=== PATIENT | female | born 1950 | race Hispanic/Latino ===

== ENCOUNTER 2017-02-10 12:56 | Inpatient (IN) | payer MEDICARE, MEDICAID ==
[2017-02-10 13:04] VITALS: BMI 54.8
--- NOTE | 2017-02-10 13:06 | ED PDOC ---
Arrival/HPI - General Time Seen by Provider: 02/10/17 13:06 Historian: Patient - History of Present Illness Narrative History of Present Illness (Text): 02/10/17 13:06 A 66 year old female, whose past medical history includes COPD, CHF, heart surgery, mitral valve replacement, ESBL urinary tract infection and appendectomy , is brought into the emergency department by EMS complaining of shortness of breath. As per EMS, patient received 125 mg of Solumedrol and 3 nebulizer treatments. Patient notes abdominal cramping and constipation but denies any fever, nausea, vomiting, chest pain or any other complaints. PMD: Dr. Looney Time/Duration: Prior to Arrival Symptom Course: Unchanged Quality: Other Context: Home Past Medical History - Provider Review Nursing Documentation Reviewed: Yes - Infectious Disease Hx of Infectious Diseases: None - Tetanus Immunization Tetanus Immunization: Unknown - Cardiac Hx Cardiac Disorders: Yes Hx Congestive Heart Failure: Yes Hx Hypertension: Yes - Pulmonary Hx Chronic Obstructive Pulmonary Disease (COPD): Yes - Neurological Hx Neurological Disorder: Yes Other/Comment: pt [place] had hearing aides they are broken at home - HEENT Hx HEENT Disorder: Yes (uses eyeglasses) Hx Deafness: Yes - Renal Hx Renal Disorder: No - Endocrine/Metabolic Hx Diabetes Mellitus Type 2: Yes - Hematological/Oncological Hx Blood Disorders: No - Integumentary Hx Dermatological Disorder: No - Musculoskeletal/Rheumatological Hx Falls: No - Gastrointestinal Hx Gastrointestinal Disorders: Yes Hx Gastroesophageal Reflux: Yes - Genitourinary/Gynecological Hx Genitourinary Disorders: Yes Other/Comment: hysterectomy, tubal ligation - Psychiatric Hx Psychophysiologic Disorder: Yes Hx Anxiety: Yes Hx Depression: Yes Hx Substance Use: No - Surgical History Hx Appendectomy: Yes Hx Hysterectomy: Yes Hx Open Heart Surgery: Yes (1957) Other/Comment: Tonsillectomy. Mitral valve repair as an . 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 - Anesthesia Hx Anesthesia Reactions: No - Suicidal Assessment Feels Threatened In Home Enviroment: No Family/Social History - Physician Review Nursing Documentation Reviewed: Yes Family/Social History: No Known Family HX Smoking Status: Never Smoked Hx Alcohol Use: No Hx Substance Use: No Hx Substance Use Treatment: No Allergies/Home Meds Allergies/Adverse Reactions: Allergies No Known Allergies Allergy (Verified 02/10/17 13:04) Home Medications: Home Meds Medication Instructions Recorded Confirmed Albuterol HFA [Ventolin HFA 90 0.09 mg IH QID 12/10/16 02/10/17 mcg/actuation (8 g)] traMADol [Ultram] 0 mg PO PRN PRN 02/10/17 02/10/17 Review of Systems - Physician Review All systems were reviewed & negative as marked: Yes - Review of Systems Constitutional: absent: Fevers Respiratory: SOB Cardiovascular: absent: Chest Pain Gastrointestinal: Abdominal Pain (Abdominal cramping), Constipation. absent: Nausea, Vomiting Physical Exam Vital Signs Reviewed: Yes Vital Signs Temp Pulse Resp BP Pulse Ox 02/10/17 17:00 84 17 138/62 97 02/10/17 13:05 97.3 F L 97 H 24 129/66 97 Temperature: Afebrile Blood Pressure: Normal Pulse: Tachycardic Respiratory Rate: Normal Appearance: Positive for: Well-Appearing, Non-Toxic, Comfortable, Other (Obese female) Pain Distress: None Mental Status: Positive for: Alert and Oriented X 3 Finger Stick Blood Glucose: 225 - Systems Exam Head: Present: Atraumatic, Normocephalic Pupils: Present: PERRL Extroacular Muscles: Present: EOMI Conjunctiva: Present: Normal Mouth: Present: Moist Mucous Membranes Neck: Present: Normal Range of Motion Respiratory/Chest: Present: Good Air Exchange, Wheezes (Diffuse wheezing). No: Respiratory Distress, Accessory Muscle Use Cardiovascular: Present: Regular Rate and Rhythm, Normal S1, S2. No: Murmurs Abdomen: Present: Distention, Normal Bowel Sounds. No: Tenderness, Peritoneal Signs, Rebound, Guarding Back: Present: Normal Inspection Upper Extremity: Present: Normal Inspection, NORMAL PULSES. No: Cyanosis, Edema Lower Extremity: Present: Normal Inspection, NORMAL PULSES. No: Edema, CALF TENDERNESS Neurological: Present: GCS=15, CN II-XII Intact, Speech Normal Skin: Present: Warm, Dry, Normal Color. No: Rashes Psychiatric: Present: Alert, Oriented x 3, Normal Insight, Normal Concentration Medical Decision Making ED Course and Treatment: 02/10/17 13:06 Impression: A 66 year old female with shortness of breath. Patient notes chronic constipation/abd distention. Plan: -- Abdominal xray -- Chest xray -- EKG -- Labs -- Blood and Urine culture -- Urinalysis -- Albuterol -- Reassess and disposition Progress Notes: EKG shows NSR at [address]-segment elevations, normal intervals. Interpreted by me. Report Date : 02/10/2017 15:04:58 Procedure: Abdominal xray Dictator : Ranjana Benítez V. IMPRESSION: Severely limited exam given the patient 's large body habitus. No gross free air apparent on the limited upright view 02/10/17 15:37 Labs reviewed, elevated white count. Patient is also on steroids. Dr. Aayush krishnan, awaiting call back. 02/10/17 15:49 Patient does not feel comfortable going home. Plan is to admit patient for COPD exacerbation. 02/10/17 16:[address] Looney, who accepted admission under his service. Requests Dr. Ramos for pulmonary consult. He instructs to give patient 40 mg IVP Q8 of solumedrol. 02/10/17 17:[address] Garcia, covering for Dr. Ramos, who accepts consult. abdomen xr: no acute findings 02/10/17 19:57 02/10/17 19:58 02/10/17 19:58 - Lab Interpretations Lab Results: 02/10/17 13:20 02/10/17 13:20 Lab Results 02/10/17 14:13: Urine Color Yellow, Urine Appearance Clear, Urine pH 7.0, Ur Specific [place] 1.015, Urine Protein Negative, Urine Glucose (UA) Negative, Urine Ketones Negative, Urine Blood Negative, Urine Nitrate Negative, Urine Bilirubin Negative, Urine Urobilinogen 0.2, Ur Leukocyte Esterase Negative 02/10/17 13:20: WBC 17.7 H, RBC 5.00, Hgb 11.1 L, Hct 38.4, MCV 76.8 L, MCH 22.2 L, MCHC 28.9 L, RDW 16.9 H, Plt Count 325, MPV 8.9, Gran % 81.5 H, Lymph % (Auto) 12.1 L, [place] % (Auto) 5.5, Eos % (Auto) 0.7 L, Baso % (Auto) 0.2, Gran # 14.42 H, Lymph # 2.1, [place] # 1.0 H, Eos # 0.1, Baso # 0.04, Sodium 138, Potassium 3.9, Chloride 93 L, Carbon Dioxide 35 H, Anion Gap 14, BUN 17, Creatinine 0.7, Est GFR ( Amer) > 60, Est GFR (Non-Af Amer) > 60, Random Glucose 241 H, Calcium 9.6, Total Bilirubin 0.5, AST 15, ALT 15, Alkaline Phosphatase 107, Troponin I < 0.01, Total Protein 6.8, Albumin 3.8, Globulin 3.0 , Albumin/Globulin Ratio 1.3 I have reviewed the lab results: Yes - RAD Interpretation Radiology Orders: 02/10/17 13:11 CHEST ONE VIEW [RAD] Stat 02/10/17 13:12 ABD 2 VIEWS (FLAT/UP OR DECUB) [RAD] Stat - Medication Orders Current Medication Orders: Albuterol/Ipratropium (Duoneb 3 Mg/0.5 Mg (3 Ml) Ud) 3 ml IH Q4H JONATHAN Docusate Sodium (Colace) 100 mg PO DAILY JONATHAN Furosemide (Lasix) 40 mg IVP DAILY JONATHAN Ceftriaxone Sodium (Rocephin 1 Gram Ivpb) 100 mls @ 100 mls/hr IVPB DAILY JONATHAN PRN Reason: Protocol Azithromycin (Zithromax 500mg In Ns) 250 mls @ 167 mls/hr IVPB DAILY JONATHAN PRN Reason: Protocol Insulin Human Regular (Humulin R High) 0 units SC ACHS JONATHAN PRN Reason: Protocol Methylprednisolone (Solu-Medrol) 40 mg IVP Q8 JONATHAN Metoprolol Tartrate (Lopressor) 25 mg PO BID JONATHAN Montelukast Sodium (Singulair) 10 mg PO HS JONATHAN Tiotropium [place] (Spiriva) 18 mcg IH DAILY JONATHAN Tramadol HCl (Ultram) 50 mg PO Q8H PRN PRN Reason: Pain, moderate (4-7) Discontinued Medications Albuterol Sulfate (Albuterol 0.083% Inhal Daniella (2.5 Mg/3 Ml) Ud) 2.5 mg INH ONCE ONE Stop: 02/10/17 13:13 Last Admin: 02/10/17 13:34 Dose: 2.5 MG - Scribe Statement The provider has reviewed the documentation as recorded by the Scribe Helen Barbour Provider Scribe Attestation: All medical record entries made by the Scribe were at my direction and personally dictated by me. I have reviewed the chart and agree that the record accurately reflects my personal performance of the history, physical exam, medical decision making, and the department course for this patient. I have also personally directed, reviewed, and agree with the discharge instructions and disposition. Disposition/Present on Arrival - Present on Arrival Any Indicators Present on Arrival: No History of DVT/PE: No History of Uncontrolled Diabetes: No Urinary Catheter: No History Surgical Site Infection Following: None - Disposition Have Diagnosis and Disposition been Completed?: Yes Diagnosis: COPD with acute exacerbation Disposition: HOSPITALIZED Disposition Time: 15:50 Patient Plan: Admission Patient Problems: Current Active Problems Problem Status Diagnosed COPD with acute exacerbation Acute E coli infection Acute ESBL (extended spectrum beta-lactamase) producing bacteria infection Acute Urinary tract infection Acute Condition: STABLE
[2017-02-10] MEDS ORDERED: Albuterol 0.083% Inhal Sol (2.5 mg/3 mL) UD INH ONE (13:12)
[2017-02-10 13:36] LABS: ADD MANUAL DIFF? NO
[2017-02-10 13:40] LABS: HEMATOCRIT 38.4 % (36.0-48.0); MEAN CELL VOLUME 76.8 fL (80.0-105.0); MEAN CORPUSCULAR HEMOGLOBIN 22.2 pg (25.0-35.0); WHITE BLOOD COUNT 17.7 [, 10^3/ul] (4.5-11.0)
[2017-02-10 13:41] LABS: BASO # 0.04 [, K/mm3] (0.0-2.0); BASO % 0.2 % (0.0-3.0); EOS # 0.1 (0.0-0.7); EOS % 0.7 % (1.5-5.0); GRAN # 14.42 (1.4-6.5); GRAN % 81.5 % (50.0-68.0); LYMPH # 2.1 (1.2-3.4); LYMPH % 12.1 % (22.0-35.0); MEAN CORPUSCULAR HGB CONC 28.9 g/dl (31.0-37.0); MEAN PLATELET VOLUME 8.9 fl (7.0-11.0); MONO % 5.5 % (1.0-6.0); PLATELET COUNT 325 [, 10^3/uL] (120.0-450.0); RED CELL DISTRIBUTION WIDTH 16.9 % (11.5-14.5)
[2017-02-10 13:48] LABS: ALB/GLOB RATIO 1.3 (1.1-1.8); ALKALINE PHOSPHATASE 107 U/L (38-133); ALT/SGPT 15 U/L (7-56); AST/SGOT 15 U/L (15-39); BILIRUBIN,TOTAL 0.5 mg/dL (0.2-1.3); BLOOD UREA NITROGEN 17 mg/dL (7-21); CALCIUM 9.6 mg/dL (8.4-10.5); CARBON DIOXIDE 35 mmol/L (21-33); CHLORIDE 93 mmol/L (98-107); GFR AFRICAN-AMERICAN > 60; GLUCOSE,RANDOM 241 mg/dL (70-110); POTASSIUM 3.9 mmol/L (3.6-5.0); SODIUM 138 mmol/L (132-148); TOTAL PROTEIN 6.8 g/dL (5.8-8.3)
[2017-02-10 14:00] LABS: TROPONIN I < 0.01 ng/mL
[2017-02-10 14:20] LABS: URINE BILIRUBIN NEGATIVE (NEGATIVE); URINE BLOOD NEGATIVE (NEGATIVE); URINE GLUCOSE (UA) NEGATIVE (NEGATIVE); URINE KETONE NEGATIVE (NEGATIVE); URINE LEUKOCYTE ESTERASE NEGATIVE Leu/uL (NEGATIVE); URINE PROTEIN NEGATIVE mg/dL (<30 mg/dL); URINE UROBILINOGEN 0.2 E.U./dL (<1 E.U./dL)
[2017-02-10 14:22] LABS: URINE APPEARANCE CLEAR (CLEAR); URINE COLOR YELLOW (YELLOW)
--- NOTE | 2017-02-10 15:06 | RAD ---
HISTORY: constipation COMPARISON: No prior. FINDINGS: BOWEL: The exam is severely limited due to body habitus no significant appearing gas within small or large bowel loops are clearly seen. There is normal-appearing gas in the stomach BONES: Not visualized OTHER FINDINGS: None. IMPRESSION: Severely limited exam given the patient 's large body habitus. No gross free air apparent on the limited upright view
--- NOTE | 2017-02-10 19:53 | CARD ---
APPROVED REPORT EKG Measurement Heart [id number] <Conclusion> Sinus rhythm with premature supraventricular complexes Low voltage QRS Borderline ECG
[2017-02-10] MEDS: Albuterol-Ipratrop 3 mg / 0.5 (3 ml) UD IH SCH ×2 (20:46→23:31)
[2017-02-10] MEDS: MethylPREDNISolone 40 mg Vial IVP SCH (21:34)
--- NOTE | 2017-02-10 22:47 | CP.PCM.PN ---
Subjective - Date & Time of Evaluation Date of Evaluation: 02/10/17 Time of Evaluation: 22:46 - Subjective Subjective: Patient was seen @ bedside because she requested CPAP machine which she is on at home. States that she uses pressure of '16'. Also states that she can not sleep without trazodoe and tylenol. She requests something for her restless leg syndrome. Has no other complaints. Denies chest pain, sob, nausea, sweating, palpitation, head ache, dizziness. Pertinent medical record was reviewed. This 66 year old white woman was admitted with dizziness, borderline hypoglycemia. Has PMH of COPD,obesity,DM, ROGER. Objective - Vital Signs/Intake and Output Vital Signs (last 24 hours): Temp Pulse Resp BP Pulse Ox 98.5 F 88 21 150/59 L 94 L 02/10/17 21:55 02/10/17 21:55 02/10/17 21:55 02/10/17 21:55 02/10/17 18:30 Intake and Output: 02/10/17 02/11/17 18:59 06:59 Intake Total 540 Balance 540 - Medications Medications: Current Medications Albuterol/Ipratropium (Duoneb 3 Mg/0.5 Mg (3 Ml) Ud) 3 ml IH Q4H [facility] Last Admin: 02/10/17 20:46 Dose: 3 ml Docusate Sodium (Colace) 100 mg PO DAILY JONATHAN Furosemide (Lasix) 40 mg IVP DAILY JONATHAN Ceftriaxone Sodium (Rocephin 1 Gram Ivpb) 100 mls @ 100 mls/hr IVPB DAILY JONATHAN PRN Reason: Protocol Azithromycin (Zithromax 500mg In Ns) 250 mls @ 167 mls/hr IVPB DAILY JONATHAN PRN Reason: Protocol Insulin Human Regular (Humulin R High) 0 units SC ACHS JONATHAN PRN Reason: Protocol Methylprednisolone (Solu-Medrol) 40 mg IVP Q8 JONATHAN Last Admin: 02/10/17 21:34 Dose: 40 mg Metoprolol Tartrate (Lopressor) 25 mg PO BID JONATHAN Montelukast Sodium (Singulair) 10 mg PO HS [facility] Last Admin: 02/10/17 21:34 Dose: 10 mg Tiotropium [place] (Spiriva) 18 mcg IH DAILY JONATHAN Tramadol HCl (Ultram) 50 mg PO Q8H PRN PRN Reason: Pain, moderate (4-7) - Constitutional Appears: Well, No Acute Distress - Head Exam Head Exam: ATRAUMATIC, NORMAL INSPECTION, NORMOCEPHALIC Additional comments: Obese. - Eye Exam Eye Exam: Normal appearance - ENT Exam ENT Exam: Normal External Ear Exam - Neck Exam Neck Exam: Normal Inspection - Respiratory Exam Respiratory Exam: NORMAL BREATHING PATTERN - Cardiovascular Exam Cardiovascular Exam: absent: JVD - GI/Abdominal Exam GI & Abdominal Exam: absent: Distended - Rectal Exam Rectal Exam: Deferred - Extremities Exam Extremities Exam: Normal Inspection - Back Exam Back Exam: NORMAL INSPECTION - Neurological Exam Neurological Exam: Alert, Oriented x3 - Psychiatric Exam Psychiatric exam: Normal Affect, Normal Mood - Skin Skin Exam: Normal Color Assessment and Plan - Assessment and Plan (Free Text) Assessment: A/P:Adjustment insomnia. ROGER. Restless leg syndrome history. DM. Tylenol 975 mg PO x 1. Requip 1 mg PO x 1. Trazodone 200 mg PO x 1.
[2017-02-10] MEDS: Insulin Reg-HIGH-Coverage SC SCH (23:21)
--- NOTE | 2017-02-10 23:37 | HP ---
I know the patient very well from multiple house calls, multiple hospital admissions. She comes in t o the Emergency Room with an acute shortness of breath. She tells me she was almost intubated in the field. She received 125 mg of Solu-Medrol, 3 nebulizer treatments, and she still could not be disch arged. She has a past medical history of COPD, CHF, heart surgery, mitral valve replacement, ESBL urinary tr act infections, appendectomy, morbidly obese. She has been on steroids many times in the outpatient, and now she is acutely short of breath again. She has CHF, COPD, hard of hearing. She wears glasse s, type 2 diabetes, reflux, hysterectomy, tubal ligation. She has anxiety and depression, deafness. Appendectomy, hysterectomy, open heart surgery, tonsillectomy, mitral valve repair as an infant, tumo r removed from left shoulder. Hypertension, diabetes in the family. She never smoked. No alcohol, no drugs. No known drug allergies. She takes a whole bunch of medications. She is on nebulizer treatments, Ventolin, Lasix, Desyrel, Du oNeb, Colace, Lopressor, Singulair, Spiriva, Ultram. She has presently been on prednisone 20 mg, and she is here; failed outpatient steroids. On review of systems there is old hearing loss, old vision loss, nothing acute. No sore throat. No chest pain, acute shortness of breath, wheezes, rhonchi, cannot catch her breath. ABDOMEN: Cramping, constipation. EXTREMITIES: Swollen, difficult to walk, very, very weak, very short of breath, feeling uncomfortabl e. Even with oxygen she tells me she feels short of breath. She has a 97.3 temp, 97 pulse, 24 respiratory rate after the nebulizer treatment and 125 of Solu-Medr ol; 138/62, and 97% O2 sat on 3 L. HEAD: Atraumatic, normocephalic. She looks denisse from all the steroids she has been on. Extraocular muscles are intact. Throat is dry. Pupils equal, reactive to light. HEART: Regular rate. LUNGS: Have decreased breath sounds bilaterally, wheezes, very tight breathing. : Regular rate. Normal S1, S2. ABDOMEN: Morbidly obese. Decreased bowel sounds, no tenderness, no apparent guarding or rebound. N o CVA tenderness. EXTREMITIES: Have +2/4 pitting edema bilaterally. Very weak lower extremities. GCS is 15. Cranial nerves II-XII grossly intact. Speech is normal. Alert and oriented x 3. She had multiple tests. She had a 138 sodium, potassium 3.9, BUN 17, creatinine 0.7, GFR is greater than 60. Sugar is 241. Not on any medicine for diabetes. Calcium is 9.6, total bili is 0.5. AST i s 15, ALT is 15, alk phos 107, troponin is less than 0.01, total protein 6.8, albumin of 3.8, globuli n 3. Urine is clean. A 17.7 white count, 11.1 hemoglobin, 38.4 hematocrit, with 325 platelets. Chest x-ray is pending. Abdomen x-ray: Could not tell much from the abdominal cramping, and she is too big. I made her an inpatient. She will be on Solu-Medrol 40 mg IV q. 8, Lasix IV 40 mg daily, DuoNeb, oxy gen, ceftriaxone, Rocephin, Singulair, Spiriva, oxygen, physical therapy. She might need subacute re hab. Consult with pulmonology, and she is here with acute COPD. Thomas Looney DO cc: [id number] TT: 02/10/2017 23:37:04 jn
[2017-02-11] MEDS: Albuterol-Ipratrop 3 mg / 0.5 (3 ml) UD IH SCH ×6 (04:49→23:22)
[2017-02-11] MEDS: MethylPREDNISolone 40 mg Vial IVP SCH ×3 (06:23→22:11)
[2017-02-11 07:42] LABS: HEMATOCRIT 38.4 % (36.0-48.0); MEAN CORPUSCULAR HEMOGLOBIN 21.6 pg (25.0-35.0); MEAN CORPUSCULAR HGB CONC 28.4 g/dl (31.0-37.0); MEAN PLATELET VOLUME 8.7 fl (7.0-11.0); RED CELL DISTRIBUTION WIDTH 16.8 % (11.5-14.5); WHITE BLOOD COUNT 18.9 [, 10^3/ul] (4.5-11.0)
[2017-02-11] MEDS: Budesonide 0.5 mg/2 ml Inhal Susp UD IH SCH ×2 (07:49→20:52)
--- NOTE | 2017-02-11 08:14 | RAD ---
PROCEDURE: CHEST RADIOGRAPH, 1 VIEW HISTORY: Sepsis Patient COMPARISON: Comparison is made to the previous study dated 01/14/2017 FINDINGS: LUNGS: Suboptimal assessment due to portable technique and patient's body habitus. The assessment of the lower lobes is somewhat limited this study. No significant interval change noted since the previous exam. PLEURA: No pneumothorax or pleural fluid seen. CARDIOVASCULAR: Cardiomegaly is again suspected. OSSEOUS STRUCTURES: No significant abnormalities. VISUALIZED UPPER ABDOMEN: Normal. OTHER FINDINGS: None. IMPRESSION: Limited study. Cardiomegaly and pulmonary vascular congestion again noted.
[2017-02-11] MEDS: Insulin Reg-HIGH-Coverage SC SCH ×4 (08:21→22:12)
[2017-02-11 08:25] LABS: ALB/GLOB RATIO 1.3 (1.1-1.8); ALKALINE PHOSPHATASE 100 U/L (38-133); ALT/SGPT 21 U/L (7-56); AST/SGOT 16 U/L (15-39); BILIRUBIN,TOTAL 0.5 mg/dL (0.2-1.3); BLOOD UREA NITROGEN 19 mg/dL (7-21); CALCIUM 9.5 mg/dL (8.4-10.5); CARBON DIOXIDE 36 mmol/L (21-33); CHLORIDE 94 mmol/L (98-107); GFR AFRICAN-AMERICAN > 60; GLUCOSE,RANDOM 250 mg/dL (70-110); POTASSIUM 4.2 mmol/L (3.6-5.0); SODIUM 139 mmol/L (132-148); TOTAL PROTEIN 6.8 g/dL (5.8-8.3)
[2017-02-11] MEDS: Tiotropium 18 mcg Cap For Inhalation IH SCH (09:33)
[2017-02-11] MEDS: cefTRIAXone 1 gm 100 ML IVPB SCH (09:33)
--- NOTE | 2017-02-11 09:53 | PN ---
DATE: 02/11/2017 I saw the patient sitting up in bed. She is doing much better today than the other day. She is radha thing better. MEDICATIONS: She is on Colace, DuoNeb, insulin, Lasix, Lopressor, Pulmicort, Rocephin, Singulair, So zachary-Medrol (she is down to twice a day as opposed to 3 times a day), Spiriva, Ultram, Zithromax. She is on the BiPAP and definitely more energy today than yesterday. PHYSICAL EXAMINATION: VITAL SIGNS: She has a 98.5 temp, 88 pulse, 152/59 blood pressure, 21 respiratory rate, and 94% O2 s at on nasal cannula. HEAD: Atraumatic, normocephalic. Throat is moist. NECK: Supple. HEART: Regular rate. LUNGS: Decreased breath sounds. For the most part clear. ABDOMEN: Morbidly obese, soft, nontender, positive bowel sounds. EXTREMITIES: Trace edema. LABORATORY DATA: There is an 18.9 white count but we bumped up her steroids, 10.9 hemoglobin, 38.4 h ematocrit with 320 platelets. Sodium 139, potassium 4.2, BUN 19, creatinine 0.6, GFR is greater than 60, sugar is at 250 and 252 (I will adjust her insulin), calcium is 9.5. AST is 16, ALT is 21, elinor line phosphatase 100, total protein 6.8. I am going to add her trazodone which she is missing and her Tylenol. Continue with aggressive treat ment and care, and hopefully for TCU on Wednesday. The patient has acute chronic obstructive pulmonary disease. Thomas Looney DO cc: [id number] TT: 02/11/2017 09:53:14 Confirmation # [id number] Dictation # [id number] mn
--- NOTE | 2017-02-11 10:13 | CON ---
DATE: 02/11/2017 REASON FOR CONSULTATION: Chronic obstructive pulmonary disease. REFERRING PHYSICIAN: Dr. Thomas Looney. HISTORY OF PRESENT ILLNESS: The patient is a 66-year-old female with past medical history significant for advanced chronic obstructive pulmonary disease ( on home oxygen and home steroids), respiratory failure in the past, obstructive sleep apnea, morbid obesity, diabetes mellitus, valvular heart disease, severe anxiety, who presents to [facility] with worsening shortness of breath at rest, dyspnea on exertion, and cough over the past day. The patient denies sputum production. The patient also denies chest pain, coughing up of blood or chest pain -- made worse with deep respirations. There is no history of temperatures, chills or infectious exposure. There is no history of night sweats, weight loss or appetite change prior to the above events. No history of leg or calf pains. No history of syncope or diaphoresis. No history of recent travel or trauma. REVIEW OF SYSTEMS: The patient does admit to some abdominal cramping at times. There is no nausea, vomiting or diarrhea. No acute urinary symptoms. No new neurological or musculoskeletal complaints. Rest of the review of systems is negative. ALLERGIES: No known allergies. SOCIAL HISTORY: Positive for extensive tobacco. Negative for alcohol. FAMILY HISTORY: No inheritable diseases. HOME MEDICATIONS: Include Desyrel, Ultram, Spiriva, DuoNebs, Singulair, Lopressor, Lasix, Colace, prednisone. PHYSICAL EXAMINATION: GENERAL: The patient appears comfortable at rest. She is not short of breath. VITAL SIGNS: Temperature is 98.5, pulse 88, respirations 20, blood pressure 150 /59. Oxygen saturation on nasal cannula is 94-97%. HEENT: Normocephalic, atraumatic. NECK: No JVD. CARDIOVASCULAR: Systolic ejection murmur at the lower left sternal border. No S3 gallop. LUNGS: Decreased breath sounds at the bases. Minimal rhonchi. Few expiratory wheezes. EXTREMITIES: Positive for edema. No cyanosis, no clubbing. Calves are nontender to palpation. GASTROINTESTINAL: Abdomen is soft, nontender, nondistended. Bowel sounds are positive. SKIN: No acute rash. NEUROLOGIC: Limited at the present time. PERTINENT LABORATORY DATA: Chest x-ray was done yesterday and reviewed. It is a very poor portable film. I do not appreciate any significant change from the previous films. The official report is pending. CBC: White count 17.7, hemoglobin 11.1, hematocrit 38.4, platelets of 325. Complete metabolic profile : Chloride 93, carbon dioxide 35, glucose 241. Rest of the metabolic profile is within normal limits. IMPRESSION: 1. Acute bronchitis. 2. Advanced chronic obstructive pulmonary disease, on home oxygen and steroids. 3. Obstructive sleep apnea. 4. Diabetes mellitus. 5. Valvular heart disease. PLAN: I did discuss the case with the patient and the nurse at length. The patient presents to [facility] with a 1-day history of worsening pulmonary symptoms. I did review the x-ray as above. Again, it is a very poor portable film. I do not appreciate any significant change from the previous films. On physical exam, the patient is in mild bronchospasm. I will continue with the current nebulizer treatments and add inhaled budesonide this morning. I will also decrease the intravenous steroids. The patient is currently on antibiotic therapy. There are no temperatures noted. The patient does run a mild leukocytosis during many of her admissions. The patient does state to feeling better this morning -- compared to the past few days. She is clinically improved this morning. Additional pulmonary intervention will be based on the clinical status of the patient. I will discuss the above with Dr. Looney. Wagner Ramos MD cc: [id number] TT: 02/11/2017 10:12:41 Confirmation # [id number] Dictation # [id number] jn MTDD
[2017-02-11] MEDS: Azithromycin 500MG/NS 250ml 250 ML IVPB SCH (12:08)
--- NOTE | 2017-02-11 13:30 | CP.PCM.CON ---
Addendum entered and electronically signed by Jas Lopez DO 02/11/17 14:15 : PGY4 Addendum: Patient had a large BM without the use of any laxative therapy. Will d/c order for enema and mag. citrate. Continue with Miralax 17g PO BID. Original Note: <Jas Lopez - Last Filed: 02/11/17 13:20> History of Present Illness - History of Present Illness History of Present Illness: PGY4 GI Fellow Consult Note Patient is a 66yo female with PMHx significant for COPD, CHF, H/O MV replacement , ROGER, morbid obesity, OA, spinal stenosis who presented to the ED complaining of shortness of breath. Our service has been consulted for abdominal cramping and constipation. The patient had acute onset shortness of breath and called EMS. She is currently being treated for COPD exacerbation and per chart history , was close to intubation in the field on arrival of EMS. She complains of worsening constipation over the past month. She has always suffered with constipation, passing stool infrequently (2-3 days) and often pushing or straining just to pass small amounts. In the past week she has noted increasing difficulty to pass stool and worsening abdominal distention. She has used colace and miralax at home with minimal relief. Denies any weight loss, nausea, vomiting. Does admit to one episode of fresh blood following passage of hard stool and episodes of dysphagia which are positional. PMHx: See HPI PSHx: Mitral valve replacement, Appendectomy, JESU, left ankle, multiple D&C, tubal ligation FHx: Brother - lung cancer; sister - breast cancer Social: Former smoker, quit 15 years ago; no EtOH or illicit drug use Endo: Colonoscopy and EGD 3 years ago - 9+ polyps removed Review of Systems - Constitutional Constitutional: absent: Anorexia, Chills, Fever - EENT Eyes: absent: Change in Vision Nose/Mouth/Throat: absent: Sore Throat - Cardiovascular Cardiovascular: absent: Chest Pain, Diaphoresis, Edema - Respiratory Respiratory: Dyspnea, Dyspnea on Exertion. absent: Cough - Gastrointestinal Gastrointestinal: Abdominal Pain, Bloating, Constipation, Cramping. absent: Diarrhea, Dyspepsia, Dysphagia, Hematemesis, Melena, Nausea, Vomiting - Genitourinary Genitourinary: absent: Dysuria, Urinary Frequency, Urinary Urgency - Musculoskeletal Musculoskeletal: absent: Back Pain, Neck Pain - Integumentary Integumentary: absent: New Lesions, Rash - Neurological Neurological: absent: Dizziness, Numbness, Focal Weakness - Psychiatric Psychiatric: absent: Anxiety, Depression - Endocrine Endocrine: absent: Polydipsia, Polyphagia, Polyuria - Hematologic/Lymphatic Hematologic: absent: Easy Bleeding, Easy Bruising, Lymphadenopathy Past Patient History - Infectious Disease Hx of Infectious Diseases: None - Tetanus Immunizations Tetanus Immunization: Unknown - Past Social History Smoking Status: Former Smoker - CARDIAC Hx Cardiac Disorders: Yes Hx Congestive Heart Failure: Yes Hx Hypertension: Yes - PULMONARY Hx Chronic Obstructive Pulmonary Disease (COPD): Yes - NEUROLOGICAL Hx Neurological Disorder: Yes Other/Comment: pt [place] had hearing aides they are broken at home - HEENT Hx HEENT Problems: Yes (uses eyeglasses) Hx Deafness: Yes - RENAL Hx Chronic Kidney Disease: No - ENDOCRINE/METABOLIC Hx Diabetes Mellitus Type 2: Yes - HEMATOLOGICAL/ONCOLOGICAL Hx Blood Disorders: No - INTEGUMENTARY Hx Dermatological Problems: No - MUSCULOSKELETAL/RHEUMATOLOGICAL Hx Falls: No - GASTROINTESTINAL Hx Gastrointestinal Disorders: Yes Hx Gastroesophageal Reflux: Yes - GENITOURINARY/GYNECOLOGICAL Hx Genitourinary Disorders: Yes Other/Comment: hysterectomy, tubal ligation - PSYCHIATRIC Hx Psychophysiologic Disorder: Yes Hx Anxiety: Yes Hx Depression: Yes - SURGICAL HISTORY Hx Appendectomy: Yes Hx Hysterectomy: Yes Hx Open Heart Surgery: Yes (1957) Other/Comment: Tonsillectomy. Mitral valve repair as an . 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 - ANESTHESIA Hx Anesthesia Reactions: No Meds Allergies/Adverse Reactions: Allergies Allergy/AdvReac Type Severity Reaction Status Date / Time No Known Allergies Allergy Verified 02/10/17 13:04 - Medications Medications: Current Medications Acetaminophen (Tylenol 325mg Tab) 650 mg PO Q6H PRN PRN Reason: Headache Albuterol/Ipratropium (Duoneb 3 Mg/0.5 Mg (3 Ml) Ud) 3 ml IH Q4H [facility] Last Admin: 02/11/17 11:23 Dose: 3 ml Budesonide (Pulmicort Respules) 0.5 mg IH [id number] [facility] Last Admin: 02/11/17 07:49 Dose: 0.5 mg Docusate Sodium (Colace) 100 mg PO DAILY [facility] Last Admin: 02/11/17 09:33 Dose: 100 mg Furosemide (Lasix) 40 mg IVP DAILY [facility] Last Admin: 02/11/17 09:33 Dose: 40 mg Ceftriaxone Sodium (Rocephin 1 Gram Ivpb) 100 mls @ 100 mls/hr IVPB DAILY [facility] PRN Reason: Protocol Last Admin: 02/11/17 09:33 Dose: 100 mls/hr Azithromycin (Zithromax 500mg In Ns) 250 mls @ 167 mls/hr IVPB DAILY [facility] PRN Reason: Protocol Last Admin: 02/11/17 12:08 Dose: 167 mls/hr Insulin Human Regular (Humulin R High) 0 units SC ACHS [facility] PRN Reason: Protocol Last Admin: 02/11/17 12:08 Dose: 10 units Methylprednisolone (Solu-Medrol) 40 mg IVP Q12 [facility] Last Admin: 02/11/17 09:33 Dose: Not Given Metoprolol Tartrate (Lopressor) 25 mg PO BID [facility] Last Admin: 02/11/17 09:33 Dose: 25 mg Montelukast Sodium (Singulair) 10 mg PO [facility] Last Admin: 02/10/17 21:34 Dose: 10 mg Tiotropium [place] (Spiriva) 18 mcg IH DAILY [facility] Last Admin: 02/11/17 09:33 Dose: 18 mcg Tramadol HCl (Ultram) 50 mg PO Q8H PRN PRN Reason: Pain, moderate (4-7) Trazodone HCl (Desyrel) 200 mg PO [facility] Physical Exam - Constitutional Appears: Non-toxic, No Acute Distress Additional comments: morbidly obese - Eye Exam Eye Exam: EOMI, PERRL - ENT Exam ENT Exam: Mucous Membranes Moist - Respiratory Exam Respiratory Exam: Rales, Wheezes. absent: Clear to Auscultation Bilateral, Rhonchi - Cardiovascular Exam Cardiovascular Exam: Tachycardia, REGULAR RHYTHM, +S1, +S2 - GI/Abdominal Exam GI & Abdominal Exam: Distended, Normal Bowel Sounds, Soft. absent: Guarding, Hernia, Organomegaly, Rigid, Tenderness - Extremities Exam Extremities exam: Positive for: normal inspection. Negative for: pedal edema - Neurological Exam Neurological exam: Alert, Oriented x3 - Psychiatric Exam Psychiatric exam: Normal Affect, Normal Mood - Skin Skin Exam: Dry, Warm Results - Vital Signs Recent Vital Signs: Last Vital Signs Temp 97 F L 02/11/17 09:11 Pulse 97 H 02/11/17 09:33 Resp 22 02/11/17 09:11 BP 130/58 L 02/11/17 09:33 Pulse Ox 93 L 02/11/17 09:11 - Labs Result Diagrams: 02/11/17 07:25 02/11/17 07:25 Labs: Laboratory Results - last 24 hr 02/10/17 02/11/17 02/11/17 21:49 07:25 07:37 WBC 18.9 H RBC 5.05 Hgb 10.9 L Hct 38.4 MCV 76.0 L MCH 21.6 L MCHC 28.4 L RDW 16.8 H Plt Count 320 MPV 8.7 Sodium 139 Potassium 4.2 Chloride 94 L Carbon Dioxide 36 H Anion Gap 13 BUN 19 Creatinine 0.6 Est GFR ( Amer) > 60 Est GFR (Non-Af Amer) > 60 POC Glucose (mg/dL) 316 H 252 H Random Glucose 250 H Hemoglobin A1c 7.5 H Calcium 9.5 Total Bilirubin 0.5 AST 16 ALT 21 Alkaline Phosphatase 100 Total Protein 6.8 Albumin 3.8 Globulin 3.0 Albumin/Globulin Ratio 1.3 02/11/17 11:03 WBC RBC Hgb Hct MCV MCH MCHC RDW Plt Count MPV Sodium Potassium Chloride Carbon Dioxide Anion Gap BUN Creatinine Est GFR ( Amer) Est GFR (Non-Af Amer) POC Glucose (mg/dL) 313 H Random Glucose Hemoglobin A1c Calcium Total Bilirubin AST ALT Alkaline Phosphatase Total Protein Albumin Globulin Albumin/Globulin Ratio Assessment & Plan - Assessment and Plan (Free Text) Assessment: Patient is a 66yo female with PMHx significant for COPD, CHF, H/O MV replacement , ROGER, morbid obesity, OA, spinal stenosis who presented to the ED complaining of shortness of breath. Our service has been consulted for abdominal cramping and constipation. -Acute COPD exacerbation -CHF -ROGER -Morbid obesity -Constipation Plan: -Recommend an aggressive bowel regimen -Start with fleet enema x 1 followed by tap water enema to stool -Miralax 17g PO BID -Magnesium citrate 1 bottle -D/C colace -Continue to monitor -Pt will benefit from colonoscopy as outpatient once she is medically optimized from a pulmonary standpoint - Date & Time Date: 02/11/17 Time: 11:20 <Bernard Jamison - Last Filed: 02/11/17 16:23> Meds - Medications Medications: Current Medications Acetaminophen (Tylenol 325mg Tab) 650 mg PO Q6H PRN PRN Reason: Headache Albuterol/Ipratropium (Duoneb 3 Mg/0.5 Mg (3 Ml) Ud) 3 ml IH Q4H [facility] Last Admin: 02/11/17 11:23 Dose: 3 ml Budesonide (Pulmicort Respules) 0.5 mg IH [id number] [facility] Last Admin: 02/11/17 07:49 Dose: 0.5 mg Docusate Sodium (Colace) 100 mg PO DAILY [facility] Last Admin: 02/11/17 09:33 Dose: 100 mg Furosemide (Lasix) 40 mg IVP DAILY [facility] Last Admin: 02/11/17 09:33 Dose: 40 mg Ceftriaxone Sodium (Rocephin 1 Gram Ivpb) 100 mls @ 100 mls/hr IVPB DAILY [facility] PRN Reason: Protocol Last Admin: 02/11/17 09:33 Dose: 100 mls/hr Azithromycin (Zithromax 500mg In Ns) 250 mls @ 167 mls/hr IVPB DAILY [facility] PRN Reason: Protocol Last Admin: 02/11/17 12:08 Dose: 167 mls/hr Insulin Human Regular (Humulin R High) 0 units SC ACHS [facility] PRN Reason: Protocol Last Admin: 02/11/17 12:08 Dose: 10 units Methylprednisolone (Solu-Medrol) 40 mg IVP Q12 [facility] Last Admin: 02/11/17 09:33 Dose: Not Given Metoprolol Tartrate (Lopressor) 25 mg PO BID [facility] Last Admin: 02/11/17 09:33 Dose: 25 mg Montelukast Sodium (Singulair) 10 mg PO HS [facility] Last Admin: 02/10/17 21:34 Dose: 10 mg Polyethylene Glycol (Miralax) 17 gm PO BID [facility] Tiotropium [place] (Spiriva) 18 mcg IH DAILY [facility] Last Admin: 02/11/17 09:33 Dose: 18 mcg Tramadol HCl (Ultram) 50 mg PO Q8H PRN PRN Reason: Pain, moderate (4-7) Trazodone HCl (Desyrel) 200 mg PO HS [facility] Results - Vital Signs Recent Vital Signs: Last Vital Signs Temp 97 F L 02/11/17 09:11 Pulse 97 H 02/11/17 09:33 Resp 22 02/11/17 09:11 BP 130/58 L 02/11/17 09:33 Pulse Ox 93 L 02/11/17 09:11 - Labs Result Diagrams: 02/11/17 07:25 02/11/17 07:25 Labs: Laboratory Results - last 24 hr 02/10/17 02/11/17 02/11/17 21:49 07:25 07:37 WBC 18.9 H RBC 5.05 Hgb 10.9 L Hct 38.4 MCV 76.0 L MCH 21.6 L MCHC 28.4 L RDW 16.8 H Plt Count 320 MPV 8.7 Sodium 139 Potassium 4.2 Chloride 94 L Carbon Dioxide 36 H Anion Gap 13 BUN 19 Creatinine 0.6 Est GFR ( Amer) > 60 Est GFR (Non-Af Amer) > 60 POC Glucose (mg/dL) 316 H 252 H Random Glucose 250 H Hemoglobin A1c 7.5 H Calcium 9.5 Total Bilirubin 0.5 AST 16 ALT 21 Alkaline Phosphatase 100 Total Protein 6.8 Albumin 3.8 Globulin 3.0 Albumin/Globulin Ratio 1.3 02/11/17 11:03 WBC RBC Hgb Hct MCV MCH MCHC RDW Plt Count MPV Sodium Potassium Chloride Carbon Dioxide Anion Gap BUN Creatinine Est GFR ( Amer) Est GFR (Non-Af Amer) POC Glucose (mg/dL) 313 H Random Glucose Hemoglobin A1c Calcium Total Bilirubin AST ALT Alkaline Phosphatase Total Protein Albumin Globulin Albumin/Globulin Ratio Attending/Attestation - Attestation I have personally seen and examined this patient.: Yes I have fully participated in the care of the patient.: Yes I have reviewed all pertinent clinical information: Yes Notes (Text): Patient seen and examined with GI fellow. Agree with his note as documented above with the following additions/exceptions. This is a 66yo female with PMHx significant for COPD on home O2, obstructive sleep apnea, morbid obesity, spinal stenosis, heart failure, colon polyps who presents with shortness of breath due to COPD exacerbation. She notes worsening constipation recently associated with intermittent abdominal cramping/bloating. Her last colonoscopy was roughly [address] Munoz with 9 polyps removed and she was planning on following up for surveillance. She is tolerating diet without vomiting. She has been on miralax therapy and subsequently had large BM this afternoon. Would continue bowel regimen, diet as tolerated. She would ultimately benefit from surveillance colonoscopy, which can be arranged with her outpatient mobility developer once/if her pulmonary issues improve. Continue management of COPD as per primary medical team/pulmonary. 02/11/17 16:16
[2017-02-11] MEDS ORDERED: Magnesium Citrate Oral SOL (300 ml) PO ONE (13:35)
[2017-02-11] MEDS: POLYETHYLENE GLYCOL 3350 17 GM/Dose PACKET PO SCH (17:14)
--- NOTE | 2017-02-11 22:06 | CON ---
DATE: 02/11/2017 CHIEF COMPLAINT: Difficulty voiding, recurrent urinary tract infections. HISTORY OF PRESENT ILLNESS: A 66-year-old female with severe COPD, history of mitral valve replaceme nt surgery, congestive heart failure, was admitted for acute respiratory distress. She complains at home she has leakage when she stands up, and when she sits on the toilet she goes a little bit and spivey s to push; feels like she is not emptying. She is a new diabetic. At home, she is on steroids and n ebulizers. PAST MEDICAL HISTORY: Significant for congestive heart failure and hypertension, COPD, severe; type 2 diabetes. SURGICAL HISTORY: Includes a prior appendectomy and hysterectomy, open heart surgery for the mitral valve replacement. FAMILY HISTORY: Noncontributory. SOCIAL HISTORY: She does not smoke. ALLERGIES: She has no known allergies. MEDICATIONS AT HOME: Include tramadol, albuterol. REVIEW OF SYMPTOMS: She currently is sitting in a chair on oxygen. No symptoms referable to the hea d, eyes, nose, or throat. She does have decreased hearing. No current chest pain. No current short ness of breath just sitting in a chair. She has no further abdominal pain after having had a large b owel movement. No psychiatric complaints. Her physical examination shows her to be morbidly obese. She is afebrile, pulse is 95, blood pressure 148/67, respirations 22. Normocephalic. Sclerae clear, conjunctivae not injected. No CVA pain. No rebound or guarding. Cannot appreciate any hepato or splenomegaly. There was no pu rpura. Her lab work shows a white count of 18,900. Chemistry shows creatinine of 0.6. Her urine was comple tely negative. IMPRESSION: I told the nurses tomorrow I will be here early in the morning to do a case, and when I am in scrubs I will catheterize her for residual. A bladder scan would not be of any value, and woul d not be able to give a clear reading, and the nurses would not be able to catheterize her in my opin ion due to her morbid obesity. If in fact she empties well, then her recurrent infections could be d ue to the diabetes and chronic constipation, and being on steroids. If she is not emptying and has a significant residual, say more than 250 or 300 mL, I would leave the Berg indwelling for the time raya robertson. Shyam Sandy MD cc: [id number] TT: 02/11/2017 22:05:30 Confirmation # [id number] Dictation # [id number] jn
[2017-02-12] MEDS: Albuterol-Ipratrop 3 mg / 0.5 (3 ml) UD IH SCH ×6 (04:48→20:45)
[2017-02-12] MEDS: Budesonide 0.5 mg/2 ml Inhal Susp UD IH SCH ×2 (07:09→20:43)
[2017-02-12 07:33] LABS: HEMATOCRIT 39.9 % (36.0-48.0); MEAN CELL VOLUME 77.2 fL (80.0-105.0); MEAN CORPUSCULAR HEMOGLOBIN 21.9 pg (25.0-35.0); MEAN CORPUSCULAR HGB CONC 28.3 g/dl (31.0-37.0); MEAN PLATELET VOLUME 9.2 fl (7.0-11.0); WHITE BLOOD COUNT 23.6 [, 10^3/ul] (4.5-11.0)
[2017-02-12 08:31] LABS: ALB/GLOB RATIO 1.3 (1.1-1.8); ALKALINE PHOSPHATASE 96 U/L (38-133); ALT/SGPT 12 U/L (7-56); AST/SGOT 18 U/L (15-39); BILIRUBIN,TOTAL 0.4 mg/dL (0.2-1.3); BLOOD UREA NITROGEN 24 mg/dL (7-21); CALCIUM 9.7 mg/dL (8.4-10.5); CARBON DIOXIDE 33 mmol/L (21-33); CHLORIDE 95 mmol/L (98-107); GFR AFRICAN-AMERICAN > 60; GLUCOSE,RANDOM 239 mg/dL (70-110); POTASSIUM 4.3 mmol/L (3.6-5.0); SODIUM 141 mmol/L (132-148); TOTAL PROTEIN 6.8 g/dL (5.8-8.3)
[2017-02-12] MEDS: Insulin Reg-HIGH-Coverage SC SCH ×4 (08:35→21:42)
--- NOTE | 2017-02-12 10:00 | PN ---
DATE: 02/12/2017 SUBJECTIVE: The patient appears comfortable this morning. She is not short of breath at rest. VITALS: Temperature is 98.1, pulse 86, respirations 18, blood pressure 148/67. Oxygen saturation on nasal cannula ranges between 92-97%. HENT: Normocephalic, atraumatic. No JVD. CARDIOVASCULAR: Systolic ejection murmur at the lower left sternal border. No S3 gallop. LUNGS: Decreased breath sounds at the bases. Less rhonchi. No wheezing this morning. EXTREMITIES: Positive for edema. No cyanosis, no clubbing. Calves are nontender to palpation. GASTROINTESTINAL: Abdomen is soft, nontender, nondistended. Bowel sounds are positive. SKIN: No acute rash. NEUROLOGIC EXAMINATION: Limited at the present time. IMPRESSION: 1. Acute bronchitis. 2. Advanced chronic obstructive pulmonary disease. 3. Obstructive sleep apnea. 4. Diabetes mellitus. 5. Valvular heart disease. PLAN: The patient appears very comfortable this morning. She is not short of breath at rest. She states she is feeling better overall. On physical exam, her bronchospasm is certainly less -- compared to the initial presentation. I will continue with the current nebulizer treatments and low-dose intravenous steroids (decreased yesterday) for now. The patient remains on antibiotic therapy. There are no temperatures noted. Clinical status of the patient is certainly improved. However, again, the overall status/prognosis of this chronically ill patient with advanced chronic obstructive pulmonary disease-- does remain guarded. I will discuss the above with the attending physician this morning. Wagner Ramos MD cc: [phone] TT: 02/12/2017 09:59:44 Confirmation # [id number] Dictation # [id number] jn MTDHallie
[2017-02-12] MEDS: Tiotropium 18 mcg Cap For Inhalation IH SCH (10:08)
[2017-02-12] MEDS: MethylPREDNISolone 40 mg Vial IVP SCH ×2 (10:09→21:40)
[2017-02-12] MEDS: POLYETHYLENE GLYCOL 3350 17 GM/Dose PACKET PO SCH ×2 (10:11→17:37)
[2017-02-12] MEDS: Azithromycin 500MG/NS 250ml 250 ML IVPB SCH (10:12)
[2017-02-12] MEDS: cefTRIAXone 1 gm 100 ML IVPB SCH (10:13)
--- NOTE | 2017-02-12 10:29 | PN ---
DATE: 02/12/2017 I saw her sitting up in bed. She has oxygen on. She is trying to eat breakfast. She gets short of breath at times. She is walking a bit, but gets short of breath if she goes too far. She is currently on Colace, Desyrel, DuoNeb, insulin coverage, Lasix 40 IV b.i.d., Lopressor, MiraLax for constipation, Rocephin, and Zithromax IV for elevated white count, possible pneumonia. IV Solu- Medrol for COPD exacerbation, Singulair, Spiriva, Tylenol, and Ultram. She has a 97.9 temp, 89 pulse, 104/60 blood pressure, 24 respiratory rate, 95% O2 sat on nasal cannul a. HEAD: Atraumatic, normocephalic. She looks cushingoid from all the steroids she has been on in the past. HEART: Regular rate. LUNGS: Decreased breath sounds, clearer. Moving more air. Still not back to her baseline yet. Occ asional wheeze and congestion. ABDOMEN: Morbidly, morbidly obese, soft, nontender. EXTREMITIES: Trace edema. She has a 23.6 white count on steroids, 11.3 hemoglobin, 39.9 hematocrit, with 388 platelets. A 141 sodium, potassium 4.3, BUN 24, creatinine 0.8. GFR is greater than 60. Blood sugars are 239 and 213 . Calcium is 9.7, total bili is 0.4. AST is 18, ALT is 12, alk phos is 96, total protein 6.8. I am going to decrease her Solu-Medrol to 30 IV q. 12. Continue with Lasix 40 IV daily, and the anti biotics. Check her labs tomorrow. Physical therapy. I am hoping to get her to TCU to finish off th e treatment with antibiotics. Solu-Medrol to prednisone next week, and physical therapy before she g oes home. She is here for COPD, CHF, leukocytosis, constipation, and urinary tract problems. Thomas Looney DO cc: [id number] TT: 02/12/2017 10:29:23 Confirmation # [id number] Dictation # [id number] jn
--- NOTE | 2017-02-12 12:42 | CP.PCM.PN ---
Subjective - Date & Time of Evaluation Date of Evaluation: 02/12/17 Time of Evaluation: 12:38 - Subjective Subjective: RFV: Constipation S: Had Bm yesterday. Remains sob with any movement. On oxygen therapy. Taking miralax. Objective - Vital Signs/Intake and Output Vital Signs (last 24 hours): Temp Pulse Resp BP Pulse Ox 97.9 F 89 24 100/58 L 95 02/12/17 07:58 02/12/17 07:58 02/12/17 07:58 02/12/17 10:11 02/12/17 07:58 Intake and Output: 02/12/17 02/12/17 06:59 18:59 Intake Total 840 Balance 840 - Medications Medications: Current Medications Acetaminophen (Tylenol 325mg Tab) 650 mg PO Q6H PRN PRN Reason: Headache Albuterol/Ipratropium (Duoneb 3 Mg/0.5 Mg (3 Ml) Ud) 3 ml IH Q4H [facility] Last Admin: 02/12/17 11:16 Dose: 3 ml Budesonide (Pulmicort Respules) 0.5 mg IH [id number] [facility] Last Admin: 02/12/17 07:09 Dose: 0.5 mg Docusate Sodium (Colace) 100 mg PO DAILY [facility] Last Admin: 02/12/17 10:19 Dose: 100 mg Enoxaparin Sodium (Lovenox) 40 mg SC DAILY [facility] PRN Reason: Protocol Furosemide (Lasix) 40 mg IVP DAILY [facility] Last Admin: 02/12/17 10:11 Dose: Not Given Ceftriaxone Sodium (Rocephin 1 Gram Ivpb) 100 mls @ 100 mls/hr IVPB DAILY [facility] PRN Reason: Protocol Last Admin: 02/12/17 10:13 Dose: 100 mls/hr Azithromycin (Zithromax 500mg In Ns) 250 mls @ 167 mls/hr IVPB DAILY [facility] PRN Reason: Protocol Last Admin: 02/12/17 10:12 Dose: 167 mls/hr Insulin Human Regular (Humulin R High) 0 units SC ACHS [facility] PRN Reason: Protocol Last Admin: 02/12/17 12:06 Dose: 4 units Methylprednisolone (Solu-Medrol) 30 mg IVP Q12 [facility] Last Admin: 02/12/17 10:09 Dose: 30 mg Metoprolol Tartrate (Lopressor) 25 mg PO BID [facility] Last Admin: 02/12/17 10:10 Dose: Not Given Montelukast Sodium (Singulair) 10 mg PO [facility] Last Admin: 02/11/17 22:11 Dose: 10 mg Polyethylene Glycol (Miralax) 17 gm PO BID [facility] Last Admin: 02/12/17 10:11 Dose: 17 gm Tiotropium [place] (Spiriva) 18 mcg IH DAILY [facility] Last Admin: 02/12/17 10:08 Dose: 18 mcg Tramadol HCl (Ultram) 50 mg PO Q8H PRN PRN Reason: Pain, moderate (4-7) Trazodone HCl (Desyrel) 200 mg PO [facility] Last Admin: 02/12/17 01:02 Dose: 200 mg - Labs Labs: 02/12/17 07:00 02/12/17 07:00 - Constitutional Appears: Chronically Ill - Head Exam Head Exam: ATRAUMATIC, NORMOCEPHALIC - Eye Exam Eye Exam: absent: Scleral icterus - ENT Exam ENT Exam: Mucous Membranes Dry - Respiratory Exam Respiratory Exam: Wheezes, Respiratory Distress - Cardiovascular Exam Cardiovascular Exam: +S1, +S2 - GI/Abdominal Exam GI & Abdominal Exam: Soft. absent: Tenderness - Neurological Exam Neurological Exam: Alert, Oriented x3 Assessment and Plan - Assessment and Plan (Free Text) Assessment: 66 year old female with h/o COPD on home O2, ROGER, morbid obesity, spinal stenosis, CHF, colon polyps admitted with COPD exacerbation, also with chronic constipation. 1. Chronic constipation 2. History of colon polyps Plan: -continue bowel regimen with miralax 17 g po bid -can titrate up to TID if needed or add dulcolax 10 mg daily PRN if necessary -diet as tolerated -outpatient colonoscopy advised when acute respiratory illness resolves -will sign off at this time
--- NOTE | 2017-02-12 12:51 | PN ---
DATE: 02/12/2017 The patient was catheterized by me. It was difficult because of her morbid obesity and retracted ure thra, but I was able to catheterize her, she had voided approximately 2 hours previously and there wa s only 115 mL in the bladder. This is not retention. The Berg catheter was removed. The dribbling she complains of, I think is partly related to her weight, inability to move and I told her that I w ould not put her on any medicines for this. I do not think it is significant enough compared to the other medical problems she has to warrant risking the complications of putting her on any type of ant icholinergic. She understands this. Will see again if requested. Shyam Sandy MD cc: [id number] TT: 02/12/2017 12:50:40 Confirmation # [id number] Dictation # [id number] jn
[2017-02-12] MEDS: Enoxaparin 40 mg Syringe SC SCH (15:26)
--- NOTE | 2017-02-12 18:24 | CP.PCM.PN ---
Subjective - Date & Time of Evaluation Date of Evaluation: 02/12/17 Time of Evaluation: 13:45 - Subjective Subjective: pt needs angiocath insertion . Objective - Vital Signs/Intake and Output Vital Signs (last 24 hours): Temp Pulse Resp BP Pulse Ox 97.9 F 89 24 189/82 H 95 02/12/17 07:58 02/12/17 07:58 02/12/17 07:58 02/12/17 17:38 02/12/17 07:58 Intake and Output: 02/12/17 02/12/17 06:59 18:59 Intake Total 840 Balance 840 - Medications Medications: Current Medications Acetaminophen (Tylenol 325mg Tab) 650 mg PO Q6H PRN PRN Reason: Headache Albuterol/Ipratropium (Duoneb 3 Mg/0.5 Mg (3 Ml) Ud) 3 ml IH Q4H [facility] Last Admin: 02/12/17 15:29 Dose: 3 ml Budesonide (Pulmicort Respules) 0.5 mg IH [id number] [facility] Last Admin: 02/12/17 07:09 Dose: 0.5 mg Docusate Sodium (Colace) 100 mg PO DAILY [facility] Last Admin: 02/12/17 10:19 Dose: 100 mg Enoxaparin Sodium (Lovenox) 40 mg SC DAILY [facility] PRN Reason: Protocol Last Admin: 02/12/17 15:26 Dose: 40 mg Furosemide (Lasix) 40 mg IVP DAILY [facility] Last Admin: 02/12/17 10:11 Dose: Not Given Ceftriaxone Sodium (Rocephin 1 Gram Ivpb) 100 mls @ 100 mls/hr IVPB DAILY [facility] PRN Reason: Protocol Last Admin: 02/12/17 10:13 Dose: 100 mls/hr Azithromycin (Zithromax 500mg In Ns) 250 mls @ 167 mls/hr IVPB DAILY [facility] PRN Reason: Protocol Last Admin: 02/12/17 10:12 Dose: 167 mls/hr Insulin Human Regular (Humulin R High) 0 units SC ACHS [facility] PRN Reason: Protocol Last Admin: 02/12/17 17:38 Dose: 7 units Methylprednisolone (Solu-Medrol) 30 mg IVP Q12 [facility] Last Admin: 02/12/17 10:09 Dose: 30 mg Metoprolol Tartrate (Lopressor) 25 mg PO BID [facility] Last Admin: 02/12/17 17:38 Dose: 25 mg Montelukast Sodium (Singulair) 10 mg PO [facility] Last Admin: 02/11/17 22:11 Dose: 10 mg Polyethylene Glycol (Miralax) 17 gm PO BID [facility] Last Admin: 02/12/17 17:37 Dose: 17 gm Tiotropium [place] (Spiriva) 18 mcg IH DAILY [facility] Last Admin: 02/12/17 10:08 Dose: 18 mcg Tramadol HCl (Ultram) 50 mg PO Q8H PRN PRN Reason: Pain, moderate (4-7) Trazodone HCl (Desyrel) 200 mg PO [facility] Last Admin: 02/12/17 01:02 Dose: 200 mg - Labs Labs: 02/12/17 07:00 02/12/17 07:00 Assessment and Plan - Assessment and Plan (Free Text) Assessment: 24 guage angiocath inserted in rt hand.
[2017-02-13] MEDS: Albuterol-Ipratrop 3 mg / 0.5 (3 ml) UD IH SCH ×4 (01:15→10:46)
[2017-02-13] MEDS: Budesonide 0.5 mg/2 ml Inhal Susp UD IH SCH (07:15)
[2017-02-13 07:57] VITALS: BP 142/60; RESP 18; TEMP 97.8; O2SAT 98
--- NOTE | 2017-02-13 08:03 | PN ---
DATE: 02/13/2017 SUBJECTIVE: The patient appears very comfortable this morning. She is not short of breath at rest. OBJECTIVE: VITAL SIGNS: Temperature is 98.1, pulse 88, respiratory rate 18/20, last blood pressure recorded 189/82. Oxygen saturation on nasal cannula is 95%. HEENT: Normocephalic, atraumatic. No JVD. CARDIOVASCULAR: Systolic ejection murmur at the lower left sternal border. No S3 gallop. LUNGS: Decreased breath sounds at the bases. Minimal/less rhonchi. + few tiny wheezes. EXTREMITIES: Positive for edema. No cyanosis, no clubbing. Calves are nontender to palpation. GASTROINTESTINAL: Abdomen is soft, nontender, nondistended. Bowel sounds are positive. SKIN: No acute rash. NEUROLOGIC: Limited at the present time. IMPRESSION: 1. Acute bronchitis. 2. Advanced chronic obstructive pulmonary disease. 3. Obstructive sleep apnea. 4. Diabetes mellitus. 5. Valvular heart disease. PLAN: The patient appears very comfortable this morning. She is not short of breath at rest. She states she is feeling much better overall. On physical exam, her bronchospasm is certainly less -- compared to the initial presentation. In addition, there is no significant alveolar arterial gradient. I will continue with the current nebulizer treatments and low-dose intravenous steroids (decreased yesterday) for now. The patient also remains on antibiotic therapy. There are no temperatures noted. The clinical status of the patient is certainly improved -- compared to the initial presentation. However, again, the overall status/prognosis of this chronically ill patient with advanced lung disease remains very guarded at best. I will discuss the above with Dr. Looney. Wagner Ramos MD cc: [id number] TT: 02/13/2017 08:02:24 Confirmation # [id number] Dictation # [id number] MTDD
[2017-02-13 08:25] LABS: HEMATOCRIT 38.1 % (36.0-48.0); MEAN CELL VOLUME 76.4 fL (80.0-105.0); MEAN CORPUSCULAR HGB CONC 28.9 g/dl (31.0-37.0); WHITE BLOOD COUNT 17.1 [, 10^3/ul] (4.5-11.0)
[2017-02-13 08:32] LABS: ALB/GLOB RATIO 1.3 (1.1-1.8); ALKALINE PHOSPHATASE 93 U/L (38-133); ALT/SGPT 23 U/L (7-56); AST/SGOT 15 U/L (15-39); BILIRUBIN,TOTAL 0.4 mg/dL (0.2-1.3); BLOOD UREA NITROGEN 26 mg/dL (7-21); CALCIUM 9.5 mg/dL (8.4-10.5); CARBON DIOXIDE 35 mmol/L (21-33); CHLORIDE 95 mmol/L (95-110); GFR AFRICAN-AMERICAN > 60; GLUCOSE,RANDOM 187 mg/dL (70-110); POTASSIUM 4.2 mmol/L (3.6-5.0); SODIUM 138 mmol/L (132-148); TOTAL PROTEIN 6.5 g/dL (5.8-8.3)
[2017-02-13] MEDS: Insulin Reg-HIGH-Coverage SC SCH ×2 (08:34→11:15)
[2017-02-13] MEDS: Azithromycin 500MG/NS 250ml 250 ML IVPB SCH (10:01)
[2017-02-13] MEDS: cefTRIAXone 1 gm 100 ML IVPB SCH (10:02)
[2017-02-13] MEDS: Tiotropium 18 mcg Cap For Inhalation IH SCH (10:02)
[2017-02-13] MEDS: MethylPREDNISolone 40 mg Vial IVP SCH (10:02)
[2017-02-13] MEDS: Enoxaparin 40 mg Syringe SC SCH (10:03)
[2017-02-13] MEDS: POLYETHYLENE GLYCOL 3350 17 GM/Dose PACKET PO SCH (10:03)
[2017-02-13 11:05] VITALS: PULSE 94
[2017-02-13] MEDS ORDERED: MethylPREDNISolone 40 mg Vial IVP SCH (13:00)
--- NOTE | 2017-02-13 17:08 | DS ---
I saw the patient in her bed, the BiPAP is on. She is a little short of breath. She is on Solu-Medr ol and IV medications. She is on Colace, Desyrel, DuoNeb, insulin coverage, Lasix IV, Lopressor, Jere enox, MiraLAX, Pulmicort, Rocephin IV, methylprednisone IV, Singulair, Spiriva, Tylenol, Ultram, and Zithromax IV. PHYSICAL EXAMINATION: VITAL SIGNS: She has a 97.8 temp, 94 pulse, 142/60 blood pressure, 18 respiratory rate and 98% O2 sa t on oxygen. HEENT: Head is atraumatic and normocephalic. SUBJECTIVE: She looks cushingoid from all the steroids she has been on. NECK: Supple. HEART: Regular rate. LUNGS: Decreased breath sounds, but clear. Poor inspiration. ABDOMEN: Morbidly obese, nontender with positive bowel sounds. EXTREMITIES: Trace edema. LABORATORY DATA: She has a 17.1, white count started to come down as I DC the Solu-Medrol. Hemoglob in is 11, hematocrit 30.1 and platelets of 307. Sodium is 138, potassium is 4.2, BUN 26, creatinine 0.7, GFR 60, sugar is 187, calcium is 9.5 and total bili is 0.48. AST is 15, ALT is 20, alk phos is 93 and total protein 6.5. She is being seen by pulmonary, urology and GI. She has advanced COPD, acute bronchitis, sleep apnea , diabetes and valvular heart disease. I not going to decrease her Solu-Medrol at this time. She se ems to be plateauing a little bit and a little short of breath today. She is on 30 b.i.d. and I am go ing to increase it to 30 q. 8 then maybe tomorrow start to bring it down again. She will be moved to TCU today. DISCHARGE DIAGNOSIS: Chronic obstructive pulmonary disease, acute exacerbation, acute bronchitis and sleep apnea. Thomas Looney DO cc: [id number] TT: 02/13/2017 17:07:43 sn
== END 2017-02-13 13:54 | DRG 191 ==
LOC: ED 12:56 → ERH 16:25 → 5RSO 18:26 → OBSVTOIN 18:44
PROVIDERS: ADMIT Family Medicine; ATTEND Family Medicine
DX: J44.1 Chronic obstructive pulmonary disease with (acute) exacerbation (principal); N39.0 Urinary tract infection, site not specified; I38 Endocarditis, valve unspecified; E11.649 Type 2 diabetes mellitus with hypoglycemia without coma; I50.9 Heart failure, unspecified; E66.01 Morbid (severe) obesity due to excess calories; Z99.81 Dependence on supplemental oxygen; I10 Essential (primary) hypertension; B96.20 Unspecified Escherichia coli [E. coli] as the cause of diseases classified elsewhere; J44.0 Chronic obstructive pulmonary disease with (acute) lower respiratory infection; G47.33 Obstructive sleep apnea (adult) (pediatric); J20.9 Acute bronchitis, unspecified; H91.90 Unspecified hearing loss, unspecified ear; K21.9 Gastro-esophageal reflux disease without esophagitis; K59.09 Other constipation; F51.02 Adjustment insomnia; G25.81 Restless legs syndrome; R00.0 Tachycardia, unspecified; Z95.2 Presence of prosthetic heart valve; Z86.010 Personal history of colon polyps; Z80.1 Family history of malignant neoplasm of trachea, bronchus and lung; Z80.3 Family history of malignant neoplasm of breast; Z87.440 Personal history of urinary (tract) infections; Z87.891 Personal history of nicotine dependence; Z90.49 Acquired absence of other specified parts of digestive tract; Z90.710 Acquired absence of both cervix and uterus; Z98.51 Tubal ligation status

== ENCOUNTER 2017-02-13 13:59 | Inpatient (IN) | payer OTHER, MEDICAID ==
[2017-02-13 14:28] VITALS: BMI 57.2
[2017-02-13] MEDS: Albuterol-Ipratrop 3 mg / 0.5 (3 ml) UD IH SCH (15:49)
[2017-02-13] MEDS: Insulin Reg-HIGH-Coverage SC SCH ×2 (17:19→22:24)
[2017-02-13] MEDS: POLYETHYLENE GLYCOL 3350 17 GM/Dose PACKET PO SCH (17:21)
[2017-02-13] MEDS ORDERED: Influenza Vaccine 45 MCG/0.5 ml IM ONE (19:09)
[2017-02-13] MEDS ORDERED: Pneumococcal 23-Valent Vaccine IM ONE (19:09)
--- NOTE | 2017-02-13 19:55 | CP.PCM.PN ---
Subjective - Date & Time of Evaluation Date of Evaluation: 02/13/17 Time of Evaluation: 19:42 - Subjective Subjective: # 22 angiocath was inserted in right hand dorsum. Dx:Poor venous access Objective - Vital Signs/Intake and Output Vital Signs (last 24 hours): Temp Pulse Resp BP Pulse Ox 98.1 F 93 H 14 182/96 H 02/13/17 18:55 02/13/17 18:55 02/13/17 18:55 02/13/17 18:55 - Medications Medications: Current Medications Acetaminophen (Tylenol 325mg Tab) 650 mg PO Q6H PRN PRN Reason: Pain, moderate (4-7) Albuterol/Ipratropium (Duoneb 3 Mg/0.5 Mg (3 Ml) Ud) 3 ml IH [id number] [facility] Last Admin: 02/13/17 15:49 Dose: 3 ml Budesonide (Pulmicort Respules) 0.5 mg IH [id number] [facility] Docusate Sodium (Colace) 100 mg PO DAILY [facility] Enoxaparin Sodium (Lovenox) 40 mg SC DAILY [facility] PRN Reason: Protocol Furosemide (Lasix) 40 mg IVP DAILY [facility] Ceftriaxone Sodium (Rocephin 1 Gram Ivpb) 100 mls @ 100 mls/hr IVPB DAILY [facility] PRN Reason: Protocol Azithromycin (Zithromax 500mg In Ns) 250 mls @ 167 mls/hr IVPB DAILY [facility] PRN Reason: Protocol Insulin Human Regular (Humulin R High) 0 units SC ACHS [facility] PRN Reason: Protocol Last Admin: 02/13/17 17:19 Dose: 2 units Methylprednisolone (Solu-Medrol) 30 mg IVP Q12 [facility] Metoprolol Tartrate (Lopressor) 25 mg PO 0800,1800 [facility] Last Admin: 02/13/17 17:20 Dose: 25 mg Montelukast Sodium (Singulair) 10 mg PO HS [facility] Polyethylene Glycol (Miralax) 17 gm PO BID [facility] Last Admin: 02/13/17 17:21 Dose: 17 gm Tiotropium [place] (Spiriva) 18 mcg IH DAILY [facility] Tramadol HCl (Ultram) 50 mg PO Q8 PRN PRN Reason: Pain, moderate (4-7) Trazodone HCl (Desyrel) 200 mg PO HS [facility]
[2017-02-13] MEDS ORDERED: MethylPREDNISolone 40 mg Vial IVP SCH (22:00)
[2017-02-14] MEDS: Albuterol-Ipratrop 3 mg / 0.5 (3 ml) UD IH SCH ×7 (01:40→23:22)
[2017-02-14] MEDS: Budesonide 0.5 mg/2 ml Inhal Susp UD IH SCH ×3 (01:41→19:57)
[2017-02-14] MEDS: cefTRIAXone 1 gm 100 ML IVPB SCH (05:22)
[2017-02-14] MEDS: Azithromycin 500MG/NS 250ml 250 ML IVPB SCH (05:22)
[2017-02-14] MEDS: MethylPREDNISolone 40 mg Vial IVP SCH ×2 (05:23→17:23)
[2017-02-14] MEDS ORDERED: Albuterol-Ipratrop 3 mg / 0.5 (3 ml) UD IH PRN (06:26)
--- NOTE | 2017-02-14 06:47 | PN ---
DATE: 02/14/2017 SUBJECTIVE: The patient appears comfortable this morning. She is not short of breath at rest. PHYSICAL EXAMINATION: VITAL SIGNS: Temperature is 98.1, pulse 93, respirations 16/18, blood pressure 182/96. Oxygen saturation on nasal cannula is 98%. HEENT: Normocephalic, atraumatic. No JVD. CARDIOVASCULAR: Systolic ejection murmur at the lower left sternal border. No S3 gallop. LUNGS: Decreased breath sounds at the bases. Less rhonchi. Less wheezing. EXTREMITIES: Positive edema. No cyanosis, no clubbing. Calves are nontender to palpation. GASTROINTESTINAL: Abdomen is soft, nontender, nondistended. Bowel sounds are positive. SKIN: No acute rash. NEUROLOGIC: Limited at the present time. IMPRESSION: 1. Acute bronchitis. 2. Advanced chronic obstructive pulmonary disease. 3. Obstructive sleep apnea. 4. Diabetes mellitus. 5. Valvular heart disease. PLAN: The patient appears comfortable this morning. She is not short of breath at rest. She states she is feeling much better overall. She does have periods of shortness of breath and/or anxiety -- discussed with nurse. On physical exam, there is mild bronchospasm noted. In addition, there is no significant alveolar arterial gradient. Oxygen saturation on nasal cannula is now 98%. I will continue with the current nebulizer treatments and low-dose intravenous steroids for now. The patient also remains on antibiotic therapy. There are no temperatures noted. Repeat a.m. labs are pending. Clinical status of the patient is certainly improved -- compared to the initial presentation. However, again, the overall status/prognosis of this chronically ill female with advanced lung disease, remains guarded. All are aware. I will discuss the above with Dr. Looney. Wagner Ramos MD cc: [id number] TT: 02/14/2017 06:46:42 Confirmation # [id number] Dictation # [id number] jn MTDD
[2017-02-14 07:27] LABS: HEMATOCRIT 38.7 % (36.0-48.0); MEAN CORPUSCULAR HEMOGLOBIN 21.4 pg (25.0-35.0); MEAN CORPUSCULAR HGB CONC 28.2 g/dl (31.0-37.0); MEAN PLATELET VOLUME 8.9 fl (7.0-11.0); RED CELL DISTRIBUTION WIDTH 16.8 % (11.5-14.5); WHITE BLOOD COUNT 14.7 10^3/ul (4.5-11.0)
[2017-02-14] MEDS: Insulin Reg-HIGH-Coverage SC SCH ×4 (07:30→22:30)
[2017-02-14 08:06] LABS: ALB/GLOB RATIO 1.3 (1.1-1.8); ALKALINE PHOSPHATASE 96 U/L (38-133); ALT/SGPT 23 U/L (7-56); AST/SGOT 18 U/L (15-39); BILIRUBIN,TOTAL 0.4 mg/dL (0.2-1.3); BLOOD UREA NITROGEN 25 mg/dL (7-21); CARBON DIOXIDE 33 mmol/L (21-33); CHLORIDE 95 mmol/L (98-107); GFR AFRICAN-AMERICAN > 60; GLUCOSE,RANDOM 258 mg/dL (70-110); POTASSIUM 4.5 mmol/L (3.6-5.0); SODIUM 138 mmol/L (132-148); TOTAL PROTEIN 6.3 g/dL (5.8-8.3)
[2017-02-14] MEDS ORDERED: cefTRIAXone 1 gm 100 ML IVPB SCH (10:00)
[2017-02-14] MEDS ORDERED: Azithromycin 500MG/NS 250ml 250 ML IVPB SCH (10:00)
[2017-02-14] MEDS: Enoxaparin 40 mg Syringe SC SCH (10:39)
[2017-02-14] MEDS: Tiotropium 18 mcg Cap For Inhalation IH SCH (10:40)
[2017-02-14] MEDS: POLYETHYLENE GLYCOL 3350 17 GM/Dose PACKET PO SCH ×2 (10:40→17:23)
--- NOTE | 2017-02-14 11:44 | HP ---
SUBJECTIVE: She was transferred yesterday to the transitional care unit where she is now. She is si tting up in bed. Oxygen is on. She is doing a crossword puzzle. She is feeling a little more stabl e finally. She needs more IV Solu-Medrol, IV antibiotics and physical therapy. She is a 66-year-old female who presented to the Emergency Room with shortness of breath, could not catch her breath on o xygen, even though she is on steroids in the outpatient and taking multiple nebulizer treatments. Gamal leonard was placed on steroids, oxygen, and antibiotics and is starting to improve. She is also getting we steff and needs physical therapy. PAST MEDICAL HISTORY: She has a past medical history of COPD, CHF, heart surgery, mitral valve repla cements, ESBL urinary tract infections, appendectomy, morbidly obese. She has been on steroids for m any times on outpatient and now she is acutely short of breath and has a cushingoid appearance. She has CHF, COPD, hard of hearing, wears glasses, type 2 diabetes, reflux, hysterectomy, tubal ligation, anxiety, depression, and deafness. 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 FAMILY HISTORY: Hypertension in the family. SOCIAL HISTORY: She never smoked. No alcohol, no drugs. ALLERGIES: No known drug allergies. MEDICATIONS: She is on a whole bunch of medications, nebulizer treatments, Ventolin, Lasix, Desyrel, DuoNeb, Colace, Lopressor, Singulair, Spiriva, Ultram, prednisone 20 daily as outpatient. REVIEW OF SYSTEMS: She has old hearing loss, old vision loss, nothing acute. No sore throat. No ch est pain, no acute shortness of breath but at times she is short of breath and she has wheezes and rh onchi and she cannot catch her breath if she walks a couple steps. Abdomen is improved from the cram ping, constipation she had. Extremities, it is difficult to walk, she gets short of breath in a few steps even with oxygen. PHYSICAL EXAMINATION: VITAL SIGNS: She has 98.1 temperature, 93 pulse, 182/96, 162/91 blood pressures, 14 respiratory rate , 96% O2 sat on room air. HEENT: Head is atraumatic, normocephalic. Extraocular muscles are intact. Pupils react to light an d accommodation. Throat is moist, no erythema. NECK: Supple, no JVD, very thick neck and cushingoid. HEART: Regular rate. Normal S1, S2. LUNGS: Have decreased breath sounds bilaterally, it is tight, not a real deep breath. No congestion , rales, rhonchi, or wheezes appreciated at this time. ABDOMEN: Morbidly obese. Decreased bowel sounds, nontender, no pericardial rebound, no CVA tenderne ss. EXTREMITIES: Have trace edema this morning bilaterally, weak lower extremities. NEUROLOGIC: GCS is 15. Cranial nerves II-XII grossly intact. Speech is normal. Alert and oriented x 3. No palpable appreciative lymphadenopathy. Thyroid is midline at this time. LABORATORY DATA: She had lab tests. She has a 14.7 white count, coming down, although she is on anny roids, 10.9 hemoglobin, 38.7 hematocrit, with 290 platelets. Sodium 138, potassium 4.5, BUN 25, crea tinine 0.7, GFR is greater than 60, sugar is 258 she is on steroids, calcium is 9, total bili is 0.4, AST is 18, ALT is 23, alk phos is 96, total protein is 6.3, albumin 3.5. I will put her on some ins ulin coverage to her mix of medications. ASSESSMENT AND PLAN: She is on Colace, Desyrel, albuterol inhalers, insulin coverage, Lasix IV, Lopr essor, Lovenox, MiraLax, Pulmicort, Rocephin, Singulair, methylprednisolone 30 twice a day IV, Spiriv a, Tylenol, Ultram, and Zithromax. She has consults with pulmonary and neurology, GI. She has multi ple issues but she is acutely COPD, debility, shortness of breath, bowel movement problems, urinary t ract problems. Hopefully, she will get better with physical therapy and get stronger. Thomas Looney DO cc: [id number] TT: 02/14/2017 11:43:22 lencho
[2017-02-15] MEDS: Albuterol-Ipratrop 3 mg / 0.5 (3 ml) UD IH SCH ×6 (04:27→21:05)
[2017-02-15] MEDS: MethylPREDNISolone 40 mg Vial IVP SCH (05:22)
[2017-02-15] MEDS: cefTRIAXone 1 gm 100 ML IVPB SCH (05:22)
[2017-02-15] MEDS: Azithromycin 500MG/NS 250ml 250 ML IVPB SCH (05:22)
[2017-02-15 05:51] LABS: HEMATOCRIT 36.4 % (36.0-48.0); MEAN CORPUSCULAR HEMOGLOBIN 21.3 pg (25.0-35.0); MEAN PLATELET VOLUME 9.1 fl (7.0-11.0); RED CELL DISTRIBUTION WIDTH 16.7 % (11.5-14.5); WHITE BLOOD COUNT 15.2 10^3/ul (4.5-11.0)
[2017-02-15] MEDS: Insulin Reg-HIGH-Coverage SC SCH ×5 (06:47→22:16)
[2017-02-15 06:48] LABS: BLOOD UREA NITROGEN 23 mg/dL (7-21); GFR AFRICAN-AMERICAN > 60; GLUCOSE,RANDOM 208 mg/dL (70-110)
[2017-02-15 06:49] LABS: ALB/GLOB RATIO 1.1 (1.1-1.8); ALKALINE PHOSPHATASE 84 U/L (38-133); ALT/SGPT 19 U/L (7-56); AST/SGOT 14 U/L (15-39); BILIRUBIN,TOTAL 0.5 mg/dL (0.2-1.3); CALCIUM 8.6 mg/dL (8.4-10.5); CARBON DIOXIDE 31 mmol/L (21-33); CHLORIDE 100 mmol/L (98-107); POTASSIUM 3.6 mmol/L (3.6-5.0); SODIUM 143 mmol/L (132-148); TOTAL PROTEIN 5.9 g/dL (5.8-8.3)
[2017-02-15] MEDS: Budesonide 0.5 mg/2 ml Inhal Susp UD IH SCH ×2 (07:31→21:06)
--- NOTE | 2017-02-15 08:30 | PN ---
DATE: 02/15/2017 SUBJECTIVE: The patient appears very comfortable at rest. She is not short of breath. PHYSICAL EXAMINATION: VITAL SIGNS: Temperature is 97.6, pulse 83, respirations 14/16, blood pressure 143/86. Oxygen saturation on nasal cannula is 96%. HEENT: Normocephalic, atraumatic. No JVD. CARDIOVASCULAR: Systolic ejection murmur at the lower left sternal border. No S3 gallop. LUNGS: Improved breath sounds at the bases. Very minimal/less rhonchi. No wheezing. EXTREMITIES: Positive for edema. No cyanosis. No clubbing. Calves are nontender to palpation. GASTROINTESTINAL: Abdomen is soft, nontender, nondistended. Bowel sounds are positive. SKIN: No acute rash. NEUROLOGIC: Limited at the present time. IMPRESSION: 1. Acute bronchitis. 2. Advanced chronic obstructive pulmonary disease. 3. Obstructive sleep apnea. 4. Diabetes mellitus. 5. Valvular heart disease. PLAN: The patient appears very comfortable this morning. She is not short of breath at rest. She states to feeling much better overall. On physical exam, her bronchospasm continues to resolve. In addition, the alveolar arterial gradient also continues to resolve. I will continue with the current nebulizer treatments and change to oral steroids this morning. The patient remains on antibiotic therapy. There are no temperatures noted. The leukocytosis has decreased overall. Clinical status of the patient is definitely improved - compared to her status last week. However, again, the overall status/prognosis of this patient remains very guarded. I will discuss the above with Dr. Looney. Wagner Ramos MD cc: [id number] TT: 02/15/2017 08:29:03 Confirmation # [id number] Dictation # [id number] pretty BUTLER
[2017-02-15] MEDS: Tiotropium 18 mcg Cap For Inhalation IH SCH (09:44)
[2017-02-15] MEDS: POLYETHYLENE GLYCOL 3350 17 GM/Dose PACKET PO SCH ×2 (09:45→17:40)
[2017-02-15] MEDS: Enoxaparin 40 mg Syringe SC SCH (09:50)
--- NOTE | 2017-02-15 10:11 | PN ---
DATE: 02/15/2017 I saw her sitting up in bed. She is very upset. She had a rough night last night. She was very sca red. She said that nobody would come to her call vidales. I will discuss that with the nursing and she is very worried. She is doing better this morning. She is on Colace, Desyrel, DuoNeb, Glucophage, insulin coverage, Lasix, Lopressor, Lovenox, MiraLax, prednisone 40 mg now p.o., Pulmicort, Rocephin, Singulair, Spiriva, Tylenol, Ultram, and Zithromax. PHYSICAL EXAMINATION: VITAL SIGNS: Temp 97.6, 83 pulse, 143/86 blood pressure, 14 respiratory rate, 96% O2 sat on nasal ca nnula 2 liters. HEENT: Head is atraumatic, normocephalic. HEART: Regular rate. LUNGS: Decreased breath sounds but clear. No wheezes, rhonchi or rales. ABDOMEN: Soft, morbidly obese, nontender, positive bowel sounds. EXTREMITIES: No edema. She has a 15.2 white count, 10.2 hemoglobin, 36.4 hematocrit with 281 platelets. Sodium 143, potassi um 3.6, BUN 23, creatinine 0.6, GFR is greater than 60, sugar is 208, calcium is 8.6, total bili is 0 .5, AST is 14, ALT is 19, alkaline phosphatase 84, total protein is 5.9. She is being seen by pulmonary, who felt that she needed to be transferred off of IV Solu-Medrol to [facility] and we will keep a very close eye on her. She is here for acute bronchitis, advanced chronic obstructive pulmonary disease, obstructive sleep a pnea, diabetes mellitus, valvular heart disease, congestive heart failure. We will also continue physical therapy and hopefully in the next day or two, possibly we can discharg e her if she continues to improve with therapy. Thomas Looney DO cc: [id number] TT: 02/15/2017 10:10:42 Confirmation # [id number] Dictation # [id number] en
[2017-02-16] MEDS: Albuterol-Ipratrop 3 mg / 0.5 (3 ml) UD IH SCH ×6 (00:10→20:25)
[2017-02-16] MEDS: Azithromycin 500MG/NS 250ml 250 ML IVPB SCH (05:19)
[2017-02-16] MEDS: cefTRIAXone 1 gm 100 ML IVPB SCH (05:19)
[2017-02-16 06:22] VITALS: RESP 18; O2SAT 99
[2017-02-16] MEDS: Insulin Reg-HIGH-Coverage SC SCH ×3 (06:53→17:59)
[2017-02-16] MEDS: Budesonide 0.5 mg/2 ml Inhal Susp UD IH SCH ×2 (07:10→20:25)
[2017-02-16 07:58] LABS: HEMATOCRIT 38.5 % (36.0-48.0); MEAN CELL VOLUME 75.3 fL (80.0-105.0); MEAN CORPUSCULAR HEMOGLOBIN 22.1 pg (25.0-35.0); MEAN CORPUSCULAR HGB CONC 29.4 g/dl (31.0-37.0); MEAN PLATELET VOLUME 8.9 fl (7.0-11.0); RED CELL DISTRIBUTION WIDTH 16.7 % (11.5-14.5); WHITE BLOOD COUNT 16.9 10^3/ul (4.5-11.0)
[2017-02-16 08:08] LABS: ALB/GLOB RATIO 1.3 (1.1-1.8); ALKALINE PHOSPHATASE 96 U/L (38-133); ALT/SGPT 25 U/L (7-56); AST/SGOT 17 U/L (15-39); BILIRUBIN,TOTAL 0.4 mg/dL (0.2-1.3); BLOOD UREA NITROGEN 25 mg/dL (7-21); CALCIUM 9.3 mg/dL (8.4-10.5); CARBON DIOXIDE 37 mmol/L (21-33); CHLORIDE 94 mmol/L (95-110); GFR AFRICAN-AMERICAN > 60; GLUCOSE,RANDOM 136 mg/dL (70-110); POTASSIUM 3.5 mmol/L (3.6-5.0); SODIUM 139 mmol/L (132-148); TOTAL PROTEIN 6.2 g/dL (5.8-8.3)
[2017-02-16] MEDS ORDERED: Potassium Chloride 10 mEq 100 ML IVPB ONE (08:35)
--- NOTE | 2017-02-16 10:05 | PN ---
DATE: 02/16/2017 PULMONARY NOTE SUBJECTIVE: The patient appears comfortable this morning. She is not short of breath at rest. OBJECTIVE: VITAL SIGNS: Temperature is 96.4, pulse 74, respirations 18, blood pressure 131 /64. Oxygen saturation on BiPAP is 99%. HEENT: Normocephalic, atraumatic. No JVD. CARDIOVASCULAR: Systolic ejection murmur at the lower left sternal border. No S3 gallop. LUNGS: Better breath sounds at the bases. Minimal/less rhonchi. No wheezing. EXTREMITIES: Positive for edema. No cyanosis, no clubbing. Calves are nontender to palpation. GASTROINTESTINAL: Abdomen is soft, nontender, nondistended. Bowel sounds are positive. SKIN: No acute rash. NEUROLOGIC: Limited at the present time. IMPRESSION: 1. Acute bronchitis. 2. Advanced chronic obstructive pulmonary disease. 3. Obstructive sleep apnea. 4. Diabetes mellitus. 5. Valvular heart disease. PLAN: The patient appears very comfortable this morning. She is not short of breath at rest. She states she is feeling much better overall. On physical exam, her bronchospasm continues to resolve. In addition, the alveolar arterial gradient also continues to resolve. I will continue with the current nebulizer treatments and oral steroids (changed yesterday) for now. The patient remains on antibiotic therapy. There are no temperatures noted. Repeat a.m. labs are pending. Clinical status of the patient is certainly improved - compared to the initial presentation. However, again, the overall status/prognosis of this patient remains guarded. I will discuss the above with Dr. Looney. Wagner Ramos MD cc: [id number] TT: 02/16/2017 10:04:24 Confirmation # [id number] Dictation # [id number] jn CARRIE
[2017-02-16] MEDS: Enoxaparin 40 mg Syringe SC SCH (10:31)
[2017-02-16] MEDS: POLYETHYLENE GLYCOL 3350 17 GM/Dose PACKET PO SCH ×2 (10:32→18:03)
[2017-02-16] MEDS: Tiotropium 18 mcg Cap For Inhalation IH SCH (10:33)
--- NOTE | 2017-02-16 10:36 | PN ---
DATE: 02/16/2017 I saw the patient sitting up in bed this morning. She is doing some puzzles. She is feeling a lot b pieter. She is breathing a lot better. She is much better than yesterday. No complaints this alissa g. She is eating well, and she is actually starting to turn the corner to improvement. PHYSICAL EXAMINATION: VITAL SIGNS: Temp 96.4, 74 pulse, 131/64 blood pressure, 18 respiratory rate, 99% O2 sat on BiPAP. HEAD: Atraumatic, normocephalic. HEART: Regular rate. LUNGS: Decreased breath sounds, but no wheezes, no rhonchi, no rales. ABDOMEN: Morbidly obese, soft, nontender. Positive bowel sounds. EXTREMITIES: No edema. MEDICATIONS: She is currently on Colace, Desyrel, DuoNeb, Glucophage, insulin coverage, Lasix, Lopre ssor, Lovenox, MiraLax, prednisone 40, Pulmicort, Rocephin, Singulair, Spiriva, Tylenol, Ultram, and Zithromax. LABORATORY DATA: She has a 16.9 white count, 11.3 hemoglobin, 38.5 hematocrit with 293 platelets. S odium 139. Potassium is 3.5. I will give her a K-rider today. BUN is 25, creatinine 0.7. GFR is g reater than 60. Sugar is 136. Calcium is 9.3. Total bili is 0.4. AST is 17. ALT is 25. Alk phos is 96, total protein 6.2. She is being seen by pulmonary. We will continue with the prednisone another day or 2 before we decr ease it to 30 mg. She is here for acute bronchitis, advanced COPD, obstructive sleep apnea, diabetes, valvular disease, a little debility, needs physical therapy for walking, and low potassium. I will give her a potassi um rider. We will check her labs tomorrow. Encouragement with PT and her meds. Thomas Looney DO cc: [id number] TT: 02/16/2017 10:36:13 Confirmation # [id number] Dictation # [id number] jn
[2017-02-17] MEDS: Albuterol-Ipratrop 3 mg / 0.5 (3 ml) UD IH SCH ×5 (00:20→16:11)
[2017-02-17] MEDS: Insulin Reg-HIGH-Coverage SC SCH ×3 (00:26→12:37)
[2017-02-17] MEDS: Azithromycin 500MG/NS 250ml 250 ML IVPB SCH (05:03)
[2017-02-17] MEDS: cefTRIAXone 1 gm 100 ML IVPB SCH (05:03)
[2017-02-17] MEDS: Budesonide 0.5 mg/2 ml Inhal Susp UD IH SCH (07:23)
[2017-02-17 07:49] LABS: HEMATOCRIT 39.3 % (36.0-48.0); MEAN CELL VOLUME 75.6 fL (80.0-105.0); MEAN CORPUSCULAR HEMOGLOBIN 21.5 pg (25.0-35.0); MEAN CORPUSCULAR HGB CONC 28.5 g/dl (31.0-37.0); MEAN PLATELET VOLUME 8.9 fl (7.0-11.0); RED CELL DISTRIBUTION WIDTH 16.8 % (11.5-14.5); WHITE BLOOD COUNT 15.8 10^3/ul (4.5-11.0)
--- NOTE | 2017-02-17 07:52 | PN ---
DATE: 12/20/2016 SUBJECTIVE: The patient appears comfortable this morning. She is not short of breath at rest. PHYSICAL EXAMINATION: VITAL SIGNS: Temperature is 96.4, pulse 87, respirations 18, blood pressure 164 /77. Oxygen saturation on nasal cannula is 96%. HEENT: Normocephalic, atraumatic. No JVD. CARDIOVASCULAR: Systolic ejection murmur at the lower left sternal border. No S3 gallop. LUNGS: Very minimal/less rhonchi. No wheezing. EXTREMITIES: Positive for edema. No cyanosis, no clubbing. Calves are nontender to palpation. GASTROINTESTINAL: Abdomen is soft, nontender, nondistended. Bowel sounds are positive. SKIN: No acute rash. NEUROLOGIC: Limited at the present time. IMPRESSION: 1. Acute bronchitis. 2. Advanced chronic obstructive pulmonary disease. 3. Obstructive sleep apnea. 4. Diabetes mellitus. 5. Valvular heart disease. PLAN: The patient appears very comfortable this morning. She is not short of breath at rest. She states she is feeling much better overall. On physical exam, only minimal bronchospasm is noted. In addition, there is no significant alveolar-arterial gradient. I will continue with the current nebulizer treatments and decrease the oral steroids this morning. The patient remains on antibiotic therapy. There are no temperatures noted. Clinical status of the patient is certainly improved -- compared to the initial presentation. However , again, the overall status/prognosis of this patient remains very guarded. I will discuss the above with Dr. Looney. Wagner Ramos MD cc: [id number] TT: 02/17/2017 07:52:16 Confirmation # [id number] Dictation # [id number] MTDD
[2017-02-17 08:06] LABS: ALB/GLOB RATIO 1.3 (1.1-1.8); ALKALINE PHOSPHATASE 98 U/L (38-133); ALT/SGPT 27 U/L (7-56); AST/SGOT 18 U/L (15-39); BILIRUBIN,TOTAL 0.4 mg/dL (0.2-1.3); BLOOD UREA NITROGEN 23 mg/dL (7-21); CARBON DIOXIDE 34 mmol/L (21-33); CHLORIDE 97 mmol/L (95-110); GFR AFRICAN-AMERICAN > 60; GLUCOSE,RANDOM 133 mg/dL (70-110); POTASSIUM 3.5 mmol/L (3.6-5.0); SODIUM 139 mmol/L (132-148); TOTAL PROTEIN 6.1 g/dL (5.8-8.3)
--- NOTE | 2017-02-17 09:14 | PN ---
DATE: 02/17/2017 I see her resting comfortably out of bed to chair today. She is eating her breakfast. She has an ap petite. She is feeling better overall. She is in good spirits and she is actually breathing better even though she is on oxygen and she looks less swollen. She is currently on Colace, Desyrel, DuoNeb, Glucophage, insulin coverage, Lasix IV, Lopressor, Loven ox, MiraLax, prednisone down to 30 mg, Pulmicort, Rocephin, Singulair, Spiriva, Tylenol, Ultram, and Zithromax. Before she came into the hospital, she was on prednisone 20. PHYSICAL EXAMINATION: VITAL SIGNS: Temp 96.4, 74 pulse, 131/64 blood pressure, 18 respiratory rate, 99% O2 sat on BiPAP. HEENT: Head is atraumatic, normocephalic. Throat is moist. NECK: Supple. HEART: Regular rate. LUNGS: Decreased breath sounds, but clear. No rhonchi, rales or wheezes. ABDOMEN: Morbidly obese, soft, nontender, positive bowel sounds. EXTREMITIES: Have no edema this morning. She has a 15.8 white count, 11.2 hemoglobin, 39.3 hematocrit with 268 platelets. She has a 139 sodiu m, potassium is 3.5. I will replace the potassium again. BUN 23, creatinine 0.7, GFR is greater tasneem n 60, sugar is 133, calcium is 9, total bili is 0.4, AST is 18, ALT is 27, alk phos 98, total protein 6.1. She is being seen by pulmonary, and decreased her prednisone to 30 mg. She is here for acute bronchi tis, advanced chronic obstructive pulmonary disease, obstructive sleep apnea, diabetes mellitus, valv ular heart disease, a little debility and we are on target for discharge soon in a few more days on T CU. We will continue with aggressive treatment and care. I do think she is improving. We will repl leonardo her potassium. Thomas Looney DO cc: [id number] TT: 02/17/2017 09:12:58 Confirmation # [id number] Dictation # [id number] en
[2017-02-17] MEDS ORDERED: Potassium Chloride 10 mEq 100 ML IVPB SCH (09:15)
[2017-02-17] MEDS: Enoxaparin 40 mg Syringe SC SCH (09:52)
[2017-02-17] MEDS: POLYETHYLENE GLYCOL 3350 17 GM/Dose PACKET PO SCH (09:54)
[2017-02-17] MEDS: Tiotropium 18 mcg Cap For Inhalation IH SCH (09:54)
[2017-02-17 09:59] VITALS: BP 129/65
[2017-02-17 10:20] VITALS: PULSE 74; TEMP 97.4
[2017-02-17] MEDS ORDERED: Potassium Chloride 20 mEq ER Tab PO ONE (12:16)
[2017-02-18] MEDS ORDERED: Enoxaparin 40 mg Syringe SC SCH (06:00)
[2017-02-18] MEDS ORDERED: Potassium Chloride 20 mEq ER Tab PO SCH (08:00)
[2017-02-18] MEDS ORDERED: Potassium Chloride 20 mEq ER Tab PO ONE (12:13)
== END 2017-02-17 17:30 | disposition home health service (06) | DRG 191 ==
LOC: TRCU 13:59
PROVIDERS: ADMIT Family Medicine; ATTEND Family Medicine
PROC: F07Z9FZ Gait Training/Functional Ambulation Treatment using Assistive, Adaptive, Supportive or Protective Equipment (ICD-10-PCS; principal; 2017-02-14)
PROC: F07M6ZZ Therapeutic Exercise Treatment of Musculoskeletal System - Whole Body (ICD-10-PCS; 2017-02-14)
PROC: F08Z1ZZ Dressing Techniques Treatment (ICD-10-PCS; 2017-02-16)
PROC: F08Z0ZZ Bathing/Showering Techniques Treatment (ICD-10-PCS; 2017-02-16)
PROC: F08Z4ZZ Home Management Treatment (ICD-10-PCS; 2017-02-16)
DX: J44.0 Chronic obstructive pulmonary disease with (acute) lower respiratory infection (principal); I38 Endocarditis, valve unspecified; I50.9 Heart failure, unspecified; Z68.43 Body mass index [BMI] 50.0-59.9, adult; E66.01 Morbid (severe) obesity due to excess calories; E11.9 Type 2 diabetes mellitus without complications; G47.33 Obstructive sleep apnea (adult) (pediatric); D72.829 Elevated white blood cell count, unspecified; H91.90 Unspecified hearing loss, unspecified ear; J20.9 Acute bronchitis, unspecified; Z82.49 Family history of ischemic heart disease and other diseases of the circulatory system; Z90.710 Acquired absence of both cervix and uterus; Z90.49 Acquired absence of other specified parts of digestive tract

== ENCOUNTER 2017-03-13 14:09 | Inpatient (IN) | payer MEDICARE, MEDICAID ==
[2017-03-13 14:14] VITALS: BMI 54.8
[2017-03-13] MEDS ORDERED: Albuterol-Ipratrop 3 mg / 0.5 (3 ml) UD IH STA (15:03)
--- NOTE | 2017-03-13 15:08 | ED PDOC ---
Arrival/HPI - General Chief Complaint: Shortness Of Breath Time Seen by Provider: 03/13/17 14:17 Historian: Patient - History of Present Illness Narrative History of Present Illness (Text): 03/13/17 19:37 Patient is a 66 year old female past medical history of COPD on home oxygen via nasal cannula, presents to the ED reporting episode of shortness of breath prior to arrival. Patient states that her "oxygen tubing got stuck in my mobile wheelchair" and when she attempted to free her oxygen tubing she "had to take my oxygen off for a few seconds" and after this she became very short of breath. Patient now states shortness of breath improved after being placed back on oxygen. She reports to me that she has also been experiencing a sore throat for the past 3 weeks. She reports she has been "on three different antibiotics" and sore throat appears to be worsening. She reports pain with swallowing, denies choking or drooling or inability to handle secretions. She does state that she has feeling of a hoarse voice and feels difficulty swallowing has gotten worse over the past several days. Denies fever. Denies hemoptysis. Denies abdominal pain. Denies numbness or weakness. Symptom Onset: Sudden Past Medical History - Infectious Disease Hx of Infectious Diseases: None - Tetanus Immunization Tetanus Immunization: Unknown - Reproductive Menopause: Yes - Cardiac Hx Cardiac Disorders: Yes Hx Congestive Heart Failure: Yes Hx Hypertension: Yes - Pulmonary Hx Chronic Obstructive Pulmonary Disease (COPD): Yes - Neurological Hx Neurological Disorder: Yes Other/Comment: pt [place] had hearing aides they are broken at home - HEENT Hx HEENT Disorder: Yes (uses eyeglasses) Hx Deafness: Yes - Renal Hx Renal Disorder: No - Endocrine/Metabolic Hx Diabetes Mellitus Type 2: Yes Hx Hypothyroidism: Yes - Hematological/Oncological Hx Blood Disorders: No - Integumentary Hx Dermatological Disorder: No - Musculoskeletal/Rheumatological Hx Arthritis: Yes - Gastrointestinal Hx Gastrointestinal Disorders: No (CONSTIPATION,) - Genitourinary/Gynecological Hx Genitourinary Disorders: No Hx Reproductive Disorders: No - Psychiatric Hx Psychophysiologic Disorder: Yes Hx Anxiety: Yes Hx Depression: Yes Hx Substance Use: No - Surgical History Hx Appendectomy: Yes Hx Hysterectomy: Yes Hx Open Heart Surgery: Yes (1957) Other/Comment: Tonsillectomy. Mitral valve repair as an infant. 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 - Anesthesia Hx Anesthesia Reactions: No - Suicidal Assessment Feels Threatened In Home Enviroment: No Family/Social History Family/Social History: Unknown Family HX Smoking Status: Former Smoker Hx Alcohol Use: No Hx Substance Use: No Hx Substance Use Treatment: No Allergies/Home Meds Allergies/Adverse Reactions: Allergies No Known Allergies Allergy (Verified 03/13/17 14:16) Home Medications: Home Meds Medication Instructions Recorded Confirmed Albuterol HFA [Ventolin HFA 90 0.09 mg IH QID 12/10/16 03/13/17 mcg/actuation (8 g)] Cyclobenzaprine [Flexeril] 10 mg PO HS 03/13/17 03/13/17 Glipizide [Glipizide ER] 5 mg PO BID 03/13/17 03/13/17 Ondansetron [Zofran Tab] 4 mg PO Q6 PRN 03/13/17 03/13/17 Pramipexole Di-HCl [Mirapex] 0.25 mg PO HS 03/13/17 03/13/17 Simvastatin [Simvastatin] 20 mg PO HS 03/13/17 03/13/17 Theophylline [Anthony-Dur] 300 mg PO Q12 03/13/17 03/13/17 metFORMIN [glucOPHAGE] 1,000 mg PO BID 03/13/17 03/13/17 Review of Systems - Review of Systems Constitutional: Fatigue. absent: Fevers Eyes: absent: Vision Changes, Photophobia ENT: Voice Changes, Sore Throat. absent: Hearing Changes, Rhinorrhea, Epistaxis , Sinus Congestion Respiratory: SOB. absent: Cough Cardiovascular: ARREDONDO. absent: Chest Pain, Palpitations, Calf Pain, Orthopnea Gastrointestinal: absent: Abdominal Pain, Nausea, Vomiting Genitourinary Female: absent: Dysuria, Frequency Musculoskeletal: absent: Back Pain Skin: absent: Rash Neurological: absent: Headache, Dizziness, Focal Weakness Endocrine: absent: Polyuria Hemo/Lymphatic: absent: Easy Bleeding Psychiatric: absent: Depression Physical Exam - Physical Exam Narrative Physical Exam (Text): Head: Atraumatic. Normocephalic. Eyes: PERRL. Sclera anicteric. Chronic eye deviation. Visual acuity and toscano intact. ENT: Mucous membranes are moist and intact. Oropharynx is clear and symmetric. There is right sided mild pharyngeal edema noted, no exudates, no uvular deviation, thick secretions noted coating posterior pharynx, no foreign body. Neck: Supple. Full ROM. Large neck with no fluctuant masses or erythema, no stridor noted. Cardiovascular: Regular rate. Regular rhythm. No pathologic murmurs noted. Pulmonary/Chest: No evidence of respiratory distress. Mild expiratory wheeze, no tripod position, no accessory muscle usage, no stridor. Abdominal: Soft and non-distended. There is no tenderness. No rebound, guarding, or rigidity. Back: No CVA tenderness. Extremities: No edema. No cyanosis. No clubbing. Full range of motion in all extremities. No calf tenderness. Skin: Skin is warm and dry. No petechiae. No purpura. Neurological: Alert, awake, and oriented. Motor and sensory intact, no facial droop, no meningeal signs. Psychiatric: Good eye contact. Normal interaction, affect, and behavior. Vital Signs Reviewed: Yes Vital Signs Temp Pulse Resp BP Pulse Ox 03/13/17 18:11 98 F 99 H 20 152/68 H 99 03/13/17 16:53 98 F 101 H 21 129/53 L 99 03/13/17 14:22 98.5 F 102 H 20 146/70 97 Temperature: Afebrile Blood Pressure: Normal Pulse: Tachycardic Respiratory Rate: Normal Appearance: Positive for: Well-Appearing, Non-Toxic, Comfortable Pain Distress: None Mental Status: Positive for: Alert and Oriented X 3 Finger Stick Blood Glucose: 148 Medical Decision Making ED Course and Treatment: 03/13/17 19:45 Patient is a 66 yo female with past medical hx of COPD, presents initially for SOB, but states that sensation of SOB triggered by taking her nasal cannula oxygen off briefly, now improved after being back on oxygen. Of concern, she has had sore throat for 3 weeks not improved with outpatient antibiotics, and on exam the patient has hoarse voice and some pharyngeal edema noted. No hypoxia or drooling or stridor noted. CT neck ordered as symptoms progressing despite outpatient treatment, CT suggestive of "airway constriction", thus ENT consulted. I discussed case with Dr. Mark for evaluation of abnormal CT findings. Patient given iv solumedrol and antibiotics initiated. While in ED the patient has had no stridor or hypoxia or SOB. Will admit to ICU pending ENT evaluation due to potential for airway compromise although currently breathing comfortably. WBC elevated, although review of previous labs reveal that patient has chronic elevation of WBC. Currently afebrile. She has been on steroids. Current exam not consistent with sepsis. - Lab Interpretations Lab Results: 03/13/17 15:00 03/13/17 15:00 Lab Results 03/13/17 15:00: WBC 15.2 H, RBC 4.57, Hgb 10.0 L, Hct 34.7 L, MCV 75.9 L, MCH 21.9 L, MCHC 28.8 L, RDW 18.0 H, Plt Count 265, MPV 8.8, Gran % 74.7 H, Lymph % (Auto) 17.7 L, [place] % (Auto) 6.5 H, Eos % (Auto) 0.9 L, Baso % (Auto) 0.2, Gran # 11.37 H, Lymph # 2.7, [place] # 1.0 H, Eos # 0.1, Baso # 0.03, PT 9.9, INR 0.92 L , APTT 23.5 L, Sodium 138, Potassium 3.5 L, Chloride 94 L, Carbon Dioxide 35 H, Anion Gap 13, BUN 13, Creatinine 0.6, Est GFR ( Amer) > 60, Est GFR (Non- Af Amer) > 60, Random Glucose 135 H, Calcium 9.3, Total Bilirubin 0.5, AST 17, ALT 36, Alkaline Phosphatase 99, Lactate Dehydrogenase 619, Total Creatine Kinase < 20 L, Troponin I < 0.01, NT-Pro-B Natriuret Pep 130, Total Protein 6.3 , Albumin 3.4, Globulin 2.8, Albumin/Globulin Ratio 1.2 03/13/17 14:52: POC Glucose (mg/dL) 148 H - RAD Interpretation Radiology Orders: 03/13/17 14:36 NECK SOFT TISSUE W/O CONTRAST [CT] Stat CHEST TWO VIEWS (PA/LAT) [RAD] Stat - EKG Interpretation EKG Interpretation (Text): 03/13/17 19:45 EKG at 14:17 sinus tachycardia rate of 104, no acute st elevations Interpreted by ED Physician: Yes Type: 12 lead EKG - Medication Orders Current Medication Orders: Albuterol Sulfate (Albuterol 0.5% Inhal Daniella (2.5 Mg/0.5 Ml) Ud) 2.5 mg IH [id number] JONATHAN Albuterol/Ipratropium (Duoneb 3 Mg/0.5 Mg (3 Ml) Ud) 3 ml IH Q4H PRN PRN Reason: wheezing or sob Stop: 03/14/17 01:16 Heparin Sodium (Porcine) (Heparin) 5,000 units SC Q8H JONATHAN PRN Reason: Protocol Last Admin: 03/13/17 18:19 Dose: 5,000 UNITS MAR aPTT Document 03/13/17 18:19 GMI (Rec: 03/13/17 18:[id number]) aPTT aPTT (secs) 23.5 Subcutaneous Administrations Document 03/13/17 18:19 GMI (Rec: 03/13/17 18:[id number]) Injection Site MAR Injection Site Right Abdomen Charges for Administration # of Subcutaneous Administrations 1 Clindamycin Phosphate 600 mg/ (Sodium Chloride) 54 mls @ 102 mls/hr IVPB Q8 JONATHAN PRN Reason: Protocol Last Admin: 03/13/17 18:04 Dose: 102 MLS/HR eMAR Start Stop Document 03/13/17 18:04 GMI (Rec: 03/13/17 18:05 GMI [id number]) Intravenous Solution Start Date 03/13/17 Start Time 18:05 Azithromycin (Zithromax 500mg In Ns) 250 mls @ 167 mls/hr IVPB Q24H JONATHAN PRN Reason: Protocol Last Admin: 03/13/17 18:58 Dose: 167 MLS/HR eMAR Start Stop Document 03/13/17 18:58 JCL (Rec: 03/13/17 18:59 JCL [facility] [id number]) Intravenous Solution Start Date 03/13/17 Start Time 18:59 End Date 03/13/17 End time 20:30 Total Infusion Time 91 Insulin Human Regular (Humulin R High) 0 units SC Q4H JONATHAN PRN Reason: Protocol Last Admin: 03/13/17 18:03 Dose: Methylprednisolone (Solu-Medrol) 40 mg IVP Q8H JONATHAN Pantoprazole Sodium (Protonix Inj) 40 mg IVP DAILY JONATHAN Tiotropium Morris (Spiriva) 18 mcg IH DAILY JONATHAN Discontinued Medications Albuterol/Ipratropium (Duoneb 3 Mg/0.5 Mg (3 Ml) Ud) 3 ml IH STAT STA Stop: 03/13/17 15:04 Last Admin: 03/13/17 15:08 Dose: 3 ML Ceftriaxone Sodium (Rocephin 1 Gram Ivpb) 100 mls @ 200 mls/hr IVPB ONCE STA PRN Reason: Protocol Stop: 03/13/17 17:51 Last Admin: 03/13/17 18:58 Dose: 200 MLS/HR eMAR Start Stop Document 03/13/17 18:58 JC (Rec: 03/13/17 18:58 [id number] [place] Intravenous Solution Start Date 03/13/17 Start Time 18:58 End Date 03/13/17 End time 20:00 Total Infusion Time 62 Methylprednisolone (Solu-Medrol) 125 mg IVP STAT STA Stop: 03/13/17 16:52 Last Admin: 03/13/17 17:02 Dose: 125 MG IVP Administration Document 03/13/17 17:02 GMI (Rec: 03/13/17 17:02 GMI [id number]) Charges for Administration # of IVP Administrations 1 Disposition/Present on Arrival - Present on Arrival Any Indicators Present on Arrival: No History of DVT/PE: No History of Uncontrolled Diabetes: No Urinary Catheter: No History of Decub. Ulcer: No History Surgical Site Infection Following: CABG - Mediastinitis, None - Disposition Have Diagnosis and Disposition been Completed?: Yes Diagnosis: COPD (chronic obstructive pulmonary disease), Constriction of airway Disposition: HOSPITALIZED Disposition Time: 17:20 Patient Plan: Admission, ICU Patient Problems: Current Active Problems Problem Status Diagnosed COPD with acute exacerbation Acute E coli infection Acute ESBL (extended spectrum beta-lactamase) producing bacteria infection Acute Urinary tract infection Acute Condition: CRITICAL
[2017-03-13 15:13] LABS: ADD MANUAL DIFF? NO
[2017-03-13 15:20] LABS: BASO # 0.03 K/mm3 (0.0-2.0); BASO % 0.2 % (0.0-3.0); EOS # 0.1 (0.0-0.7); EOS % 0.9 % (1.5-5.0); GRAN # 11.37 (1.4-6.5); HEMATOCRIT 34.7 % (36.0-48.0); LYMPH # 2.7 (1.2-3.4); LYMPH % 17.7 % (22.0-35.0); MEAN CELL VOLUME 75.9 fL (80.0-105.0); MEAN CORPUSCULAR HEMOGLOBIN 21.9 pg (25.0-35.0); MEAN CORPUSCULAR HGB CONC 28.8 g/dl (31.0-37.0); MEAN PLATELET VOLUME 8.8 fl (7.0-11.0); MONO % 6.5 % (1.0-6.0); PLATELET COUNT 265 10^3/uL (120.0-450.0); WHITE BLOOD COUNT 15.2 10^3/ul (4.5-11.0)
[2017-03-13 15:27] LABS: ALB/GLOB RATIO 1.2 (1.1-1.8); ALKALINE PHOSPHATASE 99 U/L (38-133); ALT/SGPT 36 U/L (7-56); AST/SGOT 17 U/L (15-39); BILIRUBIN,TOTAL 0.5 mg/dL (0.2-1.3); BLOOD UREA NITROGEN 13 mg/dL (7-21); CALCIUM 9.3 mg/dL (8.4-10.5); CARBON DIOXIDE 35 mmol/L (21-33); CHLORIDE 94 mmol/L (98-107); GFR AFRICAN-AMERICAN > 60; GLUCOSE,RANDOM 135 mg/dL (70-110); POTASSIUM 3.5 mmol/L (3.6-5.0); SODIUM 138 mmol/L (132-148); TOTAL PROTEIN 6.3 g/dL (5.8-8.3)
[2017-03-13 15:43] LABS: TROPONIN I < 0.01 ng/mL
--- NOTE | 2017-03-13 16:05 | CT ---
PROCEDURE: CT NECK WITHOUT CONTRAST HISTORY: 3 weeks of right sided sore throat COMPARISON: None. TECHNIQUE: CT of the neck without intravenous contrast. Coronal and sagittal reformats generated. Radiation dose: DLP mGy-cm This CT exam was performed using one or more of the following dose reduction techniques: Automated exposure control, adjustment of the mA and/or kV according to patient size, and/or use of iterative reconstruction technique. FINDINGS: NASOPHARYNX: Unremarkable. SUPRAHYOID NECK: Circumferential narrowing of the airway possibly representing lymphoid hyperplasia. No evidence of abscess. Recommend correlation with direct visual inspection. INFRAHYOID NECK: Unremarkable larynx, hypopharynx, and supraglottic space. Vocal cords intact. MASS: None. GLANDS: Parotid and submandibular glands unremarkable. Normal size thyroid gland, without nodule. LYMPH NODES: Normal. No lymphadenopathy. CERVICAL SPINE: No fracture or focal lesion. OTHER FINDINGS: None. IMPRESSION: Circumferential narrowing of the airway possibly representing lymphoid hyperplasia. No evidence of abscess. Recommend correlation with direct visual inspection.
[2017-03-13 16:38] LABS: INR 0.92 (0.93-1.08); PARTIAL THROMBOPLASTIN TIME 23.5 Seconds (23.7-30.8)
[2017-03-13] MEDS ORDERED: Albuterol-Ipratrop 3 mg / 0.5 (3 ml) UD IH PRN (17:14)
[2017-03-13] MEDS ORDERED: cefTRIAXone 1 gm 100 ML IVPB STA (17:22)
[2017-03-13] MEDS ORDERED: Azithromycin 500MG/NS 250ml 250 ML IVPB SCH (18:00)
[2017-03-13] MEDS: Insulin Reg-HIGH-Coverage SC SCH ×2 (18:03→21:24)
[2017-03-13 18:34] LABS: GRAN % 74.7 % (50.0-68.0)
--- NOTE | 2017-03-13 19:03 | CON ---
DATE: 03/13/2017 HISTORY OF PRESENT ILLNESS: The patient is a 66-year-old lady with morbid obesity, COPD on home oxygen, hypertension, CHF, who presented this time with increased shortness of breath and some dry cough of 1 day duration that was accompanied by some sore throat. The patient reports that her oxygen delivery system malfunctioned recently and she was not able to use it. Due to her complaint of sore throat, CAT scan of the soft tissues of the neck was done which revealed some narrowing of airways due to what appears to be lymphoid hyperplasia. ER physician called ENT for consult to evaluate airway patency and ICU was called to consider ICU admission for airway monitoring. No nausea, no vomiting, no diarrhea, no constipation, no chest pain. PAST MEDICAL HISTORY: COPD, CHF, hypertension. FAMILY HISTORY: Noncontributory. SOCIAL HISTORY: No alcohol or illicit drug abuse. The patient is an ex-smoker , but does not smoke tobacco currently. ALLERGIES: NKDA. REVIEW OF SYSTEMS: Revealed 12 organ system other than mentioned in history of present illness is negative. PHYSICAL EXAMINATION: VITAL SIGNS: Temperature 98, heart rate 101, blood pressure 129/53, oxygen saturation 99% on room air, respiratory rate 21. GENERAL: There is no stridor. There is no drooling. There is no difficulty swallowing saliva and managing secretions. There is some erythema in the back of the throat. However, neck is obese and short and not tender on palpation. HEAD AND NECK: Atraumatic. LUNGS: Clear to auscultation bilaterally. HEART: Regular rate and rhythm. S1, S2 normal. ABDOMEN: Soft, nontender, nondistended. MUSCULOSKELETAL: No C/C/E. NEUROLOGIC: The patient moves lower extremities spontaneously. SKIN: Moist. PSYCHOLOGIC: The patient is alert and oriented x 3. LABORATORY DATA: WBC 15.2, hemoglobin 10, platelet count 265. Sodium 138, potassium 3.5, chloride 94, carbon dioxide 35, BUN 13, creatinine 0.6, glucose 135. AST 17, ALT 36, troponin less than 0.01, albumin 3.4. CAT scan of the soft tissue neck revealed circumferential narrowing of the airway, possibly representing lymphoid hyperplasia. No evidence of abscess. Chest x-ray, some bilateral haziness, left more than right, which may represent interstitial infiltrate or the patient's habitus (morbid obesity). MEDICATIONS: At home, Zofran, glipizide, Mirapex, Flexeril, theophylline, simvastatin, tiotropium, trazodone, metformin, Singulair, metoprolol, furosemide , DuoNeb. ASSESSMENT AND PLAN: This is a 66-year-old lady who presented with what appears to be chronic obstructive pulmonary disease exacerbation. Subsequent workup revealed some upper airway narrowing and even though clinically patient appears to be protecting her airways and managing her upper airways well, radiographic finding remains still concerning at present time. We will proceed with ENT consultation which was called for and at the present time is pending, steroid taper, antibiotics, bronchodilators, deep venous thrombosis and gastrointestinal prophylaxis. We will continue to target euvolemia, euglycemia , normothermia and oxygen saturation more than 90%. The patient will be admitted to ICU until ENT team rules out any immediate danger for upper airways. ccm time 40 min Carmelo Roth MD cc: [id number] TT: 03/13/2017 19:02:14 Confirmation # [id number] Dictation # [id number] santana BUTLER
[2017-03-13] MEDS: Albuterol 0.5% Inhal Sol (2.5 mg/0.5 ml) UD IH SCH (20:00)
[2017-03-13] MEDS: Nystatin 100,000 Units/ml Oral Susp 5 ml UD PO SCH (21:28)
[2017-03-13] MEDS: MethylPREDNISolone 40 mg Vial IVP SCH (21:28)
[2017-03-13] MEDS ORDERED: Pneumococcal 23-Valent Vaccine IM ONE (22:02)
[2017-03-14] MEDS: Insulin Reg-HIGH-Coverage SC SCH ×6 (00:30→22:26)
[2017-03-14] MEDS: Albuterol 0.5% Inhal Sol (2.5 mg/0.5 ml) UD IH SCH ×4 (02:00→20:09)
[2017-03-14] MEDS: MethylPREDNISolone 40 mg Vial IVP SCH ×3 (05:24→22:13)
[2017-03-14 05:57] LABS: HEMATOCRIT 38.7 % (36.0-48.0); MEAN CELL VOLUME 75.9 fL (80.0-105.0); MEAN CORPUSCULAR HEMOGLOBIN 21.4 pg (25.0-35.0); MEAN CORPUSCULAR HGB CONC 28.2 g/dl (31.0-37.0); MEAN PLATELET VOLUME 9.1 fl (7.0-11.0); PLATELET COUNT 290 10^3/uL (120.0-450.0); RED CELL DISTRIBUTION WIDTH 17.7 % (11.5-14.5); WHITE BLOOD COUNT 12.4 10^3/ul (4.5-11.0)
[2017-03-14 06:08] LABS: ADD MANUAL DIFF? YES
[2017-03-14 06:40] LABS: BLOOD UREA NITROGEN 13 mg/dL (7-21); CARBON DIOXIDE 37 mmol/L (21-33); CHLORIDE 95 mmol/L (98-107); GFR AFRICAN-AMERICAN > 60; GLUCOSE,RANDOM 231 mg/dL (70-110); POTASSIUM 4.7 mmol/L (3.6-5.0); SODIUM 142 mmol/L (132-148)
[2017-03-14 06:51] LABS: BAND 4 % (0-2); METAMYELOCYTE 1 %; NEUTROPHIL 88 % (50.0-70.0)
[2017-03-14 06:52] LABS: ANISOCYTOSIS 1+; PLATELET ESTIMATE NORMAL (NORMAL)
--- NOTE | 2017-03-14 07:52 | RAD ---
HISTORY: short of breath COMPARISON: No prior. TECHNIQUE: Chest PA and lateral FINDINGS: LUNGS: No active pulmonary disease. PLEURA: No significant pleural effusion identified. No pneumothorax apparent. CARDIOVASCULAR: Cardiomegaly. OSSEOUS STRUCTURES: No significant abnormalities. VISUALIZED UPPER ABDOMEN: Normal. OTHER FINDINGS: None. IMPRESSION: No acute infiltrate.
--- NOTE | 2017-03-14 08:00 | CON ---
DATE: 03/13/2017 CONSULTING PHYSICIAN: Dr. Brock Mark ATTENDING PHYSICIAN: Dr. Thomas Looney REASON FOR CONSULTATION: Dyspnea. HISTORY OF PRESENT ILLNESS: This is a 66-year-old lady with COPD on home oxygen, morbid obesity, CHF , hypertension, who comes in to the Emergency Room at [facility] with a sore throat for 3 weeks and an episode of shortness of breath and anxiety after taking off her home oxygen. She repor ts that she was seeing her primary care physician for the sore throat and was tried on several antibi otics. However, she did not get better. Upon arrival to the ED, a CAT scan of the soft tissues of t he neck was performed, which revealed some narrowing of the airway and some lymphoid hyperplasia. Th erefore, ENT service was called to evaluate the airway. Upon exam, the patient is admitted to the [facility] and she endorses the history above. She denies any fevers, chills, changes in vision, recent illne sses, sick contacts, drainage from her nose, cough. She does state that she is currently not short o f breath anymore and feels that she is back to her baseline with her respiratory status, but that her throat still continues to be sore. PAST MEDICAL HISTORY: COPD, CHF, hypertension, morbid obesity. SOCIAL HISTORY: She does admit to smoking about a pack a day for 20 years. However, she did quit __ ___ years ago. She denies alcohol use. ALLERGIES: No known drug allergies. PAST SURGICAL HISTORY: Tonsillectomy when she was young, appendectomy. MEDICATIONS: She is on albuterol, DuoNeb, azithromycin, clindamycin, heparin subQ, regular insulin, methylprednisolone, pantoprazole. REVIEW OF SYSTEMS: Negative as per HPI. PHYSICAL EXAMINATION: VITAL SIGNS: Temperature is 98.6, pulse rate is 102, blood pressure is 148/66, respiratory rate is 2 0, oxygen saturation 96% on 2 liters of nasal cannula. GENERAL: She is awake. She is alert and oriented x 3. She is able to speak in full sentences, but she does gasp for air in between them. She has no stridor, no noisy breathing. She is tolerating he r secretions, no drooling. HEAD: Atraumatic, normocephalic. EYES: Extraocular movements grossly intact. NOSE: Nares are patent bilaterally, no drainage, no epistaxis. MOUTH: Oral mucosa is dry. Tongue is mobile and midline with no floor of mouth edema. The uvula is midline with no edema. The soft palate is symmetrical. The oropharynx is nonerythematous. Tonsils are absent. NECK: Obese, difficult to palpate landmarks, no lymphadenopathy, nontender. RESPIRATORY: She has nonlabored breathing, not using accessory muscles, not stridorous. DIRECT FIBEROPTIC LARYNGOSCOPY: After application of topical anesthetic to the patient's nose and ob taining consent from the patient, the fiberoptic laryngoscope was placed into the patient's right samia is, which demonstrated normal anatomy with a mall area of scab on the septum, which demonstrates an o ld area of bleeding. The rest of the nasal cavity is unremarkable. The scope was then placed in the patient's left naris, which demonstrated a septal deviation. However, the rest of the nasal anatomy was normal without masses, lesions or epistaxis. The scope was then advanced into the patient's giovana opharynx, which demonstrated normal anatomy with patent bilateral eustachian tubes. The scope was ad vanced down towards the base of the tongue, which demonstrated evidence of candidiasis thrush. The b ase of the tongue and the vallecula was also noted to have lymphoid hyperplasia. The epiglottis was crisp without edema. The piriform sinuses were clear bilaterally. The postcricoid region was withou t edema or erythema. The arytenoids and aryepiglottic folds were within normal limits. The false vo tim cords and the true vocal cords were normal. The true vocal cords approximated normally upon phon ation. There were no masses or lesions seen on the vocal cords. The scope was then removed under di rect visualization. The patient tolerated the procedure well without any immediate complications. LABORATORIES: The patient's white count is 15.2, her hemoglobin is 10, hematocrit 34.7, platelets 26 5. Coags: INR is 0.92, PTT 23.5. Sodium 138, potassium 3.5, chloride 94, CO2 35, BUN 13, creatinin e 0.6, AST 17, ALT 36, glucose 135. Soft tissue of the neck reads as the following: Nasopharynx unremarkable. Suprahyoid neck circumfer ential narrowing of the area possibly representing lymphoid hyperplasia, no evidence of abscess, mildred mmended correlation with direct visual exam. Infrahyoid neck unremarkable larynx, hypopharynx and og praglottic space. Vocal cords intact. Mass none. Glands, parotid and submandibular . Normal sized thyroid gland without nodule. Lymph nodes, lymphadenopathy. Cervical spine, no fracture or focal lesion. Other findings, none. Impression: Circumferential narrowing of the area possibly representing lymphoid hyperplasia, no evidence of abscess, recommend correlation with direct visual inspection. ASSESSMENT AND PLAN: This is a 66-year-old female with a sore throat and shortness of breath. The s ore throat has been chronic in nature, ongoing for about 3 weeks and most likely is related to the or al candidiasis that has not been adequately treated with the antibiotics that she was placed on. Her shortness of breath I would say at this point is not related to her airway. It may be related to co ngestive heart failure or chronic obstructive pulmonary disease exacerbation. Upon scoping her, no a irway issues were seen other than some lymphoid hyperplasia, which is not compromising her airway at this point. Would recommend placing her on nystatin swish and spit for the candidiasis. Also recomm end working her up for chronic obstructive pulmonary disease and congestive heart failure exacerbatio n, getting a viral upper respiratory infection panel. I would also recommend that she is placed on h umidified oxygen to decrease the chances of epistaxis. The patient can be on a regular diet. After the patient is discharged, I recommend following up as an outpatient to ensure that her sore throat h as improved. Brock Mark DO cc: [id number] TT: 03/14/2017 07:59:43 Confirmation # [id number] Dictation # [id number]
[2017-03-14] MEDS: Tiotropium 18 mcg Cap For Inhalation IH SCH (10:40)
[2017-03-14] MEDS: Fluconazole IV 200mg/100 ml NS 100 MG in Premixed IV 1 EA IVPB SCH (10:41)
[2017-03-14] MEDS: Nystatin 100,000 Units/ml Oral Susp 5 ml UD PO SCH ×4 (10:41→22:14)
[2017-03-14] MEDS ORDERED: Piperacillin/Tazobact 3.375 gm 100 ML IVPB SCH (12:00)
[2017-03-14] MEDS ORDERED: Metoprolol 1 mg/ml Inj IVP ONE (12:05)
--- NOTE | 2017-03-14 12:44 | CP.CCUPN ---
<Jas Pierce - Last Filed: 03/14/17 12:37> CCU Subjective - Physician Review Subjective (Free Text): 03/14/17 12:37 Patient seen and examined at bedside in the ICU. Today is hospital day 2. Overnight, patient had some intermittent hypertensive episodes, up to 210 systolic. Today, SBP remains elevated at 150's-160's, but no further elevations above 200. Patient resting in bed, on NC O2 2L, satting well on bedside monitor. Patient reports some shortness of breath persisting with any exertion, but none when remaining at rest, and sore throat persists but is slightly improved over severity at time of admission. Denies pain with respiration, chest pain, nausea/emesis, focal weakness, hemoptysis. CCU Objective - Vital Signs / Intake & Output Vital Signs (Last 4 hours): Vital Signs Temp Pulse Resp BP Pulse Ox 03/14/17 11:51 97.9 F 03/14/17 11:24 108 H 162/81 H 89 L 03/14/17 11:20 104 H 186/108 H 97 03/14/17 11:01 111 H 171/96 H 92 L 03/14/17 11:00 110 H 19 96 03/14/17 10:00 113 H 24 121/92 H 93 L 03/14/17 09:54 107 H 35 H 03/14/17 09:27 127 H 134 H 03/14/17 09:00 108 H 27 H 135/85 94 L Intake and Output (Last 8hrs): Intake & Output 03/13/17 03/14/17 03/14/17 22:59 06:59 14:59 Intake Total 0 1600 Output Total 1200 Balance 0 400 Weight 127.459 kg Intake: IV 0 200 Left Wrist 0 200 Oral 1400 Output: Urine 1200 Urine, Voided 1200 Other: Voiding Method Bedpan Bedpan - Physical Exam Head: Positive for: Atraumatic, Normocephalic. Negative for: Contusion, Ecchymosis, Abrasion, Laceration Pupils: Negative for: Pinpoint Extroacular Muscles: Positive for: EOMI. Negative for: Gaze Palsy, Entrapment Conjunctiva: Positive for: Normal. Negative for: Injected, Icteric Mouth: Positive for: Moist Mucous Membranes, Normal Tounge. Negative for: Normal Teeth (poor dentition) Pharnyx: Positive for: ERYTHEMA (mild posterior erythema), Other (mallampati score II to III). Negative for: EXUDATE, Peritonsilar Swelling, Uvular Deviation, Strider Nose (External): Positive for: Atraumatic, Other (wearing nasal canula). Negative for: Abrasion, Contusion, Laceration Neck: Positive for: Normal Range of Motion, Trachea Midline, Other (bull neck). Negative for: JVD Respiratory/Chest: Positive for: Decreased Breath Sounds (diffusely decreased breath sounds in all toscano). Negative for: Clear to Auscultation, Good Air Exchange, Respiratory Distress, Wheezes, Rales, Rhonchi, Tachypneic Cardiovascular: Positive for: Regular Rate and Rhythm, Normal S1, S2, Tachycardic (90's-100's on bedside monitor during exam). Negative for: Murmurs , Irregular Rhythm, Bradycardic Abdomen: Positive for: Normal Bowel Sounds, Other (firm but not rigid). Negative for: Tenderness, Distention (morbidly obese, but not distended), Peritoneal Signs, Rebound, Guarding Upper Extremity: Positive for: Normal Inspection, Normal ROM, NORMAL PULSES. Negative for: Cyanosis, Edema Lower Extremity: Positive for: Normal ROM. Negative for: CALF TENDERNESS, NORMAL PULSES (unable to palpate pedal pulses), Cyanosis, Tenderness, Erythema, Deformity Neurological: Positive for: GCS=15, CN II-XII Intact, Speech Normal (no gross dyspnea with speech), Motor Func Grossly Intact Skin: Positive for: Warm, Dry, Normal Color. Negative for: Rashes Psychiatric: Positive for: Alert, Oriented x 3, Normal Insight, Normal Concentration, Normal Affect, Normal Mood - Medications Active Medications: Active Medications Generic Name Dose Route Start Last Admin Trade Name Freq PRN Reason Stop Dose Admin Acetaminophen 650 mg 03/14/17 09:31 Tylenol 325mg Tab PO Q6H PRN Fever >100.4 F Albuterol Sulfate 2.5 mg 03/13/17 20:00 03/14/17 07:41 Albuterol 0.5% Inhal Daniella (2.5 Mg/0.5 Ml) Ud IH 2.5 mg [id number] JONATHAN Administration Atorvastatin Calcium 20 mg 03/14/17 22:00 Lipitor PO HS JONATHAN Glipizide 5 mg 03/14/17 17:00 Glucotrol Xl PO BRKDIN JONATHAN Heparin Sodium (Porcine) 5,000 units 03/13/17 17:30 03/14/17 08:53 Heparin SC 5,000 units Q8H JONATHAN Administration Protocol Piperacillin Sod/Tazobactam Sod 100 mls @ 200 mls/hr 03/14/17 12:00 03/14/17 11 :57 Zosyn 3.375 In Ns 100ml IVPB 03/21/17 12:01 200 mls/hr Q6 JONATHAN Administration Protocol Fluconazole 100 mg/ 50 mls @ 100 mls/hr 03/14/17 10:00 03/14/17 10:41 Miscellaneous IVPB 03/21/17 10:01 100 mls/hr DAILY [facility] Administration Protocol Doxycycline Hyclate 100 mg/ 100 mls @ 100 mls/hr 03/14/17 10:00 03/14/17 10:41 Sodium Chloride IVPB 100 mls/hr Q12 JONATHAN Administration Protocol Insulin Human Regular 0 units 03/13/17 17:30 03/14/17 08:53 Humulin R High SC 4 units Q4H [facility] Administration Protocol Metformin HCl 1,000 mg 03/14/17 17:00 Glucophage PO BRKDIN [facility] Methylprednisolone 40 mg 03/13/17 22:00 03/14/17 05:24 Solu-Medrol IVP 40 mg Q8H JONATHAN Administration Metoprolol Tartrate 25 mg 03/14/17 18:00 Lopressor PO BID JONATHAN Nystatin 5 ml 03/13/17 22:00 03/14/17 10:41 Nystatin Oral Susp PO 5 ml QID JONATHAN Administration Pantoprazole Sodium 40 mg 03/14/17 10:00 03/14/17 10:40 Protonix Inj IVP 40 mg DAILY JONATHAN Administration Tiotropium [place] 18 mcg 03/14/17 10:00 03/14/17 10:40 Spiriva IH 18 mcg DAILY [facility] Administration Trazodone HCl 200 mg 03/14/17 09:32 Desyrel PO [facility] - Patient Studies Lab Studies: Lab Studies 03/14/17 03/14/17 03/14/17 Range/Units 05:36 05:00 00:22 WBC 12.4 H (4.5-11.0) 10^3/ul RBC 5.10 (3.5-6.1) 10^6/uL Hgb 10.9 L (12.0-16.0) gm/dL Hct 38.7 (36.0-48.0) % MCV 75.9 L (80.0-105.0) fL MCH 21.4 L (25.0-35.0) pg MCHC 28.2 L (31.0-37.0) g/dl RDW 17.7 H (11.5-14.5) % Plt Count 290 (120.0-450.0) 10^3/uL MPV 9.1 (7.0-11.0) fl Neutrophils % (Manual) 88 H (50.0-70.0) % Band Neutrophils % 4 H (0-2) % Lymphocytes % (Manual) 6 L (22.0-35.0) % Monocytes % (Manual) 1 (1.0-6.0) % Metamyelocytes % 1 % Platelet Evaluation Normal (NORMAL) Anisocytosis (manual) 1+ Sodium 142 (132-148) mmol/L Potassium 4.7 (3.6-5.0) mmol/L Chloride 95 L (98-107) mmol/L Carbon Dioxide 37 H (21-33) mmol/L Anion Gap 15 (10-20) BUN 13 (7-21) mg/dL Creatinine 0.6 (0.5-1.4) mg/dL Est GFR ( Amer) > 60 Est GFR (Non-Af Amer) > 60 POC Glucose (mg/dL) 273 H 369 H (65-110) mg/dL Random Glucose 231 H (70-110) mg/dL Calcium 9.0 (8.4-10.5) mg/dL 03/13/17 Range/Units 21:19 WBC (4.5-11.0) 10^3/ul RBC (3.5-6.1) 10^6/uL Hgb (12.0-16.0) gm/dL Hct (36.0-48.0) % MCV (80.0-105.0) fL MCH (25.0-35.0) pg MCHC (31.0-37.0) g/dl RDW (11.5-14.5) % Plt Count (120.0-450.0) 10^3/uL MPV (7.0-11.0) fl Neutrophils % (Manual) (50.0-70.0) % Band Neutrophils % (0-2) % Lymphocytes % (Manual) (22.0-35.0) % Monocytes % (Manual) (1.0-6.0) % Metamyelocytes % % Platelet Evaluation (NORMAL) Anisocytosis (manual) Sodium (132-148) mmol/L Potassium (3.6-5.0) mmol/L Chloride (98-107) mmol/L Carbon Dioxide (21-33) mmol/L Anion Gap (10-20) BUN (7-21) mg/dL Creatinine (0.5-1.4) mg/dL Est GFR ( Amer) Est GFR (Non-Af Amer) POC Glucose (mg/dL) 299 H (65-110) mg/dL Random Glucose (70-110) mg/dL Calcium (8.4-10.5) mg/dL Laboratory Results - last 24 hr 03/13/17 03/14/17 03/14/17 21:19 00:22 05:00 WBC 12.4 H RBC 5.10 Hgb 10.9 L Hct 38.7 MCV 75.9 L MCH 21.4 L MCHC 28.2 L RDW 17.7 H Plt Count 290 MPV 9.1 Neutrophils % (Manual) 88 H Band Neutrophils % 4 H Lymphocytes % (Manual) 6 L Monocytes % (Manual) 1 Metamyelocytes % 1 Platelet Evaluation Normal Anisocytosis (manual) 1+ Sodium 142 Potassium 4.7 Chloride 95 L Carbon Dioxide 37 H Anion Gap 15 BUN 13 Creatinine 0.6 Est GFR ( Amer) > 60 Est GFR (Non-Af Amer) > 60 POC Glucose (mg/dL) 299 H 369 H Random Glucose 231 H Calcium 9.0 03/14/17 05:36 WBC RBC Hgb Hct MCV MCH MCHC RDW Plt Count MPV Neutrophils % (Manual) Band Neutrophils % Lymphocytes % (Manual) Monocytes % (Manual) Metamyelocytes % Platelet Evaluation Anisocytosis (manual) Sodium Potassium Chloride Carbon Dioxide Anion Gap BUN Creatinine Est GFR ( Amer) Est GFR (Non-Af Amer) POC Glucose (mg/dL) 273 H Random Glucose Calcium Fingerstick Blood Sugar Results: 247 Review of Systems - Constitutional Constitutional: absent: Fever, Chills - EENT Eyes: absent: Blurred Vision, Change in Vision, Loss of Vision Ears: absent: Dizziness Nose/Mouth/Throat: Sore Throat. absent: Neck Pain - Cardiovascular Cardiovascular: Dyspnea on Exertion. absent: Chest Pain, Dyspnea, Lightheadedness, Syncope - Respiratory Respiratory: Cough (intermittent, productive primarily clear/white sputum, intermittently scant green sputum), Dyspnea on Exertion. absent: Dyspnea, Hemoptysis - Gastrointestinal Gastrointestinal: absent: Abdominal Pain, Constipation, Diarrhea, Nausea, Vomiting - Genitourinary Genitourinary: absent: Dysuria, Flank Pain, Hematuria - Musculoskeletal Musculoskeletal: absent: Muscle Weakness, Numbness, Radiating Pain into Limb - Integumentary Integumentary: absent: Pruritus, Rash - Neurological Neurological: absent: Dizziness, Focal Weakness, Loss of Vision, Syncope, Tremor , Weakness, Other Visual Disturbances - Psychiatric Psychiatric: Anxiety - Endocrine Endocrine: absent: Fatigue, Palpitations Critical Care Progress Note - Nutrition Nutrition: Nutrition Category Date Time Status Heart Healthy Diet [DIET] Diets 03/14/17 Lunch Ordered Assessment/Plan - Assessment and Plan (Free Text) Assessment: This is a 66 yo F with PMH of COPD (steroid and O2 dependent), CHF, HTN, and morbid obesity who presents with new onset shortness of breath and had imaging concerning for narrowing/constriction of the airway. She was admitted to the ICU for close monitoring of her airway. She has since been found to have a normal airway and oral thrush. 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 , no airway narrowing, no epiglotitis or epiglotic edema; tx with nystatin swish and swallow, SOB likely 2/2 COPD exacerbation vs CHF exacerbation, f/u as outpt -Satting well on 2L NC, conservative O2 management, maintain SaO2 > 88% and paO2 > 60 -Nystatin swish and swallow for oral candidiasis, Diflucan IV started per ID -Doxycycline started for possible COPD exacerbation as per ID, also on Cefepime and Flagyl as per ID -Procal pending, f/u -continue Albuterol IH q6 and Spiriva daily -on Solumedrol 40mg IV q8, taper as symptoms improve -Aspiration precautions -CXR in ED negative for acute infiltrate Cardio: -Hx CHF, continue home Lopressor -Continue lipitor -maintain MAP > 65, conservative fluid management given hx CHF -Heparin SC q8 for DVT ppx -LE duplex ordered to r/o DVT GI: -Heart-healthy consistent carb diet -Protonix for GI ppx Renal: -making clear yellow urine -Cr 0.6 -avoid nephrotoxic drugs as feasible -monitor and replete electrolytes as necessary -maintain euglycemia (BG 140-180), on ISS-High and fingersticks Q4, will likely have elevated blood glucoses 2/2 steroid use -conservative fluid management given Hx CHF and primary complaint of shortness of breath ID: -elevated WBCs on admission (15.2), 12.4 today; some elevation 2/2 steroids -ID on board, appreciate all recs; covering with Doxy, Cefepime, Diflucan, and Flagyl -Blood and Urine Cx, MRSA swab pending, f/u Heme: -Hgb 10.9 (was 10.0) -Heparin SC q8 for DVT ppx -continue to monitor Endo -maintain Euglycemia (BG 140-180) -on steroids, so expecting elevated BG -ISS-high and fingersticks q4 -continue home Glipizide and Metformin Dispo: ICU, pending LE Duplex to r/o DVT, pending transfer to Tele FEN: Heart-healthy consistent Carb Access: Peripheral IV Consults: ENT, ID Ppx: Protonix for GI, Heparin for DVT Patient seen, reviewed, and discussed with attending, Dr. Roth. - Date & Time Date: 03/14/17 Time: 13:55 <Carmelo Roth - Last Filed: 03/14/17 18:20> CCU Objective - Vital Signs / Intake & Output Vital Signs (Last 4 hours): Vital Signs Temp Pulse Resp BP Pulse Ox 03/14/17 18:09 96 H 166/95 H 03/14/17 18:02 95 H 25 H 166/95 H 87 L 03/14/17 18:00 91 H 62 H 90 L 03/14/17 17:00 95 H 28 H 159/76 H 93 L 03/14/17 16:28 97 H 95 03/14/17 16:00 98.1 F 98 H 16 174/96 H 93 L 03/14/17 15:25 87 35 H 03/14/17 15:01 103 H 22 96 03/14/17 15:00 102 H 27 H 162/76 H 92 L 03/14/17 14:27 103 H 15 92 L 03/14/17 14:21 107 H 75 H 147/93 H 94 L Intake and Output (Last 8hrs): Intake & Output 03/14/17 03/14/17 03/14/17 06:59 14:59 22:59 Intake Total 1600 1150 Output Total 1200 1000 Balance 400 150 Intake: IV 200 350 Left Hand 350 Left Wrist 200 Oral 1400 800 Output: Urine 1200 1000 Urine, Voided 1200 1000 Other: Voiding Method Bedpan # Bowel Movements 0 - Medications Active Medications: Active Medications Generic Name Dose Route Start Last Admin Trade Name Freq PRN Reason Stop Dose Admin Acetaminophen 650 mg 03/14/17 09:31 Tylenol 325mg Tab PO Q6H PRN Fever >100.4 F Albuterol Sulfate 2.5 mg 03/13/17 20:00 03/14/17 14:01 Albuterol 0.5% Inhal Daniella (2.5 Mg/0.5 Ml) Ud IH 2.5 mg [id number] JONATHAN Administration Atorvastatin Calcium 20 mg 03/14/17 22:00 Lipitor PO HS JONATHAN Glipizide 5 mg 03/14/17 17:00 03/14/17 17:07 Glucotrol Xl PO 5 mg BRKDIN JONATHAN Administration Heparin Sodium (Porcine) 5,000 units 03/13/17 17:30 03/14/17 17:06 Heparin SC 5,000 units Q8H JONATHAN Administration Protocol Fluconazole 100 mg/ 50 mls @ 100 mls/hr 03/14/17 10:00 03/14/17 10:41 Miscellaneous IVPB 03/21/17 10:01 100 mls/hr DAILY JONATHAN Administration Protocol Doxycycline Hyclate 100 mg/ 100 mls @ 100 mls/hr 03/14/17 10:00 03/14/17 10:41 Sodium Chloride IVPB 100 mls/hr Q12 JONATHAN Administration Protocol Metronidazole 50 mls @ 100 mls/hr 03/14/17 14:00 03/14/17 14:08 Flagyl IVPB 03/21/17 14:01 100 mls/hr Q8 JONATHAN Administration Protocol Cefepime HCl 100 mls @ 100 mls/hr 03/14/17 22:00 Maxipime 1gm IVPB Q12 JONATHAN Protocol Insulin Human Regular 0 units 03/13/17 17:30 03/14/17 17:20 Humulin R High SC 2 units Q4H JONATHAN Administration Protocol Metformin HCl 1,000 mg 03/14/17 17:00 03/14/17 17:06 Glucophage PO 1,000 mg BRKDIN JONATHAN Administration Methylprednisolone 40 mg 03/13/17 22:00 03/14/17 14:08 Solu-Medrol IVP 40 mg Q8H JONATHAN Administration Metoprolol Tartrate 25 mg 03/14/17 18:00 03/14/17 18:09 Lopressor PO 25 mg BID JONATHAN Administration Nystatin 5 ml 03/13/17 22:00 03/14/17 18:09 Nystatin Oral Susp PO 5 ml QID JONATHAN Administration Pantoprazole Sodium 40 mg 03/14/17 10:00 03/14/17 10:40 Protonix Inj IVP 40 mg DAILY JONATHAN Administration Tiotropium [place] 18 mcg 03/14/17 10:00 03/14/17 10:40 Spiriva IH 18 mcg DAILY JONATHAN Administration Trazodone HCl 200 mg 03/14/17 09:32 Desyrel PO HS JONATHAN - Patient Studies Lab Studies: Lab Studies 03/14/17 03/14/17 03/14/17 Range/Units 17:16 13:44 12:10 WBC (4.5-11.0) 10^3/ul RBC (3.5-6.1) 10^6/uL Hgb (12.0-16.0) gm/dL Hct (36.0-48.0) % MCV (80.0-105.0) fL MCH (25.0-35.0) pg MCHC (31.0-37.0) g/dl RDW (11.5-14.5) % Plt Count (120.0-450.0) 10^3/uL MPV (7.0-11.0) fl Neutrophils % (Manual) (50.0-70.0) % Band Neutrophils % (0-2) % Lymphocytes % (Manual) (22.0-35.0) % Monocytes % (Manual) (1.0-6.0) % Metamyelocytes % % Platelet Evaluation (NORMAL) Anisocytosis (manual) Sodium (132-148) mmol/L Potassium (3.6-5.0) mmol/L Chloride (98-107) mmol/L Carbon Dioxide (21-33) mmol/L Anion Gap (10-20) BUN (7-21) mg/dL Creatinine (0.5-1.4) mg/dL Est GFR ( Amer) Est GFR (Non-Af Amer) POC Glucose (mg/dL) 182 H 269 H (65-110) mg/dL Random Glucose (70-110) mg/dL Calcium (8.4-10.5) mg/dL Procalcitonin (0.19-0.49) NG/ML Urine Color Yellow (YELLOW) Urine Appearance Sl cloudy (CLEAR) Urine pH 6.5 (4.7-8.0) Ur Specific [place] 1.015 (1.005-1.035) Urine Protein Negative (<30 mg/dL) mg/dL Urine Glucose (UA) >=1000 (NEGATIVE) mg/dL Urine Ketones Negative (NEGATIVE) mg/dL Urine Blood Negative (NEGATIVE) Urine Nitrate Negative (NEGATIVE) Urine Bilirubin Negative (NEGATIVE) Urine Urobilinogen 0.2 (<1 E.U./dL) E.U./dL Ur Leukocyte Esterase Negative (NEGATIVE) Neel/uL 03/14/17 03/14/17 03/14/17 Range/Units 10:30 09:32 07:30 WBC (4.5-11.0) 10^3/ul RBC (3.5-6.1) 10^6/uL Hgb (12.0-16.0) gm/dL Hct (36.0-48.0) % MCV (80.0-105.0) fL MCH (25.0-35.0) pg MCHC (31.0-37.0) g/dl RDW (11.5-14.5) % Plt Count (120.0-450.0) 10^3/uL MPV (7.0-11.0) fl Neutrophils % (Manual) (50.0-70.0) % Band Neutrophils % (0-2) % Lymphocytes % (Manual) (22.0-35.0) % Monocytes % (Manual) (1.0-6.0) % Metamyelocytes % % Platelet Evaluation (NORMAL) Anisocytosis (manual) Sodium (132-148) mmol/L Potassium (3.6-5.0) mmol/L Chloride (98-107) mmol/L Carbon Dioxide (21-33) mmol/L Anion Gap (10-20) BUN (7-21) mg/dL Creatinine (0.5-1.4) mg/dL Est GFR ( Amer) Est GFR (Non-Af Amer) POC Glucose (mg/dL) 247 H 210 H (65-110) mg/dL Random Glucose (70-110) mg/dL Calcium (8.4-10.5) mg/dL Procalcitonin 0.12 L (0.19-0.49) NG/ML Urine Color (YELLOW) Urine Appearance (CLEAR) Urine pH (4.7-8.0) Ur Specific [place] (1.005-1.035) Urine Protein (<30 mg/dL) mg/dL Urine Glucose (UA) (NEGATIVE) mg/dL Urine Ketones (NEGATIVE) mg/dL Urine Blood (NEGATIVE) Urine Nitrate (NEGATIVE) Urine Bilirubin (NEGATIVE) Urine Urobilinogen (<1 E.U./dL) E.U./dL Ur Leukocyte Esterase (NEGATIVE) Neel/uL 03/14/17 03/14/17 03/14/17 Range/Units 05:36 05:00 00:22 WBC 12.4 H (4.5-11.0) 10^3/ul RBC 5.10 (3.5-6.1) 10^6/uL Hgb 10.9 L (12.0-16.0) gm/dL Hct 38.7 (36.0-48.0) % MCV 75.9 L (80.0-105.0) fL MCH 21.4 L (25.0-35.0) pg MCHC 28.2 L (31.0-37.0) g/dl RDW 17.7 H (11.5-14.5) % Plt Count 290 (120.0-450.0) 10^3/uL MPV 9.1 (7.0-11.0) fl Neutrophils % (Manual) 88 H (50.0-70.0) % Band Neutrophils % 4 H (0-2) % Lymphocytes % (Manual) 6 L (22.0-35.0) % Monocytes % (Manual) 1 (1.0-6.0) % Metamyelocytes % 1 % Platelet Evaluation Normal (NORMAL) Anisocytosis (manual) 1+ Sodium 142 (132-148) mmol/L Potassium 4.7 (3.6-5.0) mmol/L Chloride 95 L (98-107) mmol/L Carbon Dioxide 37 H (21-33) mmol/L Anion Gap 15 (10-20) BUN 13 (7-21) mg/dL Creatinine 0.6 (0.5-1.4) mg/dL Est GFR ( Amer) > 60 Est GFR (Non-Af Amer) > 60 POC Glucose (mg/dL) 273 H 369 H (65-110) mg/dL Random Glucose 231 H (70-110) mg/dL Calcium 9.0 (8.4-10.5) mg/dL Procalcitonin (0.19-0.49) NG/ML Urine Color (YELLOW) Urine Appearance (CLEAR) Urine pH (4.7-8.0) Ur Specific [place] (1.005-1.035) Urine Protein (<30 mg/dL) mg/dL Urine Glucose (UA) (NEGATIVE) mg/dL Urine Ketones (NEGATIVE) mg/dL Urine Blood (NEGATIVE) Urine Nitrate (NEGATIVE) Urine Bilirubin (NEGATIVE) Urine Urobilinogen (<1 E.U./dL) E.U./dL Ur Leukocyte Esterase (NEGATIVE) Neel/uL 03/13/ Range/Units 21:19 WBC (4.5-11.0) 10^3/ul RBC (3.5-6.1) 10^6/uL Hgb (12.0-16.0) gm/dL Hct (36.0-48.0) % MCV (80.0-105.0) fL MCH (25.0-35.0) pg MCHC (31.0-37.0) g/dl RDW (11.5-14.5) % Plt Count (120.0-450.0) 10^3/uL MPV (7.0-11.0) fl Neutrophils % (Manual) (50.0-70.0) % Band Neutrophils % (0-2) % Lymphocytes % (Manual) (22.0-35.0) % Monocytes % (Manual) (1.0-6.0) % Metamyelocytes % % Platelet Evaluation (NORMAL) Anisocytosis (manual) Sodium (132-148) mmol/L Potassium (3.6-5.0) mmol/L Chloride (98-107) mmol/L Carbon Dioxide (21-33) mmol/L Anion Gap (10-20) BUN (7-21) mg/dL Creatinine (0.5-1.4) mg/dL Est GFR ( Amer) Est GFR (Non-Af Amer) POC Glucose (mg/dL) 299 H (65-110) mg/dL Random Glucose (70-110) mg/dL Calcium (8.4-10.5) mg/dL Procalcitonin (0.19-0.49) NG/ML Urine Color (YELLOW) Urine Appearance (CLEAR) Urine pH (4.7-8.0) Ur Specific [place] (1.005-1.035) Urine Protein (<30 mg/dL) mg/dL Urine Glucose (UA) (NEGATIVE) mg/dL Urine Ketones (NEGATIVE) mg/dL Urine Blood (NEGATIVE) Urine Nitrate (NEGATIVE) Urine Bilirubin (NEGATIVE) Urine Urobilinogen (<1 E.U./dL) E.U./dL Ur Leukocyte Esterase (NEGATIVE) Neel/uL Laboratory Results - last 24 hr 03/13/17 03/14/17 03/14/17 21:19 00:22 05:00 WBC 12.4 H RBC 5.10 Hgb 10.9 L Hct 38.7 MCV 75.9 L MCH 21.4 L MCHC 28.2 L RDW 17.7 H Plt Count 290 MPV 9.1 Neutrophils % (Manual) 88 H Band Neutrophils % 4 H Lymphocytes % (Manual) 6 L Monocytes % (Manual) 1 Metamyelocytes % 1 Platelet Evaluation Normal Anisocytosis (manual) 1+ Sodium 142 Potassium 4.7 Chloride 95 L Carbon Dioxide 37 H Anion Gap 15 BUN 13 Creatinine 0.6 Est GFR ( Amer) > 60 Est GFR (Non-Af Amer) > 60 POC Glucose (mg/dL) 299 H 369 H Random Glucose 231 H Calcium 9.0 Procalcitonin Urine Color Urine Appearance Urine pH Ur Specific [place] Urine Protein Urine Glucose (UA) Urine Ketones Urine Blood Urine Nitrate Urine Bilirubin Urine Urobilinogen Ur Leukocyte Esterase 03/14/17 03/14/17 03/14/17 05:36 07:30 09:32 WBC RBC Hgb Hct MCV MCH MCHC RDW Plt Count MPV Neutrophils % (Manual) Band Neutrophils % Lymphocytes % (Manual) Monocytes % (Manual) Metamyelocytes % Platelet Evaluation Anisocytosis (manual) Sodium Potassium Chloride Carbon Dioxide Anion Gap BUN Creatinine Est GFR ( Amer) Est GFR (Non-Af Amer) POC Glucose (mg/dL) 273 H 210 H 247 H Random Glucose Calcium Procalcitonin Urine Color Urine Appearance Urine pH Ur Specific [place] Urine Protein Urine Glucose (UA) Urine Ketones Urine Blood Urine Nitrate Urine Bilirubin Urine Urobilinogen Ur Leukocyte Esterase 03/14/17 03/14/17 03/14/17 10:30 12:10 13:44 WBC RBC Hgb Hct MCV MCH MCHC RDW Plt Count MPV Neutrophils % (Manual) Band Neutrophils % Lymphocytes % (Manual) Monocytes % (Manual) Metamyelocytes % Platelet Evaluation Anisocytosis (manual) Sodium Potassium Chloride Carbon Dioxide Anion Gap BUN Creatinine Est GFR ( Amer) Est GFR (Non-Af Amer) POC Glucose (mg/dL) 269 H Random Glucose Calcium Procalcitonin 0.12 L Urine Color Yellow Urine Appearance Sl cloudy Urine pH 6.5 Ur Specific [place] 1.015 Urine Protein Negative Urine Glucose (UA) >=1000 Urine Ketones Negative Urine Blood Negative Urine Nitrate Negative Urine Bilirubin Negative Urine Urobilinogen 0.2 Ur Leukocyte Esterase Negative 03/14/17 17:16 WBC RBC Hgb Hct MCV MCH MCHC RDW Plt Count MPV Neutrophils % (Manual) Band Neutrophils % Lymphocytes % (Manual) Monocytes % (Manual) Metamyelocytes % Platelet Evaluation Anisocytosis (manual) Sodium Potassium Chloride Carbon Dioxide Anion Gap BUN Creatinine Est GFR ( Amer) Est GFR (Non-Af Amer) POC Glucose (mg/dL) 182 H Random Glucose Calcium Procalcitonin Urine Color Urine Appearance Urine pH Ur Specific [place] Urine Protein Urine Glucose (UA) Urine Ketones Urine Blood Urine Nitrate Urine Bilirubin Urine Urobilinogen Ur Leukocyte Esterase Critical Care Progress Note - Nutrition Nutrition: Nutrition Category Date Time Status Heart Healthy Diet [DIET] Diets 03/14/17 Lunch Ordered Addendum Addendum: 03/14/17 18:17 patient was seen, examined and discussed at bedside shoulder to shoulder with Dr. Ritchie. His note reflects my exam, assessment and plan, except as below. meds/Labs/ONE reviewed. 66 yo with COPD exacerbation and hypopharyngeal candidaiasis, s/p flexible laryngoscopy by ENT which confirmed patent airways and no immediate risk for its compromiise. Patient is comfortable, not in respiratory or otherwise distress, hemodynamically relatively stable. Will start nystatin swish and spit , will continue with steroid taper, AC inhalers and dvt/gi prophyalxis. BPAP at night ccm time 40 min
--- NOTE | 2017-03-14 12:48 | CP.PCM.CON ---
History of Present Illness - History of Present Illness History of Present Illness: 66 year old female with PMH of COPD on home oxygen, morbid obesity with BMI 55, HTN, chronic CHF came in to [facility] because of worsening shortness of breath for the past day. She states that she was not able to get her oxygen running well and actually felt better in the ED with the oxygen. She has also been complaining of sore throat for the past 3 weeks and has been seeing her PMD and has been prescribed courses of antibiotics without relief. She also has some dysphagia as well starting a few days ago. She denies choking , no nausea or vomiting, has intermittent cough without phlegm, no abdominal pain, no headache or dizziness, no chest pain, no SOB, no diarrhea, no dysuria. In the ED, CT of the neck showed some lymphoid hyperplasia but no other findings. Infectious diseases consult is requested to further evaluate and manage. Review of Systems - Review of Systems All systems: reviewed and no additional remarkable complaints except (as per HPI ) Past Patient History - Infectious Disease Hx of Infectious Diseases: None - Tetanus Immunizations Tetanus Immunization: Unknown - Past Social History Smoking Status: Former Smoker - CARDIAC Hx Cardiac Disorders: Yes Hx Congestive Heart Failure: Yes Hx Hypercholesterolemia: Yes Hx Hypertension: Yes Hx Mitral Valve Prolapse: Yes Hx Peripheral Edema: Yes Hx Peripheral Vascular Disease: Yes Other/Comment: open heart 1857, mitral valve replaced as an infant - PULMONARY Hx Asthma: Yes Hx Bronchitis: Yes Hx Chronic Obstructive Pulmonary Disease (COPD): Yes Hx Emphysema: Yes Hx Pneumonia: Yes Hx Sleep Apnea: Yes (uses c pap) Other/Comment: o2 dependent has home o2 and nebulizer machine - NEUROLOGICAL Hx Neurological Disorder: Yes - HEENT Hx HEENT Problems: Yes (uses eyeglasses) Hx Deafness: Yes Other/Comment: pt cheesh-na had hearing aids broken at home - RENAL Hx Chronic Kidney Disease: No - ENDOCRINE/METABOLIC Hx Diabetes Mellitus Type 2: Yes Hx Hypothyroidism: Yes - HEMATOLOGICAL/ONCOLOGICAL Hx Blood Disorders: No - INTEGUMENTARY Hx Dermatological Problems: No - MUSCULOSKELETAL/RHEUMATOLOGICAL Hx Falls: Yes (past) - GASTROINTESTINAL Hx Gastrointestinal Disorders: (CONSTIPATION,) Hx Gastroesophageal Reflux: Yes - GENITOURINARY/GYNECOLOGICAL Hx Genitourinary Disorders: No - PSYCHIATRIC Hx Psychophysiologic Disorder: Yes Hx Anxiety: Yes Hx Depression: Yes - SURGICAL HISTORY Hx Appendectomy: Yes Hx Cardiac Catheterization: Yes Hx Coronary Stent: Yes Hx Hysterectomy: Yes Hx Open Heart Surgery: Yes (1957) Other/Comment: Tonsillectomy. Mitral valve repair as an . 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 - ANESTHESIA Hx Anesthesia Reactions: No Meds Allergies/Adverse Reactions: Allergies Allergy/AdvReac Type Severity Reaction Status Date / Time No Known Allergies Allergy Verified 03/13/17 14:16 - Medications Medications: Current Medications Acetaminophen (Tylenol 325mg Tab) 650 mg PO Q6H PRN PRN Reason: Fever >100.4 F Albuterol Sulfate (Albuterol 0.5% Inhal Daniella (2.5 Mg/0.5 Ml) Ud) 2.5 mg IH [id number] [facility] Last Admin: 03/14/17 07:41 Dose: 2.5 mg Glipizide (Glucotrol Xl) 5 mg PO BID [facility] Heparin Sodium (Porcine) (Heparin) 5,000 units SC Q8H JONATHAN PRN Reason: Protocol Last Admin: 03/14/17 08:53 Dose: 5,000 units Azithromycin (Zithromax 500mg In Ns) 250 mls @ 167 mls/hr IVPB Q24H JONATHAN PRN Reason: Protocol Last Admin: 03/13/17 18:58 Dose: 167 mls/hr Piperacillin Sod/Tazobactam Sod (Zosyn 3.375 In Ns 100ml) 100 mls @ 200 mls/hr IVPB Q6 JONATHAN PRN Reason: Protocol Stop: 03/21/17 12:01 Fluconazole 100 mg/ (Miscellaneous) 50 mls @ 100 mls/hr IVPB DAILY JONATHAN PRN Reason: Protocol Stop: 03/21/17 10:01 Insulin Human Regular (Humulin R High) 0 units SC Q4H JONATHAN PRN Reason: Protocol Last Admin: 03/14/17 08:53 Dose: 4 units Metformin HCl (Glucophage) 1,000 mg PO BID [facility] Methylprednisolone (Solu-Medrol) 40 mg IVP Q8H [facility] Last Admin: 03/14/17 05:24 Dose: 40 mg Non-Formulary Medication (Simvastatin [Simvastatin]) 20 mg PO HS [facility] Nystatin (Nystatin Oral Susp) 5 ml PO QID [facility] Last Admin: 03/13/17 21:28 Dose: 5 ml Pantoprazole Sodium (Protonix Inj) 40 mg IVP DAILY [facility] Tiotropium [place] (Spiriva) 18 mcg IH DAILY JONATHAN Trazodone HCl (Desyrel) 200 mg PO HS JONATHAN Physical Exam - Constitutional Appears: Other (has some shortness of breath at rest) - Head Exam Head Exam: NORMAL INSPECTION - ENT Exam ENT Exam: Mucous Membranes Moist - Neck Exam Neck exam: Negative for: Lymphadenopathy, Meningismus - Respiratory Exam Respiratory Exam: Decreased Breath Sounds, Wheezes (scattered) - Cardiovascular Exam Cardiovascular Exam: +S1, +S2 - GI/Abdominal Exam GI & Abdominal Exam: Soft. absent: Tenderness Results - Vital Signs Recent Vital Signs: Last Vital Signs Temp 97.6 F 03/14/17 08:00 Pulse 95 H 03/14/17 08:01 Resp 16 03/14/17 08:01 BP 136/80 03/14/17 08:01 Pulse Ox 94 L 03/14/17 08:01 - Labs Result Diagrams: 03/14/17 05:00 03/14/17 05:00 Labs: Laboratory Results - last 24 hr 03/13/17 03/14/17 03/14/17 21:19 00:22 05:00 WBC 12.4 H RBC 5.10 Hgb 10.9 L Hct 38.7 MCV 75.9 L MCH 21.4 L MCHC 28.2 L RDW 17.7 H Plt Count 290 MPV 9.1 Neutrophils % (Manual) 88 H Band Neutrophils % 4 H Lymphocytes % (Manual) 6 L Monocytes % (Manual) 1 Metamyelocytes % 1 Platelet Evaluation Normal Anisocytosis (manual) 1+ Sodium 142 Potassium 4.7 Chloride 95 L Carbon Dioxide 37 H Anion Gap 15 BUN 13 Creatinine 0.6 Est GFR ( Amer) > 60 Est GFR (Non-Af Amer) > 60 POC Glucose (mg/dL) 299 H 369 H Random Glucose 231 H Calcium 9.0 03/14/17 05:36 WBC RBC Hgb Hct MCV MCH MCHC RDW Plt Count MPV Neutrophils % (Manual) Band Neutrophils % Lymphocytes % (Manual) Monocytes % (Manual) Metamyelocytes % Platelet Evaluation Anisocytosis (manual) Sodium Potassium Chloride Carbon Dioxide Anion Gap BUN Creatinine Est GFR ( Amer) Est GFR (Non-Af Amer) POC Glucose (mg/dL) 273 H Random Glucose Calcium Assessment & Plan - Assessment and Plan (Free Text) Plan: Assessment Consider sepsis secondary to possible oral and esophageal candidiasis in a patient with acute exacerbation of COPD R/O pharyngitis COPD on home oxygen morbid obesity with BMI 55 HTN chronic CHF Plan Started the patient on Diflucan IV for now; also started Cefepime and Flagyl and monitor clinical response Patient already on Nystatin swish and spit Patient also switched to Doxycycline instead of Zithromax for the acute exacerbation of COPD Will follow clinically
--- NOTE | 2017-03-14 13:17 | HP ---
I know her very well from house calls and multiple hospital stays. This is an interesting admission this time. She comes in with a sore throat and shortness of breath. She has been on oral antibiotics at home for a sore throat, which did not improve. She is a 66-year-old female with shortness of breath. She feels like something is stuck in the throat. She has oxygen at home, just not getting better. She is uncomfortable, hoarse voice, difficulty swallowing and comes into the Emergency Room. PAST MEDICAL HISTORY: COPD, congestive heart failure, hypertension, hard of hearing. She wears eyeglasses, a little bit deaf, hypothyroidism, diabetes, arthritis, constipation, morbidly obese, anxiety, depression, appendectomy, hysterectomy, open heart surgery in 1958, tonsillectomy, mitral valve repair as an , tumor removed from the left shoulder. FAMILY HISTORY: There is hypertension and diabetes in the family. She is a former smoker, no alcohol, no drugs. ALLERGIES: No known drug allergies. She takes Ventolin, Flexeril, glipizide, Zofran, Mirapex, simvastatin, Anthony-Dur , Glucophage, trazodone and there are some others. No acute vision changes, no acute hearing changes. There is a sore throat. There is a problem swallowing. There is a neck pain, fullness. This is all fairly new over the past 2-3 weeks, failed outpatient antibiotics on 3 different antibiotics orally. There is shortness of breath, which is kind of chronic. No chest pain at this time. No back pain. Legs swell from time to time. No numbness or tingling, very weak. No easy bruising. PHYSICAL EXAMINATION: VITAL SIGNS: She has a 98 temp, 99 pulse, 20 respiratory rate, 152/68, blood pressure, 99% O2 sat on room air. HEENT: Head is atraumatic, normocephalic, very large, looks cushingoid from all the steroids she has been on. Extraocular muscles are intact. Pupils equal , reactive to light and accommodation. Throat is difficult to visualize the posterior pharynx, but no redness at this time. NECK: Very full to palpation, very difficult to feel anything due to her adipose tissue, but she has tenderness and pain in the center, deep inside. She feels she cannot swallow well. HEART: Regular rate. LUNGS: Have decreased breath sounds. Mild expiratory wheeze. She is always having wheezes or congestion. That is her baseline. ABDOMEN: Morbidly, morbidly obese. No guarding, no rebound, no CVA tenderness. Positive bowel sounds. EXTREMITIES: Have +1 pitting edema. SKIN: For the most part is warm and dry. No ulcers. NEUROLOGIC: She is alert and awake and oriented x 3. LYMPHATIC: No appreciated palpable lymphadenopathy due to the size, she is very overweight. She had multiple tests done. She has a 142 sodium, potassium 4.7 now, potassium was as low as 3.5. She has a BUN of 13, creatinine 0.6, GFR is greater than 60. The blood sugars are all elevated at 369, 231, 273. I added back her medicine for diabetes and she is on steroids. Calcium is 9.3, AST is 17, ALT is 36, alk phos 99. Troponin is less than 0.01. BNP is 130. INR is 0.92. White count was 15.2, it is down to 12.4 on antibiotics, 10.9 hemoglobin , hematocrit with 290 platelets. Chest x-ray was surprisingly clear, but the CAT scan of the neck showed interesting findings. She has a circumferential narrowing of the airway, possibly representing lymphoid hyperplasia. Currently, she has a consult with ear, nose and throat, infectious disease. She will be on IV steroids, IV clindamycin, nystatin swish and swallow, IV Rocephin, IV Zithromax. We will check her blood sugars, make sure she is swallowing. She is in the intensive care unit. We will check her labs tomorrow. Hopefully, this feeling in the neck and the pain will all subside with the treatment. We will continue with aggressive treatment and care for airway narrowing, shortness of breath and neck pain. Thomas Looney DO cc: [id number] TT: 03/14/2017 13:16:31 en MTDD
--- NOTE | 2017-03-14 13:32 | CARD ---
APPROVED REPORT EKG Measurement Heart [id number] NM [id number] <Conclusion> Sinus tachycardia Otherwise normal ECG
[2017-03-14] MEDS: metroNIDAZOLE IV 250mg/50 ml 50 ML IVPB SCH ×2 (14:08→22:13)
[2017-03-14 15:27] LABS: PH,URINE 6.5 (4.7-8.0); URINE BILIRUBIN NEGATIVE (NEGATIVE); URINE BLOOD NEGATIVE (NEGATIVE); URINE GLUCOSE (UA) >=1000 mg/dL (NEGATIVE); URINE KETONE NEGATIVE (NEGATIVE); URINE LEUKOCYTE ESTERASE NEGATIVE Leu/uL (NEGATIVE); URINE PROTEIN NEGATIVE mg/dL (<30 mg/dL); URINE UROBILINOGEN 0.2 E.U./dL (<1 E.U./dL)
[2017-03-14 15:35] LABS: URINE APPEARANCE SL CLOUDY (CLEAR); URINE COLOR YELLOW (YELLOW)
[2017-03-14] MEDS: GlipiZIDE 5 mg SR Tab PO SCH (17:07)
[2017-03-14] MEDS: Cefepime 1gm in NS 100ml 100 ML IVPB SCH (22:13)
[2017-03-15] MEDS: Insulin Reg-HIGH-Coverage SC SCH ×6 (01:20→21:24)
[2017-03-15] MEDS: Albuterol 0.5% Inhal Sol (2.5 mg/0.5 ml) UD IH SCH ×4 (01:21→20:25)
[2017-03-15] MEDS: metroNIDAZOLE IV 250mg/50 ml 50 ML IVPB SCH ×3 (05:16→22:28)
[2017-03-15] MEDS: MethylPREDNISolone 40 mg Vial IVP SCH ×3 (05:16→17:43)
[2017-03-15 06:10] VITALS: O2SAT 97
[2017-03-15 07:47] LABS: ADD MANUAL DIFF? NO
[2017-03-15 07:55] LABS: BASO # 0.02 K/mm3 (0.0-2.0); BASO % 0.1 % (0.0-3.0); GRAN # 17.71 (1.4-6.5); GRAN % 91.5 % (50.0-68.0); HEMATOCRIT 37.5 % (36.0-48.0); LYMPH % 4.9 % (22.0-35.0); MEAN CELL VOLUME 75.6 fL (80.0-105.0); MEAN CORPUSCULAR HEMOGLOBIN 21.8 pg (25.0-35.0); MEAN CORPUSCULAR HGB CONC 28.8 g/dl (31.0-37.0); MEAN PLATELET VOLUME 9.1 fl (7.0-11.0); MONO # 0.7 (0.1-0.6); MONO % 3.5 % (1.0-6.0); PLATELET COUNT 311 10^3/uL (120.0-450.0); RED CELL DISTRIBUTION WIDTH 17.9 % (11.5-14.5); WHITE BLOOD COUNT 19.4 10^3/ul (4.5-11.0)
[2017-03-15 08:15] LABS: ALB/GLOB RATIO 1.3 (1.1-1.8); ALKALINE PHOSPHATASE 100 U/L (38-133); ALT/SGPT 34 U/L (7-56); AST/SGOT 16 U/L (15-39); BILIRUBIN,TOTAL 0.3 mg/dL (0.2-1.3); BLOOD UREA NITROGEN 22 mg/dL (7-21); CALCIUM 9.5 mg/dL (8.4-10.5); CARBON DIOXIDE 36 mmol/L (21-33); CHLORIDE 99 mmol/L (95-110); GFR AFRICAN-AMERICAN > 60; GLUCOSE,RANDOM 192 mg/dL (70-110); POTASSIUM 4.7 mmol/L (3.6-5.0); SODIUM 144 mmol/L (132-148); TOTAL PROTEIN 6.5 g/dL (5.8-8.3)
--- NOTE | 2017-03-15 08:25 | PN ---
DATE: 03/15/2017 I saw the patient resting in bed, sitting up, oxygen on. She tells me she is feeling a bit better in the throat, less pressure, less feeling of tightness in the neck, which is good. She is breathing a little bit easier. PHYSICAL EXAMINATION: VITAL SIGNS: Temp 97.6, 92 pulse, 151/79 blood pressure, 19 respiratory rate, 97% O2 sat on nasal ca nnula. HEENT: Head is atraumatic, normocephalic. The neck is very large from her size, almost looks cushin goid. Throat is moist, no erythema. She is swallowing better. Still hurts a little bit, but not as bad as it was yesterday. I would say 50% improvement. HEART: Regular rate. LUNGS: Decreased breath sounds, but clear. ABDOMEN: Soft, morbidly obese, nontender, positive bowel sounds. EXTREMITIES: Have trace edema. She is currently on albuterol, Desyrel, doxycycline now, Flagyl, Diflucan, metformin, glipizide, hepa rin, insulin, Lipitor, Lopressor, cefepime, nystatin, Protonix, Solu-Medrol which I dropped to 30 IV q. 8 from 40, Spiriva, Tylenol. She is off the clindamycin right now. She has a 182 blood sugar, 142 sodium, 4.7 potassium, BUN 13, creatinine 0.6, GFR is greater than 60. White count is 19.4, on steroids, 10.8 hemoglobin, 37.5 hematocrit with 311 platelets. We will check her labs tomorrow. Decrease the Solu-Medrol. She is on 3-4 IV antibiotics as per infe ctious disease. She is being seen by infectious disease, ear, nose, and throat and we will continue to watch her. She is here for airway edema, airway constriction, chronic obstructive pulmonary disea se, congestive heart failure, diabetes, hypertension, and she is starting to improve a bit. Thomas Looney DO cc: [id number] TT: 03/15/2017 08:25:00 Confirmation # [id number] Dictation # [id number] en
[2017-03-15] MEDS: Nystatin 100,000 Units/ml Oral Susp 5 ml UD PO SCH ×4 (09:39→21:28)
[2017-03-15] MEDS: Tiotropium 18 mcg Cap For Inhalation IH SCH (09:39)
[2017-03-15] MEDS: GlipiZIDE 5 mg SR Tab PO SCH ×2 (09:40→17:43)
[2017-03-15] MEDS: Cefepime 1gm in NS 100ml 100 ML IVPB SCH ×2 (09:41→21:28)
[2017-03-15] MEDS: Fluconazole IV 200mg/100 ml NS 100 MG in Premixed IV 1 EA IVPB SCH (10:26)
--- NOTE | 2017-03-15 18:49 | CP.PCM.PN ---
Subjective - Date & Time of Evaluation Date of Evaluation: 03/15/17 Time of Evaluation: 14:20 - Subjective Subjective: Comfortable, less short of breath, not in distress, afebrile. Objective - Vital Signs/Intake and Output Vital Signs (last 24 hours): Temp Pulse Resp BP Pulse Ox 97.6 F 98 H 20 148/86 97 03/15/17 18:00 03/15/17 18:00 03/15/17 18:00 03/15/17 18:00 03/15/17 06:00 Intake and Output: 03/15/17 03/15/17 06:59 18:59 Intake Total 240 600 Output Total 0 0 Balance 240 600 - Medications Medications: Current Medications Acetaminophen (Tylenol 325mg Tab) 650 mg PO Q6H PRN PRN Reason: Fever >100.4 F Albuterol Sulfate (Albuterol 0.5% Inhal Daniella (2.5 Mg/0.5 Ml) Ud) 2.5 mg IH [id number] JONATHAN Last Admin: 03/15/17 14:20 Dose: 2.5 mg Atorvastatin Calcium (Lipitor) 20 mg PO HS [facility] Last Admin: 03/14/17 22:14 Dose: 20 mg Glipizide (Glucotrol Xl) 5 mg PO BRKDIN JONATHAN Last Admin: 03/15/17 17:43 Dose: 5 mg Heparin Sodium (Porcine) (Heparin) 5,000 units SC Q8H JONATHAN PRN Reason: Protocol Last Admin: 03/15/17 17:43 Dose: 5,000 units Fluconazole 100 mg/ (Miscellaneous) 50 mls @ 100 mls/hr IVPB DAILY JONATHAN PRN Reason: Protocol Stop: 03/21/17 10:01 Last Admin: 03/15/17 10:26 Dose: 100 mls/hr Doxycycline Hyclate 100 mg/ (Sodium Chloride) 100 mls @ 100 mls/hr IVPB Q12 JONATHAN PRN Reason: Protocol Last Admin: 03/15/17 09:43 Dose: 100 mls/hr Metronidazole (Flagyl) 50 mls @ 100 mls/hr IVPB Q8 JONATHAN PRN Reason: Protocol Stop: 03/21/17 14:01 Last Admin: 03/15/17 13:09 Dose: 100 mls/hr Cefepime HCl (Maxipime 1gm) 100 mls @ 100 mls/hr IVPB Q12 JONATHAN PRN Reason: Protocol Last Admin: 03/15/17 09:41 Dose: 100 mls/hr Insulin Human Regular (Humulin R High) 0 units SC Q4H JONATHAN PRN Reason: Protocol Last Admin: 03/15/17 18:31 Dose: 2 units Metformin HCl (Glucophage) 1,000 mg PO BRKDIN [facility] Last Admin: 03/15/17 17:43 Dose: 1,000 mg Methylprednisolone (Solu-Medrol) 30 mg IVP Q8H [facility] Last Admin: 03/15/17 17:43 Dose: 30 mg Metoprolol Tartrate (Lopressor) 25 mg PO BID [facility] Last Admin: 03/15/17 17:45 Dose: 25 mg Nystatin (Nystatin Oral Susp) 5 ml PO QID [facility] Last Admin: 03/15/17 17:45 Dose: 5 ml Pantoprazole Sodium (Protonix Inj) 40 mg IVP DAILY [facility] Last Admin: 03/15/17 09:40 Dose: 40 mg Tiotropium [place] (Spiriva) 18 mcg IH DAILY [facility] Last Admin: 03/15/17 09:39 Dose: 18 mcg Trazodone HCl (Desyrel) 200 mg PO HS [facility] Last Admin: 03/14/17 22:14 Dose: 200 mg - Labs Labs: 03/15/17 06:50 03/15/17 06:50 PT 9.9 Seconds (9.9-11.8) 03/13/17 15:00 INR 0.92 (0.93-1.08) L 03/13/17 15:00 APTT 23.5 Seconds (23.7-30.8) L 03/13/17 15:00 - Constitutional Appears: Non-toxic, No Acute Distress - Head Exam Head Exam: NORMAL INSPECTION - Neck Exam Neck Exam: absent: Lymphadenopathy, Meningismus - Respiratory Exam Respiratory Exam: Decreased Breath Sounds - Cardiovascular Exam Cardiovascular Exam: +S1, +S2 - GI/Abdominal Exam GI & Abdominal Exam: Soft. absent: Tenderness Assessment and Plan - Assessment and Plan (Free Text) Plan: Assessment Consider sepsis secondary to possible oral and esophageal candidiasis in a patient with acute exacerbation of COPD R/O pharyngitis, slowly improving COPD on home oxygen morbid obesity with BMI 55 HTN chronic CHF Plan continue Diflucan IV, Cefepime and Flagyl day 2 and continue to monitor clinical response Patient already on Nystatin swish and spit Patient also switched to Doxycycline instead of Zithromax for the acute exacerbation of COPD (day 2 of 3) Will continue to follow clinically
--- NOTE | 2017-03-15 19:00 | US ---
HISTORY: Leg pain and swelling. Evaluate for DVT PHYSICIAN(S): Jagdeep Sanon MD. TECHNIQUE: Duplex sonography and color-flow Doppler with graded compression were used to evaluate the deep venous systems of both lower extremities. FINDINGS: The visualized deep venous systems of both lower extremities are sonographically normal and compressible. Normal wave forms and augmentation are seen. There is no sonographic evidence for deep venous thrombosis in the visualized segments of both lower extremities. IMPRESSION: No sonographic evidence for deep venous thrombosis in the visualized segments of both lower extremities.
[2017-03-16] MEDS: MethylPREDNISolone 40 mg Vial IVP SCH ×2 (00:07→07:50)
[2017-03-16 00:38] VITALS: BP 170/73; RESP 18; TEMP 97.9
[2017-03-16] MEDS: Albuterol 0.5% Inhal Sol (2.5 mg/0.5 ml) UD IH SCH ×3 (01:08→13:06)
[2017-03-16] MEDS: Insulin Reg-HIGH-Coverage SC SCH ×2 (01:26→09:38)
[2017-03-16 07:25] LABS: ADD MANUAL DIFF? NO
[2017-03-16 07:28] LABS: BASO # 0.01 K/mm3 (0.0-2.0); BASO % 0.1 % (0.0-3.0); GRAN # 15.85 (1.4-6.5); GRAN % 89.3 % (50.0-68.0); HEMATOCRIT 37.1 % (36.0-48.0); LYMPH # 1.1 (1.2-3.4); MEAN CELL VOLUME 75.6 fL (80.0-105.0); MEAN CORPUSCULAR HGB CONC 29.1 g/dl (31.0-37.0); MEAN PLATELET VOLUME 9.1 fl (7.0-11.0); MONO # 0.8 (0.1-0.6); MONO % 4.6 % (1.0-6.0); PLATELET COUNT 301 10^3/uL (120.0-450.0); RED CELL DISTRIBUTION WIDTH 18.2 % (11.5-14.5); WHITE BLOOD COUNT 17.8 10^3/ul (4.5-11.0)
[2017-03-16] MEDS: GlipiZIDE 5 mg SR Tab PO SCH (07:44)
[2017-03-16 08:13] LABS: ALB/GLOB RATIO 1.3 (1.1-1.8); ALKALINE PHOSPHATASE 92 U/L (38-133); ALT/SGPT 32 U/L (7-56); AST/SGOT 16 U/L (15-39); BILIRUBIN,TOTAL 0.3 mg/dL (0.2-1.3); BLOOD UREA NITROGEN 25 mg/dL (7-21); CALCIUM 9.6 mg/dL (8.4-10.5); CARBON DIOXIDE 33 mmol/L (21-33); CHLORIDE 99 mmol/L (95-110); GFR AFRICAN-AMERICAN > 60; GLUCOSE,RANDOM 163 mg/dL (70-110); POTASSIUM 4.6 mmol/L (3.6-5.0); SODIUM 144 mmol/L (132-148); TOTAL PROTEIN 6.3 g/dL (5.8-8.3)
[2017-03-16] MEDS: Nystatin 100,000 Units/ml Oral Susp 5 ml UD PO SCH (09:03)
[2017-03-16] MEDS: Tiotropium 18 mcg Cap For Inhalation IH SCH (09:04)
[2017-03-16] MEDS: Cefepime 1gm in NS 100ml 100 ML IVPB SCH (09:04)
[2017-03-16] MEDS ORDERED: Pneumococcal 23-Valent Vaccine IM ONE (12:10)
[2017-03-16] MEDS: Fluconazole IV 200mg/100 ml NS 100 MG in Premixed IV 1 EA IVPB SCH (12:25)
--- NOTE | 2017-03-16 12:54 | DS ---
I am sending the patient to the TCU today I am hoping. She needs to have more IV antibiotics, get so me physical therapy and lung care. She is being seen by infectious disease, ENT. She is on albutero l, trazodone, IV Diflucan, doxycycline, IV Flagyl, metformin, glipizide, heparin, insulin coverage, L ipitor, Lopressor, Maxipime IV, Mirapex, nystatin swish and swallow, Protonix, Solu-Medrol which I wi ll decrease to 20 IV q. 8 from 30, Spiriva, Tylenol. PHYSICAL EXAMINATION: VITAL SIGNS: 97.9 temp, 80 pulse, 170/73 blood pressure, 18 respiratory rate, and 97% O2 sat. HEENT: Head is atraumatic, normocephalic. Neck is very swollen. Throat is mildly red, could be thr ush. There is still some pain on the right side of the neck, not as bad as when she came in. HEART: Regular rate. LUNGS: Decreased breath sounds, but clear to auscultation, poor inspiration. ABDOMEN: Soft, morbidly obese, nontender, positive bowel sounds. No guarding, no rebound, no CVA te nderness. EXTREMITIES: Have trace edema. LABORATORY DATA: She has a 144 sodium, potassium 4.7, BUN 22, creatinine 0.7, GFR is greater than 60 , sugar is 192, calcium is 9.5, total bili is 0.3, AST is 16, ALT is 14, alk phos is 100, total prote in 6.5. White count is 17.8 on steroids, 10.8 hemoglobin, 37.1 hematocrit with 301 platelets. I am hoping to get her to TCU today for IV antibiotics, pulmonary care, physical therapy. Thomas Looney DO cc: [id number] TT: 03/16/2017 12:53:53 tn
[2017-03-16 13:27] VITALS: PULSE 108
== END 2017-03-16 13:43 | DRG 191 ==
LOC: ED 14:09 → ERH 17:13 → CCU 18:48 → 2RNO 03-14 20:52
PROVIDERS: ADMIT Family Medicine; ATTEND Family Medicine
PROC: 0CJS8ZZ Inspection of Larynx, Via Natural or Artificial Opening Endoscopic (ICD-10-PCS; principal; 2017-03-13)
PROC: 5A09457 Assistance with Respiratory Ventilation, 24-96 Consecutive Hours, Continuous Positive Airway Pressure (ICD-10-PCS; 2017-03-13)
DX: J44.1 Chronic obstructive pulmonary disease with (acute) exacerbation (principal); B37.0 Candidal stomatitis; Z68.43 Body mass index [BMI] 50.0-59.9, adult; I11.0 Hypertensive heart disease with heart failure; I50.9 Heart failure, unspecified; E66.01 Morbid (severe) obesity due to excess calories; E11.9 Type 2 diabetes mellitus without complications; E03.9 Hypothyroidism, unspecified; M19.90 Unspecified osteoarthritis, unspecified site; K59.00 Constipation, unspecified; F32.9 Major depressive disorder, single episode, unspecified; F41.9 Anxiety disorder, unspecified; H91.90 Unspecified hearing loss, unspecified ear; R59.9 Enlarged lymph nodes, unspecified; Z87.891 Personal history of nicotine dependence; Z79.84 Long term (current) use of oral hypoglycemic drugs; Z99.81 Dependence on supplemental oxygen

== ENCOUNTER 2017-03-16 13:41 | Inpatient (IN) | payer OTHER, MEDICAID ==
[2017-03-16 13:57] VITALS: BMI 55.7
[2017-03-16] MEDS: Albuterol-Ipratrop 3 mg / 0.5 (3 ml) UD IH SCH ×3 (15:54→23:34)
[2017-03-16] MEDS: Insulin Reg-HIGH-Coverage SC SCH ×2 (17:04→22:52)
[2017-03-16] MEDS: GlipiZIDE 5 mg SR Tab PO SCH (17:09)
[2017-03-16] MEDS: Cefepime 1gm in NS 100ml 1 GM/100 ML BAG IVPB SCH (17:10)
[2017-03-16] MEDS: Nystatin 100,000 Units/ml Oral Susp 5 ml UD PO SCH ×2 (17:11→22:35)
--- NOTE | 2017-03-16 18:23 | CP.PCM.PN ---
Subjective - Date & Time of Evaluation Date of Evaluation: 03/16/17 Time of Evaluation: 18:22 - Subjective Subjective: pt needs angiocath insertion . Objective - Vital Signs/Intake and Output Vital Signs (last 24 hours): Temp Pulse Resp BP Pulse Ox 97.5 F L 86 20 153/76 H 98 03/16/17 16:30 03/16/17 17:09 03/16/17 16:30 03/16/17 17:09 03/16/17 16:30 - Medications Medications: Current Medications Acetaminophen (Tylenol 325mg Tab) 650 mg PO Q6H PRN; Protocol PRN Reason: Fever >100.4 F Albuterol/Ipratropium (Duoneb 3 Mg/0.5 Mg (3 Ml) Ud) 3 ml IH Q4H JONATHAN PRN Reason: Protocol Last Admin: 03/16/17 15:54 Dose: 3 ml Alprazolam (Xanax) 0.25 mg PO BID PRN; Protocol PRN Reason: Anxiety Stop: 03/23/17 18:01 Atorvastatin Calcium (Lipitor) 20 mg PO DIN JONATHAN PRN Reason: Protocol Last Admin: 03/16/17 17:06 Dose: 20 mg Glipizide (Glucotrol Xl) 5 mg PO 0800,1800 JONATHAN PRN Reason: Protocol Last Admin: 03/16/17 17:09 Dose: 5 mg Heparin Sodium (Porcine) (Heparin) 5,000 units SC Q8 JONATHAN PRN Reason: Protocol Fluconazole 100 mg/ (Miscellaneous) 50 mls @ 100 mls/hr IVPB 0600 JONATHAN PRN Reason: Protocol Doxycycline Hyclate 100 mg/ (Sodium Chloride) 100 mls @ 100 mls/hr IVPB 0600, 1800 JONATHAN PRN Reason: Protocol Last Admin: 03/16/17 17:11 Dose: 100 mls/hr Metronidazole (Flagyl) 250 mg in 50 mls @ 100 mls/hr IVPB Q8 JONATHAN PRN Reason: Protocol Stop: 03/21/17 22:01 Cefepime HCl (Maxipime 1gm) 1 gm in 100 mls @ 100 mls/hr IVPB 0600,1800 JONATHAN PRN Reason: Protocol Last Admin: 03/16/17 17:10 Dose: 100 mls/hr Insulin Human Regular (Humulin R High) 0 units SC ACHS JONATHAN PRN Reason: Protocol Last Admin: 03/16/17 17:04 Dose: Not Given Metformin HCl (Glucophage) 1,000 mg PO 0800,1800 JONATHAN PRN Reason: Protocol Last Admin: 03/16/17 17:08 Dose: 1,000 mg Methylprednisolone (Solu-Medrol) 30 mg IVP Q12 [facility] Metoprolol Tartrate (Lopressor) 25 mg PO 0730,1800 JONATHAN PRN Reason: Protocol Last Admin: 03/16/17 17:09 Dose: 25 mg Nystatin (Nystatin Oral Susp) 5 ml PO QID [facility] Last Admin: 03/16/17 17:11 Dose: 5 ml Pantoprazole Sodium (Protonix Inj) 40 mg IVP DAILY [facility] Pramipexole Dihydrochloride (Mirapex) 0.25 mg PO HS JONATHAN PRN Reason: Protocol Tiotropium [place] (Spiriva) 18 mcg IH DAILY [facility] Trazodone HCl (Desyrel) 200 mg PO HS JONATHAN PRN Reason: Protocol Assessment and Plan - Assessment and Plan (Free Text) Assessment: 20 guage angiocath inserted in rt elbow area.
[2017-03-16] MEDS: metroNIDAZOLE IV 250mg/50 ml 250 MG/50 ML BAG IVPB SCH (21:50)
[2017-03-16] MEDS ORDERED: MethylPREDNISolone 40 mg Vial IVP SCH (22:00)
[2017-03-17] MEDS: Albuterol-Ipratrop 3 mg / 0.5 (3 ml) UD IH SCH ×6 (04:46→23:40)
[2017-03-17] MEDS: Fluconazole IV 200mg/100 ml NS 100 MG in Premixed IV 1 EA IVPB SCH (05:18)
[2017-03-17] MEDS: metroNIDAZOLE IV 250mg/50 ml 250 MG/50 ML BAG IVPB SCH ×3 (05:19→22:01)
[2017-03-17] MEDS: Cefepime 1gm in NS 100ml 1 GM/100 ML BAG IVPB SCH ×2 (05:20→17:45)
[2017-03-17] MEDS ORDERED: MethylPREDNISolone 40 mg Vial IVP SCH (06:00)
[2017-03-17] MEDS: Insulin Reg-HIGH-Coverage SC SCH ×4 (06:57→22:24)
[2017-03-17 07:09] LABS: ADD MANUAL DIFF? NO
[2017-03-17 07:15] LABS: BASO # 0.04 K/mm3 (0.0-2.0); BASO % 0.2 % (0.0-3.0); EOS % 0.1 % (1.5-5.0); GRAN # 14.54 (1.4-6.5); GRAN % 84.7 % (50.0-68.0); HEMATOCRIT 40.4 % (36.0-48.0); LYMPH # 1.5 (1.2-3.4); LYMPH % 8.7 % (22.0-35.0); MEAN CELL VOLUME 76.1 fL (80.0-105.0); MEAN CORPUSCULAR HEMOGLOBIN 21.8 pg (25.0-35.0); MEAN CORPUSCULAR HGB CONC 28.7 g/dl (31.0-37.0); MEAN PLATELET VOLUME 9.2 fl (7.0-11.0); MONO # 1.1 (0.1-0.6); MONO % 6.3 % (1.0-6.0); PLATELET COUNT 300 10^3/uL (120.0-450.0); RED CELL DISTRIBUTION WIDTH 18.3 % (11.5-14.5); WHITE BLOOD COUNT 17.2 10^3/ul (4.5-11.0)
[2017-03-17 07:28] LABS: BLOOD UREA NITROGEN 27 mg/dL (7-21); CALCIUM 9.4 mg/dL (8.4-10.5); CARBON DIOXIDE 33 mmol/L (21-33); CHLORIDE 99 mmol/L (95-110); GFR AFRICAN-AMERICAN > 60; GLUCOSE,RANDOM 240 mg/dL (70-110); POTASSIUM 4.7 mmol/L (3.6-5.0); SODIUM 143 mmol/L (132-148)
[2017-03-17] MEDS: GlipiZIDE 5 mg SR Tab PO SCH ×2 (08:02→17:31)
[2017-03-17] MEDS: Tiotropium 18 mcg Cap For Inhalation IH SCH (10:04)
[2017-03-17] MEDS: Nystatin 100,000 Units/ml Oral Susp 5 ml UD PO SCH ×4 (10:14→22:02)
--- NOTE | 2017-03-17 11:17 | HP ---
HISTORY OF PRESENT ILLNESS: I know the patient very well. We had her in the hospital side where she was sent in for shortness of breath. It turned out she had angioedema, airway constriction. She wa s seen by ear, nose and throat and pulmonary. She had narrowing from pressure. She was put on stero ids, IV antibiotics, nystatin swish and swallow, multiple medications to help decrease this inflammat ion. She was doing well, improved and she is at the transitional care unit now for further treatment . She is a 66-year-old female who usually comes in with acute COPD, but this time she feels like scottie ething is stuck in her throat and it ends up being an airway constriction from the airway narrowing w ith shortness of breath. MEDICATIONS: She is currently on Desyrel, doxycycline IV, DuoNeb, Flagyl IV, fluconazole IV, Glucoph age, Glucotrol, heparin, Lipitor, metoprolol, Maxipime IV, Mirapex, Nystatin swish and swallow, Olivia nix, Solu-Medrol 30 IV q. 12, I will decrease that, Spiriva, Tylenol, Xanax. 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 FAMILY HISTORY: There is hypertension and diabetes in the family. SOCIAL HISTORY: She was a smoker, has not smoked in a long time. No alcohol, no drugs. ALLERGIES: No known drug allergies. MEDICATIONS: I went over the medications with you. REVIEW OF SYSTEMS: There are no acute changes in vision or hearing, but old. She has a sore throat, mostly on the right side now. It was all throughout. There were problems swallowing, which is slow ly improving. There is definitely neck fullness, probably from all the steroids. She looks cushingo id. She has been on outpatient antibiotics a few times, which did not help the throat. She is short of breath which is kind of chronic, on oxygen. No chest pain, no back pain. Legs swell from time t o time, but none now. No numbness or tingling. She is weak. No easy bruising. She needs physical therapy. PHYSICAL EXAMINATION: VITAL SIGNS: She has a 97.6 temp, 77 pulse, 148/75 blood pressure, 16 respiratory rate, and 99% O2 s at on BiPAP. HEENT: Head is atraumatic, normocephalic. It is cushingoid looking from all the steroids. Extraocu lar muscles are intact. Pupils equal, reactive to light. Throat is difficult to visualize. Redness is decreased. NECK: Very full to palpation from all the adipose tissue. No palpable masses. Swelling is improvin g. HEART: Regular rate. LUNGS: Decreased breath sounds. That is her baseline. No wheezes at this time, clear to auscultati on. ABDOMEN: Morbidly, morbidly obese. No guarding, no rebound, no CVA tenderness. Positive bowel soun ds. EXTREMITIES: Have trace edema today. SKIN: For the most part is intact. No ulcers. NEUROLOGIC: Alert and oriented x 3. No appreciated palpable lymphadenopathy. She is very overweigh t. Thyroid is midline. LABORATORY DATA: Blood tests, she has a 143 sodium, potassium 4.7, BUN 27, creatinine 0.7, GFR is gr eater than 60, sugar is 240, calcium is 9.4. I will put her on insulin coverage. White count is 17. 2 from the steroids. I will decrease them. Hemoglobin 11.6, 40.4 hematocrit with 300 platelets. ASSESSMENT AND PLAN: She is going to be seen by infectious disease, ear, nose and throat. She will get physical therapy. Hopefully, the throat will improve with the antibiotics and she will not lose strength with the physical therapy and she will have a nice stay in the TCU. She is here for airway constriction, edema, chronic obstructive pulmonary disease, congestive heart failure, hypertension, a nd she could always use physical therapy. Thomas Looney DO cc: [id number] TT: 03/17/2017 11:17:05 santana
[2017-03-17] MEDS: MethylPREDNISolone 40 mg Vial IVP SCH (17:33)
--- NOTE | 2017-03-17 23:07 | CP.PCM.CON ---
History of Present Illness - History of Present Illness History of Present Illness: 66 year old female with PMH of COPD on home oxygen, morbid obesity with BMI 55, HTN, chronic CHF was initially admitted in [facility] because of acute exacerbation of COPD as well as dysphagia with note of oral candidiasis and probable pharyngitis. She has improved on antibiotics and antifungals and is now transferred to [facility] for continued medical therapy and physical rehabilitation. Infectious Diseases consult is requested to continue her therapy. Currently the patient is comfortably sitting in a chair, denies choking , no nausea or vomiting, breathing and swallowing better, no denies headache or dizziness, no abdominal pain, no chest pain, no SOB, no diarrhea, no dysuria. Review of Systems - Review of Systems All systems: reviewed and no additional remarkable complaints except (as per HPI ) Past Patient History - Infectious Disease Hx of Infectious Diseases: None - Tetanus Immunizations Tetanus Immunization: Unknown - Past Social History Smoking Status: Former Smoker - CARDIAC Hx Cardiac Disorders: Yes Hx Congestive Heart Failure: Yes Hx Hypercholesterolemia: Yes Hx Hypertension: Yes - PULMONARY Hx Chronic Obstructive Pulmonary Disease (COPD): Yes - NEUROLOGICAL Hx Neurological Disorder: Yes - HEENT Hx HEENT Problems: Yes (uses eyeglasses) Hx Deafness: Yes Other/Comment: pt [place] [facility] had hearing aids broken at home - RENAL Hx Chronic Kidney Disease: No - ENDOCRINE/METABOLIC Hx Diabetes Mellitus Type 2: Yes Hx Hypothyroidism: Yes - HEMATOLOGICAL/ONCOLOGICAL Hx Blood Disorders: No - INTEGUMENTARY Hx Dermatological Problems: No - MUSCULOSKELETAL/RHEUMATOLOGICAL Hx Falls: Yes (past) - GASTROINTESTINAL Hx Gastrointestinal Disorders: (CONSTIPATION,) Hx Gastroesophageal Reflux: Yes - GENITOURINARY/GYNECOLOGICAL Hx Genitourinary Disorders: No - PSYCHIATRIC Hx Psychophysiologic Disorder: Yes Hx Anxiety: Yes Hx Depression: Yes - SURGICAL HISTORY Hx Appendectomy: Yes Hx Cardiac Catheterization: Yes Hx Coronary Stent: Yes Hx Hysterectomy: Yes Hx Open Heart Surgery: Yes (1957) Other/Comment: Tonsillectomy. Mitral valve repair as an infant. 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 - ANESTHESIA Hx Anesthesia Reactions: No Meds Allergies/Adverse Reactions: Allergies Allergy/AdvReac Type Severity Reaction Status Date / Time No Known Allergies Allergy Verified 03/17/17 04:08 - Medications Medications: Current Medications Acetaminophen (Tylenol 325mg Tab) 650 mg PO Q6H PRN; Protocol PRN Reason: Fever >100.4 F Albuterol/Ipratropium (Duoneb 3 Mg/0.5 Mg (3 Ml) Ud) 3 ml IH Q4H JONATHAN PRN Reason: Protocol Last Admin: 03/16/17 15:54 Dose: 3 ml Alprazolam (Xanax) 0.25 mg PO BID PRN; Protocol PRN Reason: Anxiety Stop: 03/23/17 18:01 Atorvastatin Calcium (Lipitor) 20 mg PO DIN JONATHAN PRN Reason: Protocol Glipizide (Glucotrol Xl) 5 mg PO 0800,1800 JONATHAN PRN Reason: Protocol Heparin Sodium (Porcine) (Heparin) 5,000 units SC Q8 JONATHAN PRN Reason: Protocol Fluconazole 100 mg/ (Miscellaneous) 50 mls @ 100 mls/hr IVPB 0600 JONATHAN PRN Reason: Protocol Doxycycline Hyclate 100 mg/ (Sodium Chloride) 100 mls @ 100 mls/hr IVPB 0600, 1800 JONATHAN PRN Reason: Protocol Metronidazole (Flagyl) 250 mg in 50 mls @ 100 mls/hr IVPB Q8 JONATHAN PRN Reason: Protocol Stop: 03/21/17 22:01 Cefepime HCl (Maxipime 1gm) 1 gm in 100 mls @ 100 mls/hr IVPB 0600,1800 JONATHAN PRN Reason: Protocol Insulin Human Regular (Humulin R High) 0 units SC ACHS JONATHAN PRN Reason: Protocol Metformin HCl (Glucophage) 1,000 mg PO 0800,1800 JONATHAN PRN Reason: Protocol Methylprednisolone (Solu-Medrol) 30 mg IVP Q12 JONATHAN Metoprolol Tartrate (Lopressor) 25 mg PO 0730,1800 JONATHAN PRN Reason: Protocol Nystatin (Nystatin Oral Susp) 5 ml PO QID JONATHAN Pantoprazole Sodium (Protonix Inj) 40 mg IVP DAILY [facility] Pramipexole Dihydrochloride (Mirapex) 0.25 mg PO HS JONATHAN PRN Reason: Protocol Tiotropium [place] (Spiriva) 18 mcg IH DAILY JOANTHAN Trazodone HCl (Desyrel) 200 mg PO HS JONATHAN PRN Reason: Protocol Physical Exam - Constitutional Appears: Non-toxic, No Acute Distress - Head Exam Head Exam: NORMAL INSPECTION - ENT Exam ENT Exam: Mucous Membranes Moist - Neck Exam Neck exam: Negative for: Lymphadenopathy, Meningismus - Respiratory Exam Respiratory Exam: Decreased Breath Sounds - Cardiovascular Exam Cardiovascular Exam: +S1, +S2 - GI/Abdominal Exam GI & Abdominal Exam: Soft. absent: Tenderness Results - Labs Result Diagrams: 03/17/17 06:30 03/17/17 06:30 Assessment & Plan - Assessment and Plan (Free Text) Plan: Assessment Consider sepsis secondary to possible oral and esophageal candidiasis in a patient with acute exacerbation of COPD R/O pharyngitis, slowly improving COPD on home oxygen morbid obesity with BMI 55 HTN chronic CHF Plan continue Diflucan IV, Cefepime and Flagyl day 3 and continue to monitor clinical response Patient already on Nystatin swish and spit Will continue to follow clinically
[2017-03-18] MEDS: Albuterol-Ipratrop 3 mg / 0.5 (3 ml) UD IH SCH ×6 (04:41→23:30)
[2017-03-18] MEDS: metroNIDAZOLE IV 250mg/50 ml 250 MG/50 ML BAG IVPB SCH ×3 (05:16→22:26)
[2017-03-18] MEDS: Fluconazole IV 200mg/100 ml NS 100 MG in Premixed IV 1 EA IVPB SCH (05:16)
[2017-03-18] MEDS: Cefepime 1gm in NS 100ml 1 GM/100 ML BAG IVPB SCH ×2 (05:17→17:26)
[2017-03-18] MEDS: MethylPREDNISolone 40 mg Vial IVP SCH (05:42)
[2017-03-18] MEDS: Insulin Reg-HIGH-Coverage SC SCH ×4 (06:47→22:28)
[2017-03-18 07:19] LABS: HEMATOCRIT 36.4 % (36.0-48.0); MEAN CELL VOLUME 75.2 fL (80.0-105.0); MEAN CORPUSCULAR HEMOGLOBIN 21.7 pg (25.0-35.0); MEAN CORPUSCULAR HGB CONC 28.8 g/dl (31.0-37.0); MEAN PLATELET VOLUME 8.9 fl (7.0-11.0); RED CELL DISTRIBUTION WIDTH 17.9 % (11.5-14.5); WHITE BLOOD COUNT 16.2 10^3/ul (4.5-11.0)
[2017-03-18 07:35] LABS: ALB/GLOB RATIO 1.2 (1.1-1.8); ALKALINE PHOSPHATASE 84 U/L (38-133); ALT/SGPT 37 U/L (7-56); AST/SGOT 14 U/L (15-39); BILIRUBIN,TOTAL 0.4 mg/dL (0.2-1.3); BLOOD UREA NITROGEN 22 mg/dL (7-21); CARBON DIOXIDE 34 mmol/L (21-33); CHLORIDE 100 mmol/L (98-107); GFR AFRICAN-AMERICAN > 60; GLUCOSE,RANDOM 144 mg/dL (70-110); POTASSIUM 4.1 mmol/L (3.6-5.0); SODIUM 140 mmol/L (132-148)
[2017-03-18] MEDS: GlipiZIDE 5 mg SR Tab PO SCH ×2 (08:28→17:27)
[2017-03-18] MEDS: Nystatin 100,000 Units/ml Oral Susp 5 ml UD PO SCH ×4 (09:31→22:29)
[2017-03-18] MEDS: Tiotropium 18 mcg Cap For Inhalation IH SCH (09:41)
--- NOTE | 2017-03-18 09:47 | PN ---
DATE: 03/18/2017 I saw the patient sitting in bed, comfortable. She is trying in physical therapy. She is trying to eat well. She has had diarrhea. They sent the stool for C. diff. She has oxygen on, occasionally s hort of breath. The throat is still may be 40-50% better she tells me. MEDICATIONS: She is on Desyrel, DuoNeb, IV Flagyl, IV fluconazole, Glucophage, Glucotrol, heparin, i nsulin coverage, Lipitor, Lopressor, Maxipime IV, Mirapex, Nystatin swish and swallow, Protonix, Solu -Medrol 20 mg IV b.i.d. I am going to change that to prednisone today. Spiriva, Tylenol, and Xanax. PHYSICAL EXAMINATION: VITAL SIGNS: 97.4 temp, 72 pulse, 146/84 blood pressure, 20 respiratory rate, 97% O2 sat on room air . HEENT: Head is atraumatic, normocephalic. The neck it is very swollen. The neck is swollen like Cu shingoid from all the steroids she has been on. HEART: Regular rate. LUNGS: Have decreased breath sounds bilaterally, but clear. No wheezes, no rhonchi, no rales. ABDOMEN: Morbidly obese, soft, nontender, positive bowel sounds. No guarding, no rebound. EXTREMITIES: Trace edema if any. She is doing better with therapy. She is trying. LABORATORY DATA: She has a 16.2 white count, 10.5 hemoglobin, 36.4 hematocrit with 272 platelets. S odium 140, potassium 4.1, BUN 22, creatinine 0.6, GFR is greater than 60, sugar is 144, calcium is 9, total bili is 0.4, AST is 14, ALT is 37, alk phos 84, total protein is 6, albumin is 3.3. She is being seen by infectious disease. Continue the IV Diflucan, cefepime, Flagyl, nystatin swish and swallow. Sepsis secondary to oral and esophageal candidiasis, acute chronic obstructive pulmonar y disease, morbid obesity and we will check her labs. Physical therapy, IV antibiotics. Await stool for Clostridium difficile. Thomas S Looney DO cc: [id number] TT: 03/18/2017 09:45:54 Confirmation # [id number] Dictation # [id number] tn
--- NOTE | 2017-03-18 22:40 | PN ---
DATE: 03/18/2017 The patient is in bed, no acute distress, nontoxic. PHYSICAL EXAMINATION: VITAL SIGNS: Temperature is 97, blood pressure is 140/60, respiratory rate of 16. HEENT: Unremarkable. NECK: Supple. LUNGS: Have decreased breath sounds. HEART: Normal S1, S2. ABDOMEN: Soft, nontender. LABORATORY DATA: Reveals the patient's white count of 16,200, hemoglobin of 10. BUN of 22, creatini ne of 0.6. Microbiology reveals the patient's C. diff antigen and toxin are both negative. ASSESSMENT AND PLAN: This is a 66-year-old female with sepsis secondary to possible oral esophageal candidiasis and acute exacerbation of chronic obstructive pulmonary disease with morbid obesity, body mass index of 55 and chronic respiratory failure with chronic obstructive pulmonary disease on home oxygen therapy, hypertension, chronic congestive heart failure. Will continue the present course. C urrently, the patient is on fluconazole, Flagyl and cefepime. The patient is also on prednisone. Jean Paul Esquivel MD cc: [id number] TT: 03/18/2017 22:40:30 Confirmation # [id number] Dictation # [id number] lencho
[2017-03-19] MEDS: Albuterol-Ipratrop 3 mg / 0.5 (3 ml) UD IH SCH ×6 (03:56→23:34)
[2017-03-19] MEDS: Fluconazole IV 200mg/100 ml NS 100 MG in Premixed IV 1 EA IVPB SCH (05:08)
[2017-03-19] MEDS: Cefepime 1gm in NS 100ml 1 GM/100 ML BAG IVPB SCH ×2 (05:09→18:23)
[2017-03-19] MEDS: metroNIDAZOLE IV 250mg/50 ml 250 MG/50 ML BAG IVPB SCH ×3 (05:09→21:56)
[2017-03-19] MEDS: Insulin Reg-HIGH-Coverage SC SCH ×4 (06:56→21:51)
[2017-03-19 07:27] LABS: MEAN CELL VOLUME 75.5 fL (80.0-105.0); MEAN CORPUSCULAR HEMOGLOBIN 21.6 pg (25.0-35.0); MEAN CORPUSCULAR HGB CONC 28.6 g/dl (31.0-37.0); MEAN PLATELET VOLUME 8.9 fl (7.0-11.0); RED CELL DISTRIBUTION WIDTH 18.1 % (11.5-14.5)
[2017-03-19 07:53] LABS: ALB/GLOB RATIO 1.4 (1.1-1.8); ALKALINE PHOSPHATASE 87 U/L (38-133); ALT/SGPT 40 U/L (7-56); AST/SGOT 19 U/L (15-39); BILIRUBIN,TOTAL 0.3 mg/dL (0.2-1.3); BLOOD UREA NITROGEN 20 mg/dL (7-21); CARBON DIOXIDE 34 mmol/L (21-33); CHLORIDE 99 mmol/L (95-110); GFR AFRICAN-AMERICAN > 60; GLUCOSE,RANDOM 125 mg/dL (70-110); POTASSIUM 3.7 mmol/L (3.6-5.0); SODIUM 141 mmol/L (132-148); TOTAL PROTEIN 5.7 g/dL (5.8-8.3)
--- NOTE | 2017-03-19 08:54 | PN ---
DATE: 03/19/2017 I saw the patient in the TCU. She is sitting up in bed. She is getting ready for breakfast. She is in fairly good spirits, some complaints. Her breathing is better. No chest pain, no shortness of b reath, no abdominal pain at this time. She is on Desyrel, DuoNeb, Flagyl, fluconazole, Glucophage, Glucotrol, heparin, insulin, Lipitor, Lop ressor, Maxipime, Mirapex, nystatin, prednisone, Protonix, Spiriva, Tylenol and Xanax. PHYSICAL EXAMINATION: VITAL SIGNS: Temp 97.6, 89 pulse, 142/67 blood pressure, 20 respiratory rate, 99% O2 sat on 3 liters nasal cannula. HEAD: Atraumatic, normocephalic. THROAT: Moist. NECK: Supple. HEART: Regular rate. LUNGS: Decreased breath sounds bilaterally, but clear to auscultation. ABDOMEN: Soft, morbidly obese, nontender. EXTREMITIES: Trace edema, if any. She has a 16 white count from the steroids, 10.3 hemoglobin, 36 hematocrit with 286 platelets. Sodiu m 141, potassium 3.7, BUN is 20, creatinine 0.6, GFR is greater than 60, sugar is 125, calcium is 9, total bili is 0.3, AST is 19, ALT is 40, alkaline phosphatase 87, total protein is 5.7. She is being seen by infectious disease for the esophageal candidiasis, the chronic obstructive pulmo nary disease, morbid obesity, the throat airway edema and constriction. I do think she is improving. We will continue with treatment and care. ENT should be seeing her also besides infectious disease . I will continue to decrease her steroids as needed, check her labs tomorrow. Thomas Looney DO cc: [id number] TT: 03/19/2017 08:53:09 Confirmation # [id number] Dictation # [id number] en
[2017-03-19] MEDS: GlipiZIDE 5 mg SR Tab PO SCH ×2 (09:35→18:25)
[2017-03-19] MEDS: Nystatin 100,000 Units/ml Oral Susp 5 ml UD PO SCH ×4 (09:36→21:52)
[2017-03-19] MEDS: Tiotropium 18 mcg Cap For Inhalation IH SCH (09:36)
--- NOTE | 2017-03-19 19:26 | PN ---
DATE: 03/19/2017 The patient was seen early this morning in [facility]. She is still complaining of difficulty with swallowi ng and chewing. She is overall doing much better. No fevers, no chills. PHYSICAL EXAMINATION: VITAL SIGNS: Temperature is 98, blood pressure is 120/70, respiratory rate of 16. HEENT: Unremarkable. NECK: Supple. LUNGS: Have decreased breath sounds. HEART: Normal S1, S2. ABDOMEN: Soft, nontender. LABORATORY DATA: Reveals the patient's white count is 16,000, hemoglobin of 10, platelets of 286, BU N of 20, creatinine of 0.6. Stool for C. diff antigen and toxin is negative. ASSESSMENT AND PLAN: A 66-year-old female with sepsis secondary to possible esophageal candidiasis, acute exacerbation of chronic obstructive pulmonary disease and morbid obesity, BMI of 55, chronic re spiratory failure, chronic obstructive pulmonary disease, on home oxygen therapy, hypertension, chron ic congestive failure. Continue the present course on fluconazole, Flagyl, and patient is also on pr ednisone. Will follow closely with you. Jean Paul Esquivel MD cc: [id number] TT: 03/19/2017 19:24:52 Confirmation # [id number] Dictation # [id number] santana
[2017-03-20] MEDS: Albuterol-Ipratrop 3 mg / 0.5 (3 ml) UD IH SCH ×5 (05:12→21:50)
[2017-03-20] MEDS: Fluconazole IV 200mg/100 ml NS 100 MG in Premixed IV 1 EA IVPB SCH (06:01)
[2017-03-20] MEDS: metroNIDAZOLE IV 250mg/50 ml 250 MG/50 ML BAG IVPB SCH ×3 (06:01→22:28)
[2017-03-20] MEDS: Cefepime 1gm in NS 100ml 1 GM/100 ML BAG IVPB SCH ×2 (06:03→17:20)
[2017-03-20] MEDS: Insulin Reg-HIGH-Coverage SC SCH ×4 (07:05→22:29)
[2017-03-20] MEDS: GlipiZIDE 5 mg SR Tab PO SCH ×2 (08:28→17:19)
[2017-03-20 08:31] LABS: ALB/GLOB RATIO 1.2 (1.1-1.8); ALKALINE PHOSPHATASE 85 U/L (38-133); ALT/SGPT 42 U/L (7-56); AST/SGOT 20 U/L (15-39); BILIRUBIN,TOTAL 0.4 mg/dL (0.2-1.3); BLOOD UREA NITROGEN 21 mg/dL (7-21); CALCIUM 9.3 mg/dL (8.4-10.5); CARBON DIOXIDE 39 mmol/L (21-33); CHLORIDE 99 mmol/L (98-107); GFR AFRICAN-AMERICAN > 60; GLUCOSE,RANDOM 80 mg/dL (70-110); POTASSIUM 3.6 mmol/L (3.6-5.0); SODIUM 142 mmol/L (132-148)
[2017-03-20 08:42] LABS: HEMATOCRIT 37.2 % (36.0-48.0); MEAN CELL VOLUME 76.4 fL (80.0-105.0); MEAN CORPUSCULAR HEMOGLOBIN 21.6 pg (25.0-35.0); MEAN CORPUSCULAR HGB CONC 28.2 g/dl (31.0-37.0); RED CELL DISTRIBUTION WIDTH 18.3 % (11.5-14.5); WHITE BLOOD COUNT 15.6 10^3/ul (4.5-11.0)
[2017-03-20] MEDS: Tiotropium 18 mcg Cap For Inhalation IH SCH (10:20)
[2017-03-20] MEDS: Nystatin 100,000 Units/ml Oral Susp 5 ml UD PO SCH ×4 (10:21→22:31)
--- NOTE | 2017-03-20 19:08 | PN ---
DATE: 03/20/2017 The patient is in room 313, was seen earlier this morning. PHYSICAL EXAMINATION: VITAL SIGNS: Temperature is 98, blood pressure is 140/70, respiratory rate of 20, heart rate of 102. HEENT: Unremarkable. NECK: Supple. LUNGS: Have decreased breath sounds. HEART: Normal S1, S2. ABDOMEN: Soft. Review of the orders reveals the patient to be on IV Diflucan, p.o. Flagyl, IV cefepime. Also, brittany hurley is on p.o. prednisone. Review of the microbiology: Reveals the stool for C. diff from the is negative antigen and nega tive toxin. The blood cultures prior to that are no growth. Urine culture is no growth and white co unt is down to 15,600, hemoglobin of 10, platelets of 278. The patient's procalcitonin from the was 0.12. 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 Flagyl and p.o. prednisone. We will discontinue t he cefepime and will be changing Diflucan to p.o. within the next 24 hours to 48 hours. We will foll ow closely with you. Jean Paul Esquivel MD cc: [phone] TT: 03/20/2017 19:07:54 Confirmation # [id number] Dictation # [id number] lencho
[2017-03-21] MEDS: Albuterol-Ipratrop 3 mg / 0.5 (3 ml) UD IH SCH ×7 (01:41→21:20)
[2017-03-21] MEDS: Fluconazole IV 200mg/100 ml NS 100 MG in Premixed IV 1 EA IVPB SCH (05:48)
[2017-03-21] MEDS: metroNIDAZOLE IV 250mg/50 ml 250 MG/50 ML BAG IVPB SCH ×2 (05:48→13:57)
[2017-03-21] MEDS: Insulin Reg-HIGH-Coverage SC SCH ×4 (07:59→21:58)
[2017-03-21] MEDS: GlipiZIDE 5 mg SR Tab PO SCH ×2 (08:00→17:38)
[2017-03-21] MEDS: Tiotropium 18 mcg Cap For Inhalation IH SCH (09:50)
[2017-03-21] MEDS: Nystatin 100,000 Units/ml Oral Susp 5 ml UD PO SCH ×4 (09:51→21:56)
--- NOTE | 2017-03-21 12:24 | PN ---
DATE: 03/21/2017 The patient is a 66-year-old female seen and examined in the TCU. Currently, comfortable. No chest pain, no shortness of breath, no nausea, no vomiting. PHYSICAL EXAMINATION: VITAL SIGNS: Blood pressure is currently 145/65, pulse rate of 80. Temperature is 97.3. O2 saturat ion is 97 on room air. HEENT: Normocephalic, atraumatic. [place] conjunctivae, nonicteric sclerae. NECK: No JVD, no thyromegaly. CARDIOVASCULAR: Regular rate and rhythm. S1, S2 appreciated. LUNGS: Bilateral air entry is positive. No wheezes or rhonchi. ABDOMEN: Nondistended, nontender. Positive bowel sounds. EXTREMITIES: Peripheral pulses +2 with 3+ pitting edema. LABORATORY DATA: Labs are pending at this point. We will repeat labs for today. ASSESSMENT: 1. Chronic obstructive pulmonary disease. 2. Diabetes mellitus. 3. Congestive heart failure. 4. Hypertension. PLAN: At this time, we will continue current treatment including fluconazole IV, as well as metronid azole IV, her diabetic medications that she is receiving, as well as prednisone at this point, and we will follow very closely. Frederick Mcneil MD cc: [id number] TT: 03/21/2017 12:23:48 Confirmation # [id number] Dictation # [id number] lencho
--- NOTE | 2017-03-21 14:42 | CP.PCM.PN ---
Subjective - Date & Time of Evaluation Date of Evaluation: 03/21/17 Time of Evaluation: 14:40 - Subjective Subjective: Patient has very poor veins,needs iv access Objective - Vital Signs/Intake and Output Vital Signs (last 24 hours): Temp Pulse Resp BP Pulse Ox 97.3 F L 80 18 145/65 97 03/21/17 10:00 03/21/17 10:00 03/21/17 10:00 03/21/17 10:00 03/21/17 10:00 - Medications Medications: Current Medications Acetaminophen (Tylenol 325mg Tab) 650 mg PO Q6H PRN; Protocol PRN Reason: Fever >100.4 F Last Admin: 03/21/17 01:37 Dose: 650 mg Albuterol/Ipratropium (Duoneb 3 Mg/0.5 Mg (3 Ml) Ud) 3 ml IH [id number] JONATHAN PRN Reason: Protocol Last Admin: 03/21/17 11:11 Dose: 3 ml Alprazolam (Xanax) 0.25 mg PO BID PRN; Protocol PRN Reason: Anxiety Stop: 03/23/17 18:01 Last Admin: 03/17/17 22:02 Dose: 0.25 mg Atorvastatin Calcium (Lipitor) 20 mg PO DIN JONATHAN PRN Reason: Protocol Last Admin: 03/20/17 16:10 Dose: 20 mg Glipizide (Glucotrol Xl) 5 mg PO 0800,1800 JONATHAN PRN Reason: Protocol Last Admin: 03/21/17 08:00 Dose: 5 mg Heparin Sodium (Porcine) (Heparin) 5,000 units SC Q8 JONATHAN PRN Reason: Protocol Last Admin: 03/21/17 13:57 Dose: 5,000 units Fluconazole 100 mg/ (Miscellaneous) 50 mls @ 100 mls/hr IVPB 0600 JONATHAN PRN Reason: Protocol Last Admin: 03/21/17 05:48 Dose: 100 mls/hr Metronidazole (Flagyl) 250 mg in 50 mls @ 100 mls/hr IVPB Q8 JONATHAN PRN Reason: Protocol Stop: 03/21/17 22:01 Last Admin: 03/21/17 13:57 Dose: 100 mls/hr Insulin Human Regular (Humulin R High) 0 units SC ACHS JONATHAN PRN Reason: Protocol Last Admin: 03/21/17 12:29 Dose: 7 units Metformin HCl (Glucophage) 1,000 mg PO 0800,1800 [facility] PRN Reason: Protocol Metoprolol Tartrate (Lopressor) 25 mg PO 0730,1800 [facility] PRN Reason: Protocol Last Admin: 03/21/17 08:00 Dose: 25 mg Nystatin (Nystatin Oral Susp) 5 ml PO QID [facility] Last Admin: 03/21/17 09:51 Dose: 5 ml Pantoprazole Sodium (Protonix Inj) 40 mg IVP DAILY [facility] Last Admin: 03/21/17 09:51 Dose: 40 mg Pramipexole Dihydrochloride (Mirapex) 0.25 mg PO HS [facility] PRN Reason: Protocol Last Admin: 03/20/17 22:31 Dose: 0.25 mg Prednisone (Prednisone Tab) 30 mg PO 0800 [facility] Last Admin: 03/21/17 08:01 Dose: 30 mg Tiotropium [place] (Spiriva) 18 mcg IH DAILY [facility] Last Admin: 03/21/17 09:50 Dose: 18 mcg Trazodone HCl (Desyrel) 200 mg PO HS [facility] PRN Reason: Protocol Last Admin: 03/20/17 22:28 Dose: 200 mg - Labs Labs: 03/20/17 06:30 03/20/17 07:00 - Constitutional Appears: No Acute Distress Assessment and Plan - Assessment and Plan (Free Text) Assessment: Poor venous access Plan: Heep lock inserted in the R hand. # 24 angiocath used.
--- NOTE | 2017-03-21 16:18 | PN ---
DATE: 03/21/2017 The patient is in bed, in no acute distress, was seen in 313. PHYSICAL EXAMINATION: VITAL SIGNS: Temperature is 97, blood pressure is 140/60, respiratory rate of 16. HEENT: Unremarkable. NECK: Supple. LUNGS: Have decreased breath sounds. HEART: Normal S1, S2. ABDOMEN: Soft. LABORATORY EXAMINATION: Reveals a white count of 15,600, hemoglobin of 10, platelets of 278. Chemis tries reveals the patient has a creatinine is 0.6. Microbiology is noted. The patient's C. diff ant igen and toxin are both negative. Review of orders reveals the patient to be on fluconazole IV and IV Flagyl. The patient is also on p .o. prednisone. ASSESSMENT AND PLAN: A 66-year-old female with morbid obesity, body mass index of 55, chronic respir atory failure, on home oxygen therapy, chronic obstructive lung disease, hypertension, congestive hea rt failure. Will discontinue the p.o. Flagyl and change the Diflucan to p.o. and Dr. Frederick Mcneil' s note is reviewed. Dr. Cheatham's note is reviewed. Will follow with you. Jean Paul Esquivel MD cc: [id number] TT: 03/21/2017 16:17:26 Confirmation # [id number] Dictation # [id number] en
[2017-03-21 16:25] VITALS: O2SAT 98
[2017-03-22] MEDS: Albuterol-Ipratrop 3 mg / 0.5 (3 ml) UD IH SCH ×6 (00:50→21:13)
[2017-03-22 06:46] LABS: ADD MANUAL DIFF? NO
[2017-03-22 07:10] LABS: BASO # 0.03 K/mm3 (0.0-2.0); BASO % 0.2 % (0.0-3.0); EOS # 0.1 (0.0-0.7); EOS % 0.8 % (1.5-5.0); GRAN # 9.85 (1.4-6.5); GRAN % 68.8 % (50.0-68.0); HEMATOCRIT 38.1 % (36.0-48.0); LYMPH # 3.4 (1.2-3.4); LYMPH % 23.6 % (22.0-35.0); MEAN CELL VOLUME 76.2 fL (80.0-105.0); MEAN CORPUSCULAR HEMOGLOBIN 21.4 pg (25.0-35.0); MEAN CORPUSCULAR HGB CONC 28.1 g/dl (31.0-37.0); MEAN PLATELET VOLUME 9.4 fl (7.0-11.0); MONO % 6.6 % (1.0-6.0); PLATELET COUNT 289 10^3/uL (120.0-450.0); RED CELL DISTRIBUTION WIDTH 18.4 % (11.5-14.5); WHITE BLOOD COUNT 14.3 10^3/ul (4.5-11.0)
[2017-03-22 07:28] LABS: ALB/GLOB RATIO 1.3 (1.1-1.8); ALKALINE PHOSPHATASE 85 U/L (38-133); ALT/SGPT 54 U/L (7-56); AST/SGOT 31 U/L (15-39); BILIRUBIN,TOTAL 0.4 mg/dL (0.2-1.3); BLOOD UREA NITROGEN 18 mg/dL (7-21); CALCIUM 8.9 mg/dL (8.4-10.5); CARBON DIOXIDE 35 mmol/L (21-33); CHLORIDE 99 mmol/L (95-110); GFR AFRICAN-AMERICAN > 60; GLUCOSE,RANDOM 73 mg/dL (70-110); POTASSIUM 3.7 mmol/L (3.6-5.0); SODIUM 142 mmol/L (132-148); TOTAL PROTEIN 6.3 g/dL (5.8-8.3)
[2017-03-22] MEDS: Insulin Reg-HIGH-Coverage SC SCH ×4 (07:45→23:01)
[2017-03-22] MEDS: GlipiZIDE 5 mg SR Tab PO SCH ×2 (08:21→18:11)
--- NOTE | 2017-03-22 09:02 | PN ---
DATE: 03/22/2017 I saw her in the TCU. She is out of bed to chair. Her oxygen is on. She is very distraught. Her s on of 36 years of age was found at home and she is very upset about this. The plan is for her t o be discharged tomorrow on Wednesday. Will try and get her some counseling. I will get psychiatry in to talk to her today. MEDICATIONS: She is currently on Desyrel, Diflucan, DuoNeb, Glucophage, Glucotrol, heparin, insulin, Lipitor, Lopressor, Mirapex, Nystatin, prednisone, Protonix, Spiriva, Tylenol and Xanax. PHYSICAL EXAMINATION: VITAL SIGNS: She has a 97.8 temp, 87 pulse, 143/83 blood pressure, 20 respiratory rate, 98% O2 sat o n nasal cannula. HEENT: Head is atraumatic, normocephalic. HEART: Regular rate. LUNGS: Decreased breath sounds, but clear to auscultation. ABDOMEN: Soft, morbidly obese. EXTREMITIES: Trace edema. She is here for airway constriction and edema, esophageal candidiasis, ch ronic obstructive pulmonary disease, obesity, debility and she is getting better. LABORATORY DATA: She has a 14.3 white count, 10.7 hemoglobin, 38.1 hematocrit with 289 platelets. S odium 142, potassium 3.7, BUN is 18, creatinine 0.6, GFR is greater than 60, sugar is 73, calcium is 8.9, total bili is 0.4, AST is 31, ALT is 54, alk phos 85, total protein 6.3. I am going to drop her prednisone down to 20 mg a day. Plan is to discharge her tomorrow and will ge t psychiatry in to talk to her about her passing of her son. Thomas Looney DO cc: [id number] TT: 03/22/2017 09:02:44 Confirmation # [id number] Dictation # [id number] mn
[2017-03-22] MEDS: Tiotropium 18 mcg Cap For Inhalation IH SCH (09:38)
[2017-03-22] MEDS: Nystatin 100,000 Units/ml Oral Susp 5 ml UD PO SCH ×4 (11:00→21:38)
[2017-03-22] MEDS ORDERED: Potassium Chloride 20 mEq/15 ml LIQ UD PO STA (15:00)
--- NOTE | 2017-03-22 18:12 | CON ---
DATE: 03/22/2017 HISTORY OF PRESENT ILLNESS: Shortly, the patient is a 66-year-old female with history of m ood disorder, history of being evaluated by this sign writer letterer or painter in the past on the medical side. It was more than a year ago. The patient has history of outpatient therapy and medication management with Dr. Antonio henriquez, but was not able to follow up with him because he was not accepting patient's insurance. The p mariana was admitted on the medical floor for evaluation of shortness of breath. The patient currentl y is in TCU. Psych consult was called for evaluation of mood symptoms. The patient's son passed chcukie y within the last few days and medical team is concerned about patient's mood symptoms. The patient was seen today and examined. The patient presented to be alert and oriented. The patient seems to b e obese. The patient presented well. The patient is not aware of what are the circumstances of her son to pass away. The patient denied any thoughts of killing herself or killing others. The patient wants to attend , but at the same time has difficulty to ambulate. The patient wanted to spe ak to the social services assistant about her to attend and extra help. The social services assistant was notified. The patient reported that she has poor relationship with the other son and he is not involved in her life and son who used to call her all the time. The patient reported that her ex-husban d is not having good relationship with the patient and he does not want to have any relationship with her. The patient said that she is stressed because of the financial problems, but patient adamantly denied thoughts of harming herself or others. The patient reported that her medications are managed by Dr. Looney and she reported no side effects from the medications. The patient reported that she is compliant with them and denied any side effects. This sign writer letterer or painter reviewed previous history. The tresa ent was evaluated by this sign writer letterer or painter in the past and that was in April 2016. The patient presented the s court way as she is at present moment. The patient has history of suicidal attempts, which was more th an 15 years ago. This sign writer letterer or painter reviewed the vital signs. Vital signs seem to be stable. Temperature 98.2, pulse is 91, blood pressure 151/70, respirations 20, oxygen saturation is 98. MEDICATIONS: Reviewed from the psychiatric standpoint, the patient is on 25 mg twice a day. T he patient also is on trazodone 200 mg at the nighttime. LABORATORY DATA: Reviewed. WBC cells is 14.3, hemoglobin and hematocrit are 10.7 and 38.1. [place] ry stable. Chemistry has been within normal limits, but carbon dioxide 35. Reports reviewed. The p atient was discussed with Dr. Looney in detail. MENTAL STATUS EXAMINATION: The patient appears to be alert and oriented, intermittent eye contact. Speech was slow, low volume. Mood described "I'm concerned about the ." Affect was flat. Th ought process was coherent and goal directed. Thought content: The patient denied visual, auditory, tactile hallucinations. She denied paranoid ideations. The patient denied thoughts of harming hers elf or others, denied intent or plan. Insight and judgment are fair. Impulses are well controlled. IMPRESSION: Rule out adjustment disorder. The patient has multiple medical issues, obesity, chronic obstructive pulmonary disease. Please see medical team notes for more detailed information. PLAN: This sign writer letterer or painter spoke to social studies teacher in TCU. The patient will be seen by them. The patient w as asking about extra help to attend . The patient is homebound and unable to walk. The tresa ent denied thoughts of harming herself or others. The patient deemed not to be in danger to self or others. Medications were managed by Dr. Looney as outpatient. The patient was provided with support chirag therapy and empathic listening. The patient well. From this sign writer letterer or painter's perspective, the pat ient is adjusting to that news of patient's son within the past 2 days, relatively well, but at the same time seems to be in denial. The patient is not psychotic. The patient is not disrup tive, participating in treatment plan. The patient was educated in case of the worsening of the symp toms, call 911 or bringing herself back to the hospital. The patient verbalized understanding. This sign writer letterer or painter will sign off. Continue all of the medications, Should they have any questions, give me a ca ll back. Yuliana Taylor MD cc: [phone] TT: 03/22/2017 18:11:51 Confirmation # [id number] Dictation # [id number] mn
--- NOTE | 2017-03-22 20:54 | PN ---
DATE: 03/22/2017 The patient is in bed in no acute distress, nontoxic. PHYSICAL EXAMINATION: VITAL SIGNS: Temperature is 98, blood pressure is 150/70, respiratory rate of 20. HEENT: Unremarkable. NECK: Supple. LUNGS: Have decreased breath sounds. HEART: Normal S1, S2. ABDOMEN: Soft, nontender. LABORATORY DATA: Reveals a white count of 14,300, hemoglobin at 10. BUN of 18, creatinine of 0.6. ASSESSMENT AND PLAN: This is a 66-year-old female with morbid obesity, body mass index of 65, chroni c respiratory failure, on home oxygen therapy, chronic obstructive lung disease, congestive heart kirstin lure on p.o. Diflucan. The patient is still having some difficulty swallowing, but overall improved, probable Sonali esophagitis. Jean Paul Esquivel MD cc: [id number] TT: 03/22/2017 20:54:02 Confirmation # [id number] Dictation # [id number] len[place]
[2017-03-23] MEDS: Albuterol-Ipratrop 3 mg / 0.5 (3 ml) UD IH SCH ×5 (00:50→15:46)
[2017-03-23 06:25] VITALS: RESP 18
[2017-03-23] MEDS: Insulin Reg-HIGH-Coverage SC SCH ×3 (06:43→18:28)
[2017-03-23 07:40] LABS: HEMATOCRIT 36.3 % (36.0-48.0); MEAN CELL VOLUME 76.1 fL (80.0-105.0); MEAN CORPUSCULAR HEMOGLOBIN 21.6 pg (25.0-35.0); MEAN CORPUSCULAR HGB CONC 28.4 g/dl (31.0-37.0); MEAN PLATELET VOLUME 9.3 fl (7.0-11.0); RED CELL DISTRIBUTION WIDTH 18.5 % (11.5-14.5); WHITE BLOOD COUNT 16.1 10^3/ul (4.5-11.0)
[2017-03-23 07:51] LABS: ALB/GLOB RATIO 1.3 (1.1-1.8); ALKALINE PHOSPHATASE 72 U/L (38-133); ALT/SGPT 56 U/L (7-56); AST/SGOT 29 U/L (15-39); BILIRUBIN,TOTAL 0.5 mg/dL (0.2-1.3); BLOOD UREA NITROGEN 20 mg/dL (7-21); CALCIUM 9.2 mg/dL (8.4-10.5); CARBON DIOXIDE 35 mmol/L (21-33); CHLORIDE 99 mmol/L (98-107); GFR AFRICAN-AMERICAN > 60; GLUCOSE,RANDOM 129 mg/dL (70-110); POTASSIUM 3.6 mmol/L (3.6-5.0); SODIUM 140 mmol/L (132-148); TOTAL PROTEIN 6.1 g/dL (5.8-8.3)
--- NOTE | 2017-03-23 08:27 | DS ---
I saw her sitting out of bed to chair. Oxygen is on. She is a little bit depressed since her son di ed the other day, he was 37 years old of age, suddenly. Psychiatry came and said nothing else to do. She is understanding of the situation. She is going to go home on her Desyrel, Diflucan for 7 more days, DuoNeb, Glucophage, Glucotrol, Lipi tor, Lopressor, Mirapex, nystatin swish and swallow for 7 more days, prednisone 20 mg daily, pantopra zole, Spiriva, Tylenol and Xanax. PHYSICAL EXAMINATION: VITAL SIGNS: Temp 98.4, 91 pulse, 117/61 blood pressure, 18 respiratory rate, 98% O2 sat on oxygen. HEAD: Atraumatic, normocephalic. THROAT: Moist. It is not red. There are a little bit less throat issues. She has esophageal ronald diasis, but the swish and swallow is helping and so is the Diflucan. She is about 85% improved. NECK: Large like a cushingoid neck. She did have trachea compromise, but it is much better. HEART: Regular rate. LUNGS: Decreased breath sounds, but clear to auscultation. ABDOMEN: Soft, morbidly obese. EXTREMITIES: Trace edema. LABORATORY DATA: She has a 142 sodium, potassium 3.7, BUN 18, creatinine 0.6, GFR is greater than 60 , sugar is 73, calcium is 8.9, total bili is 0.4, AST is 31, ALT is 34, alk phos is 85, total protein 6.3, albumin is 3.5, globulin is 2.8. White count is 14.3, on steroids, hemoglobin 10.7, hematocrit 30.1, platelets are 289. Good blood for her. She is being seen by infectious disease, psychiatry. I am going to discharge her today. I will be s eeing her on a house call in the next week. Prescriptions were given, meds went over with the nurse for reconciliation. The patient had esophageal candidiasis, trachea impingement, swallowing dysfunction, chronic obstruct chirag pulmonary disease, morbid obesity. Thomas Looney DO cc: [id number] TT: 03/23/2017 08:26:55 [facility] # [id number] en
[2017-03-23] MEDS: GlipiZIDE 5 mg SR Tab PO SCH ×2 (08:30→18:27)
[2017-03-23] MEDS: Nystatin 100,000 Units/ml Oral Susp 5 ml UD PO SCH ×3 (10:17→18:30)
[2017-03-23] MEDS: Tiotropium 18 mcg Cap For Inhalation IH SCH (10:17)
[2017-03-23 10:18] VITALS: TEMP 98.5
[2017-03-23 18:33] VITALS: BP 150/60; PULSE 61
== END 2017-03-23 20:15 | disposition home health service (06) | DRG 369 ==
LOC: TRCU 13:41
PROVIDERS: ADMIT Family Medicine; ATTEND Family Medicine
PROC: 5A09457 Assistance with Respiratory Ventilation, 24-96 Consecutive Hours, Continuous Positive Airway Pressure (ICD-10-PCS; 2017-03-16)
PROC: 3E0F7GC Introduction of Other Therapeutic Substance into Respiratory Tract, Via Natural or Artificial Opening (ICD-10-PCS; 2017-03-16)
PROC: F07Z9FZ Gait Training/Functional Ambulation Treatment using Assistive, Adaptive, Supportive or Protective Equipment (ICD-10-PCS; principal; 2017-03-17)
PROC: F08Z4FZ Home Management Treatment using Assistive, Adaptive, Supportive or Protective Equipment (ICD-10-PCS; 2017-03-17)
DX: B37.81 Candidal esophagitis (principal); J44.1 Chronic obstructive pulmonary disease with (acute) exacerbation; J96.10 Chronic respiratory failure, unspecified whether with hypoxia or hypercapnia; I11.0 Hypertensive heart disease with heart failure; I50.9 Heart failure, unspecified; Z68.43 Body mass index [BMI] 50.0-59.9, adult; B37.0 Candidal stomatitis; Z99.81 Dependence on supplemental oxygen; E66.01 Morbid (severe) obesity due to excess calories; H91.90 Unspecified hearing loss, unspecified ear; E11.9 Type 2 diabetes mellitus without complications; E03.9 Hypothyroidism, unspecified; M19.90 Unspecified osteoarthritis, unspecified site; K59.00 Constipation, unspecified; F41.9 Anxiety disorder, unspecified; R19.7 Diarrhea, unspecified; R53.81 Other malaise; F39 Unspecified mood [affective] disorder; Z87.891 Personal history of nicotine dependence; Z90.710 Acquired absence of both cervix and uterus; Z83.3 Family history of diabetes mellitus; Z82.49 Family history of ischemic heart disease and other diseases of the circulatory system

== ENCOUNTER 2017-04-01 13:03 | Observation (INO) | payer MEDICARE, MEDICAID ==
--- NOTE | 2017-04-01 13:49 | ED PDOC ---
Arrival/HPI - General Historian: Patient <Ernesto Aviles - Last Filed: 04/01/17 16:31> <Gerald El DO - Last Filed: 04/01/17 19:03> - General Chief Complaint: Shortness Of Breath Time Seen by Provider: 04/01/17 13:12 - History of Present Illness Narrative History of Present Illness (Text): 66 F with PMH of COPD (on home oxygen), morbid obesity (with BMI 65), HTN, chronic CHF presents with sore throat and cough. Pt was just recently dc/ emergency departmfrom the hospital/ TCU for copd exacerbation and similar complaints. Pt states that her sore throat started a few weeks ago. and she had finished her course of antibiotics and antifungal while here in the hospital and home. She was diagnosed with fe esophagitis. Now she has a productive cough with yellow sputum. She denies any fever chills, or shortness of breath. She denies any headache, dizziness, shortness of breath, chest pain, palpitations, abd pain, n/v/d. PMD: Dr Looney (Ernesto Aviles) Past Medical History - Provider Review Nursing Documentation Reviewed: Yes - Infectious Disease Hx of Infectious Diseases: None - Tetanus Immunization Tetanus Immunization: Unknown - Cardiac Hx Cardiac Disorders: Yes Hx Congestive Heart Failure: Yes Hx Hypertension: Yes - Pulmonary Hx Chronic Obstructive Pulmonary Disease (COPD): Yes - Neurological Hx Neurological Disorder: Yes - HEENT Hx HEENT Disorder: Yes (uses eyeglasses) Hx Deafness: Yes Other/Comment: pt [place] had hearing aids broken at home - Renal Hx Renal Disorder: No - Endocrine/Metabolic Hx Diabetes Mellitus Type 2: Yes Hx Hypothyroidism: Yes - Hematological/Oncological Hx Blood Disorders: No - Integumentary Hx Dermatological Disorder: No - Musculoskeletal/Rheumatological Hx Falls: Yes (past) - Gastrointestinal Hx Gastrointestinal Disorders: (CONSTIPATION,) Hx Gastroesophageal Reflux: Yes - Genitourinary/Gynecological Hx Genitourinary Disorders: No - Psychiatric Hx Psychophysiologic Disorder: Yes Hx Anxiety: Yes Hx Depression: Yes Hx Substance Use: No - Surgical History Hx Appendectomy: Yes Hx Cardiac Catheterization: Yes Hx Coronary Stent: Yes Hx Hysterectomy: Yes Hx Open Heart Surgery: Yes (1957) Other/Comment: Tonsillectomy. Mitral valve repair as an . 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 - Anesthesia Hx Anesthesia Reactions: No - Suicidal Assessment Feels Threatened In Home Enviroment: No <Ernesto Aviles - Last Filed: 04/01/17 16:31> Family/Social History Family/Social History: No Known Family HX Smoking Status: Former Smoker Hx Alcohol Use: No Hx Substance Use: No Hx Substance Use Treatment: No <Ernesto Aviles - Last Filed: 04/01/17 16:31> Allergies/Home Meds <Ernesto Aviles - Last Filed: 04/01/17 16:31> <Gerald El DO - Last Filed: 04/01/17 19:03> Allergies/Adverse Reactions: Allergies No Known Allergies Allergy (Verified 04/01/17 13:25) Home Medications: Home Meds Medication Instructions Recorded Confirmed Glipizide [Glipizide ER] 5 mg PO BID 03/13/17 04/01/17 Pramipexole Di-HCl [Mirapex] 0.25 mg PO HS 03/13/17 04/01/17 Simvastatin 20 mg PO 03/13/17 04/01/17 metFORMIN [glucOPHAGE] 1,000 mg PO BID 03/13/17 04/01/17 Aspirin [Ecotrin] 81 mg PO DAILY 04/01/17 04/01/17 Budesonide [Pulmicort Respules] 1 mg 04/01/17 Cyclobenzaprine [Cyclobenzaprine 10 mg PO DAILY 04/01/17 04/01/17 HCl] Furosemide [Lasix] 40 mg PO BID 04/01/17 04/01/17 Multivitami 1 Tab 1 tab PO DAILY 04/01/17 04/01/17 Pantoprazole Sodium [Protonix] 40 mg PO DAILY 04/01/17 04/01/17 Potassium 20meq 20 meq PO DAILY 04/01/17 SITagliptin [Januvia] 100 mg PO DAILY 04/01/17 04/01/17 Sertraline [Zoloft] 75 mg PO DAILY 04/01/17 04/01/17 Theophylline [Anthony-Dur] 300 mg PO BID 04/01/17 04/01/17 Umeclidinium [place] [Incruse 62.5 mcg 04/01/17 Ellipta] diltiaZEM [Cardizem] 360 mg PO DAILY 04/01/17 04/01/17 predniSONE [predniSONE Tab] 10 mg PO DAILY 04/01/17 04/01/17 Review of Systems - Review of Systems Constitutional: absent: Fatigue, Fevers Eyes: absent: Vision Changes ENT: absent: Hearing Changes Respiratory: Cough, Sputum. absent: SOB Cardiovascular: Edema. absent: Chest Pain, Palpitations Gastrointestinal: absent: Abdominal Pain, Diarrhea, Nausea, Vomiting Genitourinary Female: absent: Dysuria, Frequency Musculoskeletal: absent: Arthralgias Skin: absent: Rash Neurological: absent: Headache, Dizziness, Focal Weakness Psychiatric: absent: Anxiety, Depression <Ernesto Aviles - Last Filed: 04/01/17 16:31> Physical Exam Temperature: Afebrile Blood Pressure: Hypertensive Pulse: Regular Respiratory Rate: Normal Appearance: Positive for: Well-Appearing, Non-Toxic, Comfortable Pain Distress: None - Systems Exam Head: Present: Atraumatic, Normocephalic Pupils: Present: PERRL Extroacular Muscles: Present: EOMI Mouth: Present: Moist Mucous Membranes Pharnyx: Present: ERYTHEMA Neck: Present: Normal Range of Motion Respiratory/Chest: Present: Clear to Auscultation, Good Air Exchange. No: Respiratory Distress, Accessory Muscle Use Cardiovascular: Present: Regular Rate and Rhythm, Normal S1, S2. No: Murmurs Abdomen: Present: Normal Bowel Sounds. No: Tenderness, Distention, Peritoneal Signs Upper Extremity: Present: Normal Inspection. No: Cyanosis, Edema Lower Extremity: Present: Normal Inspection, Edema. No: CALF TENDERNESS Neurological: Present: GCS=15, CN II-XII Intact, Speech Normal Skin: Present: Warm, Dry, Normal Color. No: Rashes Psychiatric: Present: Alert, Oriented x 3, Normal Insight, Normal Concentration <Ernesto Aviles - Last Filed: 04/01/17 16:31> Medical Decision Making <Ernesto Aviles - Last Filed: 04/01/17 16:31> <Gerald El DO - Last Filed: 04/01/17 19:03> ED Course and Treatment: Impression: 66 F with PMH of COPD (on home oxygen), morbid obesity (with BMI 65) , HTN, chronic CHF presents with sore throat and cough. Differential Diagnosis included but are not limited to: Plan: - CBC, CMP, cardiac iso - Blood and urince cx; Urinalysis - CXR - Reassess and disposition Prior Visits: Notes and results from previous visits were reviewed. On 03/14/2017 patient came in complaining of similar complaints of sore throat and shortness of breath. Progress Notes: EKG: Ordered, reviewed, and independently interpreted the EKG. Rate : 81 BPM Rhythm : NSR Interpretation : No ST-segment elevations or depressions, no T-wave inversions, normal intervals. Comparison : No previous EKG for comparison. 04/01/17 16:34 Pt symptoms has improved and is hemodynamically stable (Ernesto Aviles) Patient Seen With Resident: In agreement with resident note. Patient was seen and evaluated with resident, came up with plan and treatment together. 04/01/17 19:[address] Mcneil and reviewed case. Patient to be admitted to [facility]. ( Gerald El DO) - Lab Interpretations Lab Results: 04/01/17 14:10 04/01/17 14:10 Lab Results 04/01/17 14:10: NT-Pro-B Natriuret Pep 84.9 04/01/17 14:10: Sodium 139, Potassium 3.6, Chloride 94 L, Carbon Dioxide 38 H, Anion Gap 11, BUN 15, Creatinine 0.6, Est GFR ( Amer) > 60, Est GFR (Non- Af Amer) > 60, Random Glucose 91, Calcium 9.5, Total Bilirubin 0.6, AST 20, ALT 46, Alkaline Phosphatase 101, Lactate Dehydrogenase 623, Total Creatine Kinase 23 L, Troponin I < 0.01, Total Protein 6.8, Albumin 3.7, Globulin 3.1, Albumin/ Globulin Ratio 1.2 04/01/17 14:10: WBC 15.3 H, RBC 5.02, Hgb 11.2 L, Hct 38.3, MCV 76.3 L, MCH 22.3 L, MCHC 29.2 L, RDW 18.8 H, Plt Count 324, MPV 9.2, Gran % 80.2 H, Lymph % (Auto) 13.8 L, [place] % (Auto) 4.8, Eos % (Auto) 1.0 L, Baso % (Auto) 0.2, Gran # 12.25 H, Lymph # 2.1, [place] # 0.7 H, Eos # 0.2, Baso # 0.03 - RAD Interpretation Radiology Orders: 04/01/17 13:24 CHEST PORTABLE [RAD] Stat - Medication Orders Current Medication Orders: Discontinued Medications Albuterol/Ipratropium (Duoneb 3 Mg/0.5 Mg (3 Ml) Ud) 3 ml IH STAT STA Stop: 04/01/17 17:37 Last Admin: 04/01/17 17:30 Dose: 3 ml Albuterol/Ipratropium (Duoneb 3 Mg/0.5 Mg (3 Ml) Ud) 3 ml IH STAT STA Stop: 04/01/17 17:38 Last Admin: 04/01/17 17:45 Dose: 3 ml Methylprednisolone (Solu-Medrol) 125 mg IVP STAT STA Stop: 04/01/17 17:38 Last Admin: 04/01/17 17:59 Dose: 125 mg - PA / HOUSING COUNSELOR / Resident Statement NATALIA has reviewed & agrees with the documentation as recorded. NATALIA has examined the patient and agrees with the treatment plan. <Ernesto Aviles - Last Filed: 04/01/17 16:31> Disposition/Present on Arrival - Present on Arrival Any Indicators Present on Arrival: Yes History of DVT/PE: No History of Uncontrolled Diabetes: Yes Urinary Catheter: No History of Decub. Ulcer: No History Surgical Site Infection Following: None - Disposition Have Diagnosis and Disposition been Completed?: Yes Disposition Time: 15:00 Patient Plan: Discharge <Ernesto Aviles - Last Filed: 04/01/17 16:31> - Disposition Disposition Time: 18:00 Patient Plan: Admission <Gerald El DO - Last Filed: 04/01/17 19:03> - Disposition Diagnosis: COPD (chronic obstructive pulmonary disease) Disposition: HOME/ ROUTINE Patient Problems: Current Active Problems Problem Status Onset COPD (chronic obstructive pulmonary disease) Acute Condition: IMPROVED Discharge Instructions (ExitCare): COPD (Chronic Obstructive Pulmonary Disease ) (ED) Prescriptions: Azithromycin [Zithromax] 250 mg PO DAILY #6 tab Nystatin [Nystatin Oral Susp] 5 ml PO QID 10 Days Referrals: Thomas Looney DO [Primary Care Provider] - Follow up with primary
[2017-04-01 14:32] LABS: ADD MANUAL DIFF? NO
[2017-04-01 14:39] LABS: BASO # 0.03 K/mm3 (0.0-2.0); BASO % 0.2 % (0.0-3.0); EOS # 0.2 (0.0-0.7); GRAN # 12.25 (1.4-6.5); GRAN % 80.2 % (50.0-68.0); HEMATOCRIT 38.3 % (36.0-48.0); LYMPH # 2.1 (1.2-3.4); LYMPH % 13.8 % (22.0-35.0); MEAN CELL VOLUME 76.3 fL (80.0-105.0); MEAN CORPUSCULAR HEMOGLOBIN 22.3 pg (25.0-35.0); MEAN CORPUSCULAR HGB CONC 29.2 g/dl (31.0-37.0); MEAN PLATELET VOLUME 9.2 fl (7.0-11.0); MONO # 0.7 (0.1-0.6); MONO % 4.8 % (1.0-6.0); PLATELET COUNT 324 10^3/uL (120.0-450.0); RED CELL DISTRIBUTION WIDTH 18.8 % (11.5-14.5); WHITE BLOOD COUNT 15.3 10^3/ul (4.5-11.0)
[2017-04-01 14:44] LABS: ALB/GLOB RATIO 1.2 (1.1-1.8); ALKALINE PHOSPHATASE 101 U/L (38-133); ALT/SGPT 46 U/L (7-56); AST/SGOT 20 U/L (15-39); BILIRUBIN,TOTAL 0.6 mg/dL (0.2-1.3); BLOOD UREA NITROGEN 15 mg/dL (7-21); CALCIUM 9.5 mg/dL (8.4-10.5); CARBON DIOXIDE 38 mmol/L (21-33); CHLORIDE 94 mmol/L (98-107); GFR AFRICAN-AMERICAN > 60; GLUCOSE,RANDOM 91 mg/dL (70-110); POTASSIUM 3.6 mmol/L (3.6-5.0); SODIUM 139 mmol/L (132-148); TOTAL PROTEIN 6.8 g/dL (5.8-8.3)
[2017-04-01 14:56] LABS: TROPONIN I < 0.01 ng/mL
--- NOTE | 2017-04-01 15:04 | RAD ---
HISTORY: cough COMPARISON: 03/13/2017 FINDINGS: LUNGS: No active pulmonary disease. PLEURA: No significant pleural effusion identified, no pneumothorax apparent. CARDIOVASCULAR: Normal. OSSEOUS STRUCTURES: No significant abnormalities. VISUALIZED UPPER ABDOMEN: Normal. OTHER FINDINGS: None. IMPRESSION: No active disease.
[2017-04-01] MEDS ORDERED: Albuterol-Ipratrop 3 mg / 0.5 (3 ml) UD IH STA ×2 (17:36→17:37)
[2017-04-01 20:52] LABS: URINE BILIRUBIN NEGATIVE (NEGATIVE); URINE BLOOD NEGATIVE (NEGATIVE); URINE GLUCOSE (UA) NEGATIVE (NEGATIVE); URINE KETONE NEGATIVE (NEGATIVE); URINE LEUKOCYTE ESTERASE NEGATIVE Leu/uL (NEGATIVE); URINE PROTEIN NEGATIVE mg/dL (<30 mg/dL); URINE UROBILINOGEN 0.2 E.U./dL (<1 E.U./dL)
[2017-04-01 20:57] LABS: URINE APPEARANCE CLEAR (CLEAR); URINE COLOR YELLOW (YELLOW)
[2017-04-02] MEDS ORDERED: Albuterol-Ipratrop 3 mg / 0.5 (3 ml) UD IH ONE (00:35)
[2017-04-02 02:01] VITALS: BMI 55.6
[2017-04-02] MEDS ORDERED: Pantoprazole 40 mg EC Tab PO SCH (07:30)
--- NOTE | 2017-04-02 08:04 | CON ---
DATE: 04/02/2017 REASON FOR CONSULTATION: Chronic obstructive pulmonary disease. REFERRING PHYSICIAN: Dr. Thomas Looney The patient is a 66-year-old chronically ill female, with past medical history significant for very advanced chronic obstructive pulmonary disease -- on home oxygen and steroids ,morbid obesity , obstructive sleep apnea , diabetes mellitus, valvular heart disease, who presents to [facility] with main complaints of shortness of breath at rest, dyspnea on exertion, cough, and minimal sputum production for the past 2 days. There is no history of chest pain, coughing up of blood or chest pain -- made worse with deep respirations. There is no history of temperatures, chills or infectious exposure. There is no history of night sweats, weight loss or appetite change prior to the above events. No history of leg or calf pains. No history of syncope or diaphoresis. No history of recent travel or trauma. REVIEW OF SYSTEMS: The patient does complain of a sore throat. No history of nausea, vomiting or diarrhea. No acute urinary symptoms. No new neurologic or musculoskeletal complaints. Rest of the review of systems is negative. ALLERGIES: No known allergies. SOCIAL HISTORY: Positive for extensive tobacco usage. No alcohol. FAMILY HISTORY: No inheritable diseases. HOME MEDICATIONS: Include Desyrel, Mirapex, Zoloft, prednisone, Protonix, Anthony- Dur, Lasix, Glucophage, Singulair, Incruse Ellipta, Pulmicort, Zithromax. PHYSICAL EXAMINATION: GENERAL: The patient appears very comfortable at the present time. She is not short of breath at the time of my examination. VITAL SIGNS: Temperature is 98.0, pulse is approximately 88, respirations 18, blood pressure 161/62. Oxygen saturation on nasal cannula ranges between 94%- 100%. HEENT: Normocephalic, atraumatic. No JVD. CARDIOVASCULAR: Systolic ejection murmur at the lower left sternal border. No S3 gallop. LUNGS: Decreased breath sounds at the bases. Very minimal rhonchi. A few tiny expiratory wheezes. EXTREMITIES: Positive for edema. No cyanosis, no clubbing. Calves are nontender to palpation. GASTROINTESTINAL: Abdomen is soft, nontender, nondistended. Bowel sounds are positive. SKIN: No acute rash. NEUROLOGIC: Limited at the present time. PERTINENT LABORATORY DATA: Chest x-ray was done yesterday and reviewed. There is no active disease present. CBC: White count 15.3, hemoglobin 11.2, hematocrit 38.3, platelets of 324. Complete metabolic profile: Chloride 94, carbon dioxide 38, glucose 275. Rest of the metabolic profile is within normal limits. IMPRESSION: 1. Recurrent bronchitis. 2. Advanced chronic obstructive pulmonary disease -- on home oxygen and steroids. 3. Obstructive sleep apnea. 4. Diabetes mellitus. 5. Mild anemia. PLAN: The patient presents to [facility] with a 2-day history of worsening pulmonary symptoms. I did review the x-ray as above. It shows no acute disease. On physical exam, only minimal bronchospasm is noted. Oxygen saturation on nasal cannula is between 94%-100%. I did discuss the case with Dr. Looney at length. The patient will be placed on nebulizer treatments and oral steroids. The patient does state to feeling much better this morning -- compared to the past few days. She is clinically improved. Additional pulmonary intervention will be based on the clinical status of the patient. Again, I did discuss the case with Dr. Looney at length. Thank you very much for this pulmonary consultation. Wagner Ramos MD cc: [phone] TT: 04/02/2017 08:03:33 Confirmation # [id number] Dictation # [id number] en MTDD
[2017-04-02 08:37] VITALS: RESP 20
[2017-04-02] MEDS ORDERED: Albuterol-Ipratrop 3 mg / 0.5 (3 ml) UD IH PRN (09:28)
--- NOTE | 2017-04-02 09:28 | DS ---
She did well with the Solu-Medrol in the Emergency Room and prednisone 40 mg p.o. I will discharge h er on her same medications she came in on and I will add prednisone 40, decreasing down to 20 mg, edenilson camacho her on 20 and nystatin swish and swallow. I will see her on a house call in the next week. This w as discussed with pulmonology. PHYSICAL EXAMINATION: VITAL SIGNS: Good. They are 98 temp, 90 pulse, 161/62 blood pressure, 20 respiratory rate, and 94% O2 sat on 3 liters nasal cannula. HEENT: Head is atraumatic, normocephalic. HEART: Regular rate. LUNGS: Decreased breath sounds, but clear. ABDOMEN: Soft, obese. EXTREMITIES: No edema. She is here for acute chronic obstructive pulmonary disease, mild, acute bronchitis, mild and she is doing much better already here in the hospital. She knows she is going home and she is happy with th at. Thomas Looney DO cc: [id number] TT: 04/02/2017 09:27:40 en
[2017-04-02] MEDS: Nystatin 100,000 Units/ml Oral Susp 5 ml UD PO SCH ×3 (09:30→17:10)
[2017-04-02] MEDS: GlipiZIDE 5 mg SR Tab PO SCH ×2 (09:30→17:10)
[2017-04-02] MEDS ORDERED: diltiaZEM 180 mg/24 Hours CD Cap PO SCH (10:00)
[2017-04-02] MEDS: Insulin Reg-MEDIUM-Coverage SC SCH ×2 (12:04→16:53)
--- NOTE | 2017-04-02 13:14 | CARD ---
APPROVED REPORT EKG Measurement Heart [id number] ND [id number] <Conclusion> Normal sinus rhythm PRWP NSSTW changes
[2017-04-02] MEDS: Albuterol-Ipratrop 3 mg / 0.5 (3 ml) UD IH SCH ×3 (13:47→20:48)
[2017-04-02 17:11] VITALS: BP 158/79; PULSE 92; TEMP 98; O2SAT 97
--- NOTE | 2017-04-05 08:30 | HP ---
I know the patient very well from multiple hospital admissions and also multiple house calls over the past many years. She is a 66-year-old female who comes in with shortness of breath. She has steroids at home, oxygen at home, multiple medications at home, but she felt that she needed to be in the Emergency Room. She also had a sore throat. She has been on antifungal and antibiotics and swish and swallows for Sonali esophagitis. The last time she was in the hospital, she had an esophageal constriction where she felt she could not swallow, and she did well with that. She went home. PAST MEDICAL HISTORY: She has a past medical history of severe COPD, oxygen and steroid dependent; congestive heart failure, morbidly obese, hypertension, hard of hearing, she wears glasses, hypothyroidism, diabetes, arthritis, constipation, anxiety, depression. 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 FAMILY HISTORY: There is hypertension and diabetes in the family. SOCIAL HISTORY: She used to be a smoker. No alcohol, no drugs. ALLERGIES: No known drug allergies. MEDICATIONS: She is on multiple medications: Glipizide, Mirapex, simvastatin, Glucophage, Ecotrin, budesonide, Flexeril, Lasix, multivitamin, Protonix, potassium, Januvia, Zoloft, Anthony-Dur, Ellipta, Cardizem, and prednisone. REVIEW OF SYSTEMS: HEENT: No change in hearing or vision, it is old. She does have a throat that has been bothering her for about a month now which is about 80% better. I think she ran out of her nystatin swish and swallow, she is asking for it, and that is why she is having swallowing issues. The neck is very full, cushingoid looking from all the steroids. She has no headache, no dizziness. CHEST AND LUNGS: No chest pain. There is shortness of breath. No real wheeze this time. Decreased breath sounds - that is her baseline. ABDOMEN: Soft, nontender, positive bowel sounds She has been constipated, but it is okay. EXTREMITIES: No edema, no muscle pains or joint pains at this time. PSYCHIATRIC: Not anxious, not depressed. PHYSICAL EXAMINATION: VITAL SIGNS: We have a 98.3 temp, 92 pulse, 123/60 blood pressure, 20 respiratory rate, 94% O2 sat on nasal cannula. HEENT: Head atraumatic, normocephalic. She is cushingoid like from all the steroids. Extraocular muscles are intact. Pupils equal, reactive to light. Throat is clear, not red. NECK: Full, a lot of adipose tissue. No palpable masses or swelling at this time. HEART: Regular rate. LUNGS: Have decreased breath sounds, but clear - that is her baseline. No wheezes or rhonchi at this time. ABDOMEN: Morbidly, morbidly obese. No guarding, no rebound, no CVA tenderness. Positive bowel sounds. EXTREMITIES: No edema today. SKIN: Intact. No ulcers or breakdown. NEUROLOGIC: Alert and oriented x 3. LYMPHATICS: No appreciated palpable lymphadenopathy. She is very overweight but thyroid midline from which I can tell. LABORATORY DATA: She had multiple tests. She has a 15.3 white count but she is on chronic steroids and she always has an elevated white count, 11.2 hemoglobin, 38.3 hematocrit with 324 platelets. She has a 139 sodium, potassium 3.6, BUN 15, creatinine 0.6, GFR is greater than 60. Sugars are 275 and 256; she will be on coverage. Last sugar was 91, calcium is 9.5. Total bili is 0.6, AST is 20, ALT is 46, alkaline phosphatase 101. Troponin is less than 0.01. BNP is 84.9. Total protein 6.8. Urine is clean. Chest x-ray was no acute disease. I discussed this at length with the protective signal installer helper who said she can be discharged today. I will keep her on the same medication. Put her on prednisone 40 though (she was on 10); will do 40 for 3 days, 30 for 3 days, then 20 mg; I will keep on 20 mg. When she goes below 20 she gets into trouble, and unfortunately that is a problem for her, but she cannot go below 20 mg of prednisone. Will discharge her later this afternoon. The patient is here for acute bronchitis, early exacerbation of chronic obstructive pulmonary disease. Thomas Looney DO cc: [id number] TT: 04/02/2017 09:42:17 mn CARRIE
== END 2017-04-02 23:47 | disposition home or self-care (01) ==
LOC: ED 13:03 → ERH 19:01 → 5RSO 22:18
PROVIDERS: ADMIT Family Medicine; ATTEND Family Medicine
DX: J44.1 Chronic obstructive pulmonary disease with (acute) exacerbation (principal); J44.9 Chronic obstructive pulmonary disease, unspecified; J44.0 Chronic obstructive pulmonary disease with (acute) lower respiratory infection; J20.9 Acute bronchitis, unspecified; Z99.81 Dependence on supplemental oxygen; I11.0 Hypertensive heart disease with heart failure; I50.9 Heart failure, unspecified; Z68.44 Body mass index [BMI] 60.0-69.9, adult; E66.01 Morbid (severe) obesity due to excess calories; B37.81 Candidal esophagitis; E11.9 Type 2 diabetes mellitus without complications; E03.9 Hypothyroidism, unspecified; H91.90 Unspecified hearing loss, unspecified ear; K59.00 Constipation, unspecified; G47.33 Obstructive sleep apnea (adult) (pediatric); D64.9 Anemia, unspecified; F32.9 Major depressive disorder, single episode, unspecified; M19.90 Unspecified osteoarthritis, unspecified site; Z79.52 Long term (current) use of systemic steroids; Z87.891 Personal history of nicotine dependence; Z82.49 Family history of ischemic heart disease and other diseases of the circulatory system; Z83.3 Family history of diabetes mellitus
CPT/HCPCS: 71010; 80053; 81003; 82550; 82948; 83615; 83880; 84484; 85025; 87040; 87086; 93005; 94640; 94660; 96374; 99284; G0378; J1940; J2930

== ENCOUNTER 2017-04-12 12:45 | Inpatient (IN) | payer MEDICARE, MEDICAID ==
[2017-04-12 12:53] VITALS: BMI 52.7
[2017-04-12] MEDS ORDERED: Albuterol-Ipratrop 3 mg / 0.5 (3 ml) UD IH STA ×2 (12:59→14:07)
--- NOTE | 2017-04-12 13:00 | ED PDOC ---
Arrival/HPI - General Time Seen by Provider: 04/12/17 12:47 Historian: Patient - History of Present Illness Narrative History of Present Illness (Text): 04/12/17 12:59 Patient is a 66 year old female whose past medical history includes COPD on home O2, morbid obesity, hypertension, chronic CHF presenting to the emergency department with shortness of breath for the past 2 days. Patient reports her O2 sat was down to 86% prior to arrival. Patient also reports cough and lower extremity swelling. Patient reports she took her Aspirin today. Denies fever or chest pain. PMD: Dr. Looney Time/Duration: < week Symptom Onset: Gradual Symptom Course: Worsening Context: Home Past Medical History - Provider Review Nursing Documentation Reviewed: Yes - Infectious Disease Hx of Infectious Diseases: None - Tetanus Immunization Tetanus Immunization: Unknown - Cardiac Hx Cardiac Disorders: Yes Hx Congestive Heart Failure: Yes Hx Hypertension: Yes Other/Comment: open heart 1957, mitral valve repair as - Pulmonary Hx Chronic Obstructive Pulmonary Disease (COPD): Yes Hx Sleep Apnea: Yes - Neurological Hx Neurological Disorder: Yes - HEENT Hx HEENT Disorder: Yes (uses eyeglasses) Hx Deafness: Yes Other/Comment: [place] [employer] [place] had hearing aids broken at home - Renal Hx Renal Disorder: No - Endocrine/Metabolic Hx Diabetes Mellitus Type 2: Yes Hx Hypothyroidism: Yes - Hematological/Oncological Hx Blood Disorders: No - Integumentary Hx Dermatological Disorder: No - Musculoskeletal/Rheumatological Hx Falls: Yes (past) - Gastrointestinal Hx Gastrointestinal Disorders: (CONSTIPATION,) Hx Gastroesophageal Reflux: Yes - Genitourinary/Gynecological Hx Genitourinary Disorders: No - Psychiatric Hx Psychophysiologic Disorder: Yes Hx Anxiety: Yes Hx Depression: Yes Hx Substance Use: No - Surgical History Hx Appendectomy: Yes Hx Cardiac Catheterization: Yes Hx Coronary Stent: Yes Hx Hysterectomy: Yes Hx Open Heart Surgery: Yes (1957) Other/Comment: Tonsillectomy. Mitral valve repair as an . 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 - Anesthesia Hx Anesthesia Reactions: No - Suicidal Assessment Feels Threatened In Home Enviroment: No Family/Social History - Physician Review Nursing Documentation Reviewed: Yes Family/Social History: Unknown Family HX Smoking Status: Former Smoker Hx Alcohol Use: No Hx Substance Use: No Hx Substance Use Treatment: No Allergies/Home Meds Allergies/Adverse Reactions: Allergies No Known Allergies Allergy (Verified 04/02/17 01:57) Home Medications: Home Meds Medication Instructions Recorded Confirmed Glipizide [Glipizide ER] 10 mg PO BID 03/13/17 04/12/17 Pramipexole Di-HCl [Mirapex] 0.25 mg PO HS 03/13/17 04/12/17 Simvastatin 20 mg PO HS 03/13/17 04/12/17 metFORMIN [glucOPHAGE] 1,000 mg PO BID 03/13/17 04/12/17 Budesonide [Pulmicort] 1 mg IH 04/01/17 Cyclobenzaprine [Flexeril] 10 mg PO HS 04/01/17 04/12/17 Furosemide [Lasix] 40 mg PO BID 04/01/17 04/12/17 Theophylline [Anthony-Dur] 300 mg PO BID 04/01/17 04/12/17 Aspirin [Ecotrin] 81 mg PO DAILY 04/12/17 04/12/17 Bupropion HCl [Bupropion HCl Sr] 300 mg PO DAILY 04/12/17 04/12/17 Levofloxacin [Levaquin] 500 mg PO DAILY 04/12/17 04/12/17 Mvi Tab 1 tab PO DAILY 04/12/17 04/12/17 Ondansetron HCl [Zofran] 4 mg PO PRN PRN 04/12/17 04/12/17 Pantoprazole Sodium [Protonix] 40 mg PO DAILY 04/12/17 04/12/17 Potassium 20 20 meq PO DAILY 04/12/17 04/12/17 Prednisone 10 mg PO DAILY 04/12/17 04/12/17 SITagliptin [Januvia] 100 mg PO DAILY 04/12/17 04/12/17 Sertraline [Zoloft] 75 mg PO DAILY 04/12/17 04/12/17 diltiaZEM [Cardizem] 360 mg PO DAILY 04/12/17 04/12/17 Review of Systems - Review of Systems Constitutional: absent: Fevers Eyes: absent: Vision Changes ENT: absent: Hearing Changes Respiratory: SOB, Cough Cardiovascular: Edema. absent: Chest Pain Gastrointestinal: absent: Nausea, Vomiting Genitourinary Female: absent: Hematuria Musculoskeletal: absent: Neck Pain Skin: absent: Rash Neurological: absent: Dizziness Endocrine: absent: Diaphoresis Physical Exam Vital Signs Reviewed: Yes Vital Signs Temp Pulse Resp BP Pulse Ox 04/12/17 14:13 84 18 142/86 96 04/12/17 13:01 20 98 04/12/17 12:52 98.1 F 90 20 114/90 96 Temperature: Afebrile Blood Pressure: Normal Pulse: Regular Respiratory Rate: Normal Appearance: Positive for: Non-Toxic, Uncomfortable, Other (tachpyneic) Pain Distress: None Mental Status: Positive for: Alert and Oriented X 3 - Systems Exam Head: Present: Atraumatic, Normocephalic Pupils: Present: PERRL Extroacular Muscles: Present: EOMI Conjunctiva: Present: Normal Mouth: Present: Dry Neck: Present: Normal Range of Motion Respiratory/Chest: Present: Wheezes (bilaterally), Tachypneic, Other (Decreased air entry). No: Respiratory Distress, Accessory Muscle Use Cardiovascular: Present: Regular Rate and Rhythm, Normal S1, S2. No: Murmurs Abdomen: Present: Normal Bowel Sounds, Other (Morbidly obese). No: Tenderness, Distention, Peritoneal Signs Back: Present: Normal Inspection Upper Extremity: Present: Normal Inspection. No: Cyanosis, Edema Lower Extremity: Present: Normal Inspection. No: Edema Neurological: Present: GCS=15, CN II-XII Intact, Speech Normal Skin: Present: Warm, Dry, Normal Color. No: Rashes Psychiatric: Present: Alert, Oriented x 3, Normal Insight, Normal Concentration Medical Decision Making ED Course and Treatment: Impression: 66 year old female whose past medical history includes COPD on home O2, morbid obesity, hypertension, chronic CHF presents to the emergency department with shortness of breath for the past 2 days. Differential Diagnosis include but are not limited to: COPD exacerbation vs CHF exacerbation Plan: -- Chest X-ray -- Duoneb, Solumedrol -- Reassess and disposition Patient's previous records reviewed: Patient last seen in ED on 04/01/17 for sore throat and cough and admitted for COPD. Progress Notes: Patient has had duonebs x 3, solumedrol and azithromycin. She is persistently short of breath, with tachypnea and has hypoxic on arrival. Spoke to Dr. Looney and will admit for COPD exacerbation with pulmonary on consult - Lab Interpretations Lab Results: 04/12/17 13:00 04/12/17 13:00 Lab Results 04/12/17 13:00: Sodium 141, Potassium 3.4 L, Chloride 97 L, Carbon Dioxide 36 H , Anion Gap 11, BUN 15, Creatinine 0.6, Est GFR ( Amer) > 60, Est GFR ( Non-Af Amer) > 60, Random Glucose 186 H, Calcium 8.9, Total Bilirubin 0.4, AST 29, ALT 32, Alkaline Phosphatase 102, Lactate Dehydrogenase 549, Total Creatine Kinase 25 L, Troponin I < 0.01, NT-Pro-B Natriuret Pep 98.0, Total Protein 6.4, Albumin 3.6, Globulin 2.7, Albumin/Globulin Ratio 1.3 04/12/17 13:00: WBC 14.3 H, RBC 4.83, Hgb 10.6 L, Hct 36.4, MCV 75.4 L, MCH 21.9 L, MCHC 29.1 L, RDW 18.7 H, Plt Count 287, MPV 8.8, Gran % 79.0 H, Lymph % (Auto) 14.6 L, Gem % (Auto) 5.0, Eos % (Auto) 1.1 L, Baso % (Auto) 0.3, Gran # 11.28 H, Lymph # 2.1, Gem # 0.7 H, Eos # 0.2, Baso # 0.04 - RAD Interpretation Radiology Orders: 04/12/17 13:00 CHEST PORTABLE [RAD] Stat - Medication Orders Current Medication Orders: Discontinued Medications Albuterol/Ipratropium (Duoneb 3 Mg/0.5 Mg (3 Ml) Ud) 3 ml IH STAT STA Stop: 04/12/17 13:00 Last Admin: 04/12/17 13:08 Dose: 3 ml Albuterol/Ipratropium (Duoneb 3 Mg/0.5 Mg (3 Ml) Ud) 3 ml IH STAT STA Stop: 04/12/17 14:08 Last Admin: 04/12/17 14:13 Dose: 3 ml Azithromycin (Zithromax) 500 mg PO STAT STA PRN Reason: Protocol Stop: 04/12/17 16:04 Methylprednisolone (Solu-Medrol) 125 mg IVP STAT STA Stop: 04/12/17 13:00 Last Admin: 04/12/17 13:15 Dose: 125 mg Oxycodone/Acetaminophen (Percocet 5/325 Mg Tab) 1 tab PO STAT STA Stop: 04/12/17 14:43 Last Admin: 04/12/17 14:51 Dose: 1 tab Re-Assess: ZEE Pain Assessment Document 04/12/17 15:51 SS (Rec: 04/12/17 16:09 SS [id number]) Pain Reassessment Is this a pain reassessment? No Sleep Is patient sleeping during reassessment? No Presence of Pain Presence of Pain Yes Pain Scale Used Pain Scale Used Numeric Location Upper or Lower Lower Pain Location Body Site Leg Description Intensity of Pain at present 4 - Scribe Statement The provider has reviewed the documentation as recorded by the Olga Holly Provider Scribe Attestation: All medical record entries made by the Olga were at my direction and personally dictated by me. I have reviewed the chart and agree that the record accurately reflects my personal performance of the history, physical exam, medical decision making, and the department course for this patient. I have also personally directed, reviewed, and agree with the discharge instructions and disposition. Disposition/Present on Arrival - Present on Arrival Any Indicators Present on Arrival: No History of DVT/PE: No History of Uncontrolled Diabetes: Yes Urinary Catheter: No History Surgical Site Infection Following: None - Disposition Have Diagnosis and Disposition been Completed?: Yes Diagnosis: COPD (chronic obstructive pulmonary disease) Disposition: HOSPITALIZED Disposition Time: 16:01 Patient Plan: Admission Patient Problems: Current Active Problems Problem Status Onset COPD (chronic obstructive pulmonary disease) Acute Condition: FAIR Referrals: Thomas Looney DO [Primary Care Provider] - Follow up with primary
[2017-04-12 13:15] LABS: ADD MANUAL DIFF? NO
[2017-04-12 13:21] LABS: BASO # 0.04 K/mm3 (0.0-2.0); BASO % 0.3 % (0.0-3.0); EOS # 0.2 (0.0-0.7); EOS % 1.1 % (1.5-5.0); GRAN # 11.28 (1.4-6.5); HEMATOCRIT 36.4 % (36.0-48.0); LYMPH # 2.1 (1.2-3.4); LYMPH % 14.6 % (22.0-35.0); MEAN CELL VOLUME 75.4 fL (80.0-105.0); MEAN CORPUSCULAR HEMOGLOBIN 21.9 pg (25.0-35.0); MEAN CORPUSCULAR HGB CONC 29.1 g/dl (31.0-37.0); MEAN PLATELET VOLUME 8.8 fl (7.0-11.0); MONO # 0.7 (0.1-0.6); PLATELET COUNT 287 10^3/uL (120.0-450.0); RED CELL DISTRIBUTION WIDTH 18.7 % (11.5-14.5); WHITE BLOOD COUNT 14.3 10^3/ul (4.5-11.0)
[2017-04-12 13:29] LABS: ALB/GLOB RATIO 1.3 (1.1-1.8); ALKALINE PHOSPHATASE 102 U/L (38-133); ALT/SGPT 32 U/L (7-56); AST/SGOT 29 U/L (15-39); BILIRUBIN,TOTAL 0.4 mg/dL (0.2-1.3); BLOOD UREA NITROGEN 15 mg/dL (7-21); CALCIUM 8.9 mg/dL (8.4-10.5); CARBON DIOXIDE 36 mmol/L (21-33); CHLORIDE 97 mmol/L (98-107); GFR AFRICAN-AMERICAN > 60; GLUCOSE,RANDOM 186 mg/dL (70-110); POTASSIUM 3.4 mmol/L (3.6-5.0); SODIUM 141 mmol/L (132-148); TOTAL PROTEIN 6.4 g/dL (5.8-8.3)
[2017-04-12 13:41] LABS: TROPONIN I < 0.01 ng/mL
--- NOTE | 2017-04-12 13:56 | RAD ---
HISTORY: chest pain COMPARISON: 04/01/2017 FINDINGS: LUNGS: No active pulmonary disease. PLEURA: No significant pleural effusion identified, no pneumothorax apparent. CARDIOVASCULAR: Mild cardiomegaly. OSSEOUS STRUCTURES: No significant abnormalities. VISUALIZED UPPER ABDOMEN: Normal. OTHER FINDINGS: None. IMPRESSION: No active disease.
[2017-04-12] MEDS ORDERED: Oxycodone/Acetaminophen 5/325 mg Tab PO STA (14:42)
--- NOTE | 2017-04-12 19:05 | HP ---
I know the patient very well from house calls and from multiple admissions to the hospital for COPD and CHF. She is a nice 66-year-old female who had told me she had an 86% O2 sat on oxygen 3 liters at home, she was getting short of breath, was not feeling well, started to wheeze. She was taking her nebulizers at home. She is on steroids at home, some Levaquin at home, and was just not cutting it and had to come to the Emergency Room. She called 911, ended up in the ER at [facility] short of breath with wheezing. PAST MEDICAL HISTORY: She has a major medical history of severe COPD, CHF, obesity, hypertension, chronic CHF, open heart surgery in 1958 with mitral valve repair as an infant. She has sleep apnea; she uses BiPAP at home. She is very hard of hearing. She uses hearing aids, and glasses for poor vision. Diabetes, multiple falls, constipation, GERD, anxiety, depression. 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 FAMILY HISTORY: There is hypertension and diabetes in the family. SOCIAL HISTORY: She is a former smoker. No alcohol, no drugs. ALLERGIES: No known drug allergies. MEDICATIONS: She takes glipizide, Mirapex, simvastatin, Glucophage, Pulmicort, Flexeril, Lasix, Anthony-Dur, Ecotrin, bupropion, Levaquin, MVI, Zofran, Protonix, potassium, prednisone, Januvia, Zoloft, and Cardizem. REVIEW OF SYSTEMS: No acute loss of hearing or vision but old; you have to really yell at her to talk to her. There is a sore throat; she is on nystatin for that. She had esophageal stricture or an airway problem the last time she was here. No chest pain, but has shortness of breath and wheezing and coughing. Morbidly, morbidly obese; nontender, positive bowel sounds. No guarding, no rebound. No nausea, vomiting, constipation or diarrhea. No problems urinating. No back pain. No rashes. No dizziness. No sweating. PHYSICAL EXAMINATION: VITAL SIGNS: She has 98.1 temp, 90 pulse. She was a 28 respiratory rate, 114/ 90 blood pressure, 96% O2 sat on oxygen. She was 86 on 3 liters at home and short of breath. GENERAL: Head atraumatic, normocephalic. She is toxic. She is short of breath , tachypneic and wheezing, audible to my ears. Alert and oriented x 3. Uncomfortable. HEENT: Head is atraumatic, normocephalic. Extraocular muscles are intact. Pupils are equal and reactive to light. Throat is dry. NECK: Supple. HEART: Regular rate. Normal S1, S2. LUNGS: She has bilateral wheezing, tachypneic. Decreased air entry. ABDOMEN: Morbidly obese, soft, nontender, positive bowel sounds. No guarding, no rebound, no CVA tenderness. EXTREMITIES: Have +1/4 pitting edema which is new compared to the last time she was here. NEUROLOGIC: GCS is 15. Cranial nerves II-XII grossly intact. Speech normal. SKIN: Warm and dry. PSYCHIATRIC: Alert and oriented x 3. Normal insight. Understands the situation. LYMPHATICS: Thyroid midline. No palpable appreciable lymphadenopathy. Chest x-ray showed no acute disease, as usual for her. LABORATORY DATA: She has a 141 sodium, potassium 3.4 (I will her back on her potassium), BUN , creatinine 0.6, GFR is greater than 60. Sugar is 186; she is on coverage. Calcium is 8.9. Total bili is 0.4, AST is 29, ALT 32, alkaline phosphatase 102, lactic dehydrogenase is 549. Troponin I is less than 0.01, BNP is 98. Total protein 6.4, albumin is 3.6. White count is 14.3, hemoglobin 10.6, hematocrit 36.4, platelets 287. She will have a consult with pulmonary and cardio. She will be put back on her regular medication plus Rocephin, Zithromax and Solu-Medrol 40 b.i.d., oxygen, DuoNeb q. 4 around the clock. Hopefully she will do well; we have done this before. This is a history and physical on this patient who is here for acute chronic obstructive pulmonary disease with wheezing and shortness of breath. Thomas Looney DO cc: [id number] TT: 04/12/2017 19:04:47 mn CARRIE
[2017-04-12] MEDS: Albuterol-Ipratrop 3 mg / 0.5 (3 ml) UD IH SCH ×2 (19:11→22:34)
--- NOTE | 2017-04-12 20:18 | CARD ---
APPROVED REPORT EKG Measurement Heart [id number] <Conclusion> Normal sinus rhythm Normal ECG
[2017-04-12] MEDS ORDERED: MethylPREDNISolone 40 mg Vial IVP SCH (22:00)
[2017-04-12] MEDS: Nystatin 100,000 Units/ml Oral Susp 5 ml UD PO SCH (22:50)
[2017-04-12] MEDS ORDERED: Pneumococcal 23-Valent Vaccine IM ONE (22:50)
[2017-04-12] MEDS: Insulin Reg-HIGH-Coverage SC SCH (23:17)
[2017-04-13] MEDS: Albuterol-Ipratrop 3 mg / 0.5 (3 ml) UD IH SCH ×4 (01:17→19:24)
[2017-04-13] MEDS ORDERED: Albuterol-Ipratrop 3 mg / 0.5 (3 ml) UD IH PRN (06:34)
[2017-04-13 06:52] LABS: HEMATOCRIT 36.2 % (36.0-48.0); MEAN CELL VOLUME 74.2 fL (80.0-105.0); MEAN CORPUSCULAR HEMOGLOBIN 21.7 pg (25.0-35.0); MEAN CORPUSCULAR HGB CONC 29.3 g/dl (31.0-37.0); RED CELL DISTRIBUTION WIDTH 18.6 % (11.5-14.5); WHITE BLOOD COUNT 16.5 10^3/ul (4.5-11.0)
[2017-04-13] MEDS ORDERED: Albuterol-Ipratrop 3 mg / 0.5 (3 ml) UD IH SCH (07:30)
[2017-04-13] MEDS: Budesonide 0.5 mg/2 ml Inhal Susp UD IH SCH ×2 (07:59→19:24)
[2017-04-13] MEDS: Insulin Reg-HIGH-Coverage SC SCH ×4 (08:26→21:55)
--- NOTE | 2017-04-13 08:28 | CON ---
DATE: 04/13/2017 REASON FOR CONSULTATION: Chronic obstructive pulmonary disease. REFERRING PHYSICIAN: Dr. Looney. HISTORY OF PRESENT ILLNESS: The patient is a 66-year-old chronically ill female , with past medical history significant for very advanced chronic obstructive pulmonary disease - on home oxygen and steroids, morbid obesity, obstructive sleep apnea, diabetes mellitus, valvular heart disease, who presents to [facility] with main complaints of shortness of breath at rest, dyspnea on exertion, cough, and minimal sputum production for the past 3 days. There is no history of chest pain, coughing up of blood or chest pain - made worse with deep respirations. There is no history of temperatures, chills or infectious exposure. There is no history of night sweats, weight loss or appetite change prior to the above events. No history of leg or calf pains. No history of syncope or diaphoresis. No history of recent travel or trauma. REVIEW OF SYSTEMS: No history of nausea, vomiting or diarrhea. No acute urinary symptoms. No new neurologic complaints. Rest of the review of systems is negative. ALLERGIES: No known allergies. SOCIAL HISTORY: Positive for extensive tobacco usage. No alcohol. FAMILY HISTORY: No inheritable diseases. HOME MEDICATIONS: Include budesonide, Protonix, Zoloft, Januvia, Anthony-Dur, glipizide, Flexeril, Glucophage, simvastatin, Singulair, Lopressor, Levaquin, Desyrel, Zofran, Lasix. PHYSICAL EXAMINATION: GENERAL: The patient appears comfortable at rest. She is not short of breath. VITAL SIGNS: Temperature is 97.6, pulse on the monitor is 88, respiratory rate 18, blood pressure 139/78. Oxygen saturation on nasal cannula ranges between 92 -97%. HEENT: Normocephalic, atraumatic. NECK: No JVD. CARDIOVASCULAR: Systolic ejection murmur at the lower left sternal border. No S3 gallop. LUNGS: Decreased breath sounds at the bases. Minimal rhonchi. Minimal wheezing. EXTREMITIES: Positive for edema. No cyanosis, no clubbing. Calves are nontender to palpation. GASTROINTESTINAL: Abdomen is soft, nontender, nondistended. Bowel sounds are positive. SKIN: No acute rash. NEUROLOGIC: Limited at the present time. PERTINENT LABORATORY DATA: Chest x-ray was done yesterday and reviewed. There is no active disease present. CBC: White count 14.3, hemoglobin 10.6, hematocrit 36.4, platelets of 287. Complete metabolic profile: Potassium 3.4, chloride 97, carbon dioxide 36, glucose 186. Rest of the metabolic profile is within normal limits. IMPRESSION: 1. Recurrent bronchitis. 2. Advanced chronic obstructive pulmonary disease - on oxygen and steroids at home. 3. Obstructive sleep apnea. 4. Diabetes mellitus. 5. Mild anemia. PLAN: The patient presents to [facility] with a 3-day history of worsening pulmonary symptoms. I did review the chest x-ray as above. The x- ray shows no active disease. On physical exam, the patient is in mild bronchospasm. I will start DuoNeb treatments on a scheduled basis, and decrease the intravenous steroids this morning. The patient remains on antibiotic therapy. There are no temperatures noted or by history. The patient does have a mild leukocytosis - which she has had in many hospital admissions. I will also continue with the CPAP at night. The patient does feel better and is clinically improved this morning. However, her overall status/prognosis remains poor. I will discuss the above with Dr. Looney later this morning. Thank you very much for this pulmonary consultation. Wagner Ramos MD cc: [id number] TT: 04/13/2017 08:27:54 Confirmation # [id number] Dictation # [id number] pretty BUTLER
--- NOTE | 2017-04-13 08:49 | PN ---
DATE: 04/13/2017 I saw her resting comfortably in bed this morning. She is doing better than yesterday. She is breat cristina better. She has BiPAP finally last night and she has oxygen on right now and she looks less swo llen. She is on Cardizem, trazodone, albuterol, aspirin, Flexeril, Glucophage, Glucotrol, Januvia, potassiu m, Lasix 40 IV, Lipitor, Lopressor, Mirapex, nystatin, Protonix, Pulmicort, Rocephin, Singulair, Solu -Medrol, she is down to 30, Anthony-Dur, Wellbutrin, azithromycin IV, Zoloft and Zofran. I am going to increase her Lasix to 40 b.i.d. IV because she still has some edema in the legs. I am going to see i f I can diurese her a little bit more while she is here. She has a good appetite after the Solu-Medr ol. I discussed this with pulmonary. If she has a good night, we might be able to change her back t o prednisone and discharge her tomorrow and get her home. PHYSICAL EXAMINATION: VITAL SIGNS: Temp 97.6, 109 pulse, 139/78 blood pressure, 20 respiratory rate, 92% O2 sat on 3 liter s nasal cannula. HEAD: Atraumatic, normocephalic. THROAT: Dry. NECK: Supple. HEART: Regular rate. A little tachy. LUNGS: Decreased breath sounds. Less wheeze, less congestion, but it is still there. ABDOMEN: Morbidly, morbidly obese, nontender, positive bowel sounds, no guarding, no rebound. EXTREMITIES: Have +1 pitting edema bilateral ankles. She has a 16.5 white count, 10.6 hemoglobin, 36.2 hematocrit with 295 platelets. Sodium 141, potassi um 3.4. I will give her more potassium. BUN 15, creatinine 0.6, GFR is greater than 60. Last blood sugar was 186. Calcium is 8.9, total bili is 0.4, AST is 29, ALT is 32, alk phos 102. Troponin is less than 0.01. BNP is 98 and total protein 6.4. She is being seen by pulmonary and cardiology. I will increase her Lasix to 40 due to all the swelli ng in the ankles. Continue IV antibiotics. Increase her potassium. I am hoping that we can possibl y discharge her tomorrow if she does well with the decrease in Solu-Medrol. Hopefully, get her out o f bed to chair today, physical therapy to walk her and continue with aggressive pulmonary treatment a nd care. Thomas Looney DO cc: [id number] TT: 04/13/2017 08:49:06 Confirmation # [id number] Dictation # [id number] en
[2017-04-13 09:00] LABS: ALB/GLOB RATIO 1.4 (1.1-1.8); ALKALINE PHOSPHATASE 101 U/L (38-133); ALT/SGPT 31 U/L (7-56); AST/SGOT 20 U/L (15-39); BILIRUBIN,TOTAL 0.4 mg/dL (0.2-1.3); BLOOD UREA NITROGEN 14 mg/dL (7-21); CALCIUM 9.4 mg/dL (8.4-10.5); CARBON DIOXIDE 27 mmol/L (21-33); CHLORIDE 101 mmol/L (98-107); GFR AFRICAN-AMERICAN > 60; GLUCOSE,RANDOM 258 mg/dL (70-110); POTASSIUM 4.2 mmol/L (3.6-5.0); SODIUM 141 mmol/L (132-148); TOTAL PROTEIN 6.4 g/dL (5.8-8.3)
[2017-04-13] MEDS: cefTRIAXone 1 gm 1 GM/100 ML BAG IVPB SCH (09:00)
[2017-04-13] MEDS: buPROPion SR 150 MG TABLET PO SCH (09:27)
[2017-04-13] MEDS: GlipiZIDE 10 mg SR Tab PO SCH ×2 (09:28→17:05)
[2017-04-13] MEDS: Pantoprazole 40 mg EC Tab PO SCH (09:29)
[2017-04-13] MEDS: MethylPREDNISolone 40 mg Vial IVP SCH ×2 (09:29→21:56)
[2017-04-13] MEDS: Nystatin 100,000 Units/ml Oral Susp 5 ml UD PO SCH ×4 (09:29→21:56)
[2017-04-13] MEDS: diltiaZEM 180 mg/24 Hours CD Cap PO SCH (09:30)
[2017-04-13] MEDS: Azithromycin 500MG/NS 250ml 500 MG/250 ML BAG IVPB SCH (09:30)
[2017-04-13] MEDS: Potassium Chloride 20 mEq ER Tab PO SCH ×2 (09:32→17:05)
[2017-04-13] MEDS ORDERED: Potassium Chloride 20 mEq ER Tab PO SCH (10:00)
--- NOTE | 2017-04-13 13:20 | CON ---
DATE: 04/13/2017 HISTORY OF PRESENT ILLNESS: The patient is a 66-year-old woman who presents with shortness of breath . This is one of many admissions for the patient for exacerbation of COPD. She has severe COPD and is on home oxygen and steroids. PAST MEDICAL HISTORY: Also notable for sleep apnea, diabetes mellitus. Her last evaluation of her heart included an echocardiogram which was in 10/2016. The findings on ec hocardiogram revealed an ejection fraction of 56%, no pulmonary hypertension noted. There is mild mitral regurgitation noted. SOCIAL HISTORY: She denies chest pain, admits to occasional pedal edema. REVIEW OF SYSTEMS: No additional symptoms other than the ones described above where noted. PHYSICAL EXAMINATION: VITAL SIGNS: Blood pressure is 139/78, the heart rate is 100. NECK: Negative JVD. LUNGS: Decreased breath sounds with minimal rhonchi. HEART: Revealed S1, S2. EXTREMITIES: Trace edema. EKG shows no acute changes. LABORATORIES: The glucose is 258. Hemoglobin is 10.6 with a white count of 16.5. ProBNP is negative, so is the troponin. IMPRESSION: 1. Exacerbation of chronic obstructive pulmonary disease. 2. Mild pedal edema. 3. Anemia. 4. Obesity. 5. Dyspnea. 6. No evidence for a congestive heart failure component. PLAN: Given these findings, the treatment needs to be directed at her COPD, in which she is being cu rrently treated with bronchodilators and steroids. Jagdeep Olmos MD cc: [id number] TT: 04/13/2017 13:19:36 Confirmation # [id number] Dictation # [id number] sn
[2017-04-14] MEDS: Albuterol-Ipratrop 3 mg / 0.5 (3 ml) UD IH SCH ×4 (02:45→20:15)
[2017-04-14 07:51] LABS: ALB/GLOB RATIO 1.5 (1.1-1.8); ALKALINE PHOSPHATASE 95 U/L (38-133); ALT/SGPT 36 U/L (7-56); AST/SGOT 19 U/L (15-39); BILIRUBIN,TOTAL 0.3 mg/dL (0.2-1.3); BLOOD UREA NITROGEN 27 mg/dL (7-21); CALCIUM 9.2 mg/dL (8.4-10.5); CARBON DIOXIDE 32 mmol/L (21-33); CHLORIDE 98 mmol/L (95-110); GFR AFRICAN-AMERICAN > 60; GLUCOSE,RANDOM 253 mg/dL (70-110); POTASSIUM 4.4 mmol/L (3.6-5.0); SODIUM 138 mmol/L (132-148); TOTAL PROTEIN 6.4 g/dL (5.8-8.3)
[2017-04-14] MEDS: Budesonide 0.5 mg/2 ml Inhal Susp UD IH SCH ×2 (07:53→20:15)
[2017-04-14 08:05] LABS: HEMATOCRIT 36.9 % (36.0-48.0); MEAN CELL VOLUME 74.2 fL (80.0-105.0); MEAN CORPUSCULAR HEMOGLOBIN 21.7 pg (25.0-35.0); MEAN CORPUSCULAR HGB CONC 29.3 g/dl (31.0-37.0); MEAN PLATELET VOLUME 9.1 fl (7.0-11.0); RED CELL DISTRIBUTION WIDTH 18.6 % (11.5-14.5); WHITE BLOOD COUNT 24.7 10^3/ul (4.5-11.0)
[2017-04-14] MEDS: Insulin Reg-HIGH-Coverage SC SCH ×4 (08:18→21:55)
[2017-04-14] MEDS: buPROPion SR 150 MG TABLET PO SCH (09:47)
[2017-04-14] MEDS: Potassium Chloride 20 mEq ER Tab PO SCH ×2 (09:48→18:10)
[2017-04-14] MEDS: Pantoprazole 40 mg EC Tab PO SCH (09:48)
[2017-04-14] MEDS: diltiaZEM 180 mg/24 Hours CD Cap PO SCH (09:48)
[2017-04-14] MEDS: GlipiZIDE 10 mg SR Tab PO SCH ×2 (09:48→18:10)
[2017-04-14] MEDS: Nystatin 100,000 Units/ml Oral Susp 5 ml UD PO SCH ×4 (09:49→21:31)
[2017-04-14] MEDS: MethylPREDNISolone 40 mg Vial IVP SCH ×2 (09:50→21:31)
[2017-04-14] MEDS: cefTRIAXone 1 gm 1 GM/100 ML BAG IVPB SCH (09:50)
--- NOTE | 2017-04-14 10:01 | PN ---
DATE: 04/14/2017 SUBJECTIVE: The patient appears comfortable this morning. She is not short of breath at rest. PHYSICAL EXAMINATION: VITAL SIGNS: Temperature is 98.7, pulse 72, respirations 18/20, blood pressure 120/71. Oxygen saturation on nasal cannula is 98%. HEENT: Normocephalic, atraumatic. No JVD. CARDIOVASCULAR: Systolic ejection murmur at the lower left sternal border. No S3 gallop. LUNGS: Decreased breath sounds at the bases. Still with mild rhonchi and wheezing bilaterally. EXTREMITIES: Positive for edema. No cyanosis, no clubbing. Calves are nontender to palpation. GASTROINTESTINAL: Abdomen is soft, nontender, nondistended. Bowel sounds are positive. SKIN: No acute rash. NEUROLOGIC: Limited at the present time. IMPRESSION: 1. Recurrent bronchitis. 2. Advanced chronic obstructive pulmonary disease -- on oxygen and steroids at home. 3. Obstructive sleep apnea. 4. Diabetes mellitus. 5. Mild anemia. PLAN: The patient appears comfortable this morning. She is not short of breath at rest. She does state to feeling better overall. On physical exam, mild bronchospasm persists. I will continue with the current nebulizer treatments and current intravenous steroids (decreased yesterday) for now. The patient also remains on antibiotic therapy. Clinical status of the patient is certainly improved -- compared to the initial presentation. However, again, the overall status/prognosis of this chronically ill female--with advanced COPD remains poor. I did discuss the above with Dr. Looney this morning. Wagner Ramos MD cc: [id number] TT: 04/14/2017 10:00:53 Confirmation # [id number] Dictation # [id number] nabila BUTLER
--- NOTE | 2017-04-14 10:12 | PN ---
DATE: 04/14/2017 I saw the patient resting comfortably in bed. She is breathing better, improving. She is currently on Cardizem, Desyrel, DuoNeb, Ecotrin, Flexeril, Glucophage, Glucotrol, insulin, Boris uvia, potassium, Lasix, Lipitor, Lopressor, Mirapex, nystatin, Protonix, Pulmicort, Rocephin, Singula ir, Solu-Medrol, Anthony-Dur, Wellbutrin, Zithromax, Zofran and Zoloft. PHYSICAL EXAMINATION: VITAL SIGNS: Temp 98.7, 72 pulse, 120/71 blood pressure, her respiratory rate is 20 and she is 98% O 2 sat on 3 liters. HEENT: Head is atraumatic, normocephalic. Throat is moist. NECK: Supple. GENERAL: She is eating well. She is alert and oriented and she is comfortable with less shortness o f breath, but still there. HEART: Regular rate. LUNGS: Decreased breath sounds. Less wheeze, less congestion. ABDOMEN: Soft, morbidly obese, nontender, positive bowel sounds. EXTREMITIES: Have no edema today. She has a 24.7 white count on steroids, 10.8 hemoglobin, 36.9 hematocrit with 343 platelets. Sodium 138, potassium 4.4, BUN is 27, creatinine 0.7, GFR is greater than 60, sugars are 253 and 185. Calci um is 9.2, total bili is 0.3, AST is 19, ALT is 36, alk phos is 95, total protein 6.4. She is being seen by cardiology and by pulmonology. Our goal is to try and discharge her tomorrow on ce she improves a little bit. She is here for exacerbation of chronic obstructive pulmonary disease, edema, anemia, obesity, dyspepsia, congestive heart failure. Thomas Looney DO cc: [id number] TT: 04/14/2017 10:11:42 Confirmation # [id number] Dictation # [id number] en
[2017-04-14] MEDS ORDERED: guaiFENesin 100 mg/5 ml Syrup UD PO PRN (12:18)
--- NOTE | 2017-04-14 15:14 | PN ---
DATE: 04/14/2017 The patient is without dyspnea. PHYSICAL EXAMINATION: VITAL SIGNS: Blood pressure 147/60, the heart rate is in the 90s. NECK: Negative JVD. LUNGS: Without rales. HEART: Reveals S1, S2. EXTREMITIES: Without edema. LABORATORY DATA: Hemoglobin is 10.8, white count is up to 24,000. Glucose is 253. IMPRESSION: 1. Exacerbation of chronic obstructive pulmonary disease. 2. Bronchitis. 3. Anemia. 4. Morbid obesity. 5. No evidence for congestive heart failure. PLAN: Given these findings, the patient is on bronchodilators and steroid therapy for COPD. Jagdeep Olmos MD cc: [id number] TT: 04/14/2017 15:13:26 Confirmation # [id number] Dictation # [id number] santana
[2017-04-14] MEDS: Azithromycin 500MG/NS 250ml 500 MG/250 ML BAG IVPB SCH (17:48)
--- NOTE | 2017-04-14 18:04 | RAD ---
HISTORY: Follow-up COMPARISON: 04/12/2017. TECHNIQUE: Chest PA and lateral FINDINGS: LUNGS: No active pulmonary disease. PLEURA: No significant pleural effusion identified. No pneumothorax apparent. CARDIOVASCULAR: Cardiomegaly. No evidence of acute, significant cardiovascular disease. OSSEOUS STRUCTURES: No significant abnormalities. VISUALIZED UPPER ABDOMEN: Normal. OTHER FINDINGS: None. IMPRESSION: No active disease. No significant interval change compared to the prior examination(s). In
[2017-04-14 18:14] VITALS: TEMP 98.3
[2017-04-15] MEDS: Albuterol-Ipratrop 3 mg / 0.5 (3 ml) UD IH SCH ×4 (03:11→19:39)
[2017-04-15 08:06] LABS: HEMATOCRIT 36.4 % (36.0-48.0); MEAN CELL VOLUME 74.4 fL (80.0-105.0); MEAN CORPUSCULAR HEMOGLOBIN 21.9 pg (25.0-35.0); MEAN CORPUSCULAR HGB CONC 29.4 g/dl (31.0-37.0); RED CELL DISTRIBUTION WIDTH 18.7 % (11.5-14.5); WHITE BLOOD COUNT 19.7 10^3/ul (4.5-11.0)
[2017-04-15] MEDS: Insulin Reg-HIGH-Coverage SC SCH ×3 (08:16→21:58)
[2017-04-15] MEDS: Budesonide 0.5 mg/2 ml Inhal Susp UD IH SCH ×2 (08:18→19:39)
[2017-04-15 08:20] LABS: ALB/GLOB RATIO 1.3 (1.1-1.8); ALKALINE PHOSPHATASE 85 U/L (38-133); ALT/SGPT 32 U/L (7-56); AST/SGOT 23 U/L (15-39); BILIRUBIN,TOTAL 0.4 mg/dL (0.2-1.3); BLOOD UREA NITROGEN 28 mg/dL (7-21); CALCIUM 9.2 mg/dL (8.4-10.5); CARBON DIOXIDE 37 mmol/L (21-33); CHLORIDE 97 mmol/L (98-107); GFR AFRICAN-AMERICAN > 60; GLUCOSE,RANDOM 234 mg/dL (70-110); POTASSIUM 4.7 mmol/L (3.6-5.0); SODIUM 140 mmol/L (132-148); TOTAL PROTEIN 6.1 g/dL (5.8-8.3)
[2017-04-15] MEDS: diltiaZEM 180 mg/24 Hours CD Cap PO SCH (10:17)
[2017-04-15] MEDS: Nystatin 100,000 Units/ml Oral Susp 5 ml UD PO SCH ×3 (10:20→21:26)
[2017-04-15] MEDS: GlipiZIDE 10 mg SR Tab PO SCH ×2 (10:22→18:08)
[2017-04-15] MEDS: buPROPion SR 150 MG TABLET PO SCH (10:22)
[2017-04-15] MEDS: Potassium Chloride 20 mEq ER Tab PO SCH ×2 (10:22→18:10)
[2017-04-15] MEDS: MethylPREDNISolone 40 mg Vial IVP SCH ×2 (10:23→21:26)
[2017-04-15] MEDS: Pantoprazole 40 mg EC Tab PO SCH (10:23)
[2017-04-15] MEDS: cefTRIAXone 1 gm 1 GM/100 ML BAG IVPB SCH (10:24)
--- NOTE | 2017-04-15 10:46 | PN ---
DATE: 04/15/2017 SUBJECTIVE: The patient's breathing is improved. PHYSICAL EXAMINATION: VITAL SIGNS: Blood pressure 142/60, the heart rate is in the 90s. NECK: Negative JVD. LUNGS: Decreased breath sounds bilaterally. HEART: Revealed S1, S2. EXTREMITIES: Without edema. LABORATORY DATA: Hemoglobin is 10.7, with a white count 19.7. Glucose is 234. IMPRESSION: 1. Exacerbation of chronic obstructive pulmonary disease. 2. Morbid obesity. 3. No evidence for congestive heart failure. 4. Dyspnea which is improving. PLAN: Given these findings, the patient's treatment needs to be directed at her recurrent bronchospa sm and bronchitis. We will sign off the case today. Jagdeep Olmos MD cc: [id number] TT: 04/15/2017 10:45:34 Confirmation # [id number] Dictation # [id number] jn
--- NOTE | 2017-04-15 12:23 | PN ---
DATE: 04/15/2017 PULMONARY PROGRESS NOTE The patient was seen and examined at bedside. She is currently not on BiPAP, but she remained on BiP AP all night long. She states that she feels better. At home, she has home oxygen. She is sufferin g from morbid obesity, obstructive sleep apnea, as well as valvular heart disease and chronic obstruc tive pulmonary disease. PHYSICAL EXAMINATION: GENERAL: The patient appears comfortable at rest. VITAL SIGNS: Temperature is 97.6, pulse on the monitor 88, respiratory rate 18. Blood pressure is 1 39/78. Oxygen saturation on nasal cannula ranges between 92 and 97. HEAD, EARS, NOSE, AND THROAT: Normocephalic and atraumatic. NECK: No jugular vein distention. CARDIOVASCULAR: Systolic ejection murmur. No S3 gallop. PULMONARY: Diminished breath sounds at both bases, minimal rhonchi. EXTREMITIES: Positive for edema. No cyanosis. GASTROINTESTINAL: Soft, nontender. No organomegaly. SKIN: No acute skin rash. NEUROLOGIC: Limited at present time. LABORATORY DATA: WBCs were slightly elevated at 14.3. Metabolic profile was within normal range Exc ept for elevated carbon bone dioxide. She is probably retaining some CO2. ASSESSMENT: 1. Exacerbation of severe chronic obstructive pulmonary disease. 2. Recurrent bronchitis. 3. Obstructive sleep apnea. 4. Morbid obesity. PLAN: We reviewed the chest x-ray. There is no active disease. The patient's bronchospasm is impro ving. She is on DuoNeb as well as intravenous steroids. She is on antibiotic treatment with all the above measures. Her condition is gradually improving. We will continue with administration of BiPA P at night and all medications as ordered. David Olivares MD cc: [id number] TT: 04/15/2017 12:23:00 Confirmation # [id number] Dictation # [id number] jn
--- NOTE | 2017-04-15 12:29 | DS ---
She is comfortable in bed. She is still short of breath at times and she is going to be going to [facility] care unit today. She is on Cardizem, Desyrel, DuoNeb, Ecotrin, Flexeril, Glucophage, Glucotrol, insulin, Januvia, pota ssium, Lasix, Lipitor, Lopressor, Mirapex, nystatin, Protonix, Pulmicort, Robitussin, Rocephin IV, Si ngulair, Solu-Medrol, Anthony-Dur, Wellbutrin, Zithromax, Zofran and Zoloft. PHYSICAL EXAMINATION: VITAL SIGNS: Temp 98.3, 96 pulse, 113/59 blood pressure, 21 respiratory rate, 96% O2 sat on nasal ca nnula. HEENT: Head is atraumatic, normocephalic. Throat is moist. NECK: Supple. HEART: Regular rate. LUNGS: Decreased breath sounds, occasional wheeze, but improving. ABDOMEN: Morbidly obese, soft, nontender, positive bowel sounds. EXTREMITIES: No edema. She has a 19.7 white count, 10.7 hemoglobin, 36.4 hematocrit with 315 platelets. Sodium 140, potassi um 4.7, BUN is 20, creatinine 0.7, GFR is greater than 60, sugar is 234, calcium is 9.2, total bili i s 0.4, AST is 23, ALT is 32, alk phos 85, total protein is 128. She is being seen by cardio, pulmonary and she had a chest x-ray, which shows no active disease. She has acute exacerbation of chronic obstructive pulmonary disease, bronchitis, anemia, morbid obesity, obstructive sleep apnea, mild anemia. We will transfer her to [facility] today. Thomas Looney DO cc: [id number] TT: 04/15/2017 12:27:49 en
[2017-04-15 18:15] VITALS: BP 133/63; PULSE 92
[2017-04-15 20:30] VITALS: RESP 19; O2SAT 98
== END 2017-04-15 23:06 | DRG 191 ==
LOC: ED 12:45 → ERH 16:01 → 2RSO 23:43 → 3RNO 04-13 11:51
PROVIDERS: ADMIT Family Medicine; ATTEND Family Medicine
PROC: 5A09457 Assistance with Respiratory Ventilation, 24-96 Consecutive Hours, Continuous Positive Airway Pressure (ICD-10-PCS; principal; 2017-04-13)
PROC: 3E0F7GC Introduction of Other Therapeutic Substance into Respiratory Tract, Via Natural or Artificial Opening (ICD-10-PCS; 2017-04-13)
DX: J44.1 Chronic obstructive pulmonary disease with (acute) exacerbation (principal); Z68.43 Body mass index [BMI] 50.0-59.9, adult; Z99.81 Dependence on supplemental oxygen; I11.0 Hypertensive heart disease with heart failure; I50.9 Heart failure, unspecified; E11.9 Type 2 diabetes mellitus without complications; D64.9 Anemia, unspecified; E66.01 Morbid (severe) obesity due to excess calories; K21.9 Gastro-esophageal reflux disease without esophagitis; R29.6 Repeated falls; K59.00 Constipation, unspecified; F41.9 Anxiety disorder, unspecified; G47.33 Obstructive sleep apnea (adult) (pediatric); I34.0 Nonrheumatic mitral (valve) insufficiency; R10.13 Epigastric pain; Z87.891 Personal history of nicotine dependence; Z83.3 Family history of diabetes mellitus; Z82.49 Family history of ischemic heart disease and other diseases of the circulatory system

== ENCOUNTER 2017-04-15 23:09 | Inpatient (IN) | payer OTHER, MEDICAID ==
[2017-04-15 23:27] VITALS: BMI 54.1
[2017-04-15] MEDS ORDERED: Albuterol-Ipratrop 3 mg / 0.5 (3 ml) UD IH PRN (23:30)
[2017-04-16] MEDS ORDERED: Pneumococcal 23-Valent Vaccine IM ONE (00:17)
[2017-04-16] MEDS: Albuterol-Ipratrop 3 mg / 0.5 (3 ml) UD IH SCH ×4 (01:39→19:58)
[2017-04-16] MEDS: Azithromycin 500MG/NS 250ml 500 MG/250 ML BAG IVPB SCH (05:43)
[2017-04-16] MEDS: cefTRIAXone 1 gm 1 GM/100 ML BAG IVPB SCH (05:43)
[2017-04-16] MEDS: Pantoprazole 40 mg EC Tab PO SCH (05:44)
[2017-04-16 06:15] LABS: HEMATOCRIT 37.7 % (36.0-48.0); MEAN CELL VOLUME 74.5 fL (80.0-105.0); MEAN CORPUSCULAR HEMOGLOBIN 21.9 pg (25.0-35.0); MEAN CORPUSCULAR HGB CONC 29.4 g/dl (31.0-37.0); MEAN PLATELET VOLUME 8.8 fl (7.0-11.0); PLATELET COUNT 320 10^3/uL (120.0-450.0); RED CELL DISTRIBUTION WIDTH 18.6 % (11.5-14.5); WHITE BLOOD COUNT 18.9 10^3/ul (4.5-11.0)
[2017-04-16 06:25] LABS: ALB/GLOB RATIO 1.6 (1.1-1.8); ALKALINE PHOSPHATASE 89 U/L (38-133); ALT/SGPT 39 U/L (7-56); AST/SGOT 24 U/L (15-39); BILIRUBIN,TOTAL 0.3 mg/dL (0.2-1.3); BLOOD UREA NITROGEN 32 mg/dL (7-21); CALCIUM 9.5 mg/dL (8.4-10.5); CARBON DIOXIDE 37 mmol/L (21-33); CHLORIDE 95 mmol/L (95-110); GFR AFRICAN-AMERICAN > 60; GLUCOSE,RANDOM 287 mg/dL (70-110); POTASSIUM 4.7 mmol/L (3.6-5.0); SODIUM 139 mmol/L (132-148); TOTAL PROTEIN 6.1 g/dL (5.8-8.3)
[2017-04-16 06:29] LABS: ADD MANUAL DIFF? YES
[2017-04-16] MEDS ORDERED: Insulin Reg-HIGH-Coverage SC SCH (07:30)
--- NOTE | 2017-04-16 08:26 | PN ---
DATE: 04/16/2017 SUBJECTIVE: The patient appears comfortable this morning. She is not short of breath at rest. PHYSICAL EXAMINATION: VITAL SIGNS: Last temperature recorded, 98.2, pulse 70, respirations this morning -- 18, blood pressure 144/66. Oxygen saturation on nasal cannula is 95% . HEENT: Normocephalic, atraumatic. No JVD. CARDIOVASCULAR: Systolic ejection murmur at the lower left sternal border. No S3 gallop. LUNGS: Improved breath sounds at the bases. Much less rhonchi. No wheezing. EXTREMITIES: Positive for edema. No cyanosis. No clubbing. Calves are nontender to palpation. GASTROINTESTINAL: Abdomen is soft, nontender, nondistended. Bowel sounds are positive. SKIN: No acute rash. NEUROLOGIC: Limited at the present time. IMPRESSION: 1. Recurrent bronchitis. 2. Advanced chronic obstructive pulmonary disease -- on oxygen and steroids at home. 3. Obstructive sleep apnea. 4. Diabetes mellitus. 5. Mild anemia. PLAN: The patient appears comfortable this morning. She is not short of breath at rest. She does state to feeling much better overall. On physical exam, her bronchospasm is significantly less. In addition, there is no significant alveolar-arterial gradient. I will continue with the current nebulizer treatments and change to oral steroids this morning. The patient remains on antibiotic therapy -- which we can probably taper at this point in time. Clinical status of the patient is significantly improved -- compared to the initial presentation. I will discuss the above with Dr. Looney. Wagner Ramos MD cc: [id number] TT: 04/16/2017 08:25:23 Confirmation # [id number] Dictation # [id number] en MTDD
[2017-04-16] MEDS: Budesonide 0.5 mg/2 ml Inhal Susp UD IH SCH ×2 (08:32→19:59)
[2017-04-16] MEDS: diltiaZEM 180 mg/24 Hours CD Cap PO SCH (09:33)
[2017-04-16] MEDS: GlipiZIDE 10 mg SR Tab PO SCH ×2 (09:34→17:07)
[2017-04-16] MEDS: Potassium Chloride 20 mEq ER Tab PO SCH ×2 (09:34→17:08)
[2017-04-16] MEDS: Nystatin 100,000 Units/ml Oral Susp 5 ml UD PO SCH ×4 (09:36→21:40)
[2017-04-16] MEDS: buPROPion SR 150 MG TABLET PO SCH (09:39)
[2017-04-16] MEDS ORDERED: Azithromycin 500MG/NS 250ml 500 MG/250 ML BAG IVPB SCH (10:00)
[2017-04-16] MEDS ORDERED: MethylPREDNISolone 40 mg Vial IVP SCH (10:00)
--- NOTE | 2017-04-16 10:47 | HP ---
I know the patient very well from multiple hospital stays and house calls. [facility] She was short of breath with acute COPD, was given IV Solu-Medrol. She also got wea k and needed physical therapy. She is back on the transitional care unit for further pulmonary toile t and physical therapy. PAST MEDICAL HISTORY: COPD, CHF, obesity, hypertension, chronic CHF, open heart surgery in 1958 with mitral valve repair as an . She has sleep apnea. She uses BiPAP at home. She is very hard o f hearing. She uses hearing aids, glasses for poor vision. 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 FAMILY HISTORY: Hypertension and diabetes in the family. SOCIAL HISTORY: Former smoker. No alcohol, no drugs. ALLERGIES: No known drug allergies. MEDICATIONS: She is on glipizide, Mirapex, simvastatin, Glucophage, Pulmicort, Flexeril, Lasix, Anthony -Dur, Ecotrin, bupropion, Levaquin at times, MVI, Zofran, Protonix, potassium, IV Solu-Medrol then pr ednisone, Januvia, Zoloft and Cardizem. REVIEW OF SYSTEMS: She has no acute hearing loss or vision, it is old. You have to yell to talk at her. No sore throat at this time; she did in the past when she had esophageal stricture and closure, but that is better now. No chest pain. There is shortness of breath. There was wheezing and cough ing, but much better. She is morbidly, morbidly obese. Nontender abdomen. Positive bowel sounds. She has no guarding, no rebound. No nausea or vomiting. No constipation, no diarrhea. No back pain . She gets weak in the lower extremities. No rashes, dizziness or sweating. PHYSICAL EXAMINATION: VITAL SIGNS: She has 98.2 temp, 82 pulse, 144/66 blood pressure, 22 respiratory rate, and 95% O2 sat on room air. HEENT: Head is atraumatic, normocephalic. She is comfortable. She is breathing well. Throat is mo ist, no erythema. Neck is supple, no JVD. Extraocular muscles are intact. Pupils equal, reactive t o light. HEART: Regular rate. Normal S1, S2. LUNGS: Clear bilaterally with poor inspiration; just decreased air entry and effort. ABDOMEN: Morbidly, morbidly obese, soft, nontender, positive bowel sounds. No guarding, no rebound. BACK: No CVA tenderness. EXTREMITIES: Have no edema at this time. She can move them; she is just very weak. LYMPHATICS: Thyroid midline. No palpable appreciative lymphadenopathy. NEUROLOGIC: Cranial nerves II-XII grossly intact. GCS is 15. Speech is normal. At this time, she is comfortable bit weak. MEDICATIONS: She is presently on Cardizem, Desyrel, DuoNeb, Ecotrin, Flexeril, Glucophage, Glucotrol , insulin, Januvia, potassium, Lasix, Lipitor, metoprolol, Mirapex, nystatin, she is on prednisone 40 , Protonix, Pulmicort, Robitussin, Rocephin, Singulair, Anthony-Dur, Wellbutrin, Zithromax IV, Zofran an d Zoloft. LABORATORY DATA: She has a 139 sodium, potassium 4.7, BUN 32, creatinine 0.8, GFR is greater than 60 , sugar is 287, calcium is 9.5. Total bili is 0.3, AST is 24, ALT is 39, alk phos is 89, total prote in 6.1. An 18.9 white count from the steroids. She is on IV antibiotics. Hemoglobin 11.1, hematocr it 37.7, platelets of 320. She was seen by the canoe builder. She will be here for 8 days of physical therapy and pulmonary julius let and treatment. Hopefully she will do well then she will go home. Thomas Looney DO cc: [id number] TT: 04/16/2017 10:38:09 pretty
[2017-04-16 12:06] LABS: BAND 3 % (0-2); NEUTROPHIL 81 % (50.0-70.0)
[2017-04-16 12:07] LABS: ANISOCYTOSIS 1+; HYPOCHROMIA SLIGHT; MICROCYTOSIS 1+; PLATELET ESTIMATE NORMAL (NORMAL); POIKILOCYTOSIS SLIGHT
[2017-04-16] MEDS: Insulin Reg-MEDIUM-Coverage SC SCH ×3 (12:37→21:38)
[2017-04-17] MEDS: Albuterol-Ipratrop 3 mg / 0.5 (3 ml) UD IH SCH ×4 (01:12→21:33)
[2017-04-17] MEDS: cefTRIAXone 1 gm 1 GM/100 ML BAG IVPB SCH (05:42)
[2017-04-17] MEDS: Pantoprazole 40 mg EC Tab PO SCH (05:42)
[2017-04-17] MEDS: Azithromycin 500MG/NS 250ml 500 MG/250 ML BAG IVPB SCH (05:43)
[2017-04-17] MEDS: Insulin Reg-MEDIUM-Coverage SC SCH ×4 (06:34→21:55)
[2017-04-17] MEDS: Budesonide 0.5 mg/2 ml Inhal Susp UD IH SCH ×2 (07:16→21:33)
[2017-04-17 07:55] LABS: HEMATOCRIT 38.7 % (36.0-48.0); MEAN CELL VOLUME 74.4 fL (80.0-105.0); MEAN CORPUSCULAR HEMOGLOBIN 21.5 pg (25.0-35.0); MEAN CORPUSCULAR HGB CONC 28.9 g/dl (31.0-37.0); MEAN PLATELET VOLUME 8.8 fl (7.0-11.0); RED CELL DISTRIBUTION WIDTH 18.5 % (11.5-14.5); WHITE BLOOD COUNT 18.8 10^3/ul (4.5-11.0)
[2017-04-17 08:13] LABS: ALB/GLOB RATIO 1.5 (1.1-1.8); ALKALINE PHOSPHATASE 87 U/L (38-133); ALT/SGPT 36 U/L (7-56); BILIRUBIN,TOTAL 0.3 mg/dL (0.2-1.3); BLOOD UREA NITROGEN 31 mg/dL (7-21); CARBON DIOXIDE 35 mmol/L (21-33); CHLORIDE 96 mmol/L (95-110); GFR AFRICAN-AMERICAN > 60; GLUCOSE,RANDOM 96 mg/dL (70-110); POTASSIUM 3.6 mmol/L (3.6-5.0); SODIUM 141 mmol/L (132-148); TOTAL PROTEIN 6.2 g/dL (5.8-8.3)
[2017-04-17 08:37] LABS: AST/SGOT 27 U/L (15-39)
[2017-04-17] MEDS: guaiFENesin 100 mg/5 ml Syrup UD PO PRN ×2 (09:19→17:09)
[2017-04-17] MEDS: diltiaZEM 180 mg/24 Hours CD Cap PO SCH (09:19)
[2017-04-17] MEDS: GlipiZIDE 10 mg SR Tab PO SCH ×2 (09:20→17:12)
[2017-04-17] MEDS: buPROPion SR 150 MG TABLET PO SCH (09:22)
[2017-04-17] MEDS: Potassium Chloride 20 mEq ER Tab PO SCH ×2 (09:23→17:09)
[2017-04-17] MEDS: Nystatin 100,000 Units/ml Oral Susp 5 ml UD PO SCH ×4 (09:26→21:26)
--- NOTE | 2017-04-17 10:14 | PN ---
DATE: 04/17/2017 The patient was seen and examined at bedside. She is currently on nasal cannula, off BiPAP. She is receiving Zithromax as well as Rocephin intravenously for pneumonia. She is on theophylline, Singula ir, and inhalation therapy with added budesonide, as well as DuoNeb. PHYSICAL EXAMINATION: VITAL SIGNS: Temperature 98, pulse 86, respirations 20, pulse oximetry is 100 on nasal cannula. HEAD, EARS, NOSE AND THROAT: Normocephalic, atraumatic. No JVD. CARDIOVASCULAR: Systolic ejection murmur at the lower sternal border. PULMONARY: Improved breath sounds at both bases. Few rhonchi. Few wheezes. EXTREMITIES: Positive for edema. GASTROINTESTINAL: Soft, nontender, no organomegaly. SKIN: Clear with no skin rash, no cyanosis. NEUROLOGIC: No focal deficits. LABORATORY DATA: I reviewed today's blood work. Her serum sodium is 141, potassium 3.6. WBC is gabrielle vated at 18.8 and hemoglobin of 11.2. ASSESSMENT: 1. Exacerbation of severe chronic obstructive pulmonary disease. 2. Recurrent bronchitis. 3. Obstructive sleep apnea. 4. Morbid obesity. PLAN: The patient continues to improve on transitional care unit. On physical examination, her bron chospasm is improved. There are still findings consistent with chronic obstructive pulmonary disease . I would continue with present antibiotics, aerosol as well as BiPAP. David Olivares MD cc: [id number] TT: 04/17/2017 10:13:31 Confirmation # [id number] Dictation # [id number] santana
--- NOTE | 2017-04-17 13:15 | PN ---
DATE: 04/17/2017 The patient is a 67-year-old female seen and examined, currently in the TCU. Currently, lying in bed , not complaining to have any pain at this point, but no chest pain, no shortness of breath. Only co mplaints is the patient does feel more weak than before. Has not gotten up to walk. PHYSICAL EXAMINATION: VITAL SIGNS: Blood pressure is currently 159/75, pulse rate of 92. HEENT: Normocephalic, atraumatic. [place] conjunctivae, nonicteric sclerae. NECK: No JVD, no thyromegaly. CARDIOVASCULAR: Regular rate and rhythm. S1, S2 appreciated. LUNGS: Bilateral air entry is decreased at the base with decreased effort. ABDOMEN: Nondistended, nontender. Positive morbid obesity. Positive bowel sounds. EXTREMITIES: Peripheral pulses +2 with decreased range of motion. LABORATORY DATA: WBCs of 18.8, hemoglobin of 11.2, hematocrit of 38.7, platelets of 332. Chemistry within normal limits except for a CO2 of 35. LFTs also within normal limits. ASSESSMENT: 1. Chronic obstructive pulmonary disease exacerbation. 2. Congestive heart failure. 3. Hypertension. PLAN: At this time, we will continue her respiratory treatment that she is receiving as well as her diabetic medications. She is currently on prednisone and will follow up with pulmonary for titration of her prednisone. Frederick Mcneil MD cc: [id number] TT: 04/17/2017 13:14:48 Confirmation # [id number] Dictation # [id number] santana
[2017-04-18] MEDS: Albuterol-Ipratrop 3 mg / 0.5 (3 ml) UD IH SCH ×4 (03:29→20:45)
[2017-04-18] MEDS: Pantoprazole 40 mg EC Tab PO SCH (05:39)
[2017-04-18] MEDS: cefTRIAXone 1 gm 1 GM/100 ML BAG IVPB SCH (05:39)
[2017-04-18] MEDS: Azithromycin 500MG/NS 250ml 500 MG/250 ML BAG IVPB SCH (05:40)
[2017-04-18] MEDS: Insulin Reg-MEDIUM-Coverage SC SCH ×4 (06:45→22:16)
[2017-04-18] MEDS: Budesonide 0.5 mg/2 ml Inhal Susp UD IH SCH ×2 (07:29→20:45)
[2017-04-18 07:50] LABS: ADD MANUAL DIFF? NO
[2017-04-18 07:57] LABS: BASO # 0.02 K/mm3 (0.0-2.0); BASO % 0.1 % (0.0-3.0); EOS # 0.2 (0.0-0.7); EOS % 0.9 % (1.5-5.0); GRAN # 12.75 (1.4-6.5); GRAN % 69.4 % (50.0-68.0); HEMATOCRIT 38.7 % (36.0-48.0); LYMPH # 4.4 (1.2-3.4); LYMPH % 23.9 % (22.0-35.0); MEAN CELL VOLUME 75.1 fL (80.0-105.0); MEAN CORPUSCULAR HEMOGLOBIN 21.9 pg (25.0-35.0); MEAN CORPUSCULAR HGB CONC 29.2 g/dl (31.0-37.0); MEAN PLATELET VOLUME 8.9 fl (7.0-11.0); MONO % 5.7 % (1.0-6.0); PLATELET COUNT 352 10^3/uL (120.0-450.0); RED CELL DISTRIBUTION WIDTH 18.4 % (11.5-14.5); WHITE BLOOD COUNT 18.4 10^3/ul (4.5-11.0)
[2017-04-18 08:07] LABS: ALB/GLOB RATIO 1.4 (1.1-1.8); ALKALINE PHOSPHATASE 99 U/L (38-133); ALT/SGPT 36 U/L (7-56); AST/SGOT 17 U/L (15-39); BILIRUBIN,TOTAL 0.3 mg/dL (0.2-1.3); BLOOD UREA NITROGEN 29 mg/dL (7-21); CALCIUM 9.3 mg/dL (8.4-10.5); CARBON DIOXIDE 38 mmol/L (21-33); CHLORIDE 96 mmol/L (98-107); GFR AFRICAN-AMERICAN > 60; GLUCOSE,RANDOM 125 mg/dL (70-110); POTASSIUM 3.7 mmol/L (3.6-5.0); SODIUM 140 mmol/L (132-148); TOTAL PROTEIN 6.3 g/dL (5.8-8.3)
[2017-04-18] MEDS: Nystatin 100,000 Units/ml Oral Susp 5 ml UD PO SCH ×4 (09:29→22:10)
[2017-04-18] MEDS: Potassium Chloride 20 mEq ER Tab PO SCH ×2 (09:29→17:17)
[2017-04-18] MEDS: diltiaZEM 180 mg/24 Hours CD Cap PO SCH (09:31)
[2017-04-18] MEDS: GlipiZIDE 10 mg SR Tab PO SCH ×2 (09:31→17:16)
--- NOTE | 2017-04-18 11:29 | PN ---
DATE: 04/18/2017 She is in the transitional care unit. She is doing quite well this morning. She is eating her break fast, breathing fairly well. Good spirits, trying on physical therapy. I would like to get her out of bed to chair. PHYSICAL EXAMINATION: VITAL SIGNS: She has a 98 temp, 81 pulse, 153/71 blood pressure, 18 respiratory rate, 98% O2 sat on BiPAP. HEAD: Atraumatic, normocephalic. GENERAL: She is alert, pleasant, and comfortable. No acute chest pain or shortness of breath. HEART: Regular rate. LUNGS: Clear to auscultation, decreased breath sounds, but no wheezes, no rhonchi, no rales. ABDOMEN: Morbidly obese, nontender, positive bowel sounds. EXTREMITIES: No edema at this time. MEDICATIONS: She is on Cardizem, Desyrel, DuoNeb, Ecotrin, Flexeril, Glucophage, Glucotrol, insulin, Januvia, potassium, Lasix 40 IV b.i.d., Lipitor, Lopressor, Mirapex, Mycostatin swish and swallow, p rednisone - she is on 40. I will decrease that down to 30. Protonix, Pulmicort, guaifenesin, Roceph in IV, Singulair, Anthony-Dur, Wellbutrin, azithromycin IV, Zofran, and Zoloft. LABORATORY DATA: She has an 18.4 white count, 11.3 hemoglobin, 38.7 hematocrit with 252 platelets. Sodium 140, potassium 3.7. BUN is 29, creatinine 0.8. GFR is greater than 60. Sugar is 125. Calci um is 9.3. Total bili is 0.3. AST is 17. ALT is 36. Alk phos is 99. Total protein is 6.3. She is being seen by pulmonary. She is in the transitional care unit for her COPD and physical thera py. I will check her labs tomorrow, and hopefully, she will do very well. Thomas Looney DO cc: [id number] TT: 04/18/2017 11:28:26 Confirmation # [id number] Dictation # [id number] jn
[2017-04-18] MEDS: buPROPion SR 150 MG TABLET PO SCH (12:00)
[2017-04-18] MEDS: guaiFENesin 100 mg/5 ml Syrup UD PO PRN (20:10)
[2017-04-19] MEDS: Albuterol-Ipratrop 3 mg / 0.5 (3 ml) UD IH SCH ×4 (03:00→20:44)
[2017-04-19] MEDS: cefTRIAXone 1 gm 1 GM/100 ML BAG IVPB SCH (05:22)
[2017-04-19] MEDS: Azithromycin 500MG/NS 250ml 500 MG/250 ML BAG IVPB SCH (06:17)
[2017-04-19] MEDS: Pantoprazole 40 mg EC Tab PO SCH (06:18)
[2017-04-19] MEDS: Budesonide 0.5 mg/2 ml Inhal Susp UD IH SCH ×2 (07:54→20:44)
[2017-04-19] MEDS: Insulin Reg-MEDIUM-Coverage SC SCH ×4 (08:04→22:41)
--- NOTE | 2017-04-19 08:34 | PN ---
DATE: 04/19/2017 SUBJECTIVE: The patient appears comfortable this morning. She is not short of breath at rest. PHYSICAL EXAMINATION: VITAL SIGNS: Temperature 98.0, pulse 72, respirations 18, blood pressure 133/ 62. Last oxygen saturation -- measured on BiPAP -- 98%. HEENT: Normocephalic, atraumatic. No JVD. CARDIOVASCULAR: Systolic ejection murmur at the lower left sternal border. No S3 gallop. LUNGS: Better breath sounds at the bases. Very minimal/less rhonchi. No wheezing. EXTREMITIES: Positive edema. No cyanosis, no clubbing. Calves are nontender to palpation. GASTROINTESTINAL: Abdomen is soft, nontender, nondistended. Bowel sounds are positive. SKIN: No acute rash. NEUROLOGIC: Limited at the present time. IMPRESSION: 1. Recurrent bronchitis. 2. Advanced chronic obstructive pulmonary disease -- on oxygen and steroids at home. 3. Obstructive sleep apnea. 4. Diabetes mellitus. 5. Mild anemia. PLAN: The patient appears very comfortable this morning. She is not short of breath at rest. She states she is feeling much better overall. On physical exam, her bronchospasm continues to resolve. In addition, there is no significant alveolar-arterial gradient. I will continue with the current nebulizer treatments and decrease the oral steroids this morning. The patient remains on antibiotic therapy. There are no temperatures noted. Clinical status of the patient is significantly improved -- compared to the initial presentation. However, again, the overall status/prognosis for this patient -- with advanced lung disease -- remains very guarded at best. I will discuss the above with Dr. Looney. Wagner Ramos MD cc: [phone] TT: 04/19/2017 08:33:42 Confirmation # [id number] Dictation # [id number] en MTDHallie
--- NOTE | 2017-04-19 08:49 | PN ---
DATE: 04/19/2017 I saw the patient resting in bed in the transitional care unit. She slept fairly well. She has occasional cough and wheeze. MEDICATIONS: She is on lots of medication - Cardizem, Desyrel, DuoNeb, Ecotrin , Flexeril, Glucophage, Glucotrol, insulin, Januvia, potassium, Lasix, Lipitor, Lopressor, Mirapex, nystatin, prednisone down to 30 mg right now, Protonix, Pulmicort, Robitussin, Rocephin, Singulair, Anthony-Dur, Wellbutrin, Zithromax, Zofran, and Zoloft. PHYSICAL EXAMINATION: VITAL SIGNS: She has a 98 temp, 81 pulse, 124/58 blood pressure, 18 respiratory rate, 98% O2 sat on BiPAP. HEAD: Atraumatic, normocephalic. Throat is moist. NECK: Supple. HEART: Regular rate. LUNGS: Have a little bit of a wheeze on the right side today. GENERAL: She is comfortable, tried to get out of bed to chair. ABDOMEN: Morbidly obese, soft, nontender. EXTREMITIES: Trace edema. LABORATORY DATA: She has an 18.4 white count, 11.3 hemoglobin, 38.7 hematocrit with 152 platelets. Sodium 140, potassium 3.7, BUN 29, creatinine 0.8. GFR is greater than 60. Sugar is 125. Calcium is 9.3. Total bili is 0.3. AST is 17. ALT is 36. Alk phos 99, total protein 6.3, albumin 3.0. The patient is being seen by pulmonology. We will continue with aggressive treatment and care. 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 She will continue with the oxygen , physical therapy, and treatment. I will discuss with limnology teacher about her steroid dependence. We will check her labs tomorrow. I encouraged her to get out of bed to chair. I went over her labs with her and her plan. Thomas Looney DO cc: [id number] TT: 04/19/2017 08:48:36 Confirmation # [id number] Dictation # [id number] jn MTDD
[2017-04-19 08:57] LABS: ALB/GLOB RATIO 1.3 (1.1-1.8); ALKALINE PHOSPHATASE 79 U/L (38-133); ALT/SGPT 37 U/L (7-56); AST/SGOT 21 U/L (15-39); BILIRUBIN,TOTAL 0.4 mg/dL (0.2-1.3); BLOOD UREA NITROGEN 21 mg/dL (7-21); CALCIUM 8.7 mg/dL (8.4-10.5); CARBON DIOXIDE 36 mmol/L (21-33); CHLORIDE 95 mmol/L (98-107); GFR AFRICAN-AMERICAN > 60; GLUCOSE,RANDOM 98 mg/dL (70-110); POTASSIUM 3.8 mmol/L (3.6-5.0); SODIUM 139 mmol/L (132-148)
[2017-04-19 09:22] LABS: HEMATOCRIT 37.2 % (36.0-48.0); MEAN CELL VOLUME 74.8 fL (80.0-105.0); MEAN CORPUSCULAR HEMOGLOBIN 21.5 pg (25.0-35.0); MEAN CORPUSCULAR HGB CONC 28.8 g/dl (31.0-37.0); MEAN PLATELET VOLUME 9.2 fl (7.0-11.0); RED CELL DISTRIBUTION WIDTH 18.4 % (11.5-14.5); WHITE BLOOD COUNT 17.9 10^3/ul (4.5-11.0)
[2017-04-19] MEDS: diltiaZEM 180 mg/24 Hours CD Cap PO SCH (10:44)
[2017-04-19] MEDS: GlipiZIDE 10 mg SR Tab PO SCH ×2 (10:46→17:25)
[2017-04-19] MEDS: Potassium Chloride 20 mEq ER Tab PO SCH ×2 (10:46→17:28)
[2017-04-19] MEDS: Nystatin 100,000 Units/ml Oral Susp 5 ml UD PO SCH ×4 (10:49→21:36)
[2017-04-19] MEDS: buPROPion SR 150 MG TABLET PO SCH (10:50)
[2017-04-19] MEDS: guaiFENesin 100 mg/5 ml Syrup UD PO PRN (21:39)
[2017-04-20] MEDS: Albuterol-Ipratrop 3 mg / 0.5 (3 ml) UD IH SCH ×4 (02:34→20:00)
[2017-04-20] MEDS: Pantoprazole 40 mg EC Tab PO SCH (05:55)
[2017-04-20] MEDS: cefTRIAXone 1 gm 1 GM/100 ML BAG IVPB SCH (05:56)
[2017-04-20] MEDS: Azithromycin 500MG/NS 250ml 500 MG/250 ML BAG IVPB SCH (06:02)
[2017-04-20 07:42] LABS: HEMATOCRIT 37.5 % (36.0-48.0); MEAN CELL VOLUME 74.6 fL (80.0-105.0); MEAN CORPUSCULAR HEMOGLOBIN 21.5 pg (25.0-35.0); MEAN CORPUSCULAR HGB CONC 28.8 g/dl (31.0-37.0); RED CELL DISTRIBUTION WIDTH 18.3 % (11.5-14.5); WHITE BLOOD COUNT 18.8 10^3/ul (4.5-11.0)
--- NOTE | 2017-04-20 07:54 | PN ---
DATE: 04/20/2017 SUBJECTIVE: The patient appears comfortable this morning. She is not short of breath at rest. PHYSICAL EXAMINATION: VITAL SIGNS: Temperature is 98.0, pulse 75, respirations 18, blood pressure 134 /56. Oxygen saturation on BiPAP is 98%. HEENT: Normocephalic, atraumatic. No JVD. CARDIOVASCULAR: Systolic ejection murmur at the lower left sternal border. No S3 gallop. LUNGS: Improved breath sounds at the bases. Minimal rhonchi. No wheezing. EXTREMITIES: Positive for edema. No cyanosis, no clubbing. Calves are nontender to palpation. GASTROINTESTINAL: Abdomen is soft, nontender, nondistended. Bowel sounds are positive. SKIN: No acute rash. NEUROLOGIC: Limited at the present time. IMPRESSION: 1. Recurrent bronchitis. 2. Advanced chronic obstructive pulmonary disease -- on oxygen and steroids at home. 3. Obstructive sleep apnea. 4. Diabetes mellitus. 5. Mild anemia. PLAN: The patient appears comfortable this morning. She is not short of breath at rest. She states she is feeling much better overall. On physical exam, her bronchospasm continues to slowly resolve. In addition, there is no significant alveolar-arterial gradient. I will continue with the current nebulizer treatments and oral steroids (decreased yesterday) for now. The patient remains on antibiotic therapy. There are no temperatures noted. The leukocytosis is decreased. Clinical status of the patient is significantly improved -- compared to the initial presentation. However, again, the overall status/prognosis of this patient -- with advanced lung disease -- does remain very guarded at best. I will discuss the above with Dr. Looney. Wagner Ramos MD cc: [id number] TT: 04/20/2017 07:53:54 Confirmation # [id number] Dictation # [id number] en MTDD
[2017-04-20 08:00] LABS: ALB/GLOB RATIO 1.3 (1.1-1.8); ALKALINE PHOSPHATASE 84 U/L (38-133); ALT/SGPT 37 U/L (7-56); AST/SGOT 17 U/L (15-39); BILIRUBIN,TOTAL 0.3 mg/dL (0.2-1.3); BLOOD UREA NITROGEN 20 mg/dL (7-21); CALCIUM 9.3 mg/dL (8.4-10.5); CARBON DIOXIDE 33 mmol/L (21-33); CHLORIDE 99 mmol/L (98-107); GFR AFRICAN-AMERICAN > 60; GLUCOSE,RANDOM 156 mg/dL (70-110); POTASSIUM 3.3 mmol/L (3.6-5.0); SODIUM 141 mmol/L (132-148); TOTAL PROTEIN 6.1 g/dL (5.8-8.3)
[2017-04-20] MEDS: Budesonide 0.5 mg/2 ml Inhal Susp UD IH SCH ×2 (09:02→20:00)
--- NOTE | 2017-04-20 09:02 | PN ---
DATE: 04/20/2017 I saw her resting comfortably in bed in room 320 on transitional care unit. She is eating her breakf ast. She is breathing well on oxygen. She is comfortable. Slept fairly well on BiPAP. MEDICATIONS: She is on Cardizem, Desyrel, DuoNeb, Ecotrin, Flexeril, Glucophage, Glucotrol, insulin, Januvia, potassium, Lasix, Lipitor, Lopressor, Mirapex, nystatin, prednisone at 30 mg as per pulmon ology, Protonix, Pulmicort, Robitussin, Rocephin IV, Singulair, Anthony-Dur, Wellbutrin, Zithromax IV, Z ofran, and Zoloft. PHYSICAL EXAMINATION: VITAL SIGNS: She has a 98 temp, 75 pulse, 134/56 blood pressure, 18 respiratory rate, 98% O2 sat on BiPAP. HEENT: Head is atraumatic, normocephalic. Throat is moist. NECK: Supple. HEART: Regular rate. LUNGS: Decreased breath sounds, but clear to auscultation. No wheezes, no rhonchi, no rales. ABDOMEN: Soft, morbidly obese, nontender, positive bowel sounds. EXTREMITIES: Trace edema if any. LABORATORY DATA: She has an 18.8 white count. She is on steroids and antibiotics, 10.8 hemoglobin, 37.5 hematocrit with 327 platelets. Sodium 141. Potassium is 3.4. We will replace her potassium to day. BUN is 20, creatinine 0.6. GFR is greater than 60. Sugar is 156. Calcium is 9.3. Total bili is 0.3. AST is 17. ALT is 37. Alk phos is 84, total protein 6.1. Albumin is 3.5. She is being seen by pulmonary and physical therapy. She has recurrent bronchitis, advanced COPD on oxygen and steroids at home, obstructive sleep apnea, diabetes, and mild anemia. We will decrease the prednisone, as per pulmonary. We will check her labs tomorrow. I am going to r eplace the potassium today. Encouraged her to eat well and do well in physical therapy. Thomas Looney DO cc: [id number] TT: 04/20/2017 09:02:00 Confirmation # [id number] Dictation # [id number] jn
[2017-04-20] MEDS: Potassium Chloride 20 mEq ER Tab PO SCH ×2 (10:34→17:35)
[2017-04-20] MEDS: buPROPion SR 150 MG TABLET PO SCH (11:00)
[2017-04-20] MEDS: Nystatin 100,000 Units/ml Oral Susp 5 ml UD PO SCH ×4 (11:04→22:00)
[2017-04-20] MEDS: diltiaZEM 180 mg/24 Hours CD Cap PO SCH (11:07)
[2017-04-20] MEDS: GlipiZIDE 10 mg SR Tab PO SCH ×2 (11:08→17:33)
[2017-04-20] MEDS: Insulin Reg-MEDIUM-Coverage SC SCH ×4 (11:37→22:01)
[2017-04-21] MEDS: Albuterol-Ipratrop 3 mg / 0.5 (3 ml) UD IH SCH ×4 (02:13→20:00)
[2017-04-21] MEDS: cefTRIAXone 1 gm 1 GM/100 ML BAG IVPB SCH (05:09)
[2017-04-21] MEDS: Azithromycin 500MG/NS 250ml 500 MG/250 ML BAG IVPB SCH (05:43)
[2017-04-21] MEDS: Pantoprazole 40 mg EC Tab PO SCH (05:44)
[2017-04-21] MEDS: Budesonide 0.5 mg/2 ml Inhal Susp UD IH SCH ×2 (07:28→20:00)
[2017-04-21 08:07] LABS: HEMATOCRIT 36.7 % (36.0-48.0); MEAN CELL VOLUME 74.7 fL (80.0-105.0); MEAN CORPUSCULAR HEMOGLOBIN 21.6 pg (25.0-35.0); MEAN CORPUSCULAR HGB CONC 28.9 g/dl (31.0-37.0); MEAN PLATELET VOLUME 8.9 fl (7.0-11.0); RED CELL DISTRIBUTION WIDTH 18.5 % (11.5-14.5); WHITE BLOOD COUNT 16.6 10^3/ul (4.5-11.0)
[2017-04-21 08:18] LABS: ALB/GLOB RATIO 1.5 (1.1-1.8); ALKALINE PHOSPHATASE 95 U/L (38-133); ALT/SGPT 37 U/L (7-56); AST/SGOT 17 U/L (15-39); BILIRUBIN,TOTAL 0.5 mg/dL (0.2-1.3); BLOOD UREA NITROGEN 21 mg/dL (7-21); CALCIUM 9.3 mg/dL (8.4-10.5); CARBON DIOXIDE 34 mmol/L (21-33); CHLORIDE 97 mmol/L (95-110); GFR AFRICAN-AMERICAN > 60; GLUCOSE,RANDOM 132 mg/dL (70-110); POTASSIUM 3.1 mmol/L (3.6-5.0); SODIUM 141 mmol/L (132-148); TOTAL PROTEIN 6.2 g/dL (5.8-8.3)
--- NOTE | 2017-04-21 08:24 | PN ---
DATE: 04/21/2017 SUBJECTIVE: The patient appears comfortable this morning. She is not short of breath at rest. PHYSICAL EXAMINATION: VITAL SIGNS: Temperature is 98.2, pulse 85, respirations 16/18, blood pressure 136/77. Oxygen saturation on nasal cannula is 98%. HEENT: Normocephalic, atraumatic. No JVD. CARDIOVASCULAR: Systolic ejection murmur at the lower left sternal border. No S3 gallop. LUNGS: Minimal/less rhonchi. No wheezing. EXTREMITIES: Positive for edema. No cyanosis. No clubbing. Calves are nontender to palpation. GASTROINTESTINAL: Abdomen is soft, nontender, nondistended. Bowel sounds are positive. SKIN: No acute rash. NEUROLOGIC: Limited at the present time. IMPRESSION: 1. Recurrent bronchitis. 2. Advanced chronic obstructive pulmonary disease -- on oxygen and steroids at home. 3. Obstructive sleep apnea. 4. Diabetes mellitus. 5. Mild anemia. PLAN: The patient appears comfortable this morning. She is not short of breath at rest. She states she is feeling much better overall. She is also getting out of bed to the chair much more often. On physical exam, her bronchospasm continues to slowly resolve. In addition, there is no significant alveolar-arterial gradient. I will continue with the current nebulizer treatments and inhaled steroids for now. I will also continue with the current prednisone dosage. The patient remains on antibiotic therapy. Clinical status of the patient is significantly improved -- compared to the initial presentation. However, again, the overall status/prognosis for this patient -- with advanced lung disease -- does remain very guarded. I did discuss the above with Dr. Looney. Wagner Ramos MD cc: [id number] TT: 04/21/2017 08:23:56 Confirmation # [id number] Dictation # [id number] en MTDD
[2017-04-21] MEDS: Insulin Reg-MEDIUM-Coverage SC SCH ×4 (08:30→21:43)
[2017-04-21] MEDS: Potassium Chloride 20 mEq ER Tab PO SCH (08:35)
[2017-04-21] MEDS: GlipiZIDE 10 mg SR Tab PO SCH ×2 (08:35→17:23)
--- NOTE | 2017-04-21 08:36 | PN ---
DATE: 04/21/2017 I see her resting in bed. She slept well. She is hungry. She is looking forward to breakfast. She is in good spirits. She is improving. MEDICATIONS: She is on Cardizem, Desyrel, DuoNeb, Ecotrin, Flexeril, Glucophage, insulin, Januvia, p otassium, Lasix, Lipitor, Lopressor, Mirapex, nystatin, prednisone, Protonix, Pulmicort, Robitussin, Rocephin, Singulair, Anthony-Dur, Wellbutrin, Zithromax, Zofran and Zoloft. PHYSICAL EXAMINATION: VITAL SIGNS: She has 98.2 temp, 85 pulse, 136/77 blood pressure, 98% O2 sat on room air. HEAD: Atraumatic, normocephalic. Throat is moist. NECK: Supple. HEART: Regular rate. LUNGS: Decreased breath sounds, but clear bilaterally. No wheezes, no rhonchi, no rales. That is 2 days in a row the lungs have been clear. ABDOMEN: Morbidly, morbidly obese, nontender, positive bowel sounds. No guarding, no rebound, no CV A tenderness. EXTREMITIES: Have no edema. LABORATORY DATA: She had an 18.8 white count yesterday; do not have this morning's labs. Last blood sugar was 140. We had to give her potassium yesterday for low potassium. We are checking her labs today. She is being seen by pulmonary. I discussed this with pulmonary this morning - that she is doing muc h better. Will continue to decrease her steroids. The plan for discharge on Wednesday (today is Wednesday). I will follow on the outpatient. I told her that Wednesday she will be going home. She is doing much better. She has to work hard in therapy, eat well, get out of bed all day, take the medications, and hopefully she will continue to improve. This patient has severe chronic obstructive pulmonary disease, recurrent bronchitis, obstructive slee p apnea, diabetes mellitus, anemia. Thomas Looney DO cc: [id number] TT: 04/21/2017 08:36:13 Confirmation # [id number] Dictation # [id number] mn
[2017-04-21] MEDS: diltiaZEM 180 mg/24 Hours CD Cap PO SCH (10:37)
[2017-04-21] MEDS: buPROPion SR 150 MG TABLET PO SCH (10:39)
[2017-04-21] MEDS: Nystatin 100,000 Units/ml Oral Susp 5 ml UD PO SCH ×4 (10:39→21:26)
[2017-04-22] MEDS: Albuterol-Ipratrop 3 mg / 0.5 (3 ml) UD IH SCH ×4 (01:17→20:59)
[2017-04-22] MEDS: Pantoprazole 40 mg EC Tab PO SCH (06:01)
[2017-04-22] MEDS: Insulin Reg-MEDIUM-Coverage SC SCH ×4 (06:31→21:54)
[2017-04-22 07:08] LABS: ALB/GLOB RATIO 1.4 (1.1-1.8); ALKALINE PHOSPHATASE 90 U/L (38-133); ALT/SGPT 33 U/L (7-56); AST/SGOT 19 U/L (15-39); BILIRUBIN,TOTAL 0.3 mg/dL (0.2-1.3); BLOOD UREA NITROGEN 19 mg/dL (7-21); CARBON DIOXIDE 31 mmol/L (21-33); CHLORIDE 100 mmol/L (98-107); GFR AFRICAN-AMERICAN > 60; GLUCOSE,RANDOM 133 mg/dL (70-110); POTASSIUM 3.5 mmol/L (3.6-5.0); SODIUM 142 mmol/L (132-148); TOTAL PROTEIN 6.6 g/dL (5.8-8.3)
--- NOTE | 2017-04-22 07:16 | PN ---
DATE: 04/22/2017 The patient appears comfortable this morning. She is not short of breath at rest. OBJECTIVE: VITAL SIGNS: Temperature is 97.9, pulse 83, respirations 18, blood pressure 155 /69. Oxygen saturation on nasal cannula is 97%. HEENT: Normocephalic, atraumatic. No JVD. CARDIOVASCULAR: Systolic ejection murmur at the lower left sternal border. No S3 gallop. LUNGS: Very minimal/less rhonchi. No wheezing. EXTREMITIES: Positive for edema. No cyanosis, no clubbing. Calves are nontender to palpation. GASTROINTESTINAL: Abdomen is soft, nontender, nondistended. Bowel sounds are positive. SKIN: No acute rash. NEUROLOGIC: Limited at the present time. IMPRESSION: 1. Recurrent bronchitis. 2. Advanced chronic obstructive pulmonary disease - on oxygen and steroids at home. 3. Obstructive sleep apnea. 4. Diabetes mellitus. 5. Mild anemia. PLAN: The patient appears comfortable this morning. She is not short of breath at rest. She does state to feeling better overall. On physical exam, her bronchospasm continues to slowly resolve. In addition, there is no significant alveolar arterial gradient. I will continue with the current nebulizer treatments and current oral steroids for now. The patient remains off antibiotic therapy. There are no temperatures noted. The leukocytosis is decreasing. Clinical status of the patient is significantly improved - compared to the initial presentation. However, again, the overall status/ prognosis for this elderly patient - with advanced lung disease - remains very guarded at best. All are aware. I will discuss the above with Dr. Looney. Wagner Ramos MD cc: [id number] TT: 04/22/2017 07:16:23 Confirmation # [id number] Dictation # [id number] BUTLER
[2017-04-22] MEDS: Budesonide 0.5 mg/2 ml Inhal Susp UD IH SCH ×2 (07:30→20:59)
[2017-04-22] MEDS: GlipiZIDE 10 mg SR Tab PO SCH ×2 (08:14→17:30)
[2017-04-22] MEDS: Potassium Chloride 20 mEq ER Tab PO SCH (08:15)
[2017-04-22 08:45] LABS: HEMATOCRIT 36.8 % (36.0-48.0); MEAN CELL VOLUME 75.7 fL (80.0-105.0); MEAN CORPUSCULAR HEMOGLOBIN 21.8 pg (25.0-35.0); MEAN CORPUSCULAR HGB CONC 28.8 g/dl (31.0-37.0); MEAN PLATELET VOLUME 9.4 fl (7.0-11.0); RED CELL DISTRIBUTION WIDTH 19.9 % (11.5-14.5); WHITE BLOOD COUNT 17.8 10^3/ul (4.5-11.0)
[2017-04-22] MEDS: buPROPion SR 150 MG TABLET PO SCH (09:52)
[2017-04-22] MEDS: diltiaZEM 180 mg/24 Hours CD Cap PO SCH (09:52)
[2017-04-22] MEDS: Nystatin 100,000 Units/ml Oral Susp 5 ml UD PO SCH ×4 (09:52→21:49)
[2017-04-22] MEDS: guaiFENesin 100 mg/5 ml Syrup UD PO PRN (09:54)
--- NOTE | 2017-04-22 10:32 | PN ---
DATE: 04/22/2017 I saw the patient in the transitional care unit, sitting up in bed. She ate her breakfast completely, and then she said to the nurse that she was nauseous. She is not throwing up, but I am going to give her Zofran 4 mg p.o. q. 6 p.r.n. Also, she is asking me to stay until Wednesday. Her discharge date is Wednesday because there is nobody with her until Wednesday when she can get 24-hour help again. We will talk to social media director and see if they can keep her until Wednesday. MEDICATIONS: She is on Cardizem, Desyrel, DuoNeb, Ecotrin, Flexeril, Glucophage , Glucotrol, insulin, Januvia, potassium, Lasix, Lipitor, Lopressor, Mirapex, nystatin, prednisone, Protonix, Pulmicort, Robitussin, Singulair, Anthony-Dur, Tylenol, Wellbutrin, Zofran, and Zoloft. PHYSICAL EXAMINATION: VITAL SIGNS: Temp 97.9, 92 pulse, 115/69 blood pressure, and 97% O2 sat on 2 liters nasal cannula. HEAD: Atraumatic, normocephalic. Throat is moist. NECK: Supple. HEART: Regular rate. LUNGS: Decreased breath sounds, but clear to auscultation. No wheezes, no rhonchi, no rales. That is 3 days in a row the lungs sound good. ABDOMEN: Soft, morbidly obese, nontender. She tells me she is nauseous, but she has a normal examination of the belly, and she did not throw up. EXTREMITIES: No edema. I am going to give her some Zofran. We will check her labs tomorrow. We will see if they will extend her until Wednesday. Continue with pulmonary care. We will check her labs tomorrow. She is doing well. The patient had COPD, asthma, obstructive sleep apnea, anemia, diabetes, and now some nauseousness. Thomas Looney DO cc: [id number] TT: 04/22/2017 09:04:09 Confirmation # [id number] Dictation # [id number] jn 04/22/2017 09:31:09 CARRIE
[2017-04-23] MEDS: Pantoprazole 40 mg EC Tab PO SCH (05:45)
[2017-04-23] MEDS: Insulin Reg-MEDIUM-Coverage SC SCH ×4 (07:04→22:00)
[2017-04-23 07:42] LABS: ALB/GLOB RATIO 1.4 (1.1-1.8); ALKALINE PHOSPHATASE 82 U/L (38-133); ALT/SGPT 40 U/L (7-56); AST/SGOT 19 U/L (15-39); BILIRUBIN,TOTAL 0.3 mg/dL (0.2-1.3); BLOOD UREA NITROGEN 19 mg/dL (7-21); CALCIUM 9.2 mg/dL (8.4-10.5); CARBON DIOXIDE 35 mmol/L (21-33); CHLORIDE 100 mmol/L (95-110); GFR AFRICAN-AMERICAN > 60; GLUCOSE,RANDOM 83 mg/dL (70-110); POTASSIUM 3.6 mmol/L (3.6-5.0); SODIUM 142 mmol/L (132-148); TOTAL PROTEIN 6.1 g/dL (5.8-8.3)
[2017-04-23 07:42] LABS: HEMATOCRIT 35.3 % (36.0-48.0); MEAN CELL VOLUME 75.3 fL (80.0-105.0); MEAN CORPUSCULAR HEMOGLOBIN 21.3 pg (25.0-35.0); MEAN CORPUSCULAR HGB CONC 28.3 g/dl (31.0-37.0); MEAN PLATELET VOLUME 8.8 fl (7.0-11.0); RED CELL DISTRIBUTION WIDTH 18.9 % (11.5-14.5); WHITE BLOOD COUNT 15.9 10^3/ul (4.5-11.0)
[2017-04-23] MEDS: Budesonide 0.5 mg/2 ml Inhal Susp UD IH SCH ×2 (07:46→20:34)
[2017-04-23] MEDS: Albuterol-Ipratrop 3 mg / 0.5 (3 ml) UD IH SCH ×3 (07:46→20:35)
--- NOTE | 2017-04-23 07:54 | PN ---
DATE: 04/23/2017 I see her resting comfortably in the TCU with the BiPAP on. She slept fairly well. She is comfortab le. She tells me she is being discharged tomorrow after dinner. That is what she arranged with soci al services. She did not want to be left alone at home too long. She is on Cardizem, Desyrel, DuoNeb, Ecotrin, Flexeril, Glucophage, Glucotrol, insulin, Januvia, pota ssium, IV Lasix, Lipitor, metoprolol, Mirapex, nystatin, prednisone at 30, Protonix, Pulmicort, Robit ussin, Singulair, Anthony-Dur, Tylenol, Wellbutrin, Zofran and Zoloft. PHYSICAL EXAMINATION: VITAL SIGNS: She has a 98.2 temp, 92 pulse, 142/69 blood pressure, 94% O2 sat on 2 liters nasal neal thang. HEENT: Head is atraumatic, normocephalic. HEART: Regular rate. LUNGS: Decreased breath sounds bilaterally, but clear to auscultation. No wheezes, rhonchi or rales . ABDOMEN: Soft, morbidly obese, nontender. EXTREMITIES: Trace edema. She has a 17.8 white count, 10.6 hemoglobin, 36.8 hematocrit with 370 platelets. A 142 sodium, potas sium 3.5, BUN 19, creatinine 0.6, GFR is greater than 60, sugar is 103, calcium is 9, total bili is 0 .3, AST is 19, ALT is 33, alk phos 90, total protein 6.6. She is being seen by pulmonary. I am going to decrease the Solu-Medrol to 20 mg today. Hopefully, s he will do well and we can discharge her tomorrow. That is my plan for the patient, who is here for severe chronic obstructive pulmonary disease, asthmatic bronchitis, obstructive sleep apnea, anemia a nd diabetes. Thomas Looney DO cc: [id number] TT: 04/23/2017 07:54:37 Confirmation # [id number] Dictation # [id number] en
[2017-04-23] MEDS: Potassium Chloride 20 mEq ER Tab PO SCH (08:20)
[2017-04-23] MEDS: GlipiZIDE 10 mg SR Tab PO SCH ×2 (08:21→17:45)
--- NOTE | 2017-04-23 08:21 | PN ---
DATE: 04/23/2017 The patient appears very comfortable this morning. She is not short of breath at rest. PHYSICAL EXAMINATION: VITAL SIGNS: Temperature is 98.2, pulse is 88, respiratory rate 18, blood pressure 111/58. Oxygen saturation on nasal cannula is 94%. HEENT: Normocephalic, atraumatic. No JVD. CARDIOVASCULAR: Systolic ejection murmur at the lower left sternal border. No S3 gallop. LUNGS: No rhonchi or wheezing this morning. EXTREMITIES: Positive for edema. No cyanosis, no clubbing. Calves are nontender to palpation. GASTROINTESTINAL: Abdomen is soft, nontender, nondistended. Bowel sounds are positive. SKIN: No acute rash. NEUROLOGIC: Limited at the present time. IMPRESSION: 1. Recurrent bronchitis. 2. Advanced chronic obstructive pulmonary disease -- on oxygen and steroids at home. 3. Obstructive sleep apnea. 4. Diabetes mellitus. 5. Mild anemia. PLAN: The patient appears very comfortable this morning. She is not short of breath at rest. She does state to feeling much better overall. On physical exam, her bronchospasm has primarily resolved. In addition, there is no significant alveolar-arterial gradient. I will continue with the nebulizer treatments and oral steroids for now. The patient remains off antibiotic therapy. There are no temperatures noted. The leukocytosis is decreasing. Clinical status of the patient is significantly improved -- compared to the initial presentation. However, again, the overall status/prognosis for this patient remains very guarded at best -- as she does continue to have advanced lung disease. I did discuss the case with Dr. Looney this morning. The patient is for discharge tomorrow morning. She is advised to follow up with Dr. Rogers in the office. She fully agrees. Wagner Ramos MD cc: [id number] TT: 04/23/2017 08:21:00 Confirmation # [id number] Dictation # [id number] en MTDD
[2017-04-23] MEDS: Nystatin 100,000 Units/ml Oral Susp 5 ml UD PO SCH ×4 (10:20→21:55)
[2017-04-23] MEDS: diltiaZEM 180 mg/24 Hours CD Cap PO SCH (10:20)
[2017-04-23] MEDS: buPROPion SR 150 MG TABLET PO SCH (10:22)
[2017-04-23] MEDS: guaiFENesin 100 mg/5 ml Syrup UD PO PRN (14:31)
[2017-04-24] MEDS: Albuterol-Ipratrop 3 mg / 0.5 (3 ml) UD IH SCH ×3 (02:27→13:22)
[2017-04-24] MEDS: Pantoprazole 40 mg EC Tab PO SCH (05:49)
[2017-04-24 08:07] LABS: MEAN CELL VOLUME 75.3 fL (80.0-105.0); MEAN CORPUSCULAR HEMOGLOBIN 21.8 pg (25.0-35.0); MEAN CORPUSCULAR HGB CONC 28.9 g/dl (31.0-37.0); MEAN PLATELET VOLUME 8.9 fl (7.0-11.0)
[2017-04-24] MEDS: GlipiZIDE 10 mg SR Tab PO SCH ×2 (08:30→17:39)
[2017-04-24 08:31] LABS: ALB/GLOB RATIO 1.4 (1.1-1.8); ALKALINE PHOSPHATASE 84 U/L (38-133); ALT/SGPT 37 U/L (7-56); AST/SGOT 18 U/L (15-39); BILIRUBIN,TOTAL 0.3 mg/dL (0.2-1.3); BLOOD UREA NITROGEN 20 mg/dL (7-21); CALCIUM 9.2 mg/dL (8.4-10.5); CARBON DIOXIDE 34 mmol/L (21-33); CHLORIDE 99 mmol/L (98-107); GFR AFRICAN-AMERICAN > 60; GLUCOSE,RANDOM 115 mg/dL (70-110); POTASSIUM 3.7 mmol/L (3.6-5.0); SODIUM 141 mmol/L (132-148); TOTAL PROTEIN 6.3 g/dL (5.8-8.3)
[2017-04-24] MEDS: Insulin Reg-MEDIUM-Coverage SC SCH ×3 (08:31→18:04)
[2017-04-24] MEDS: Potassium Chloride 20 mEq ER Tab PO SCH (08:32)
[2017-04-24] MEDS: Budesonide 0.5 mg/2 ml Inhal Susp UD IH SCH (09:11)
--- NOTE | 2017-04-24 09:18 | PN ---
DATE: 04/24/2017 SUBJECTIVE: The patient appears very comfortable at rest. She is not short of breath. PHYSICAL EXAMINATION: VITAL SIGNS: Temperature is 98.2, pulse 74, respirations 18/20, blood pressure 141/79. Oxygen saturation on nasal cannula is 97-100%. HEENT: Normocephalic, atraumatic. No JVD. CARDIOVASCULAR: Systolic ejection murmur at the lower left sternal border. No S3 gallop. LUNGS: Clear bilaterally. EXTREMITIES: Positive for edema. No cyanosis, no clubbing. Calves are nontender to palpation. GASTROINTESTINAL: Abdomen is soft, nontender, nondistended. Bowel sounds are positive. SKIN: No acute rash. NEUROLOGIC: Limited at the present time. IMPRESSION: 1. Recurrent bronchitis. 2. Advanced chronic obstructive pulmonary disease -- on oxygen and steroids at home. 3. Obstructive sleep apnea. 4. Diabetes mellitus. 5. Mild anemia. PLAN: The patient appears very comfortable this morning. She is not short of breath at rest. She states she is feeling much better overall. On physical exam, her bronchospasm has primarily resolved. In addition, the alveolar arterial gradient has also resolved. Oxygen saturation on nasal cannula is now 97-100%. I would continue with the current nebulizer treatments and oral steroids (decreased yesterday) for now. The patient is for probable discharge later today. She has improved significantly while in the hospital. However, again, the overall status/prognosis for this elderly woman -- with advanced lung disease -- remains very guarded at best. All are aware. I will discuss the above with Dr. Looney this morning. Wagner Ramos MD cc: [id number] TT: 04/24/2017 09:17:41 Confirmation # [id number] Dictation # [id number] nabila BUTLER
[2017-04-24] MEDS: diltiaZEM 180 mg/24 Hours CD Cap PO SCH (10:21)
[2017-04-24] MEDS: Nystatin 100,000 Units/ml Oral Susp 5 ml UD PO SCH ×3 (10:23→17:40)
[2017-04-24] MEDS: buPROPion SR 150 MG TABLET PO SCH (10:24)
[2017-04-24 11:40] VITALS: RESP 16; TEMP 97.8; O2SAT 100
[2017-04-24 17:43] VITALS: BP 117/67; PULSE 83
--- NOTE | 2017-04-25 09:11 | DS ---
I saw her in the transitional care unit. She is resting comfortably in bed. She is in good spirits. She said she is feeling well, better than when she came in and looking forward to going home. I went over the medications with her. The only medication that she is not going to have is her prednisone, so I wrote a prescription for prednisone 10 mg 3 for 3, 2 for 3 days, 1 for 3 days and stop. She will go home on her regular medication, which is Cardizem, Desyrel, albuterol, Ecotrin, Flexeril, Glucophage, Glucotrol, Januvia, potassium , Lasix, Lipitor, Lopressor, Mirapex, nystatin, Protonix, Pulmicort, Robitussin , Singulair, Anthony-Dur, Tylenol, Wellbutrin, Zofran and Zoloft. PHYSICAL EXAMINATION: VITAL SIGNS: Temp 97.8, 81 pulse, 141/72 blood pressure, 16 respiratory rate and 100% O2 sat on room air. HEENT: Head is atraumatic, normocephalic. Throat is moist. NECK: Supple. HEART: Regular rate. LUNGS: Decreased breath sounds bilaterally, but no wheezes, no rhonchi, no rales. ABDOMEN: Soft, nontender, positive bowel sounds, obese. EXTREMITIES: Have no edema. She has a 15 white count, 10.4 hemoglobin, 36 hematocrit and platelets. Sodium 141, potassium 3.7, BUN is 20, creatinine 0.7, GFR is greater than 60, sugar is 115, calcium is 9.2, total bili is 0.3, AST is 18, ALT is 37, alk phos 84, total protein 6.3. She is being seen by pulmonary. They agree with the discharge. I will wean her off the steroids. I will see her on a house call in a week. She was here for severe chronic obstructive pulmonary disease and debility, obstructive sleep apnea, anemia and diabetes. Thomas Looney DO cc: [id number] TT: 04/25/2017 09:10:23 en MTDD
== END 2017-04-24 20:14 | disposition home or self-care (01) | DRG 190 ==
LOC: TRCU 23:09
PROVIDERS: ADMIT Family Medicine; ATTEND Family Medicine
PROC: F07Z9FZ Gait Training/Functional Ambulation Treatment using Assistive, Adaptive, Supportive or Protective Equipment (ICD-10-PCS; principal; 2017-04-16)
PROC: F07M6ZZ Therapeutic Exercise Treatment of Musculoskeletal System - Whole Body (ICD-10-PCS; 2017-04-16)
PROC: F08Z2ZZ Grooming/Personal Hygiene Treatment (ICD-10-PCS; 2017-04-17)
PROC: F08Z1ZZ Dressing Techniques Treatment (ICD-10-PCS; 2017-04-17)
DX: J44.1 Chronic obstructive pulmonary disease with (acute) exacerbation (principal); J18.9 Pneumonia, unspecified organism; I11.0 Hypertensive heart disease with heart failure; Z99.81 Dependence on supplemental oxygen; I50.9 Heart failure, unspecified; Z68.43 Body mass index [BMI] 50.0-59.9, adult; E11.9 Type 2 diabetes mellitus without complications; D64.9 Anemia, unspecified; D72.829 Elevated white blood cell count, unspecified; E66.01 Morbid (severe) obesity due to excess calories; F41.9 Anxiety disorder, unspecified; G47.33 Obstructive sleep apnea (adult) (pediatric); H54.7 Unspecified visual loss; K21.9 Gastro-esophageal reflux disease without esophagitis; J44.0 Chronic obstructive pulmonary disease with (acute) lower respiratory infection; R53.81 Other malaise; H91.90 Unspecified hearing loss, unspecified ear; Z82.49 Family history of ischemic heart disease and other diseases of the circulatory system; Z83.3 Family history of diabetes mellitus; Z87.891 Personal history of nicotine dependence; Z95.5 Presence of coronary angioplasty implant and graft; Z90.710 Acquired absence of both cervix and uterus; Z91.81 History of falling; K59.00 Constipation, unspecified; F32.89 Other specified depressive episodes; Z90.49 Acquired absence of other specified parts of digestive tract; R40.2413 Glasgow coma scale score 13-15, at hospital admission; J45.909 Unspecified asthma, uncomplicated

== ENCOUNTER 2017-05-12 17:22 | Emergency (ER) | payer MEDICARE, MEDICAID ==
[2017-05-12 17:38] VITALS: BMI 53.6
[2017-05-12] MEDS ORDERED: Oxycodone/Acetaminophen 5/325 mg Tab PO STA (17:41)
[2017-05-12] MEDS ORDERED: Lidocaine 5% Patch TD STA (17:41)
[2017-05-12 17:44] VITALS: RESP 20; TEMP 98.5; O2SAT 98
--- NOTE | 2017-05-12 17:47 | ED PDOC ---
Arrival/HPI - General Time Seen by Provider: 05/12/17 17:25 Historian: Patient - History of Present Illness Narrative History of Present Illness (Text): 05/12/17 17:45 67 y/o female, pmh including htn/hyperlipidemia/dm/chf/copd with chronically on nasal cannula 3L, nkda, c/o lower back pain x 4 days with no fall or trauma. Aching pain, aggravated by movement, no numbness or tingling, no urinary symptoms, no flank or abdominal pain, no urinary symptoms, no night sweat, no rash, no hematuria, no urinary or bowel incontinence or retention, no other medical or psychological complaints. Past Medical History - Provider Review Nursing Documentation Reviewed: Yes - Infectious Disease Hx of Infectious Diseases: None - Tetanus Immunization Tetanus Immunization: Unknown - Cardiac Hx Cardiac Disorders: Yes Hx Congestive Heart Failure: Yes Hx Hypertension: Yes - Pulmonary Hx Chronic Obstructive Pulmonary Disease (COPD): Yes - Neurological Hx Neurological Disorder: Yes (hand tremors) - HEENT Hx HEENT Disorder: Yes (uses eyeglasses) Hx Deafness: Yes Other/Comment: pt [place] ([place] had hearing aids broken at home - Renal Hx Renal Disorder: No - Endocrine/Metabolic Hx Diabetes Mellitus Type 2: Yes Hx Hypothyroidism: Yes - Hematological/Oncological Hx Blood Disorders: No - Integumentary Hx Dermatological Disorder: Yes Other/Comment: ble +1 edema and red dry skin,pt has red skin under abd fold and under breasts on and off, none now - Musculoskeletal/Rheumatological Hx Falls: Yes (past) - Gastrointestinal Hx Gastrointestinal Disorders: (CONSTIPATION,) Hx Gastroesophageal Reflux: Yes - Genitourinary/Gynecological Hx Reproductive Disorders: No - Psychiatric Hx Psychophysiologic Disorder: Yes Hx Anxiety: Yes Hx Depression: Yes Hx Substance Use: No - Surgical History Hx Appendectomy: Yes Hx Hysterectomy: Yes Hx Open Heart Surgery: Yes (1957) Other/Comment: Tonsillectomy. Mitral valve repair as an infant. 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 - Anesthesia Hx Anesthesia Reactions: No - Suicidal Assessment Feels Threatened In Home Enviroment: No Family/Social History - Physician Review Nursing Documentation Reviewed: Yes Family/Social History: Unknown Family HX Smoking Status: Current Some Days Smoker Hx Alcohol Use: No Hx Substance Use: No Hx Substance Use Treatment: No Allergies/Home Meds Allergies/Adverse Reactions: Allergies No Known Allergies Allergy (Verified 05/12/17 17:37) Home Medications: Home Meds Medication Instructions Recorded Confirmed Glipizide [Glipizide ER] 10 mg PO BID 03/13/17 05/12/17 Pramipexole Di-HCl [Mirapex] 0.25 mg PO HS 03/13/17 05/12/17 Simvastatin 20 mg PO HS 03/13/17 05/12/17 Budesonide [Pulmicort] 2 puff IH BID 04/01/17 04/15/17 Cyclobenzaprine [Flexeril] 10 mg PO HS 04/01/17 05/12/17 Theophylline [Anthony-Dur] 200 mg PO BID 04/01/17 05/12/17 Aspirin [Ecotrin] 81 mg PO DAILY 04/12/17 05/12/17 Pantoprazole Sodium [Protonix] 40 mg PO DAILY 04/12/17 05/12/17 Potassium 20 20 meq PO DAILY 04/12/17 05/12/17 Sertraline [Zoloft] 75 mg PO DAILY 04/12/17 05/12/17 Diltiazem HCl [Diltiazem ER] 360 mg PO DAILY 05/12/17 05/12/17 Furosemide [Lasix] 40 mg PO BID 05/12/17 05/12/17 MetFORMIN [glucoPHAGE] 1,000 mg PO BID 05/12/17 05/12/17 Multivitamin [Multivitamins] 1 tab PO DAILY 05/12/17 05/12/17 SITagliptin [Januvia] 100 mg PO DAILY 05/12/17 05/12/17 buPROPion XL [Wellbutrin XL] 300 mg PO DAILY 05/12/17 05/12/17 Review of Systems - Review of Systems Constitutional: absent: Fatigue, Fevers Eyes: absent: Vision Changes ENT: absent: Hearing Changes Respiratory: absent: SOB, Cough Cardiovascular: absent: Chest Pain Gastrointestinal: absent: Abdominal Pain, Diarrhea, Nausea, Vomiting Genitourinary Female: absent: Dysuria, Frequency, Urine Output Changes, Vaginal Bleeding Musculoskeletal: Back Pain. absent: Arthralgias, Neck Pain, Joint Swelling, Myalgias Skin: absent: Rash, Pruritis, Skin Lesions, Laceration Psychiatric: absent: Anxiety, Depression, Suicidal Ideation Physical Exam Vital Signs Temp Pulse Resp BP Pulse Ox 05/12/17 20:57 82 20 133/60 98 05/12/17 17:23 98.5 F 85 20 132/56 L 98 Appearance: Positive for: Well-Appearing, Non-Toxic Pain Distress: Severe Mental Status: Positive for: Alert and Oriented X 3 - Systems Exam Head: Present: Atraumatic, Normocephalic Pupils: Present: PERRL Extroacular Muscles: Present: EOMI Conjunctiva: Present: Normal Mouth: Present: Moist Mucous Membranes Neck: Present: Normal Range of Motion Respiratory/Chest: Present: Clear to Auscultation, Good Air Exchange, Other ( Pt. has bilateral 1+ pedal edema bilaterally on the tibial region with no cellulitis or streaking, no ulcers. ). No: Respiratory Distress, Accessory Muscle Use Cardiovascular: Present: Regular Rate and Rhythm, Normal S1, S2. No: Murmurs Abdomen: Present: Normal Bowel Sounds. No: Tenderness, Distention, Peritoneal Signs Back: Present: Normal Inspection, Paraspinal Tenderness (LS spine: +ttp on the lt. paraspinal muscle region, no midline tenderness or step off, no cellulitis or shingles, no rash, no streaking or ulcers, FROM without limitation, sensation inact, motor 5/5.). No: CVA Tenderness, Midline Tenderness Upper Extremity: Present: Normal Inspection. No: Cyanosis, Edema Lower Extremity: Present: Normal Inspection. No: Edema Neurological: Present: GCS=15, Speech Normal, Motor Func Grossly Intact, Memory Normal Skin: Present: Warm, Dry, Normal Color. No: Rashes Psychiatric: Present: Alert, Oriented x 3, Normal Insight, Normal Concentration Medical Decision Making ED Course and Treatment: 05/12/17 17:48 -EKG performed prior to my arrival to evaluate the patient which shows the following: NSR @ 85 BPM, no ST elevation or depression, no T wave inversion. -Percocet/lidoderm -Dr. Looney is in the ER and discussed about the pedal edema which he stated that is her baseline with BNP from 03/2017 show no elevation. -Observe and reassess 05/12/17 18:40 -CT Lumbar spine: show there is osteophyte with disc bulging L3L4/L4L5 with spinal stenosis. -Pt. feels improved with the pain med but not completely relief, morphine 4mg IM ordered. -I checked the [facility] report which the patient has no narcotics prescribed for the past 12 months, there are no signs of drug abuse. Discharge home with percocet, lidoderm patch, bed rest, follow up with your own pmd and pain management within 2 days, return to the ER for any new or worsening signs or symptoms. - RAD Interpretation Radiology Orders: 05/12/17 17:41 LUMBAR SPINE W/O CONTRAST [CT] Stat PROCEDURE: CT Lumbar Spine without contrast HISTORY: lower back pain x 4 days COMPARISON: Comparison is made to the previous study dated 10/25/2015 TECHNIQUE: Axial computed tomography images were obtained of the lumbar spine without the use of intravenous contrast. Coronal and sagittal reformatted images were created and reviewed. Radiation dose: Total exam DLP = 937.9 mGy-cm. This CT exam was performed using one or more of the following dose reduction techniques: Automated exposure control, adjustment of the mA and/or kV according to patient size, and/or use of iterative reconstruction technique. FINDINGS: VERTEBRAE: Unremarkable. No fracture. Normal alignment. DISCS/SPINAL CANAL/NEURAL FORAMINA: L1-2: Unremarkable. L2-3: Unremarkable. L3-4: Again seen is a small osteophyte disc bulging complex associated with posterior ligament and facet joint hypertrophy which resulting in mild spinal and neural foraminal narrowing. L4-5: Small osteophyte disc herniation complex again seen associated with posterior ligament and facet joint hypertrophy which resulting in mild spinal and neural foraminal narrowing. L5-S1: Unremarkable. PARASPINAL SOFT TISSUES: Unremarkable. OTHER FINDINGS: None. IMPRESSION: No evidence of acute fracture or subluxation. Mild spondylosis is again noted. Small osteophyte disc bulging complex at L3-L4 and L4-L5 again noted associated with mild spinal and neural foraminal narrowing. Oxygen Therapy Technician: Radiologist - EKG Interpretation EKG Interpretation (Text): 05/12/17 17:49 NSR @ 85 BPM, no ST elevation or depression, no T wave inversion Interpreted by ED Physician: Yes Type: 12 lead EKG - Medication Orders Current Medication Orders: Discontinued Medications Lidocaine (Lidoderm) 1 ea TD STAT STA Stop: 05/12/17 17:42 Last Admin: 05/12/17 18:07 Dose: 1 ea Morphine Sulfate (Morphine) 4 mg IM STAT STA Stop: 05/12/17 19:08 Last Admin: 05/12/17 19:25 Dose: 4 mg Oxycodone/Acetaminophen (Percocet 5/325 Mg Tab) 2 tab PO STAT STA Stop: 05/12/17 17:42 Last Admin: 05/12/17 17:50 Dose: 2 tab Re-Assess: ZEE Pain Assessment Document 05/12/17 18:50 HI (Rec: 05/12/17 19:26 HI [facility] [id number]) Pain Reassessment Is this a pain reassessment? Yes Sleep Is patient sleeping during reassessment? No Presence of Pain Presence of Pain Yes Pain Scale Used Pain Scale Used Numeric Location Left, Right or Bilateral Left Upper or Lower Lower Pain Location Body Site Back - PA / COAL CAGER / Resident Statement / has reviewed & agrees with the documentation as recorded. Disposition/Present on Arrival - Present on Arrival Any Indicators Present on Arrival: No History of DVT/PE: No History of Uncontrolled Diabetes: Yes Urinary Catheter: No History of Decub. Ulcer: No History Surgical Site Infection Following: None - Disposition Have Diagnosis and Disposition been Completed?: Yes Diagnosis: Back pain, Bulging lumbar disc, Osteoarthritis Disposition: HOME/ ROUTINE Disposition Time: 18:41 Patient Plan: Discharge Condition: IMPROVED Additional Instructions: Discharge home with percocet, lidoderm patch, bed rest, follow up with your own pmd and pain management within 2 days, return to the ER for any new or worsening signs or symptoms. Prescriptions: Lidocaine 5% [Lidoderm] 1 patch TP DAILY PRN #14 patch PRN Reason: Other oxyCODONE/Acetaminophen [Percocet 5/325 mg Tab] 1 tab PO QID #12 tab Referrals: Thomas Looney DO [Primary Care Provider] - Follow up with primary Saúl Eagle MD [Staff Provider] - Follow up with primary Forms: WORK NOTE
--- NOTE | 2017-05-12 18:33 | CT ---
PROCEDURE: CT Lumbar Spine without contrast HISTORY: lower back pain x 4 days COMPARISON: Comparison is made to the previous study dated 10/25/2015 TECHNIQUE: Axial computed tomography images were obtained of the lumbar spine without the use of intravenous contrast. Coronal and sagittal reformatted images were created and reviewed. Radiation dose: Total exam DLP = 937.9 mGy-cm. This CT exam was performed using one or more of the following dose reduction techniques: Automated exposure control, adjustment of the mA and/or kV according to patient size, and/or use of iterative reconstruction technique. FINDINGS: VERTEBRAE: Unremarkable. No fracture. Normal alignment. DISCS/SPINAL CANAL/NEURAL FORAMINA: L1-2: Unremarkable. L2-3: Unremarkable. L3-4: Again seen is a small osteophyte disc bulging complex associated with posterior ligament and facet joint hypertrophy which resulting in mild spinal and neural foraminal narrowing. L4-5: Small osteophyte disc herniation complex again seen associated with posterior ligament and facet joint hypertrophy which resulting in mild spinal and neural foraminal narrowing. L5-S1: Unremarkable. PARASPINAL SOFT TISSUES: Unremarkable. OTHER FINDINGS: None. IMPRESSION: No evidence of acute fracture or subluxation. Mild spondylosis is again noted. Small osteophyte disc bulging complex at L3-L4 and L4-L5 again noted associated with mild spinal and neural foraminal narrowing.
[2017-05-12] MEDS ORDERED: Morphine 4 mg/ml ISec IM STA (19:07)
[2017-05-12 20:59] VITALS: BP 133/60; PULSE 82
--- NOTE | 2017-05-14 | CARD ---
APPROVED REPORT EKG Measurement Heart [id number] <Conclusion> Normal sinus rhythm Normal ECG
== END 2017-05-12 20:59 | disposition home or self-care (01) ==
LOC: ED 17:22
DX: M51.26 Other intervertebral disc displacement, lumbar region (principal); M47.896 Other spondylosis, lumbar region
CPT/HCPCS: 72131; 96372; 99283; J2270

== ENCOUNTER 2017-05-24 13:42 | Emergency (ER) | payer MEDICARE, MEDICAID ==
[2017-05-24 13:51] VITALS: BMI 54.6
--- NOTE | 2017-05-24 14:38 | ED PDOC ---
Arrival/HPI - General Chief Complaint: Shortness Of Breath Time Seen by Provider: 05/24/17 13:56 Historian: Patient - History of Present Illness Narrative History of Present Illness (Text): 05/24/17 14:25 67 year old female with past medical history of COPD, CHF, obesity, HTN, CAD s/ p stents, sleep apnea, hard of hearing, DM, anxiety, and depression. Patient reports having palpitations at home shortly after having lunch today. She also reports to have shortness of breath, chest pain, and feeling nauseous. She also reports her pulse ox went down to 88% while on 4L home oxygen. Her symptoms resolved after few minutes, but she is afraid the symptoms will return if she doesn't go to the hospital. Patient states she has bilateral lower extremity redness and swelling off and on for months. Patient denies fever, chills, vomiting, or diarrhea. Time/Duration: 1-3 hours Symptom Onset: Sudden Symptom Course: Improving Past Medical History - Provider Review Nursing Documentation Reviewed: Yes - Infectious Disease Hx of Infectious Diseases: None - Tetanus Immunization Tetanus Immunization: Unknown - Cardiac Hx Cardiac Disorders: Yes Hx Congestive Heart Failure: Yes Hx Hypertension: Yes - Pulmonary Hx Chronic Obstructive Pulmonary Disease (COPD): Yes - Neurological Hx Neurological Disorder: Yes (hand tremors) - HEENT Hx HEENT Disorder: Yes (uses eyeglasses) Hx Deafness: Yes Other/Comment: pt [place] had hearing aids broken at home - Renal Hx Renal Disorder: No - Endocrine/Metabolic Hx Diabetes Mellitus Type 2: Yes Hx Hypothyroidism: Yes - Hematological/Oncological Hx Blood Disorders: No - Integumentary Hx Dermatological Disorder: Yes Other/Comment: ble +1 edema and red dry skin,pt has red skin under abd fold and under breasts on and off, none now - Musculoskeletal/Rheumatological Hx Falls: Yes (past) - Gastrointestinal Hx Gastrointestinal Disorders: (CONSTIPATION,) Hx Gastroesophageal Reflux: Yes - Genitourinary/Gynecological Hx Reproductive Disorders: No - Psychiatric Hx Psychophysiologic Disorder: Yes Hx Anxiety: Yes Hx Depression: Yes Hx Substance Use: No - Surgical History Hx Appendectomy: Yes Hx Hysterectomy: Yes Hx Open Heart Surgery: Yes (1957) Other/Comment: Tonsillectomy. Mitral valve repair as an . 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 - Anesthesia Hx Anesthesia Reactions: No - Suicidal Assessment Feels Threatened In Home Enviroment: No Family/Social History - Physician Review Nursing Documentation Reviewed: Yes Family/Social History: Unknown Family HX Smoking Status: Former Smoker Hx Alcohol Use: No Hx Substance Use: No Hx Substance Use Treatment: No Allergies/Home Meds Allergies/Adverse Reactions: Allergies No Known Allergies Allergy (Verified 05/12/17 17:37) Home Medications: Home Meds Medication Instructions Recorded Confirmed Glipizide [Glipizide ER] 10 mg PO BID 03/13/17 05/12/17 Pramipexole Di-HCl [Mirapex] 0.25 mg PO HS 03/13/17 05/12/17 Simvastatin 20 mg PO HS 03/13/17 05/12/17 Budesonide [Pulmicort] 2 puff IH BID 04/01/17 04/15/17 Cyclobenzaprine [Flexeril] 10 mg PO HS 04/01/17 05/12/17 Theophylline [Anthony-Dur] 200 mg PO BID 04/01/17 05/12/17 Aspirin [Ecotrin] 81 mg PO DAILY 04/12/17 05/12/17 Pantoprazole Sodium [Protonix] 40 mg PO DAILY 04/12/17 05/12/17 Potassium 20 20 meq PO DAILY 04/12/17 05/12/17 Sertraline [Zoloft] 75 mg PO DAILY 04/12/17 05/12/17 Diltiazem HCl [Diltiazem ER] 360 mg PO DAILY 05/12/17 05/12/17 Furosemide [Lasix] 40 mg PO BID 05/12/17 05/12/17 MetFORMIN [glucoPHAGE] 1,000 mg PO BID 05/12/17 05/12/17 Multivitamin [Multivitamins] 1 tab PO DAILY 05/12/17 05/12/17 SITagliptin [Januvia] 100 mg PO DAILY 05/12/17 05/12/17 buPROPion XL [Wellbutrin XL] 300 mg PO DAILY 05/12/17 05/12/17 Review of Systems - Review of Systems Constitutional: Normal. absent: Fevers Eyes: Normal. absent: Eye Pain ENT: absent: Hearing Changes, Voice Changes Respiratory: SOB, Cough Cardiovascular: Chest Pain, Palpitations. absent: Syncope Gastrointestinal: Nausea. absent: Abdominal Pain, Diarrhea, Vomiting Musculoskeletal: Arthralgias, Back Pain Skin: absent: Rash, Pruritis Neurological: absent: Headache, Dizziness Endocrine: absent: Diaphoresis, Polyuria Psychiatric: absent: Depression Physical Exam Vital Signs Reviewed: Yes Vital Signs Temp Pulse Resp BP Pulse Ox 05/24/17 16:14 90 20 142/64 98 05/24/17 13:46 98.8 F 100 H 22 126/74 95 Temperature: Afebrile Blood Pressure: Normal Pulse: Regular Respiratory Rate: Normal Appearance: Positive for: Well-Appearing, Non-Toxic, Comfortable Pain Distress: None Mental Status: Positive for: Alert and Oriented X 3 - Systems Exam Head: Present: Atraumatic, Normocephalic Pupils: Present: PERRL Extroacular Muscles: Present: EOMI Conjunctiva: Present: Normal Ears: No: Erythema Mouth: Present: Moist Mucous Membranes Pharnyx: Present: Normal. No: ERYTHEMA Nose (External): Present: Atraumatic Neck: Present: Other (obese neck) Respiratory/Chest: Present: Clear to Auscultation, Good Air Exchange. No: Respiratory Distress, Accessory Muscle Use, Wheezes Cardiovascular: Present: Regular Rate and Rhythm, Normal S1, S2. No: Murmurs Abdomen: Present: Normal Bowel Sounds. No: Tenderness, Distention, Peritoneal Signs Upper Extremity: Present: Normal Inspection, NORMAL PULSES, Neurovascularly Intact. No: Cyanosis, Edema Lower Extremity: Present: Edema, NORMAL PULSES, Swelling, Erythema, Neurovascularly Intact Neurological: Present: GCS=15, CN II-XII Intact, Speech Normal Skin: Present: Warm, Dry. No: Rashes Psychiatric: Present: Alert, Oriented x 3, Normal Insight Medical Decision Making ED Course and Treatment: 05/24/17 14:46 -Cardiac iso -BNP -CBC, CM{ -CXR -O2 via NC -EKG -UA -Duoneb DDx: anxiety, COPD exacerbation, CHF exacerbation Prior ED visits: 05/12/17 for pain back, discharged home with percocet, lidoderm patch 05/24/17 15:05 CXR showed no active disease - Lab Interpretations Lab Results: 05/24/17 15:00 05/24/17 15:00 Lab Results 05/24/17 15:00: Sodium 139, Potassium 3.6, Chloride 92 L, Carbon Dioxide 41 H D , Anion Gap 10, BUN 9, Creatinine 0.6, Est GFR ( Amer) > 60, Est GFR (Non -Af Amer) > 60, Random Glucose 167 H, Calcium 9.4, Magnesium 2.1, Total Bilirubin 0.4, AST 27, ALT 28, Alkaline Phosphatase 111, Lactate Dehydrogenase 533, Total Creatine Kinase < 20 L, Troponin I < 0.01, NT-Pro-B Natriuret Pep 46.4, Total Protein 6.5, Albumin 3.7, Globulin 2.9, Albumin/Globulin Ratio 1.3 05/24/17 15:00: WBC 14.0 H, RBC 4.75, Hgb 9.9 L, Hct 36.3, MCV 76.4 L, MCH 20.8 L, MCHC 27.3 L, RDW 17.6 H, Plt Count 342, MPV 9.1, Gran % 77.7 H, Lymph % (Auto ) 14.6 L, [place] % (Auto) 5.9, Eos % (Auto) 1.6, Baso % (Auto) 0.2, Gran # 10.84 H , Lymph # 2.0, [place] # 0.8 H, Eos # 0.2, Baso # 0.03 - RAD Interpretation Radiology Orders: 05/24/17 14:23 CHEST PORTABLE [RAD] Stat - EKG Interpretation EKG Interpretation (Text): 05/24/17 14:52 NSR at 96bpm, prolonged QT at 380, No acute ST changes - Medication Orders Current Medication Orders: Emollient Ointment (Vaseline Oint) 5 gm TOP PRN PRN PRN Reason: Dry nasal passages Stop: 05/24/17 23:59 Discontinued Medications Albuterol/Ipratropium (Duoneb 3 Mg/0.5 Mg (3 Ml) Ud) 3 ml IH STAT STA Stop: 05/24/17 16:07 Disposition/Present on Arrival - Present on Arrival Any Indicators Present on Arrival: No History of DVT/PE: No History of Uncontrolled Diabetes: Yes Urinary Catheter: No History of Decub. Ulcer: No History Surgical Site Infection Following: None - Disposition Have Diagnosis and Disposition been Completed?: Yes Diagnosis: COPD (chronic obstructive pulmonary disease), Anxiety Disposition: HOME/ ROUTINE Disposition Time: 16:32 Patient Problems: Current Active Problems Problem Status Onset Anxiety Acute COPD (chronic obstructive pulmonary disease) Acute Condition: IMPROVED Discharge Instructions (ExitCare): COPD (Chronic Obstructive Pulmonary Disease ) (ED) Additional Instructions: Thank you for letting us take care of you today. Your provider was Dr. El. You were treated for COPD and anxiety. The emergency medical care you received today was directed at your acute symptoms. If you were prescribed any medication, please fill it and take as directed. It may take several days for your symptoms to resolve. Return to the Emergency Department if your symptoms worsen, do not improve, or if you have any other problems. Please contact your doctor or call one of the physicians/clinics you have been referred to that are listed on the Patient Visit Information form that is included in your discharge packet. Bring any paperwork you were given at discharge with you along with any medications you are taking to your follow up visit. Our treatment cannot replace ongoing medical care by a primary care provider (PCP) outside of the emergency department. Thank you for allowing the [facility] team to be part of your care today. Follow up with Dr. Looney in 2 days to schedule a home visit. Referrals: Thomas Looney, [Staff Provider] - Follow up with primary
--- NOTE | 2017-05-24 15:01 | RAD ---
HISTORY: palpitations COMPARISON: No prior. FINDINGS: LUNGS: No active pulmonary disease. PLEURA: No significant pleural effusion identified, no pneumothorax apparent. CARDIOVASCULAR: Moderate cardiomegaly OSSEOUS STRUCTURES: No significant abnormalities. VISUALIZED UPPER ABDOMEN: Normal. OTHER FINDINGS: None. IMPRESSION: No active disease.
[2017-05-24] MEDS ORDERED: Petrolatum Oint Foilpak (5 gm) TOP PRN (15:26)
[2017-05-24 15:29] LABS: BASO # 0.03 K/mm3 (0.0-2.0); BASO % 0.2 % (0.0-3.0); EOS # 0.2 (0.0-0.7); EOS % 1.6 % (1.5-5.0); GRAN # 10.84 (1.4-6.5); GRAN % 77.7 % (50.0-68.0); HEMOGLOBIN 9.9 gm/dL (12.0-16.0); LYMPH % 14.6 % (22.0-35.0); MEAN CELL VOLUME 76.4 fL (80.0-105.0); MEAN CORPUSCULAR HEMOGLOBIN 20.8 pg (25.0-35.0); MEAN CORPUSCULAR HGB CONC 27.3 g/dl (31.0-37.0); MEAN PLATELET VOLUME 9.1 fl (7.0-11.0); MONO # 0.8 (0.1-0.6); MONO % 5.9 % (1.0-6.0); PLATELET COUNT 342 10^3/uL (120.0-450.0); RBC 4.75 10^6/uL (3.5-6.1); RED CELL DISTRIBUTION WIDTH 17.6 % (11.5-14.5)
[2017-05-24 15:31] LABS: ALB/GLOB RATIO 1.3 (1.1-1.8); ALBUMIN 3.7 g/dL (3.0-4.8); ALT/SGPT 28 U/L (7-56); AST/SGOT 27 U/L (15-39); BLOOD UREA NITROGEN 9 mg/dL (7-21); CALCIUM 9.4 mg/dL (8.4-10.5); GFR AFRICAN-AMERICAN > 60; GFR NON-AFRICAN AMERICAN > 60; MAGNESIUM 2.1 mg/dL (1.7-2.2)
[2017-05-24 15:43] LABS: B-TYPE NATRIURETIC PEPTIDE 46.4 pg/mL (0-450)
[2017-05-24 15:45] LABS: TROPONIN I < 0.01 ng/mL
[2017-05-24] MEDS ORDERED: Albuterol-Ipratrop 3 mg / 0.5 (3 ml) UD IH STA (16:06)
[2017-05-24 16:15] VITALS: PULSE 90; RESP 20; O2SAT 98
[2017-05-24 18:21] VITALS: BP 125/86; TEMP 98
--- NOTE | 2017-05-25 08:53 | CARD ---
APPROVED REPORT EKG Measurement Heart [id number] <Conclusion> Normal sinus rhythm Leftward axis Prolonged QT Abnormal ECG
== END 2017-05-24 18:45 | disposition home or self-care (01) ==
LOC: ED 13:42
DX: J44.9 Chronic obstructive pulmonary disease, unspecified (principal); F41.9 Anxiety disorder, unspecified; I25.10 Atherosclerotic heart disease of native coronary artery without angina pectoris; I10 Essential (primary) hypertension; Z87.891 Personal history of nicotine dependence

== ENCOUNTER 2017-06-07 16:05 | Inpatient (IN) | payer MEDICARE, MEDICAID ==
[2017-06-07 16:05] VITALS: BMI 54.6
--- NOTE | 2017-06-07 16:25 | ED PDOC ---
Arrival/HPI - General Chief Complaint: Shortness Of Breath Time Seen by Provider: 06/07/17 16:23 Historian: Patient - History of Present Illness Narrative History of Present Illness (Text): 67F with PMH of Mitral valve replacement, CHF, COPD with home oxygen therapy, DM presents to ED with complaint of SOB. Patient states that she has had intermittent SOB for past two weeks. She reports that it has gradually getting worse. Patient was at home today and her pulse ox desaturatted to 73%. Patient called Dr. Looney who advised her to go to the ED. Patient also complaining of chest/abdominal pain. She rates pain as 8/10 at its worst. Both are constant and feel like pressure. Nothing makes pain better while breathing heavy makes it worse. Patient sleeps with two pillows at night. admits fever/chills, cp, abd pain, cough, sob, orthopnea, ARREDONDO, nausea, dysuria, frequency, LE edema/ erythema. Time/Duration: > week Symptom Onset: Gradual Symptom Course: Worsening Quality: Pressure Severity Level: 6 Activities at Onset: Rest Context: Home Past Medical History - Provider Review Nursing Documentation Reviewed: Yes - Travel History Have you recently traveled outside [place] w/in the past 3 mons?: No - Infectious Disease Hx of Infectious Diseases: None - Tetanus Immunization Tetanus Immunization: Unknown - Cardiac Hx Cardiac Disorders: Yes Hx Congestive Heart Failure: Yes Hx Hypertension: Yes - Pulmonary Hx Chronic Obstructive Pulmonary Disease (COPD): Yes - Neurological Hx Neurological Disorder: Yes (hand tremors) - HEENT Hx HEENT Disorder: Yes (uses eyeglasses) Hx Deafness: Yes Other/Comment: pt oneida had hearing aids broken at home - Renal Hx Renal Disorder: No - Endocrine/Metabolic Hx Diabetes Mellitus Type 2: Yes Hx Hypothyroidism: Yes - Hematological/Oncological Hx Blood Disorders: No - Integumentary Hx Dermatological Disorder: Yes Other/Comment: ble +1 edema and red dry skin,pt has red skin under abd fold and under breasts on and off, none now - Musculoskeletal/Rheumatological Hx Falls: Yes (past) - Gastrointestinal Hx Gastrointestinal Disorders: (CONSTIPATION,) Hx Gastroesophageal Reflux: Yes - Genitourinary/Gynecological Hx Reproductive Disorders: No - Psychiatric Hx Psychophysiologic Disorder: Yes Hx Anxiety: Yes Hx Depression: Yes Hx Substance Use: No - Surgical History Hx Appendectomy: Yes Hx Hysterectomy: Yes Hx Open Heart Surgery: Yes (1957) Other/Comment: Tonsillectomy. Mitral valve repair as an . 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 - Anesthesia Hx Anesthesia Reactions: No - Suicidal Assessment Feels Threatened In Home Enviroment: No Family/Social History - Physician Review Nursing Documentation Reviewed: Yes Family/Social History: Unknown Family HX Smoking Status: Former Smoker Hx Alcohol Use: No Hx Substance Use: No Hx Substance Use Treatment: No Allergies/Home Meds Allergies/Adverse Reactions: Allergies No Known Allergies Allergy (Verified 05/12/17 17:37) Home Medications: Home Meds Medication Instructions Recorded Confirmed Glipizide [Glipizide ER] 10 mg PO BID 03/13/17 06/09/17 Pramipexole Di-HCl [Mirapex] 0.25 mg PO HS 03/13/17 06/07/17 Simvastatin 20 mg PO HS 03/13/17 06/07/17 Budesonide [Pulmicort] 2 puff IH BID 04/01/17 06/07/17 Cyclobenzaprine [Flexeril] 10 mg PO HS 04/01/17 06/07/17 Theophylline [Anthony-Dur] 200 mg PO BID 04/01/17 06/07/17 Aspirin [Ecotrin] 81 mg PO DAILY 04/12/17 06/09/17 Pantoprazole Sodium [Protonix] 40 mg PO DAILY 04/12/17 06/09/17 Potassium 20 20 meq PO DAILY 04/12/17 06/09/17 Sertraline [Zoloft] 75 mg PO DAILY 04/12/17 06/09/17 Diltiazem HCl [Diltiazem ER] 360 mg PO DAILY 05/12/17 06/09/17 Furosemide [Lasix] 40 mg PO BID 05/12/17 06/09/17 MetFORMIN [glucoPHAGE] 1,000 mg PO BID 05/12/17 06/09/17 Multivitamin [Multivitamins] 1 tab PO DAILY 05/12/17 06/07/17 SITagliptin [Januvia] 100 mg PO DAILY 05/12/17 06/09/17 buPROPion XL [Wellbutrin XL] 300 mg PO DAILY 05/12/17 06/07/17 Cyclobenzaprine [Flexeril] 10 mg PO HS 06/07/17 06/07/17 Neurontin 100 mg PO TID PRN 06/09/17 06/09/17 Review of Systems - Review of Systems Constitutional: Fatigue, Fevers. absent: Weight Change, Night Sweats Eyes: absent: Vision Changes, Photophobia, Eye Pain ENT: absent: Hearing Changes, Tinnitus, TMJ Pain, Voice Changes, Sore Throat, Rhinorrhea Respiratory: SOB, Cough, Wheezing Cardiovascular: Chest Pain, Palpitations, Edema, ARREDONDO, Orthopnea. absent: Syncope Gastrointestinal: Abdominal Pain, Nausea. absent: Constipation, Diarrhea, Vomiting Genitourinary Female: Dysuria, Frequency Musculoskeletal: Arthralgias, Myalgias Skin: Cellulitis Neurological: absent: Headache, Dizziness Endocrine: absent: Diaphoresis, Polyuria, Polydipsia Hemo/Lymphatic: absent: Adenopathy, Easy Bleeding, Easy Bruising Psychiatric: absent: Anxiety, Depression, Suicidal Ideation Physical Exam Vital Signs Reviewed: Yes Vital Signs Temp Pulse Resp BP Pulse Ox 06/07/17 23:07 79 16 122/63 98 06/07/17 20:40 80 17 126/73 94 L 06/07/17 19:00 82 19 138/60 94 L 06/07/17 17:31 136/57 L 06/07/17 17:25 82 20 135/57 L 95 06/07/17 16:18 22 95 06/07/17 16:17 98.7 F 84 24 126/64 98 06/07/17 16:11 98.7 F 84 26 H 126/64 98 Temperature: Afebrile Blood Pressure: Normal Pulse: Regular Respiratory Rate: Tachypneic Appearance: Positive for: Ill-Appearing, Uncomfortable Pain Distress: Mild Mental Status: Positive for: Alert and Oriented X 3 - Systems Exam Head: Present: Atraumatic, Normocephalic Pupils: Present: PERRL Extroacular Muscles: Present: EOMI Conjunctiva: Present: Normal Ears: Present: Normal Mouth: Present: Moist Mucous Membranes Pharnyx: Present: Normal Nose (External): Present: Atraumatic Nose (Internal): Present: Normal Inspection Respiratory/Chest: Present: Accessory Muscle Use, Wheezes, Rales Cardiovascular: Present: Regular Rate and Rhythm, Normal S1, S2, Peripheal Pulses Present, Gallop Abdomen: Present: Normal Bowel Sounds. No: Tenderness, Distention, Peritoneal Signs, Rebound, Guarding Back: Present: Paraspinal Tenderness Upper Extremity: Present: NORMAL PULSES, Neurovascularly Intact, Capillary Refill < 2s Lower Extremity: Present: NORMAL PULSES, Tenderness, Swelling, Erythema, Neurovascularly Intact, Capillary Refill < 2 s Neurological: Present: GCS=15, CN II-XII Intact, Speech Normal, Motor Func Grossly Intact, Normal Sensory Function Skin: Present: Warm, Dry, Erythematous, Induration Lymphatic: No: Cervical Adenopathy, Axillary Adenopathy, Inguinal Adenopathy Psychiatric: Present: Alert, Oriented x 3, Normal Insight, Normal Concentration Medical Decision Making ED Course and Treatment: EKG, CBC, CMP, Urinalysis, urine c&s, cardiac enzyme, BNP, CXR ordered. Duoneb and Lasix given. Blood culture drawn. - Lab Interpretations Microbiology Results: Microbiology Results 06/07/17 17:15 Blood Blood Culture - Preliminary NO GROWTH AFTER 48 HOURS 06/07/17 16:45 Blood Blood Culture - Preliminary NO GROWTH AFTER 48 HOURS 06/07/17 17:30 Urine Urine Culture - Final No Growth (<1,000 CFU/ML) Lab Results: 06/07/17 17:15 06/07/17 17:15 Lab Results 06/07/17 17:30: Urine Color Yellow, Urine Appearance Clear, Urine pH 7.0, Ur Specific [place] 1.010, Urine Protein Negative, Urine Glucose (UA) Negative, Urine Ketones Negative, Urine Blood Negative, Urine Nitrate Negative, Urine Bilirubin Negative, Urine Urobilinogen 0.2, Ur Leukocyte Esterase Trace H, Urine RBC Negative, Urine WBC 0 - 2, Ur Epithelial Cells 0 - 2 06/07/17 17:15: Lactate Dehydrogenase 435, Total Creatine Kinase < 20 L, Troponin I < 0.01 06/07/17 17:15: WBC 15.6 H, RBC 4.76, Hgb 9.9 L, Hct 35.8 L, MCV 75.2 L, MCH 20.8 L, MCHC 27.7 L, RDW 17.4 H, Plt Count 394, MPV 9.0, Gran % 85.5 H, Lymph % (Auto) 7.6 L, [place] % (Auto) 5.1, Eos % (Auto) 1.5, Baso % (Auto) 0.3, Gran # 13.36 H, Lymph # 1.2, [place] # 0.8 H, Eos # 0.2, Baso # 0.04 06/07/17 17:15: Sodium 143, Potassium 3.8, Chloride 94 L, Carbon Dioxide 39 H, Anion Gap 14, BUN 12, Creatinine 0.5, Est GFR ( Amer) > 60, Est GFR (Non- Af Amer) > 60, Random Glucose 104, Calcium 9.1, Phosphorus 4.0, Magnesium 2.0, Total Bilirubin 0.4, AST 23, ALT 29, Alkaline Phosphatase 104, NT-Pro-B Natriuret Pep 87.9, Total Protein 6.8, Albumin 3.7, Globulin 3.1, Albumin/ Globulin Ratio 1.2 - RAD Interpretation Radiology Orders: 06/07/17 16:45 CHEST PORTABLE [RAD] Stat 06/07/17 19:33 DUPLEX LOWER EXTRM VEIN BILAT [US] Stat - Medication Orders Current Medication Orders: Discontinued Medications Acetaminophen (Tylenol 325mg Tab) 650 mg PO Q4H PRN PRN Reason: pain Last Admin: 06/09/17 00:36 Dose: 650 mg Re-Assess: MAR Pain/Vitals Document 06/09/17 01:36 ST (Rec: 06/09/17 01:56 ST [id number]) Pain Reassessment Is This A Pain ReAssessment? Yes Sleep Is patient sleeping during reassessment? No Presence of Pain Presence of Pain No Albuterol/Ipratropium (Duoneb 3 Mg/0.5 Mg (3 Ml) Ud) 3 ml IH STAT STA Stop: 06/07/17 16:48 Last Admin: 06/07/17 17:31 Dose: 3 ml Albuterol/Ipratropium (Duoneb 3 Mg/0.5 Mg (3 Ml) Ud) 3 ml IH Q3H PRN PRN Reason: Shortness of Breath Last Admin: 06/08/17 07:52 Dose: 3 ml Albuterol/Ipratropium (Duoneb 3 Mg/0.5 Mg (3 Ml) Ud) 3 ml IH [id number] JONATHAN Last Admin: 06/09/17 11:22 Dose: 3 ml Aspirin (Ecotrin) 81 mg PO DAILY JONATHAN Last Admin: 06/09/17 11:03 Dose: 81 mg Atorvastatin Calcium (Lipitor) 10 mg PO HS JONATHAN Last Admin: 06/08/17 21:42 Dose: 10 mg Bupropion HCl (Wellbutrin Xl) 300 mg PO DAILY JONATHAN Last Admin: 06/09/17 11:05 Dose: 300 mg Cyclobenzaprine HCl (Flexeril) 10 mg PO HS JONATHAN Last Admin: 06/08/17 21:42 Dose: 10 mg Diltiazem HCl (Cardizem Cd) 360 mg PO DAILY JONATHAN Last Admin: 06/09/17 11:05 Dose: 360 mg Furosemide (Lasix) 40 mg IVP STAT STA Stop: 06/07/17 16:48 Last Admin: 06/07/17 17:31 Dose: 40 mg Furosemide (Lasix) 40 mg IVP Q12 JONATHAN Last Admin: 06/09/17 11:06 Dose: 40 mg Gabapentin (Neurontin) 100 mg PO TID JONATHAN PRN Reason: Protocol Last Admin: 06/09/17 14:32 Dose: 100 mg Glipizide (Glucotrol Xl) 10 mg PO BID JONATHAN Last Admin: 06/09/17 11:03 Dose: 10 mg Ceftriaxone Sodium (Rocephin 1 Gram Ivpb) 1 gm in 100 mls @ 200 mls/hr IV ONCE STA PRN Reason: Protocol Stop: 06/07/17 20:07 Last Admin: 06/07/17 20:32 Dose: 200 mls/hr Azithromycin (Zithromax 500mg In Ns) 500 mg in 250 mls @ 166.667 mls/hr IV STAT STA PRN Reason: Protocol Stop: 06/07/17 21:07 Last Admin: 06/07/17 21:36 Dose: 166.667 mls/hr Ceftriaxone Sodium (Rocephin 1 Gram Ivpb) 1 gm in 100 mls @ 100 mls/hr IVPB DAILY JONATHAN PRN Reason: Protocol Last Admin: 06/09/17 11:07 Dose: 100 mls/hr Azithromycin (Zithromax 500mg In Ns) 500 mg in 250 mls @ 167 mls/hr IVPB DAILY JONATHAN PRN Reason: Protocol Last Admin: 06/09/17 12:44 Dose: Metformin HCl (Glucophage) 1,000 mg PO BID [facility] Last Admin: 06/09/17 11:06 Dose: 1,000 mg Methylprednisolone (Solu-Medrol) 125 mg IVP ONCE ONE Stop: 06/07/17 19:33 Last Admin: 06/07/17 20:32 Dose: 125 mg Methylprednisolone (Solu-Medrol) 30 mg IVP Q12 [facility] Methylprednisolone (Solu-Medrol) 20 mg IVP Q12 [facility] Last Admin: 06/08/17 21:41 Dose: 20 mg Metoprolol Tartrate (Lopressor) 25 mg PO BID [facility] Last Admin: 06/09/17 11:07 Dose: 25 mg Montelukast Sodium (Singulair) 10 mg PO HS [facility] Last Admin: 06/08/17 21:42 Dose: 10 mg Non-Formulary Medication (Potassium 20) 20 meq PO DAILY [facility] Pantoprazole Sodium (Protonix Ec Tab) 40 mg PO DAILY [facility] Last Admin: 06/09/17 11:03 Dose: 40 mg Potassium Chloride (K-Dur 20 Meq Er Tab) 20 meq PO DAILY [facility] Last Admin: 06/09/17 11:06 Dose: 20 meq Pramipexole Dihydrochloride (Mirapex) 0.25 mg PO [facility] Last Admin: 06/08/17 21:42 Dose: 0.25 mg Prednisone (Prednisone Tab) 40 mg PO DAILY [facility] Last Admin: 06/09/17 11:03 Dose: 40 mg Sertraline HCl (Zoloft) 75 mg PO DAILY [facility] Last Admin: 06/09/17 11:05 Dose: 75 mg Sitagliptin Phosphate (Januvia) 100 mg PO DAILY [facility] Last Admin: 06/09/17 11:05 Dose: 100 mg Tiotropium [place] (Spiriva) 18 mcg IH DAILY [facility] Last Admin: 06/09/17 11:07 Dose: 18 mcg Trazodone HCl (Desyrel) 200 mg PO [facility] Last Admin: 06/08/17 21:42 Dose: 200 mg - Transfer of Care Patient signed out to :: Elana Awaiting call back from Dr:: Aayush - ASHLEY / [employer] / Resident Statement NATALIA has reviewed & agrees with the documentation as recorded. / has examined the patient and agrees with the treatment plan. Disposition/Present on Arrival - Present on Arrival Any Indicators Present on Arrival: Yes History of DVT/PE: No History of Uncontrolled Diabetes: Yes Urinary Catheter: No History of Decub. Ulcer: No History Surgical Site Infection Following: None - Disposition Have Diagnosis and Disposition been Completed?: Yes Diagnosis: COPD with acute exacerbation, Pneumonia Disposition: HOSPITALIZED Disposition Time: 21:28 Patient Plan: Admission, Telemetry Condition: STABLE
[2017-06-07] MEDS ORDERED: Albuterol-Ipratrop 3 mg / 0.5 (3 ml) UD IH STA (16:47)
[2017-06-07 17:32] LABS: BASO # 0.04 K/mm3 (0.0-2.0); BASO % 0.3 % (0.0-3.0); EOS # 0.2 (0.0-0.7); EOS % 1.5 % (1.5-5.0); GRAN # 13.36 (1.4-6.5); GRAN % 85.5 % (50.0-68.0); HEMOGLOBIN 9.9 gm/dL (12.0-16.0); LYMPH # 1.2 (1.2-3.4); LYMPH % 7.6 % (22.0-35.0); MEAN CELL VOLUME 75.2 fL (80.0-105.0); MEAN CORPUSCULAR HEMOGLOBIN 20.8 pg (25.0-35.0); MEAN CORPUSCULAR HGB CONC 27.7 g/dl (31.0-37.0); MONO # 0.8 (0.1-0.6); MONO % 5.1 % (1.0-6.0); PLATELET COUNT 394 10^3/uL (120.0-450.0); RBC 4.76 10^6/uL (3.5-6.1); RED CELL DISTRIBUTION WIDTH 17.4 % (11.5-14.5); WHITE BLOOD COUNT 15.6 10^3/ul (4.5-11.0)
[2017-06-07 17:42] LABS: ALB/GLOB RATIO 1.2 (1.1-1.8); ALBUMIN 3.7 g/dL (3.0-4.8); ALT/SGPT 29 U/L (7-56); AST/SGOT 23 U/L (15-39); BLOOD UREA NITROGEN 12 mg/dL (7-21); CALCIUM 9.1 mg/dL (8.4-10.5); GFR AFRICAN-AMERICAN > 60; GFR NON-AFRICAN AMERICAN > 60
[2017-06-07 17:50] LABS: B-TYPE NATRIURETIC PEPTIDE 87.9 pg/mL (0-450)
[2017-06-07 18:49] LABS: URINE BILIRUBIN NEGATIVE (NEGATIVE); URINE BLOOD NEGATIVE (NEGATIVE); URINE GLUCOSE (UA) NEGATIVE (NEGATIVE); URINE LEUKOCYTE ESTERASE TRACE Leu/uL (NEGATIVE); URINE NITRATE NEGATIVE (NEGATIVE); URINE PROTEIN NEGATIVE mg/dL (<30 mg/dL); URINE UROBILINOGEN 0.2 E.U./dL (<1 E.U./dL)
[2017-06-07 18:51] LABS: URINE APPEARANCE CLEAR (CLEAR); URINE COLOR YELLOW (YELLOW)
[2017-06-07 19:00] LABS: TROPONIN I < 0.01 ng/mL
[2017-06-07 19:03] LABS: URINE EPITHELIAL CELLS 0 - 2 /hpf (0-5); URINE RBC NEGATIVE /hpf (0-2); URINE WBC 0 - 2 /hpf (0-6)
[2017-06-07] MEDS ORDERED: cefTRIAXone 1 gm 1 GM/100 ML BAG IV STA (19:38)
[2017-06-07] MEDS ORDERED: Azithromycin 500MG/NS 250ml 500 MG/250 ML BAG IV STA (19:38)
--- NOTE | 2017-06-07 20:05 | ED PDOC ---
Physical Exam Vital Signs Reviewed: Yes Vital Signs Temp Pulse Resp BP Pulse Ox 06/07/17 20:40 80 17 126/73 94 L 06/07/17 19:00 82 19 138/60 94 L 06/07/17 17:31 136/57 L 06/07/17 17:25 82 20 135/57 L 95 06/07/17 16:18 22 95 06/07/17 16:17 98.7 F 84 24 126/64 98 06/07/17 16:11 98.7 F 84 26 H 126/64 98 Temperature: Afebrile Blood Pressure: Normal Pulse: Regular Respiratory Rate: Tachypneic Appearance: Positive for: Well-Appearing, Non-Toxic, Comfortable Pain Distress: None Mental Status: Positive for: Alert and Oriented X 3 Medical Decision Making ED Course and Treatment: 06/07/17 20:04 Case endorsed to me by Dr. El. Patient with a history of COPD, shortness of breath, chills. Patient will require admission to hospital for further nebulizer and antibiotics. Ordered a US of lower extremity, because patient was complaining of right leg discomfort. Case will be discussed with PMD Dr. Looney. Pt seen and evaluated with hospital medical biller. Aware and agree with HPI, clinical findings, plan, and management. 06/07/17 21:11 US Duplex Lower Extremity negative for DVT. 06/07/17 21:[address] Mcneil, covering for Dr. Looney, who is aware and agrees with plan. Pt will be admitted to Telemetry for COPD exacerbation and pneumonia under Dr. Looney's service. Requests Dr. Ramos on consult. - Lab Interpretations Lab Results: 06/07/17 17:15 06/07/17 17:15 Lab Results 06/07/17 17:30: Urine Color Yellow, Urine Appearance Clear, Urine pH 7.0, Ur Specific [place] 1.010, Urine Protein Negative, Urine Glucose (UA) Negative, Urine Ketones Negative, Urine Blood Negative, Urine Nitrate Negative, Urine Bilirubin Negative, Urine Urobilinogen 0.2, Ur Leukocyte Esterase Trace H, Urine RBC Negative, Urine WBC 0 - 2, Ur Epithelial Cells 0 - 2 06/07/17 17:15: Lactate Dehydrogenase 435, Total Creatine Kinase < 20 L, Troponin I < 0.01 06/07/17 17:15: WBC 15.6 H, RBC 4.76, Hgb 9.9 L, Hct 35.8 L, MCV 75.2 L, MCH 20.8 L, MCHC 27.7 L, RDW 17.4 H, Plt Count 394, MPV 9.0, Gran % 85.5 H, Lymph % (Auto) 7.6 L, [place] % (Auto) 5.1, Eos % (Auto) 1.5, Baso % (Auto) 0.3, Gran # 13.36 H, Lymph # 1.2, Story # 0.8 H, Eos # 0.2, Baso # 0.04 06/07/17 17:15: Sodium 143, Potassium 3.8, Chloride 94 L, Carbon Dioxide 39 H, Anion Gap 14, BUN 12, Creatinine 0.5, Est GFR ( Amer) > 60, Est GFR (Non- Af Amer) > 60, Random Glucose 104, Calcium 9.1, Phosphorus 4.0, Magnesium 2.0, Total Bilirubin 0.4, AST 23, ALT 29, Alkaline Phosphatase 104, NT-Pro-B Natriuret Pep 87.9, Total Protein 6.8, Albumin 3.7, Globulin 3.1, Albumin/ Globulin Ratio 1.2 I have reviewed the lab results: Yes - RAD Interpretation Radiology Orders: 06/07/17 16:45 CHEST PORTABLE [RAD] Stat 06/07/17 19:33 DUPLEX LOWER EXTRM VEIN BILAT [US] Stat - Medication Orders Current Medication Orders: Discontinued Medications Albuterol/Ipratropium (Duoneb 3 Mg/0.5 Mg (3 Ml) Ud) 3 ml IH STAT STA Stop: 06/07/17 16:48 Last Admin: 06/07/17 17:31 Dose: 3 ml Furosemide (Lasix) 40 mg IVP STAT STA Stop: 06/07/17 16:48 Last Admin: 06/07/17 17:31 Dose: 40 mg Ceftriaxone Sodium (Rocephin 1 Gram Ivpb) 1 gm in 100 mls @ 200 mls/hr IV ONCE STA PRN Reason: Protocol Stop: 06/07/17 20:07 Last Admin: 06/07/17 20:32 Dose: 200 mls/hr Azithromycin (Zithromax 500mg In Ns) 500 mg in 250 mls @ 166.667 mls/hr IV STAT STA PRN Reason: Protocol Stop: 06/07/17 21:07 Methylprednisolone (Solu-Medrol) 125 mg IVP ONCE ONE Stop: 06/07/17 19:33 Last Admin: 06/07/17 20:32 Dose: 125 mg - Scribe Statement The provider has reviewed the documentation as recorded by the Olga Davalos Provider Scribe Attestation: All medical record entries made by the Donnellibe were at my direction and personally dictated by me. I have reviewed the chart and agree that the record accurately reflects my personal performance of the history, physical exam, medical decision making, and the department course for this patient. I have also personally directed, reviewed, and agree with the discharge instructions and disposition. Disposition/Present on Arrival - Present on Arrival Any Indicators Present on Arrival: No History of DVT/PE: No History of Uncontrolled Diabetes: Yes Urinary Catheter: No History of Decub. Ulcer: No History Surgical Site Infection Following: None - Disposition Have Diagnosis and Disposition been Completed?: Yes Diagnosis: COPD with acute exacerbation, Pneumonia Disposition: HOSPITALIZED Disposition Time: 21:28 Patient Plan: Admission Patient Problems: Current Active Problems Problem Status Onset COPD with acute exacerbation Acute Pneumonia Acute Condition: STABLE Referrals: Thomas Looney DO [Primary Care Provider] - Follow up with primary
--- NOTE | 2017-06-07 20:37 | CARD ---
APPROVED REPORT EKG Measurement Heart [id number] <Conclusion> Normal sinus rhythm Normal ECG
[2017-06-07] MEDS ORDERED: Morphine 2 mg/ml ISec IVP STA (20:52)
[2017-06-08] MEDS: Albuterol-Ipratrop 3 mg / 0.5 (3 ml) UD IH PRN ×2 (01:31→07:52)
--- NOTE | 2017-06-08 08:50 | RAD ---
HISTORY: sob COMPARISON: 05/24/2017 FINDINGS: LUNGS: No active pulmonary disease. PLEURA: No significant pleural effusion identified, no pneumothorax apparent. CARDIOVASCULAR: Moderate cardiomegaly OSSEOUS STRUCTURES: No significant abnormalities. VISUALIZED UPPER ABDOMEN: Normal. OTHER FINDINGS: None. IMPRESSION: No active disease.
[2017-06-08] MEDS ORDERED: MethylPREDNISolone 40 mg Vial IVP SCH (10:00)
[2017-06-08] MEDS ORDERED: POTASSIUM PO SCH (10:00)
[2017-06-08] MEDS: Potassium Chloride 20 mEq ER Tab PO SCH (10:14)
[2017-06-08] MEDS: buPROPion 300 mg/24 Hours XL Tab PO SCH (10:15)
[2017-06-08] MEDS: Pantoprazole 40 mg EC Tab PO SCH (10:16)
[2017-06-08] MEDS: diltiaZEM 180 mg/24 Hours CD Cap PO SCH (10:16)
[2017-06-08] MEDS: MethylPREDNISolone 40 mg Vial IVP SCH ×2 (10:17→21:41)
[2017-06-08] MEDS: cefTRIAXone 1 gm 1 GM/100 ML BAG IVPB SCH (10:18)
[2017-06-08] MEDS: Albuterol-Ipratrop 3 mg / 0.5 (3 ml) UD IH SCH ×3 (11:08→21:25)
[2017-06-08] MEDS: GlipiZIDE 5 mg SR Tab PO SCH ×2 (12:44→17:37)
[2017-06-08] MEDS: Azithromycin 500MG/NS 250ml 500 MG/250 ML BAG IVPB SCH (12:45)
--- NOTE | 2017-06-08 14:02 | US ---
HISTORY: Leg pain and swelling. Evaluate for DVT PHYSICIAN(S): Jagdeep Sanon MD. TECHNIQUE: Duplex sonography and color-flow Doppler with graded compression were used to evaluate the deep venous systems of both lower extremities. The exam is very limited by body habitus and edema. The tibial veins are not well seen. FINDINGS: The visualized deep venous systems of both lower extremities are sonographically normal and compressible. Normal wave forms and augmentation are seen. There is no sonographic evidence for deep venous thrombosis in the visualized segments of both lower extremities. IMPRESSION: No sonographic evidence for deep venous thrombosis in the visualized segments of both lower extremities. Very limited study.
[2017-06-08] MEDS: Tiotropium 18 mcg Cap For Inhalation IH SCH (14:07)
--- NOTE | 2017-06-08 15:21 | HP ---
HISTORY OF PRESENT ILLNESS: I know Sonia very well from multiple house calls, multiple hospital visits and she was having a rough 2 weeks of shortness of breath. We adjusted her medications from the outside and increased her prednisone to 20 mg. She is on increased oxygen to 4 liters and on the day we sent her to the hospital, she was down to 70% O2 sat on 4 L nasal canula, was complaining of shortness of breath and pain. PAST MEDICAL HISTORY: She has a past medical history which is very expensive, COPD, CHF, steroid dependent, obesity, hypertension, chronic CHF, open heart surgery in 1958 with mitral valve repair as an . 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 FAMILY HISTORY: There is hypertension and diabetes in the family. SOCIAL HISTORY: She is former smoker. No alcohol. No drug. ALLERGY: NO KNOWN DRUG ALLERGIES. MEDICATIONS: She takes glipizide, Mirapex, simvastatin, Glucophage, Pulmicort, Flexeril, Lasix, Anthony-Dur, Ecotrin, bupropion, Levaquin at times, multivitamin, Zofran, Protonix, potassium, Lasix, prednisone, Januvia, Zoloft, Cardizem. REVIEW OF SYSTEMS: She has very poor hearing, very poor vision which is old, nothing acute, have to really yell and talk to her. No sore throat at this time, she has had that in the past. She has had thrush in the past at the site of the esophageal structure enclosure that is better. There is shortness of breath. There is wheezing and coughing. She is morbidly obese. Nontender abdomen. She has back pains. Her legs are weak. Her legs are also painful from time to time. PHYSICAL EXAMINATION: VITAL SIGNS: 98.7 temp, 84 pulse, 26 respiratory rate, 126/64 blood pressure, 98% O2 saturation, now an oxygen at the hospital. HEENT: Atraumatic, normocephalic. Extraocular muscles are intact. Pupils equal and reactive to light. Throat is moist. No erythema. NECK: Supple. No JVD. HEART: Regular rate. Normal S1 and S2. LUNGS: Decreased breath sounds bilaterally. No wheezes or rhonchi at this time after breathing treatment. ABDOMEN: Morbidly obese. Soft, nontender, positive bowel sounds. No guarding. No rebounds. EXTREMITIES: Trace edema if any, but has painful legs. NEUROLOGIC: GCS is 15. Cranial nerves II through XII grossly intact. Alert and oriented x3, comfortable. She is in breathing treatment right now and feeling a bit better than when she came in. LABORATORY DATA: She had multiple labs, x-rays. She has urine which is trace. 143 sodium, potassium 3.8, BUN 112, creatinine 0.5. GFR is greater than 60. Sugar is 104, calcium is 9.1, phosphorous 4, magnesium 2, total bilirubin is 0.4. AST is 23 and ALT is 29. Alkaline phosphatase 104, lactate dehydrogenase is 435. Troponin is less than 0.01. BMP is 87.9, total protein 6.8. White count 15.6 but she is on steroids. Hemoglobin 9.9, hematocrit 35.8, platelets of 394,000. Her chest x-ray is pending. Her ultrasound of extremities is pending. PLAN: She will have a consult with Pulmonology. She will be put back on her medications Rocephin, Zithromax, and Solu-Medrol. Hopefully, she will improve quickly, normally takes for a few days. We will give her oxygen and physical therapy. COPD, possible pneumonia. Thomas Looney DO [email or web address]
--- NOTE | 2017-06-08 16:57 | CON ---
DATE: 06/08/2017 PULMONARY CONSULTATION: HISTORY OF PRESENT ILLNESS: Sonia is a 67-year-old female well known to me from outpatient treatment. The patient has had COPD for many years and is morbidly obese. The patient came to the emergency room yesterday with complaints of twitching, weak legs and she was found to have some mild dyspnea, which was no worse than her previous problems. She had pain in her legs and an ultrasound of her lower extremities was done due to discomfort. No additional abnormalities were suggested. The duplex lower extremity scan was negative for DVT. The patient was admitted for further evaluation and treatment, although the COPD remains relatively stable. I am unsure whether or not the doctors were familiar with her baseline status. SOCIAL HISTORY: Former smoker. No occupational exposure. No travel history. No pets. FAMILY HISTORY: CAD, HTN ALLERGIES: UNKNOWN. HOME MEDICATIONS: Include bronchodilator, corticosteroids, anticholinergics in addition to medication for her diabetes mellitus. REVIEW OF SYSTEMS: Has been discussed with the patient at length. There are no other abnormalities noted. She is morbidly obese and has been unable to lose significant weight. She denies snoring at this time. We reviewed her old records, which include a polysomnogram, which are not available at this moment. All other systems negative. PHYSICAL EXAMINATION: GENERAL: The patient is comfortable at rest and in no acute distress. VITAL SIGNS: Temperature 98.6, heart rate 80, respiratory rate 16, blood pressure 128/80, pulse ox is 98% on 2 liters of nasal cannula. HEENT: Normocephalic and atraumatic. Eyes, PERRLA. EOMs full. Conjunctivae pink. NECK: Supple. No JVD. No lymphadenopathy. No bruit. CARDIOVASCULAR: Regular rhythm, S1, S2. Soft systolic ejection murmur at the lower left sternal border. CHEST: Reveals global decrease in breath sounds. No acute wheezing today. ABDOMEN: Obese, bowel sounds are normoactive without mass, guarding, rebound or organomegaly. EXTREMITIES: Reveal no clubbing, cyanosis or edema. There is no Homans' sign. NEUROLOGIC: There is no focal findings. Awake, alert, and oriented. Motor, sensory, and coordination normal. Babinski is downgoing. Deep tendon reflex is normal. Lymphadenopathy is negative. There are no palpable mass in the supraclavicular notch nor in the cervical, inguinal, axillary areas. SKIN: Dry; intact DIAGNOSTIC STUDIES: 1. Chest x-ray shows no acute infiltrates. 2. Ultrasound of the lower extremity shows no DVT. LABORATORY DATA: [place] [address], hemoglobin 9.9, hematocrit 35.8. Chemistries abnormalities are chloride 94, carbon dioxide 39, troponin less than 0.1. EKG: Sinus rhythm, nonspecific ST-T wave changes. CLINICAL IMPRESSION: 1. Chronic obstructive pulmonary disease. 2. Panacinar emphysema. 3. Reversible asthmatic findings. 4. Morbid obesity. 5. Probable obstructive sleep apnea. We will review old records from the office and see what has been done in the past and what the patient has taken or refused. PLAN: Decreased corticosteroids immediately. She was placed on IV steroids, which will be decreased this morning. Hopefully, tomorrow morning, we will be able to change to p.o. I would like to get her out of the hospital at the earliest possible time. There is no acute respiratory problems pending at this time. There is no need for additional medications. There is no pneumonia, atelectasis or other respiratory symptoms. The patient remains relatively asymptomatic, at least no different than her baseline. I am hoping that she continues to do well and that she will be able to be placed on p.o. medications in the morning and possibly discharged. Thank you for the opportunity to see this longtime patient. Eren Rogers MD MTDHallie
[2017-06-09] MEDS: Albuterol-Ipratrop 3 mg / 0.5 (3 ml) UD IH SCH ×4 (00:44→11:22)
[2017-06-09 06:04] VITALS: O2SAT 96
[2017-06-09 06:06] LABS: HEMOGLOBIN 9.8 gm/dL (12.0-16.0); MEAN CELL VOLUME 74.8 fL (80.0-105.0); MEAN CORPUSCULAR HEMOGLOBIN 20.2 pg (25.0-35.0); RBC 4.85 10^6/uL (3.5-6.1); RED CELL DISTRIBUTION WIDTH 17.5 % (11.5-14.5)
[2017-06-09 06:16] LABS: ALB/GLOB RATIO 1.4 (1.1-1.8); ALBUMIN 3.9 g/dL (3.0-4.8); ALT/SGPT 30 U/L (7-56); AST/SGOT 22 U/L (15-39); BLOOD UREA NITROGEN 24 mg/dL (7-21); CALCIUM 9.5 mg/dL (8.4-10.5); GFR AFRICAN-AMERICAN > 60; GFR NON-AFRICAN AMERICAN > 60
--- NOTE | 2017-06-09 10:43 | RAD ---
PROCEDURE: Radiographs of the Right Shoulder HISTORY: right shoulder pain COMPARISON: No prior. FINDINGS: BONES: Normal. No fracture. JOINTS: Normal. Glenohumeral and acromioclavicular joints preserved. No osteoarthritis. SOFT TISSUES: Normal. OTHER FINDINGS: None. IMPRESSION: Normal radiographs of the right shoulder.
[2017-06-09] MEDS: Pantoprazole 40 mg EC Tab PO SCH (11:03)
[2017-06-09] MEDS: GlipiZIDE 5 mg SR Tab PO SCH (11:03)
[2017-06-09] MEDS: diltiaZEM 180 mg/24 Hours CD Cap PO SCH (11:05)
[2017-06-09] MEDS: buPROPion 300 mg/24 Hours XL Tab PO SCH (11:05)
[2017-06-09] MEDS: Potassium Chloride 20 mEq ER Tab PO SCH (11:06)
[2017-06-09] MEDS: cefTRIAXone 1 gm 1 GM/100 ML BAG IVPB SCH (11:07)
[2017-06-09] MEDS: Tiotropium 18 mcg Cap For Inhalation IH SCH (11:07)
[2017-06-09 12:37] VITALS: BP 154/75; PULSE 86; RESP 20; TEMP 98.9
[2017-06-09] MEDS: Azithromycin 500MG/NS 250ml 500 MG/250 ML BAG IVPB SCH (12:44)
--- NOTE | 2017-06-10 01:25 | DS ---
She slept well last night, she is doing well. She is only down to Solu-Medrol 20 mg as of yesterday. The websphere architect feels there is no reason for her to be in the hospital, we will discharge her today. We will change it to observation and we will discharge her home. PHYSICAL EXAMINATION: VITAL SIGNS: 98.6 temperature, 74 pulse, 136/ blood pressure, 17 respiratory rate, 96% O2 saturation on nasal canula. HEENT: Head is atraumatic, normocephalic. Throat is moist. NECK: Supple. HEART: Regular rate. LUNG: Clear to auscultation bilaterally with decreased breath sounds. ABDOMEN: Morbidly obese. Soft, nontender. Positive bowel sounds. No guarding. EXTREMITIES: No edema. MEDICATIONS: She will go home on her regular medication which are Cardizem; Desyrel; DuoNeb; Ecotrin; Flexeril; Glucophage; Glucotrol; Januvia; potassium; Lasix will be p.o., not IV; Lipitor; Lopressor; Mirapex; Protonix; we will stop the Rocephin after today's dose; Singulair; methylprednisolone will be stopped, we will put her on prednisone 40 for 3 days, 30 for 3 days, 20 for 3 days, and 10 for 3 days; Spiriva; Tylenol and Wellbutrin. We will stop the Zithromax and Zoloft. Labs are pending today, they will be elevated because of her steroids; she has 21,000 white count, hemoglobin 9.8, hematocrit 36.3, and platelets 435. She is clinically much better. She is feeling better. She has slept well. She was here for acute exacerbation of COPD. She will be in observation and discharged later today. I will keep her on same medications plus prednisone 40 for 3 days, 30 for 3 days, 20 for 3 days, 10 for 3 days and stop. Thomas Looney DO [facility] CENTERHallie
--- NOTE | 2017-06-10 14:19 | PQF CHF ---
This form is a permanent part of the medical record Dr. Looney, Your documentation of chronic CHF in the H&P please specify the type of CHF--- is it systolic or diastolic or combined? Clarification of your documentation is requested to better reflect the severity of illness and intensity of treatment of your patient. Indicators present: [x] Diagnosis of CHF and/or history of CHF [] BNP > 200 [] Imaging Finding of Pulmonary Edema /Pleural Effusions [] Fluid/Volume Overload [] Pitting edema [] Ejection Fraction < 40% (Indicative of Systolic Heart Failure) [] Ejection Fraction > 40% (Indicative of Diastolic Heart Failure) [] Dyspnea / Orthopenea / Paroxysmal Nocturnal Dyspnea [] Other: Location in the medical record that reflects the above clinical findings: [] Treatment Provided: [] PHYSICIAN'S RESPONSE Based on your medical judgment of the clinical indicators outlined above, are you treating this patient for a known or suspected: [] Acute CHF [] Systolic [] Diastolic [] Combined [xx] Chronic CHF [] Systolic [] Diastolic [xx] Combined [] Acute on Chronic CHF []Systolic [] Diastolic [] Combined [] CHF due hypertension [] Acute systolic []Chronic systolic [] Acute/ chronic systolic [] Other, please indicate: [] [] If Unable to Determine, please check the box, sign and date. Present On Admission (POA) Indicator: [] Present at the time of admission [] Not present at the time of admission [] Clinically Undetermined In responding to this query, please exercise your independent professional judgment. The fact that a question is asked does not imply that any particular answer is desired or expected. Thank you for your clarification on this documentation. If you have any questions please call:[ ] * Thank you, [ ]CHRISTIANO WAGNERemployee relations consultant CARRIE
== END 2017-06-09 18:43 | disposition home health service (06) | DRG 191 ==
LOC: ED 16:05 → ERH 22:01 → 2RNO 23:23
PROVIDERS: ADMIT Family Medicine; ATTEND Family Medicine
PROC: 5A09357 Assistance with Respiratory Ventilation, Less than 24 Consecutive Hours, Continuous Positive Airway Pressure (ICD-10-PCS; principal; 2017-06-09)
DX: J44.1 Chronic obstructive pulmonary disease with (acute) exacerbation (principal); I50.42 Chronic combined systolic (congestive) and diastolic (congestive) heart failure; I11.0 Hypertensive heart disease with heart failure; Z68.43 Body mass index [BMI] 50.0-59.9, adult; E66.01 Morbid (severe) obesity due to excess calories; E11.9 Type 2 diabetes mellitus without complications; K21.9 Gastro-esophageal reflux disease without esophagitis; G47.33 Obstructive sleep apnea (adult) (pediatric); K59.00 Constipation, unspecified; F41.9 Anxiety disorder, unspecified; F32.9 Major depressive disorder, single episode, unspecified; H91.90 Unspecified hearing loss, unspecified ear; Z87.891 Personal history of nicotine dependence; Z95.2 Presence of prosthetic heart valve; Z95.5 Presence of coronary angioplasty implant and graft; Z79.84 Long term (current) use of oral hypoglycemic drugs; Z79.82 Long term (current) use of aspirin; Z97.4 Presence of external hearing-aid; Z79.52 Long term (current) use of systemic steroids

== ENCOUNTER 2017-06-25 02:25 | Inpatient (IN) | payer MEDICARE, MEDICAID ==
[2017-06-25 02:30] VITALS: BMI 50.8
[2017-06-25] MEDS ORDERED: Morphine 4 mg/ml ISec IM STA (02:37)
--- NOTE | 2017-06-25 03:05 | ED PDOC ---
Arrival/HPI - General Chief Complaint: Trauma Time Seen by Provider: 06/25/17 02:29 - History of Present Illness Narrative History of Present Illness (Text): 06/25/17 02:44 67-year-old female presents to the emergency department after a mechanical fall. She says that she tripped on her carpet, falling onto her right upper extremity. Patient denies any lower extremity, hip, pelvis, torso, neck or head trauma. Past Medical History - Provider Review Nursing Documentation Reviewed: Yes - Infectious Disease Hx of Infectious Diseases: None - Tetanus Immunization Tetanus Immunization: Unknown - Cardiac Hx Cardiac Disorders: Yes Hx Congestive Heart Failure: Yes Hx Hypertension: Yes - Pulmonary Hx Chronic Obstructive Pulmonary Disease (COPD): Yes - Neurological Hx Neurological Disorder: Yes (hand tremors) - HEENT Hx HEENT Disorder: Yes (uses eyeglasses) Hx Deafness: Yes Other/Comment: pt [place] hearing aids broken at home - Renal Hx Renal Disorder: No - Endocrine/Metabolic Hx Diabetes Mellitus Type 2: Yes Hx Hypothyroidism: Yes - Hematological/Oncological Hx Blood Disorders: No - Integumentary Hx Dermatological Disorder: Yes Other/Comment: ble +1 edema and red dry skin,pt has red skin under abd fold and under breasts on and off, none now - Musculoskeletal/Rheumatological Hx Falls: Yes (past) - Gastrointestinal Hx Gastrointestinal Disorders: (CONSTIPATION,) Hx Gastroesophageal Reflux: Yes - Genitourinary/Gynecological Hx Reproductive Disorders: No - Psychiatric Hx Psychophysiologic Disorder: Yes Hx Anxiety: Yes Hx Depression: Yes Hx Substance Use: No - Surgical History Hx Appendectomy: Yes Hx Hysterectomy: Yes Hx Open Heart Surgery: Yes (1957) Other/Comment: Tonsillectomy. Mitral valve repair as an . 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 - Anesthesia Hx Anesthesia: Yes Hx Anesthesia Reactions: No - Suicidal Assessment Feels Threatened In Home Enviroment: No Family/Social History Family/Social History: Unknown Family HX Smoking Status: Former Smoker Hx Alcohol Use: No Hx Substance Use: No Hx Substance Use Treatment: No Allergies/Home Meds Allergies/Adverse Reactions: Allergies No Known Allergies Allergy (Verified 05/12/17 17:37) Home Medications: Home Meds Medication Instructions Recorded Confirmed Glipizide [Glipizide ER] 10 mg PO BID 03/13/17 06/25/17 Pramipexole Di-HCl [Mirapex] 0.25 mg PO HS 03/13/17 06/25/17 Simvastatin 20 mg PO HS 03/13/17 06/25/17 Budesonide [Pulmicort] 2 puff IH BID 04/01/17 06/25/17 Cyclobenzaprine [Flexeril] 10 mg PO HS 04/01/17 06/25/17 Theophylline [Anthony-Dur] 200 mg PO BID 04/01/17 06/25/17 Aspirin [Ecotrin] 81 mg PO DAILY 04/12/17 06/25/17 Pantoprazole Sodium [Protonix] 40 mg PO DAILY 04/12/17 06/25/17 Potassium 20 20 meq PO DAILY 04/12/17 06/25/17 Sertraline [Zoloft] 75 mg PO DAILY 04/12/17 06/25/17 Diltiazem HCl [Diltiazem ER] 360 mg PO DAILY 05/12/17 06/25/17 Furosemide [Lasix] 40 mg PO BID 05/12/17 06/25/17 MetFORMIN [glucoPHAGE] 1,000 mg PO BID 05/12/17 06/25/17 Multivitamin [Multivitamins] 1 tab PO DAILY 05/12/17 06/25/17 SITagliptin [Januvia] 100 mg PO DAILY 05/12/17 06/25/17 buPROPion XL [Wellbutrin XL] 300 mg PO DAILY 05/12/17 06/25/17 Cyclobenzaprine [Flexeril] 10 mg PO HS 06/07/17 06/25/17 Neurontin 100 mg PO TID PRN 06/09/17 06/25/17 Physical Exam - Physical Exam Narrative Physical Exam (Text): 06/25/17 02:46 - Review of Systems Constitutional: Normal. absent: Fatigue, Weight Change, Fevers Eyes: Normal ENT: denies sore throat, denies tristhmus Respiratory: Normal. absent: SOB, Cough, Sputum Cardiovascular: absent: Chest Pain, Palpitations, Syncope Gastrointestinal: Normal. absent: Abdominal Pain, Diarrhea, Nausea, Vomiting Genitourinary: Normal. absent: Dysuria, Frequency, Hematuria, vaginal bleeding Musculoskeletal: RUE injury. absent: Back Pain, Neck Pain Skin: no rashes, no erythema Neurological: absent: Focal Weakness Endocrine: Normal Hemo/Lymphatic: Normal Psychiatric: No suicidal or homicidal ideations Physical exam Patient appears age appropriate in no distress, speaking full sentences without difficulty Head atraumatic. No nasal bone deformity or tenderness, no facial or jaw pain/ swelling. No neck midline tenderness, thoracic and lumbar spine with no midline tenderness. Pt moving L. upper and b/l lower extremities without difficulty, 5/ 5 strength, with full active and passive ROM. Distal neurovasc fully intact. Abd soft/nt/nd, no hematomas, no peritoneal signs. Neg. pelvic rock. - Systems Exam Head: Present: Atraumatic, Normocephalic Pupils: Present: PERRL Extroacular Muscles: Present: EOMI Conjunctiva: Present: Normal Mouth: Present: Moist Mucous Membranes Neck: Present: Normal Range of Motion. No: MIDLINE TENDERNESS, Paraspinal Tenderness Respiratory/Chest: Present: Clear to Auscultation, Good Air Exchange, on O2 (pt has a hx of COPD, on home oxygen). No: Respiratory Distress, Accessory Muscle Use, Tachypneic Cardiovascular: Present: Regular Rate and Rhythm, Normal S1, S2, Peripheal Pulses Present. No: Murmurs Abdomen: Present: Normal Bowel Sounds. No: Tenderness, Distention, Peritoneal Signs, Rebound, Guarding Back: Present: Normal Inspection. No: Midline Tenderness, Paraspinal Tenderness Upper Extremity: Present: Right upper extremity with no tenderness along the patient's clavicle. Patient's hand and wrist with full active and passive range of motion, patient's forearm unremarkable. Distal neurovascular fully intact. Patient's elbow has no tenderness palpation both patient states that range of motion testing of the elbow elicits pain from humerus which is tender around the midshaft area. Decreased range of motion of the patient's shoulder due to pain while no visible palpable deformity. Lower Extremity: Present: Normal Inspection. No: Edema Neurological: Present: GCS=15, Speech Normal, cranial nerves II through XII fully intact with no cerebellar abnormality, neurosensory fully intact. No focal neurological deficits. Skin: Present: Warm, Dry, Normal Color. No: Rashes Lymphatic: Present: OX3, NI, NC Psychiatric: Present: Alert, Oriented x 3, Normal Insight, Normal Concentration Vital Signs Reviewed: Yes Vital Signs Temp Pulse Resp BP Pulse Ox 06/25/17 02:36 98.2 F 79 18 119/74 100 Temperature: Afebrile Blood Pressure: Normal Pulse: Regular Respiratory Rate: Normal Appearance: Positive for: Well-Appearing Pain Distress: None Mental Status: Positive for: Alert and Oriented X 3 Medical Decision Making ED Course and Treatment: 06/25/17 03:04 67-year-old female in the emergency department after mechanical fall with right upper extremity pain. Patient is a history of COPD on home oxygen, patient is in no respiratory distress with good inspiratory and expiratory effort and no wheezing. Differential diagnosis includes but not limited to: Sprain versus strain versus fracture versus dislocation X-ray and CAT scan ordered along with pain medications. 06/25/17 03:45 pt's xrays shows proximal humerus fx, surgical neck, displaced. Interpreted by me. sling applied distal neurovasc. intact Will admit for pain management and ortho evaluation. pt aware of and agrees with plan 06/25/17 03:50 CT Head Without Intravenous Contrast IMPRESSION: 1. No definite intracranial hemorrhage. Dictated and Authenticated by: Reji Damian MD 06/25/2017 3:50 AM Eastern Time ([place] & [place]) 06/25/17 03:[address] Mcneil, covering for Dr. Looney. Agrees with admission, Richard Wallace Augustine on consult pt aware of and agrees with plan - RAD Interpretation Radiology Orders: 06/25/17 02:37 HEAD W/O CONTRAST [CT] Stat ELBOW RIGHT 3 VIEWS ROUTINE [RAD] Stat HUMERUS RT FALL PROTOCOL [RAD] Stat SHOULDER RIGHT [RAD] Stat - Medication Orders Current Medication Orders: Discontinued Medications Hydromorphone HCl (Dilaudid) 1 mg IVP STAT STA Stop: 06/25/17 03:46 Morphine Sulfate (Morphine) 4 mg IM STAT STA Stop: 06/25/17 02:38 Last Admin: 06/25/17 02:58 Dose: 4 mg Disposition/Present on Arrival - Present on Arrival Any Indicators Present on Arrival: No History of DVT/PE: No History of Uncontrolled Diabetes: Yes Urinary Catheter: No History of Decub. Ulcer: No History Surgical Site Infection Following: None - Disposition Have Diagnosis and Disposition been Completed?: Yes Diagnosis: Humeral fracture Disposition: HOSPITALIZED Disposition Time: 04:00 Patient Plan: Admission Patient Problems: Current Active Problems Problem Status Onset Humeral fracture Acute Condition: FAIR Referrals: Thomas Looney, [Primary Care Provider] - Follow up with primary Forms: [employer] (Yakut)
[2017-06-25] MEDS ORDERED: HYDROmorphone 1 mg/ml ISec IVP STA ×2 (03:45→04:44)
--- NOTE | 2017-06-25 03:50 | CT ---
EXAM: CT Head Without Intravenous Contrast CLINICAL HISTORY: 67 years old, female; Injury or trauma; Fall; Initial encounter; Concussion / head injury TECHNIQUE: Axial computed tomography images of the head/brain without intravenous contrast. This CT exam was performed using one or more of the following dose reduction techniques: automated exposure control, adjustment of the mA and/or kV according to patient size, and/or use of iterative reconstruction technique. COMPARISON: CT - HEAD W/O CONTRAST 12/10/2016 2:48:27 AM FINDINGS: Limitations: Motion artifact - mild. Brain: Mild atrophy. No definite intracranial hemorrhage. No mass. No definite edema. Ventricles: No hydrocephalus. Bones/joints: No acute fracture. Soft tissues: Unremarkable. Sinuses: No acute sinusitis. Mastoid air cells: No mastoid effusion. Orbits: Unremarkable as visualized. IMPRESSION: 1. No definite intracranial hemorrhage.
[2017-06-25] MEDS ORDERED: Albuterol-Ipratrop 3 mg / 0.5 (3 ml) UD IH PRN (04:00)
[2017-06-25 04:41] LABS: ALB/GLOB RATIO 1.3 (1.1-1.8); ALBUMIN 3.8 g/dL (3.0-4.8); ALT/SGPT 36 U/L (7-56); AST/SGOT 27 U/L (15-39); BLOOD UREA NITROGEN 15 mg/dL (7-21); CALCIUM 8.9 mg/dL (8.4-10.5); GFR AFRICAN-AMERICAN > 60; GFR NON-AFRICAN AMERICAN > 60
[2017-06-25 04:47] LABS: BASO # 0.05 K/mm3 (0.0-2.0); BASO % 0.3 % (0.0-3.0); EOS # 0.3 (0.0-0.7); EOS % 1.5 % (1.5-5.0); GRAN # 12.94 (1.4-6.5); GRAN % 78.7 % (50.0-68.0); HEMOGLOBIN 9.9 gm/dL (12.0-16.0); LYMPH # 2.4 (1.2-3.4); LYMPH % 14.4 % (22.0-35.0); MEAN CELL VOLUME 74.6 fL (80.0-105.0); MEAN CORPUSCULAR HEMOGLOBIN 20.2 pg (25.0-35.0); MEAN CORPUSCULAR HGB CONC 27.1 g/dl (31.0-37.0); MEAN PLATELET VOLUME 8.8 fl (7.0-11.0); MONO # 0.8 (0.1-0.6); MONO % 5.1 % (1.0-6.0); PLATELET COUNT 312 10^3/uL (120.0-450.0); RBC 4.89 10^6/uL (3.5-6.1); RED CELL DISTRIBUTION WIDTH 17.6 % (11.5-14.5); WHITE BLOOD COUNT 16.4 10^3/ul (4.5-11.0)
[2017-06-25 04:54] LABS: INR 0.91 (0.93-1.08); PARTIAL THROMBOPLASTIN TIME 25.4 Seconds (23.7-30.8); PROTHROMBIN TIME 9.8 Seconds (9.9-11.8)
[2017-06-25] MEDS ORDERED: Morphine 2 mg/ml ISec IM PRN (07:47)
[2017-06-25] MEDS ORDERED: Albuterol-Ipratrop 3 mg / 0.5 (3 ml) UD IH SCH (08:00)
--- NOTE | 2017-06-25 08:24 | RAD ---
PROCEDURE: Radiographs of the right elbow. HISTORY: fall COMPARISON: No prior. FINDINGS: BONES: Examination is limited due to patient positioning. Allowing for this, no acute displaced fracture or bone destruction JOINTS: Bone alignment is normal. SOFT TISSUES: Normal. JOINT EFFUSION: None. OTHER FINDINGS: None. IMPRESSION: Limited examination due to patient positioning, allowing for this no acute displaced fracture.
--- NOTE | 2017-06-25 08:24 | RAD ---
PROCEDURE: Radiographs of the Right Shoulder HISTORY: fall COMPARISON: No prior. FINDINGS: BONES: There is an acute impacted fracture in the neck of the humerus extending to the greater tuberosity with displacement of the greater tuberosity fracture fragment. There is diffuse bone demineralization. Bone alignment is normal. JOINTS: There is mild degenerative osteoarthrosis in the acromioclavicular joint. SOFT TISSUES: Normal. OTHER FINDINGS: None. IMPRESSION: Acute impacted displaced fracture in the neck of the humerus extending to the greater tuberosity.
--- NOTE | 2017-06-25 08:33 | RAD ---
PROCEDURE: Radiographs of the right humerus. HISTORY: fall COMPARISON: None. FINDINGS: BONES: There is an acute comminuted impacted displaced fracture in the neck of the humerus extending to the greater tuberosity. Bone alignment is normal. There is diffuse bone demineralization with SOFT TISSUES: Normal. OTHER FINDINGS: None. IMPRESSION: Acute comminuted impacted displaced fracture in the neck of the humerus extending to the greater tuberosity.
[2017-06-25] MEDS: Budesonide 0.5 mg/2 ml Inhal Susp UD IH SCH ×2 (08:36→19:57)
--- NOTE | 2017-06-25 08:56 | RAD ---
PROCEDURE: Left Hand and 5th digit Radiographs. HISTORY: r/o fracture COMPARISON: None. FINDINGS: BONES: Normal. No fracture. JOINTS: Normal. No osteoarthritic changes. SOFT TISSUES: Normal. OTHER FINDINGS: None. IMPRESSION: Negative study
--- NOTE | 2017-06-25 08:58 | RAD ---
PROCEDURE: Radiographs of the right elbow. HISTORY: repeat, need ap/lat/oblique COMPARISON: No prior. FINDINGS: BONES: Normal. No fracture. JOINTS: Normal. No osteoarthritis. SOFT TISSUES: Normal. JOINT EFFUSION: None. OTHER FINDINGS: None. IMPRESSION: Unremarkable radiographs of the right elbow.
--- NOTE | 2017-06-25 09:52 | CT ---
PROCEDURE: CT of the right upper extremity HISTORY: prox humerus fx COMPARISON: TECHNIQUE: CT of the right upper extremity was performed in the axial plane with sagittal and coronal reconstructions. FINDINGS: The study shows a comminuted fracture of the femoral neck which also extends into the humeral head involving the anterior articular surface. The bony glenoid is intact. Acromioclavicular joint is unremarkable. The study was reviewed with Dr. Harmon IMPRESSION: Comminuted fracture of the humeral head and neck with extension into the articular surface.
[2017-06-25] MEDS ORDERED: Theophylline 200 mg ER Tab PO SCH (10:00)
[2017-06-25] MEDS: diltiaZEM 180 mg/24 Hours CD Cap PO SCH (10:49)
[2017-06-25] MEDS: Enoxaparin 60 mg Syringe SC SCH (10:49)
[2017-06-25] MEDS: Multivitamin Therapeutic Tab PO SCH (10:50)
[2017-06-25] MEDS: GlipiZIDE 10 mg SR Tab PO SCH ×2 (10:50→18:47)
[2017-06-25] MEDS: buPROPion 300 mg/24 Hours XL Tab PO SCH (10:50)
[2017-06-25] MEDS: Pantoprazole 40 mg EC Tab PO SCH (10:51)
[2017-06-25] MEDS: Potassium Chloride 20 mEq ER Tab PO SCH (10:54)
[2017-06-25] MEDS: Morphine 2 mg/ml ISec IVP PRN ×4 (11:05→22:41)
[2017-06-25] MEDS: Theophylline 100mg ER 24 hrs Cap PO SCH (12:00)
--- NOTE | 2017-06-25 12:17 | CON ---
DATE: 06/25/2017 REASON FOR CONSULT Status post fall with right shoulder pain. HISTORY OF PRESENT ILLNESS: This is a 67-year-old female with multiple medical problems including COPD, congestive heart failure, diabetes, obesity, who presented status post fall with right shoulder pain. The patient denies any lower extremity pain. She also has complaints of left fifth finger pain. The patient was subsequently admitted and now presents for further orthopedic evaluation and treatment. PHYSICAL EXAMINATION: EXTREMITIES The right shoulder, there is some swelling at the right shoulder. SKIN: The skin is intact. NEUROVASCULAR: She is intact distally with palpable distal pulses. She has pain with passive range of motion of the shoulder in all directions. She has no significant tenderness to palpation over the hemo shaft over the elbow. She is tolerating some gentle passive elbow flexion and extension without significant pain. She is nontender over her wrist near the hand. Evaluation of the left hand shows that she has some ecchymosis over the left fifth finger. She is able to flex and extend it; some swelling is also noted. She has some tenderness at the MCP joint at the fifth finger. Neurologically, she is intact. DIAGNOSTIC IMAGING: X-rays and CAT scan of the right shoulder is significant for a comminuted right proximal humerus fracture, appears impacted. X-rays of the left hand show that she does have a small calcification at the base of the fifth proximal phalanx, which may be acute and can sustained with a fracture. X-rays of the right elbow are somewhat limited, but no obvious fractures or dislocations are appreciated. IMPRESSION: Right proximal humerus fracture and left fifth finger proximal phalanx fracture. PLAN: At this point, recommendation is for open reduction internal fixation of the right proximal humerus fracture with possible hemiarthroplasty once the patient is medically optimized. Discussed the treatment options with the patient and she understands that surgery is recommended. We will plan on scheduling her for surgery in the upcoming days. For now, recommend pain medications as needed and right upper extremity . Solomon Lopez MD
--- NOTE | 2017-06-25 12:27 | CON ---
DATE: 06/25/2017 PULMONARY CONSULTATION REFERRING PHYSICIAN: Thomas Looney DO REASON FOR CONSULTATION: Chronic obstructive pulmonary disease. HISTORY OF PRESENT ILLNESS: The patient is a chronically ill 67-year-old female, with past medical history significant for advanced chronic obstructive pulmonary disease (on home oxygen and steroids), obstructive sleep apnea, morbid obesity, and valvular heart disease, who presents to [facility] after falling at home. Apparently, the patient tripped on her carpet and fell on to her right upper extremity. Subsequent evaluation revealed a right humeral fracture. She was thus admitted for additional evaluation. The patient is not short of breath at rest. She does have chronic dyspnea on exertion, which has not changed. She also has a chronic cough with minimal sputum production, also not changed. There is no history of chest pain, coughing up of blood, or chest pain, may worse with deep respirations. There is no history of temperature, chills, or infectious exposure. There was no history of night sweats, weight loss, or appetite change prior to the above events. No history of calf pains. No history of syncope or diaphoresis. No history of recent travel. REVIEW OF SYSTEMS: No history of nausea, vomiting, or diarrhea. No acute urinary symptoms. No new neurologic complaints. Rest of the review of systems is negative. ALLERGIES: No known allergies. SOCIAL HISTORY: Positive for extensive tobacco usage. No alcohol. FAMILY HISTORY: No inheritable diseases. MEDICATIONS: Home medications include prednisone, Wellbutrin, Anthony-Dur, Zoloft, Januvia, Mirapex, Singulair, Glucophage, glipizide, diltiazem, Flexeril, Pulmicort, Ecotrin, and DuoNeb. PHYSICAL EXAMINATION GENERAL: The patient is not short of breath at rest. She is not using accessory muscles for breathing. VITAL SIGNS: Temperature 98.2, pulse 84, respirations 18, and blood pressure 126/77. Oxygen saturation on nasal cannula is 100%. HEENT: Normocephalic and atraumatic. No JVD. CARDIOVASCULAR: Systolic ejection murmur at the lower left sternal border. No S3 gallop. LUNGS: Clear bilaterally. EXTREMITIES: Positive for edema. No cyanosis and no clubbing. Calves are nontender to palpation. The right upper extremity is in a sling. GASTROINTESTINAL: Abdomen is soft, nontender, and nondistended. Bowel sounds are positive. SKIN: No acute rash. NEUROLOGIC EXAM: Limited at the present time. LABORATORY DATA: X-rays were done in the emergency room. Results were consistent with a right humeral fracture. CBC: White count 16.4, hemoglobin 9.9, hematocrit 36.5, and platelets of 312. Complete metabolic profile: Chloride 92, carbon dioxide 42. Rest of the metabolic profile is within normal limits. IMPRESSION: 1. Right humeral fracture. 2. Status post mechanical fall. 3. Advanced chronic obstructive pulmonary disease. 4. Obstructive sleep apnea. 5. Chronic anemia. PLAN: The patient presents to [facility] after falling at home. Apparently, the patient tripped on her carpet and then fell on her right upper extremity. Subsequent evaluation revealed a fracture of the right humerus. The patient was thus admitted for additional evaluation. On extensive questioning, the patient offers no new or significant pulmonary symptoms. On physical exam, her lungs are clear. Oxygen saturation on nasal cannula is 100%. I will continue the patient on DuoNeb treatments, prednisone, and Pulmicort, which she is on at home. Consultations with cardiology and orthopedics have been ordered. Additional pulmonary intervention will be based on the clinical status of the patient. I will discuss the above with Dr. Looney this morning. Thank you very much for this pulmonary consultation. Wagner Ramos MD [facility]
--- NOTE | 2017-06-25 13:07 | CON ---
CARDIOLOGY CONSULTATION DATE: 06/25/2017 HISTORY OF PRESENT ILLNESS: The patient is a 67-year-old woman who suffered a humerus fracture after a mechanical fall from tripping from her rug. The patient's past medical history is notable for severe COPD with multiple admissions for exacerbation of COPD. Her cardiac evaluation in the past, within the last 12 months reveals normal LV function with an EF of approximately 50%. No pulmonary hypertension is noted. In addition, she suffers from hypertension and morbid obesity. SOCIAL HISTORY: She denies smoking. REVIEW OF SYSTEMS: The patient is free of chest pain. PHYSICAL EXAMINATION: VITAL SIGNS: Stable. NECK: Negative JVD. LUNGS: Decreased breath sounds bilaterally. HEART: Reveal S1 and S2. EXTREMITIES: Without edema. DIAGNOSTIC DATA: EKG is not available. LABORATORY DATA: Reviewed. IMPRESSION: 1. Status post humeral fracture post mechanical fall. 2. Severe chronic obstructive pulmonary disease. 3. Preserved left ventricular function. 4. Morbid obesity. 5. Hypertension. PLAN: 1. Given these findings, the patient's increased surgical anesthesia risks are directly related to her severe lung disease. 2. Her LV function remains preserved. We will obtain an EKG as a preop. Jagdeep Olmos MD
--- NOTE | 2017-06-25 13:27 | HP ---
HISTORY OF PRESENT ILLNESS: I know very well from hospital stay than from house calls, numbers are [phone]. She is a 67-year-old female who presented with mechanical fall at home and she hurt her right upper extremity and shoulder. She does have a lot of pain. She is actually got to the emergency room. PAST MEDICAL HISTORY: She has a very big medical history CHF, hypertension, COPD, hand tremors, and she uses prednisone steroid dependent. She has very poor hearing and very poor vision. She is on eye glasses and hearing aids. She is very much almost deaf. Hearing aids broke at home, has got severely yell to talk to her. She has diabetes and hypothyroidism. She is morbidly obese. She has edema of both her legs. She has chronic skin fungal infections and bruising. She has a fall in the past, this is the worst fall she has had. She apparently tripped over the carpet. She has constipation, reflux, anxiety, and depression. 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 FAMILY HISTORY: She has hypertension and diabetes in the family. SOCIAL HISTORY: She is a former smoker. No alcohol. No drugs. ALLERGIES: NO KNOWN DRUG ALLERGIES. MEDICATIONS: Glipizide, Mirapex, simvastatin, Pulmicort, Flexeril, Anthony-Dur, Ecotrin, Protonix, potassium, Zoloft, diltiazem, Lasix, Glucophage, multivitamin, Januvia, Wellbutrin, Flexeril, and Neurontin. REVIEW OF SYSTEMS: No acute hearing or vision changes, it is chronic headache. No sore throat. No runny nose. She does have neck pain from the fall, right shoulder pain, left hand pain, and back pain. No chest pain or palpitations. No shortness of breath or cough, just a chronic shortness of breath. No abdominal pain, nausea, or vomiting. No problems urinating. She has right upper extremity severe pain, but this pain is in the left hand, pain is in the head. She has got multiple pains all over from the fall. Skin for the most part is intact. PHYSICAL EXAMINATION: GENERAL: She is alert. She is weak in the right arm. No anxiety or depression at this time. VITAL SIGNS: She has a 98.2 temperature, 79 pulse, 18 respiratory rate, 119/74 blood pressure, and 100% O2 sat. HEENT: Head is atraumatic and normocephalic. No nasal bone issue. No jaw bone issues. No neck issues patient. The right upper extremity is the problem one. Extraocular muscles are intact. Pupils are equally reactive to light and accommodation. Throat moist. NECK: Supple. HEART: Regular rate. Normal S1 and S2. LUNGS: Decreased breath sounds, but clear. No wheezes or rhonchi. ABDOMEN: Soft and morbidly obese and nontender. Positive bowel sounds. No apparent guarding or rebound. No CVA tenderness. EXTREMITIES: Trace edema in the feet. The right arm shoulder is extremely in pain, cannot move it. Left hand fifth finger is black and blue and painful and swollen. NEUROLOGIC: GCS is 15. Cranial nerves II-XII grossly intact. Speech is normal. Alert and oriented x3. She has multiple issues from the fall. LABORATORY DATA: She had multiple tests; sodium 142, potassium 3.7, BUN 50, and creatinine 0.64. GFR greater than 60, sugar 89, calcium 8.9, total bilirubin 0.4, AST 27, ALT 36, alkaline phosphatase 105, total protein 6.8, albumin 3.8, INR 0.91 with 16.4 white count and she is on steroids, 9.9 hemoglobin, 36.5 hematocrit, and 312 platelets. Multiple x-rays were done of the right shoulder showed acute impacted displaced fracture in the neck of the humerus extending into the great tuberosity. The CAT scan of the head was okay. IMPRESSION AND PLAN: She will have consults with orthopedics, cardiac and pulmonary and physical therapy. Her medications also put her on Lovenox. She might need to go to therapy for this likely subacute at this time around. She is here for mechanical fall, right shoulder fracture she might need surgery, we ruling out left hand fracture, and continue aggressive treatment care. Thomas Looney DO [facility]ITAL[facility]
--- NOTE | 2017-06-25 13:36 | RAD ---
HISTORY: pre-op evaluation, hx copd COMPARISON: 06/07/2017 FINDINGS: LUNGS: No active pulmonary disease. PLEURA: No significant pleural effusion identified, no pneumothorax apparent. CARDIOVASCULAR: Moderate cardiomegaly OSSEOUS STRUCTURES: No significant abnormalities. VISUALIZED UPPER ABDOMEN: Normal. OTHER FINDINGS: None. IMPRESSION: Moderate cardiomegaly. No focal consolidation
[2017-06-25] MEDS: Albuterol-Ipratrop 3 mg / 0.5 (3 ml) UD IH SCH ×2 (13:37→19:57)
[2017-06-25] MEDS: cefTRIAXone 1 gm 1 GM/100 ML BAG IVPB SCH (13:50)
[2017-06-25] MEDS: Albuterol-Ipratrop 3 mg / 0.5 (3 ml) UD IH PRN (18:30)
--- NOTE | 2017-06-26 01:12 | CP.PCM.PN ---
Subjective - Date & Time of Evaluation Date of Evaluation: 06/26/17 Time of Evaluation: 01:12 - Subjective Subjective: Patient was seen at bedside because she had pain right shoulder. She has been on morphine 2 mg IV for pain. States that it is not enough. Has no other complaints. Denies paraesthesia, weakness. ROS:Negative except as mentioned above. Medical record was reviewed. This 67 year old white woman was admitted with right upper extremity pain after she had a mechanical fall at home, right humerus neck Fx. Has PMH of CHF,COPD,HTN, Obesity, hand tremors, poor hearing , poor vision, anxiety, depression, GERD, constipation. Objective - Vital Signs/Intake and Output Vital Signs (last 24 hours): Temp Pulse Resp BP Pulse Ox 98.1 F 86 18 143/70 95 06/25/17 16:00 06/25/17 23:56 06/25/17 16:00 06/25/17 20:32 06/25/17 16:00 Intake and Output: 06/25/17 06/26/17 18:59 06:59 Intake Total 640 540 Balance 640 540 - Medications Medications: Current Medications Albuterol/Ipratropium (Duoneb 3 Mg/0.5 Mg (3 Ml) Ud) 3 ml IH Q2H PRN PRN Reason: Shortness of Breath Last Admin: 06/25/17 18:30 Dose: 3 ml Albuterol/Ipratropium (Duoneb 3 Mg/0.5 Mg (3 Ml) Ud) 3 ml IH [id number] [facility] Last Admin: 06/25/17 19:57 Dose: 3 ml Aspirin (Ecotrin) 81 mg PO DAILY [facility] Last Admin: 06/25/17 10:50 Dose: 81 mg Atorvastatin Calcium (Lipitor) 10 mg PO [facility] Last Admin: 06/25/17 22:44 Dose: 10 mg Budesonide (Pulmicort Respules) 0.5 mg IH [id number] [facility] Last Admin: 06/25/17 19:57 Dose: 0.5 mg Bupropion HCl (Wellbutrin Xl) 300 mg PO DAILY [facility] Last Admin: 06/25/17 10:50 Dose: 300 mg Cyclobenzaprine HCl (Flexeril) 10 mg PO [facility] Last Admin: 06/25/17 22:44 Dose: 10 mg Diltiazem HCl (Cardizem Cd) 360 mg PO DAILY [facility] Last Admin: 06/25/17 10:49 Dose: 360 mg Enoxaparin Sodium (Lovenox) 60 mg SC DAILY [facility] PRN Reason: Protocol Last Admin: 06/25/17 10:49 Dose: 60 mg Furosemide (Lasix) 40 mg PO BID [facility] Last Admin: 06/25/17 18:47 Dose: 40 mg Gabapentin (Neurontin) 100 mg PO TID PRN PRN Reason: for pain Glipizide (Glucotrol Xl) 10 mg PO BID [facility] Last Admin: 06/25/17 18:47 Dose: 10 mg Ceftriaxone Sodium (Rocephin 1 Gram Ivpb) 1 gm in 100 mls @ 100 mls/hr IVPB DAILY [facility] PRN Reason: Protocol Last Admin: 06/25/17 13:50 Dose: 100 mls/hr Lidocaine (Lidoderm) 1 ea TD DAILY PRN PRN Reason: BACK PAIN Metformin HCl (Glucophage) 1,000 mg PO BID [facility] Last Admin: 06/25/17 18:47 Dose: 1,000 mg Metoprolol Tartrate (Lopressor) 25 mg PO BID [facility] Last Admin: 06/25/17 18:49 Dose: 25 mg Montelukast Sodium (Singulair) 10 mg PO HS [facility] Last Admin: 06/25/17 22:44 Dose: 10 mg Morphine Sulfate (Morphine) 2 mg IVP Q3H PRN PRN Reason: Pain, moderate (4-7) Last Admin: 06/25/17 22:41 Dose: 2 mg Multivitamins (Thera Tab) 1 tab PO DAILY [facility] Last Admin: 06/25/17 10:50 Dose: 1 tab Budesonide ( Pulmicort Inh) - Home Med 2 puff IH BID [facility] Pantoprazole Sodium (Protonix Ec Tab) 40 mg PO DAILY [facility] Last Admin: 06/25/17 10:51 Dose: 40 mg Potassium Chloride (K-Dur 20 Meq Er Tab) 20 meq PO DAILY [facility] Last Admin: 06/25/17 10:54 Dose: 20 meq Pramipexole Dihydrochloride (Mirapex) 0.25 mg PO HS [facility] Last Admin: 06/25/17 22:44 Dose: 0.25 mg Prednisone (Prednisone Tab) 10 mg PO DAILY [facility] Last Admin: 06/25/17 10:50 Dose: 10 mg Sertraline HCl (Zoloft) 75 mg PO DAILY [facility] Last Admin: 06/25/17 10:49 Dose: 75 mg Sitagliptin Phosphate (Januvia) 100 mg PO DAILY [facility] Last Admin: 06/25/17 10:51 Dose: 100 mg Theophylline (Anthony-24) 400 mg PO DAILY [facility] Last Admin: 06/25/17 12:00 Dose: 400 mg Trazodone HCl (Desyrel) 200 mg PO HS [facility] Last Admin: 06/25/17 22:44 Dose: 200 mg - Labs Labs: 06/25/17 04:02 06/25/17 04:02 PT 9.8 Seconds (9.9-11.8) L 06/25/17 04:02 INR 0.91 (0.93-1.08) L 06/25/17 04:02 APTT 25.4 Seconds (23.7-30.8) 06/25/17 04:02 - Constitutional Appears: Well, No Acute Distress - Head Exam Head Exam: ATRAUMATIC, NORMAL INSPECTION, NORMOCEPHALIC - Eye Exam Eye Exam: Normal appearance - ENT Exam ENT Exam: Normal External Ear Exam - Neck Exam Neck Exam: Normal Inspection - Respiratory Exam Respiratory Exam: NORMAL BREATHING PATTERN - Cardiovascular Exam Cardiovascular Exam: absent: JVD - GI/Abdominal Exam GI & Abdominal Exam: absent: Distended - Rectal Exam Rectal Exam: Deferred - Exam Additional comments: Deferred. - Extremities Exam Additional comments: Right arm is in sling. Has right shoulder tenderness. - Back Exam Back Exam: NORMAL INSPECTION - Neurological Exam Neurological Exam: Alert, Awake, Oriented x3 - Psychiatric Exam Psychiatric exam: Normal Affect, Normal Mood - Skin Skin Exam: Normal Color Assessment and Plan - Assessment and Plan (Free Text) Assessment: Right shoulder pain. Right humerus neck displaced fracture. CHF. HTN. COPD. Obesity. Hand tremors. Poor hearing. Poor vision. Anxiety. Depression. GERD. Constipation. Plan: Morphine sulfate 2 mg was ordered stat in addition 2 morphine 2 mg that was already ordered for her. Later on, I ordered dilaudi 2 mg IV once. Continue present management. Awaiting orthopedic intervention.
[2017-06-26] MEDS: Morphine 2 mg/ml ISec IVP STA ×2 (01:19→01:20)
[2017-06-26] MEDS: Lidocaine 5% Patch TD PRN (01:21)
[2017-06-26] MEDS ORDERED: HYDROmorphone 2 mg/ml ISec IVP STA (02:21)
[2017-06-26] MEDS: Budesonide 0.5 mg/2 ml Inhal Susp UD IH SCH ×2 (07:41→21:00)
[2017-06-26] MEDS: Albuterol-Ipratrop 3 mg / 0.5 (3 ml) UD IH SCH ×3 (07:41→21:00)
[2017-06-26 07:51] LABS: HEMOGLOBIN 9.8 gm/dL (12.0-16.0); MEAN CELL VOLUME 73.7 fL (80.0-105.0); MEAN CORPUSCULAR HEMOGLOBIN 20.3 pg (25.0-35.0); MEAN CORPUSCULAR HGB CONC 27.5 g/dl (31.0-37.0); MEAN PLATELET VOLUME 8.9 fl (7.0-11.0); RBC 4.83 10^6/uL (3.5-6.1); RED CELL DISTRIBUTION WIDTH 17.7 % (11.5-14.5)
[2017-06-26 08:07] LABS: ALB/GLOB RATIO 1.2 (1.1-1.8); ALBUMIN 3.8 g/dL (3.0-4.8); ALT/SGPT 36 U/L (7-56); AST/SGOT 23 U/L (15-39); BLOOD UREA NITROGEN 17 mg/dL (7-21); CALCIUM 9.2 mg/dL (8.4-10.5); GFR AFRICAN-AMERICAN > 60; GFR NON-AFRICAN AMERICAN > 60
[2017-06-26] MEDS: Enoxaparin 60 mg Syringe SC SCH (09:10)
[2017-06-26] MEDS: cefTRIAXone 1 gm 1 GM/100 ML BAG IVPB SCH (09:10)
[2017-06-26] MEDS: Morphine 2 mg/ml ISec IVP PRN ×4 (09:10→20:45)
[2017-06-26] MEDS: diltiaZEM 180 mg/24 Hours CD Cap PO SCH (09:11)
[2017-06-26] MEDS: Multivitamin Therapeutic Tab PO SCH (09:11)
[2017-06-26] MEDS: GlipiZIDE 10 mg SR Tab PO SCH ×2 (09:13→17:38)
[2017-06-26] MEDS: Potassium Chloride 20 mEq ER Tab PO SCH (09:13)
[2017-06-26] MEDS: buPROPion 300 mg/24 Hours XL Tab PO SCH (09:14)
[2017-06-26] MEDS: Pantoprazole 40 mg EC Tab PO SCH (09:14)
[2017-06-26] MEDS: Theophylline 100mg ER 24 hrs Cap PO SCH (09:15)
--- NOTE | 2017-06-26 10:28 | PN ---
DATE: 06/26/2017 SUBJECTIVE: The patient appears comfortable at rest. She is not short of breath. PHYSICAL EXAMINATION VITAL SIGNS: Temperature 98.1, pulse 86, respirations 18, blood pressure 143/70. Oxygen saturation on nasal cannula 95%. HEENT: Normocephalic, atraumatic. No JVD. CARDIOVASCULAR: Systolic ejection murmur at the lower left sternal border. No S3, gallop. LUNGS: Clear bilaterally. EXTREMITIES: Positive for edema. No cyanosis or clubbing. Calves are nontender to palpation. The right upper extremity remains in a sling. GI: Abdomen is soft, nontender, nondistended. Bowel sounds are positive. SKIN: No acute rash. NEUROLOGIC: Limited at the present time. PERTINENT LABORATORY DATA: Chest x-ray was repeated yesterday and reviewed. There is no active pulmonary disease noted. IMPRESSION: 1. Right humeral fracture. 2. Status post mechanical fall. 3. Advanced chronic obstructive pulmonary disease. 4. Obstructive sleep apnea. 5. Chronic anemia. PLAN: The patient appears comfortable this morning. She is not short of breath at rest. Oxygen saturation on nasal cannula is 95%. On physical exam, her lungs remain clear. I will continue with the current nebulizer treatments and low dose oral steroids for now. I did discuss the case with orthopedics (Dr. Lopez) at length yesterday. The patient will be at a significant risk for perioperative complications due to her longstanding advanced chronic obstructive pulmonary disease. I also discussed the case with the patient at length. We were awaiting additional family decisions. I will discuss the above with Dr. Looney this morning. Wagner Ramos MD [facility]
[2017-06-26] MEDS ORDERED: Potassium Chloride 20 mEq ER Tab PO ONE (12:14)
--- NOTE | 2017-06-26 13:46 | PN ---
DATE: SUBJECTIVE: I saw her in bed this morning. She is in a lot of pain for the right shoulder, status post mechanical fall and severe compressed shoulder fracture. The Orthopedic doctor would like to do surgery, but she is at high risk according to Pulmonary and to Cardiology. Otherwise she will have a very dysfunctional right shoulder, right proximal humerus fracture in the left fifth finger proximal phalanx fracture. She is in a little bit of trouble. PHYSICAL EXAMINATION: VITAL SIGNS: Temperature 98.1, pulse 98, blood pressure 135/67, respiratory rate 18, and O2 saturation 95% on room air. HEENT: Head is atraumatic and normocephalic. Throat is moist. NECK: Supple. HEART: Regular rate. LUNGS: Decreased breath sounds, but clear. No wheezes, rhonchi, or rales. ABDOMEN: Morbidly obese, nontender, positive bowel sounds. EXTREMITIES: Trace edema of the right upper extremity and shoulder is very painful. She is in a sling. LABORATORY DATA: White count 16, hemoglobin 9.8, hematocrit 35.6, and platelets 300. INR is 0.91. She has sodium of 138, potassium 3.5, I gave her some potassium, BUN 17, creatinine 0.7, GFR is greater than 60, sugar is 161, calcium 9.2, total bilirubin 0.7, AST 23, ALT 36, alkaline phosphatase 105, total protein 6.9, and albumin is 3.8. MEDICATIONS: She is getting medications for pain. She is on budesonide, Cardizem, Desyrel, DuoNeb, Ecotrin, Flexeril, Glucophage, Glucotrol, Januvia, potassium, Lasix, Lidoderm, Lipitor, Lopressor, Lovenox, Mirapex, morphine, Neurontin, prednisone, Protonix, Pulmicort, Rocephin, Singulair, Drake, multivitamins, Wellbutrin, and Zoloft. ASSESSMENT AND PLAN: She is being seen by Pulmonary, Cardiology, and Orthopedic. Doctors and making a decision on whether she need surgery or not from the family. She might need to be in the TCU or subacute rehab, probably after decisions are made and surgery or no surgery is done. discussed at length her situation and how dangerous it is for her to have surgery due to her poor health. She understands that and she is going to talk about it with her son. Continue with aggressive treatment and care Sonia Evanrichasantana, who had mechanical fall with a fractured shoulder, chronic obstructive pulmonary disease, congestive heart failure, and morbidly obese. Thomas Looney DO [facility]
[2017-06-27] MEDS: Morphine 2 mg/ml ISec IVP PRN ×6 (00:03→21:50)
[2017-06-27] MEDS: Albuterol-Ipratrop 3 mg / 0.5 (3 ml) UD IH SCH ×4 (02:40→21:18)
[2017-06-27 07:58] LABS: HEMOGLOBIN 9.2 gm/dL (12.0-16.0); MEAN CELL VOLUME 73.3 fL (80.0-105.0); MEAN CORPUSCULAR HEMOGLOBIN 20.6 pg (25.0-35.0); MEAN CORPUSCULAR HGB CONC 28.1 g/dl (31.0-37.0); MEAN PLATELET VOLUME 8.8 fl (7.0-11.0); RBC 4.46 10^6/uL (3.5-6.1); RED CELL DISTRIBUTION WIDTH 17.7 % (11.5-14.5); WHITE BLOOD COUNT 15.6 10^3/ul (4.5-11.0)
[2017-06-27 08:13] LABS: ALB/GLOB RATIO 1.2 (1.1-1.8); ALBUMIN 3.4 g/dL (3.0-4.8); ALT/SGPT 25 U/L (7-56); AST/SGOT 22 U/L (15-39); BLOOD UREA NITROGEN 10 mg/dL (7-21); GFR AFRICAN-AMERICAN > 60; GFR NON-AFRICAN AMERICAN > 60
[2017-06-27] MEDS: Budesonide 0.5 mg/2 ml Inhal Susp UD IH SCH ×2 (08:30→21:20)
--- NOTE | 2017-06-27 09:11 | PN ---
DATE: 06/27/2017 PULMONARY NOTE SUBJECTIVE: Patient appears comfortable this morning. She is not short of breath at rest. PHYSICAL EXAMINATION VITAL SIGNS: Temperature 98.3, pulse 88, respiration 18, blood pressure 149/67. Oxygen saturation on room air is 93-95%. HEENT: Normocephalic, atraumatic, no JVD. CARDIOVASCULAR: Systolic ejection murmur at the low left sternal border. No S3 gallop. LUNGS: Clear bilaterally. EXTREMITIES: Positive for edema. No cyanosis, no clubbing. Calves are nontender to palpation. The right upper extremity remains in a sling. GI: Abdomen is soft, nontender, nondistended. Bowel sounds are positive. SKIN: No acute rash. NEUROLOGIC: Limited at the present time. IMPRESSION: 1. Right humeral fracture. 2. Status post mechanical fall. 3. Advanced chronic obstructive pulmonary disease. 4. Obstructive sleep apnea. 5. Chronic anemia. PLAN: Patient appears comfortable this morning. She is not short of breath at rest. She states she is feeling better overall. On physical exam, her lungs remain clear. Oxygen saturation on nasal cannula is 93-95%. I will continue with the current nebulizer treatments and low dose oral steroids for now. Orthopedic evaluation is ongoing. Repeat a.m. labs are pending. Clinical status of the patient remains guarded. I will discuss the above with Dr. Looney. Wagner Ramos MD MTDD
--- NOTE | 2017-06-27 09:23 | CARD ---
APPROVED REPORT EKG Measurement Heart [id number] <Conclusion> Sinus tachycardia PRWP Leftward axis No change
[2017-06-27] MEDS: diltiaZEM 180 mg/24 Hours CD Cap PO SCH (09:37)
[2017-06-27] MEDS: Potassium Chloride 20 mEq ER Tab PO SCH (09:39)
[2017-06-27] MEDS: Enoxaparin 60 mg Syringe SC SCH (09:41)
[2017-06-27] MEDS: Pantoprazole 40 mg EC Tab PO SCH (09:42)
[2017-06-27] MEDS: Theophylline 100mg ER 24 hrs Cap PO SCH (09:43)
[2017-06-27] MEDS: cefTRIAXone 1 gm 1 GM/100 ML BAG IVPB SCH (09:43)
[2017-06-27] MEDS: buPROPion 300 mg/24 Hours XL Tab PO SCH (09:44)
[2017-06-27] MEDS: Multivitamin Therapeutic Tab PO SCH (09:44)
[2017-06-27] MEDS: GlipiZIDE 10 mg SR Tab PO SCH ×2 (09:47→18:08)
--- NOTE | 2017-06-27 11:12 | PN ---
SUBJECTIVE: I saw Sonia resting comfortably in bed. Medicated for the pain from the right shoulder. She has a very bad fracture of the right shoulder and understands that she is going for surgery on Wednesday with Dr. Harmon to fix the shoulder fracture. PHYSICAL EXAMINATION VITAL SIGNS: Temperature 98.2, pulse 84, blood pressure 159/64, respiratory rate 24, and O2 saturation 96% on room air. HEENT: Head is atraumatic and normocephalic. She is on oxygen. Throat is moist. NECK: Supple. HEART: Regular rate. LUNGS: Decreased breath sounds bilaterally. No wheezes or rhonchi. ABDOMEN: Soft. Morbidly obese, nontender, positive bowel sounds. No guarding. No rebound. No CVA tenderness. EXTREMITIES: Trace edema if any in both ankles. The right shoulder is in a splint, very painful. It is a comminuted compressed fracture. LABORATORY DATA: She has a white count 15.6 from the steroid she is on, hemoglobin 9.6, hematocrit 32.7, platelets of 297. She has INR 0.91. She has a sodium 138, potassium 3.6, BUN 10, and creatinine 0.6. GFR is greater than 60, sugar 155, calcium 9.0, total bilirubin 0.6, AST 22, ALT 25, alkaline phosphatase 97, total protein 6.3. MEDICATIONS: She is on Pulmicort, Cardizem, Desyrel, DuoNeb, Ecotrin, Flexeril, Glucophage, Glucotrol, Januvia, potassium, Lasix, Lidoderm, Lipitor, Lopressor, Lovenox, Mirapex, morphine, Neurontin, prednisone, Protonix, Pulmicort, Rocephin, Singulair, Anthony-Dur tab, Wellbutrin, and Zoloft.. ASSESSMENT AND PLAN: She is being seen by pulmonary, cardio, orthopedics. She has a right humeral fracture status post mechanical fall, advanced chronic obstructive pulmonary disease, obstructive sleep apnea, chronic anemia. She has moderate cardiomegaly on the chest x-ray. We will check her labs tomorrow. Plan is for Wednesday surgery if care of cardiology to optimize her procedure on Wednesday. She is at high risk to understand that and family understands that and the plan is to surgery on Wednesday for the right shoulder. Thomas Looney DO [facility] # [id number] [facility]
--- NOTE | 2017-06-27 12:16 | CP.PCM.PN ---
Subjective - Date & Time of Evaluation Date of Evaluation: 06/27/17 Time of Evaluation: 12:15 - Subjective Subjective: Pt seen and examined. Exam unchanged. RUE in sling. NVI distally. Spoke with patient. Patient aware of risks of surgery and wants to proceed. Will plan on possible ORIF vs hemiarthroplasty on Wednesday. Objective - Vital Signs/Intake and Output Vital Signs (last 24 hours): Temp Pulse Resp BP Pulse Ox 98.2 F 84 24 159/64 H 93 L 06/27/17 08:00 06/27/17 09:41 06/27/17 08:00 06/27/17 09:41 06/27/17 08:00 Intake and Output: 06/27/17 06/27/17 06:59 18:59 Intake Total 1260 Balance 1260 - Medications Medications: Current Medications Acetaminophen (Tylenol 325mg Tab) 650 mg PO Q6H PRN PRN Reason: Fever >100.4 F Albuterol/Ipratropium (Duoneb 3 Mg/0.5 Mg (3 Ml) Ud) 3 ml IH Q2H PRN PRN Reason: Shortness of Breath Last Admin: 06/25/17 18:30 Dose: 3 ml Albuterol/Ipratropium (Duoneb 3 Mg/0.5 Mg (3 Ml) Ud) 3 ml IH [id number] [facility] Last Admin: 06/27/17 08:30 Dose: 3 ml Aspirin (Ecotrin) 81 mg PO DAILY [facility] Last Admin: 06/27/17 09:38 Dose: 81 mg Atorvastatin Calcium (Lipitor) 10 mg PO [facility] Last Admin: 06/26/17 21:33 Dose: 10 mg Budesonide (Pulmicort Respules) 0.5 mg IH [id number] [facility] Last Admin: 06/27/17 08:30 Dose: 0.5 mg Bupropion HCl (Wellbutrin Xl) 300 mg PO DAILY [facility] Last Admin: 06/27/17 09:44 Dose: 300 mg Cyclobenzaprine HCl (Flexeril) 10 mg PO HS [facility] Last Admin: 06/26/17 21:33 Dose: 10 mg Diltiazem HCl (Cardizem Cd) 360 mg PO DAILY [facility] Last Admin: 06/27/17 09:37 Dose: 360 mg Enoxaparin Sodium (Lovenox) 60 mg SC DAILY [facility] PRN Reason: Protocol Last Admin: 06/27/17 09:41 Dose: 60 mg Furosemide (Lasix) 40 mg PO BID [facility] Last Admin: 06/27/17 09:40 Dose: 40 mg Gabapentin (Neurontin) 100 mg PO TID PRN PRN Reason: for pain Last Admin: 06/27/17 09:41 Dose: 100 mg Glipizide (Glucotrol Xl) 10 mg PO BID [facility] Last Admin: 06/27/17 09:47 Dose: 10 mg Ceftriaxone Sodium (Rocephin 1 Gram Ivpb) 1 gm in 100 mls @ 100 mls/hr IVPB DAILY [facility] PRN Reason: Protocol Last Admin: 06/27/17 09:43 Dose: 100 mls/hr Lidocaine (Lidoderm) 1 ea TD DAILY PRN PRN Reason: BACK PAIN Last Admin: 06/26/17 01:21 Dose: 1 ea Metformin HCl (Glucophage) 1,000 mg PO BID [facility] Last Admin: 06/27/17 09:39 Dose: 1,000 mg Metoprolol Tartrate (Lopressor) 25 mg PO BID [facility] Last Admin: 06/27/17 09:41 Dose: 25 mg Montelukast Sodium (Singulair) 10 mg PO HS [facility] Last Admin: 06/26/17 21:33 Dose: 10 mg Morphine Sulfate (Morphine) 2 mg IVP Q3H PRN PRN Reason: Pain, moderate (4-7) Last Admin: 06/27/17 09:27 Dose: 2 mg Multivitamins (Thera Tab) 1 tab PO DAILY [facility] Last Admin: 06/27/17 09:44 Dose: 1 tab Budesonide ( Pulmicort Inh) - Home Med 2 puff IH BID [facility] Ondansetron HCl (Zofran Inj) 4 mg IVP Q6H PRN PRN Reason: Nausea/Vomiting Pantoprazole Sodium (Protonix Ec Tab) 40 mg PO DAILY [facility] Last Admin: 06/27/17 09:42 Dose: 40 mg Potassium Chloride (K-Dur 20 Meq Er Tab) 20 meq PO DAILY [facility] Last Admin: 06/27/17 09:39 Dose: 20 meq Pramipexole Dihydrochloride (Mirapex) 0.25 mg PO HS [facility] Last Admin: 06/26/17 21:33 Dose: 0.25 mg Prednisone (Prednisone Tab) 10 mg PO DAILY [facility] Last Admin: 06/27/17 09:42 Dose: 10 mg Sertraline HCl (Zoloft) 75 mg PO DAILY [facility] Last Admin: 06/27/17 09:44 Dose: 75 mg Sitagliptin Phosphate (Januvia) 100 mg PO DAILY [facility] Last Admin: 06/27/17 09:39 Dose: 100 mg Theophylline (Anthony-24) 400 mg PO DAILY [facility] Last Admin: 06/27/17 09:43 Dose: 400 mg Trazodone HCl (Desyrel) 200 mg PO HS [facility] Last Admin: 06/26/17 21:33 Dose: 200 mg - Labs Labs: 06/27/17 07:00 06/27/17 07:00 PT 9.8 Seconds (9.9-11.8) L 06/25/17 04:02 INR 0.91 (0.93-1.08) L 06/25/17 04:02 APTT 25.4 Seconds (23.7-30.8) 06/25/17 04:02
[2017-06-27] MEDS: Lidocaine 5% Patch TD PRN (15:40)
[2017-06-27] MEDS: BUDESONIDE IH SCH (18:10)
[2017-06-28] MEDS: Albuterol-Ipratrop 3 mg / 0.5 (3 ml) UD IH SCH ×4 (03:10→21:15)
[2017-06-28] MEDS: Albuterol-Ipratrop 3 mg / 0.5 (3 ml) UD IH PRN (03:21)
[2017-06-28] MEDS: Morphine 2 mg/ml ISec IVP PRN ×5 (03:36→22:23)
--- NOTE | 2017-06-28 07:51 | PN ---
DATE: 06/28/2017 SUBJECTIVE: The patient appears comfortable this morning. She is not short of breath at rest. PHYSICAL EXAMINATION: VITAL SIGNS: Temperature is 99.1, pulse is 84, respirations 18, blood pressure 127/59. Oxygen saturation on nasal cannula is 99%. HEENT: Normocephalic, atraumatic, no JVD. CARDIOVASCULAR: Systolic ejection murmur at the lower left sternal border. No S3 gallop. LUNGS: Clear bilaterally. EXTREMITIES: Positive for edema. No cyanosis, no clubbing. Calves are nontender to palpation. The right upper extremity remains in a sling. GI: Abdomen is soft, nontender, nondistended. Bowel sounds are positive. SKIN: No acute rash. NEUROLOGIC: Limited at the present time. IMPRESSION: 1. Right humeral fracture. 2. Status post mechanical fall. 3. Advanced chronic obstructive pulmonary disease. 4. Obstructive sleep apnea. 5. Chronic anemia. PLAN: The patient appears more comfortable this morning. She is not short of breath at rest. She does state to feeling much better overall. On physical exam, her lungs remain clear. Oxygen saturation on nasal cannula is 99%. I will continue with the current nebulizer treatments and low dose oral steroids for now. Orthopedic evaluation is ongoing. Input by Dr. Lopez is noted. Plan is tentatively for surgery tomorrow morning. The patient is well aware that she is at significant risk for perioperative complications-- due to her long-standing lung disease. I will discuss the above with Dr. Looney. Wagner Ramos MD MTDHallie
[2017-06-28 07:57] LABS: HEMOGLOBIN 8.8 gm/dL (12.0-16.0); MEAN CELL VOLUME 74.2 fL (80.0-105.0); MEAN CORPUSCULAR HEMOGLOBIN 19.9 pg (25.0-35.0); MEAN CORPUSCULAR HGB CONC 26.8 g/dl (31.0-37.0); MEAN PLATELET VOLUME 8.9 fl (7.0-11.0); RBC 4.42 10^6/uL (3.5-6.1); WHITE BLOOD COUNT 16.8 10^3/ul (4.5-11.0)
[2017-06-28 08:18] LABS: ALB/GLOB RATIO 1.2 (1.1-1.8); ALBUMIN 3.4 g/dL (3.0-4.8); ALT/SGPT 29 U/L (7-56); AST/SGOT 22 U/L (15-39); BLOOD UREA NITROGEN 10 mg/dL (7-21); CALCIUM 8.9 mg/dL (8.4-10.5); GFR AFRICAN-AMERICAN > 60; GFR NON-AFRICAN AMERICAN > 60
[2017-06-28] MEDS: Budesonide 0.5 mg/2 ml Inhal Susp UD IH SCH ×2 (08:25→21:15)
[2017-06-28] MEDS: cefTRIAXone 1 gm 1 GM/100 ML BAG IVPB SCH (09:36)
[2017-06-28] MEDS: buPROPion 300 mg/24 Hours XL Tab PO SCH (09:37)
[2017-06-28] MEDS: diltiaZEM 180 mg/24 Hours CD Cap PO SCH (09:38)
[2017-06-28] MEDS: Potassium Chloride 20 mEq ER Tab PO SCH (09:41)
[2017-06-28] MEDS: Pantoprazole 40 mg EC Tab PO SCH (09:43)
[2017-06-28] MEDS: GlipiZIDE 10 mg SR Tab PO SCH ×2 (09:44→18:01)
[2017-06-28] MEDS: Theophylline 100mg ER 24 hrs Cap PO SCH (09:44)
[2017-06-28] MEDS: Multivitamin Therapeutic Tab PO SCH (09:47)
[2017-06-28] MEDS: BUDESONIDE IH SCH ×2 (09:48→17:40)
[2017-06-28] MEDS: Enoxaparin 60 mg Syringe SC SCH (09:49)
--- NOTE | 2017-06-28 10:39 | PN ---
DATE: 06/28/2017 SUBJECTIVE: I saw Sonia resting comfortably in bed. She is eating, but not that much. She has a very little appetite could be from the medication she is getting for the pain on the right shoulder. She is going for surgery tomorrow with Dr. Harmon. She is at high risk, but the decision was to do the surgery. She is in pain and very uncomfortable. She might need to got to subacute rehab when she is done with this surgery. MEDICATIONS: She is on Pulmicort, Cardizem, Desyrel, DuoNeb, Ecotrin, Flexeril, Glucophage, Glucotrol, Januvia, potassium, Lasix, Lidoderm, Lipitor, Lopressor, Lovenox, Mirapex, morphine, Neurontin, prednisone, Protonix, Pulmicort, Rocephin, Singulair, Anthony-Dur tab, Tylenol, Wellbutrin, Zofran and Zoloft. PHYSICAL EXAMINATION: VITAL SIGNS: Temperature 97.6, pulse 84, blood pressure of 149/59, respiratory rate 20, 100% O2 sat on 30% FiO2 HEENT: Head is atraumatic and normocephalic. Throat is dry. NECK: Supple. HEART: Regular rate. LUNGS: Decreased breath sounds. Poor inspiration. No wheezes, rhonchi or rales. ABDOMEN: Soft, morbidly obese, nontender. Decreased bowel sounds. No guarding. No rebound. No CVA tenderness. EXTREMITIES: No edema. The right shoulder is fractured, she is on a brace, is very tender, cannot move it. LABORATORY DATA: She has a 16.8 white count, 8.8 hemoglobin, it is dropping, if it goes below 8, we will transfuse her, 32.8 hematocrit with 318 platelets; actually I am going to give her 1 unit of blood because she is going for surgery tomorrow. INR is 0.91. Chemistries 138, potassium 3.6, BUN is 10, creatinine 0.6. GFR is greater than 60, sugar is 139, calcium is 8.9, total bilirubin 0.6. AST is 22, ALT is 29, alkaline phosphatase 97, total protein 6.1. ASSESSMENT AND PLAN: She is being seen by cardiopulmonary and orthopedics. I will transfuse a unit today of blood to get a hemoglobin above 9, closer to 10. I will check her labs tomorrow; hopefully, she will do very well. Thomas Looney DO
--- NOTE | 2017-06-28 13:01 | PN ---
DATE: 06/28/2017 SUBJECTIVE: The patient is in bed without shortness of breath. No chest pain noted. PHYSICAL EXAMINATION VITAL SIGNS: Blood pressure is 149/60, the heart rate in the 80s. NECK: Negative JVD. LUNGS: Decreased breath sounds without rales without wheezing. HEART: Reveals S1 and S2. EXTREMITIES: Trace edema. LABORATORY DATA: Hemoglobin is 8.8, white count is 16.8. Chemistries; BUN and creatinine are 10 and 0.6 with a glucose of 139. IMPRESSION 1. Status post humeral fracture. 2. Severe chronic obstructive pulmonary disease. 3. Diabetes mellitus. 4. Anemia. 5. Preserved left ventricular function on the last echocardiogram. Given these findings, the patient's operative risk are high strictly from a pulmonary prospective. Her left ventricle function is normal. Jagdeep Olmos MD
[2017-06-28 21:24] LABS: BASO # 0.04 K/mm3 (0.0-2.0); BASO % 0.2 % (0.0-3.0); EOS # 0.3 (0.0-0.7); EOS % 1.5 % (1.5-5.0); GRAN # 15.12 (1.4-6.5); HEMOGLOBIN 10.8 g/dL (12.0-16.0); LYMPH # 1.5 (1.2-3.4); LYMPH % 8.4 % (22.0-35.0); MEAN CELL VOLUME 75.2 fl (80.0-105.0); MEAN CORPUSCULAR HGB CONC 29.2 g/dl (31.0-37.0); MEAN PLATELET VOLUME 8.6 fl (7.0-11.0); MONO # 1.3 (0.1-0.6); MONO % 6.9 % (1.0-6.0); PLATELET COUNT 306 10^3/uL (120.0-450.0); RBC 4.92 10^6/uL (3.5-6.1); RED CELL DISTRIBUTION WIDTH 17.6 % (11.5-14.5); WHITE BLOOD COUNT 18.2 10^3/ul (4.5-11.0)
[2017-06-28 21:46] LABS: INR 0.97 (0.93-1.08); PARTIAL THROMBOPLASTIN TIME 26.9 Seconds (23.7-30.8); PROTHROMBIN TIME 10.5 Seconds (9.9-11.8)
[2017-06-29] MEDS: Morphine 2 mg/ml ISec IVP PRN ×2 (01:42→10:17)
[2017-06-29] MEDS: Albuterol-Ipratrop 3 mg / 0.5 (3 ml) UD IH SCH ×4 (03:20→21:00)
[2017-06-29] MEDS ORDERED: MethylPREDNISolone 40 mg Vial IVP ONE (07:00)
[2017-06-29] MEDS: Budesonide 0.5 mg/2 ml Inhal Susp UD IH SCH ×2 (08:27→21:00)
[2017-06-29 08:29] LABS: HEMOGLOBIN 10.2 g/dL (12.0-16.0); MEAN CELL VOLUME 75.3 fl (80.0-105.0); MEAN CORPUSCULAR HEMOGLOBIN 21.4 pg (25.0-35.0); MEAN CORPUSCULAR HGB CONC 28.4 g/dl (31.0-37.0); MEAN PLATELET VOLUME 8.7 fl (7.0-11.0); RBC 4.77 10^6/uL (3.5-6.1); RED CELL DISTRIBUTION WIDTH 17.9 % (11.5-14.5); WHITE BLOOD COUNT 16.2 10^3/ul (4.5-11.0)
--- NOTE | 2017-06-29 08:38 | PN ---
DATE: 06/29/2017 PULMONARY NOTE SUBJECTIVE: The patient appears comfortable this morning. She is not short of breath at rest. PHYSICAL EXAMINATION: VITAL SIGNS: Temperature is 98.2, pulse is 82, respirations 18, blood pressure 129/61. Oxygen saturation on room air is 92%. Oxygen saturation on nasal cannula is 100%. HEENT: Normocephalic, atraumatic. NECK: No JVD. CARDIOVASCULAR: Systolic ejection murmur at the lower left sternal border. No S3 gallop. LUNGS: Clear bilaterally. EXTREMITIES: Positive for edema. No cyanosis, no clubbing. Calves are nontender to palpation. The right upper extremity remains in a sling. GASTROINTESTINAL: Abdomen is soft, nontender, nondistended. Bowel sounds are positive. SKIN: No acute rash. NEUROLOGIC: Limited at the present time. IMPRESSION: 1. Right humeral fracture. 2. Status post mechanical fall. 3. Advanced chronic obstructive pulmonary disease. 4. Obstructive sleep apnea. 5. Chronic anemia. PLAN: The patient appears more comfortable this morning. She is not short of breath at rest. She does state to feeling much better overall. On physical exam, her lungs remain clear. Oxygen saturation on nasal cannula is now 100%. I did discuss the case with the patient again this morning. The patient is well aware that she is at an increased risk for perioperative complications-due to her longstanding lung disease. However, she is insistent on going through with the surgery. I also discussed the case with Dr. Lopez (orthopedist) at length yesterday. Stress doses of intravenous steroids will be given before and after the surgery. Cardiology evaluation with Dr. Olmos is also noted. Overall clinical status of this patient remains guarded. I will discuss the above with Dr. Looney this morning. Wagner Ramos MD MTDHallie
[2017-06-29 08:52] LABS: ALB/GLOB RATIO 1.2 (1.1-1.8); ALBUMIN 3.5 g/dL (3.0-4.8); ALT/SGPT 26 U/L (7-56); AST/SGOT 22 U/L (15-39); BLOOD UREA NITROGEN 12 mg/dL (7-21); CALCIUM 9.1 mg/dL (8.4-10.5); GFR AFRICAN-AMERICAN > 60; GFR NON-AFRICAN AMERICAN > 60
--- NOTE | 2017-06-29 09:19 | PN ---
DATE: SUBJECTIVE: I saw Sonia resting comfortably this morning in bed. She is in pain. She is getting medicated. She is going for surgery for the right shoulder today with Dr. Lopez. She has been medically optimized by Cardio and Pulmonary. MEDICATIONS: She is on Pulmicort, Cardizem, Desyrel, DuoNeb, Ecotrin, Flexeril, Glucophage, Glucotrol, Januvia, potassium, Lasix, Lidoderm, Lipitor, Lopressor, Lovenox, Mirapex, morphine, Neurontin, prednisone, Protonix, Rocephin, Singulair, Anthony-Dur, , Tylenol, Wellbutrin, Zofran and Zoloft. PHYSICAL EXAMINATION: VITAL SIGNS: Temperature 98.0, pulse 70, blood pressure of 132/74, respiratory rate 20, 90% O2 saturation on room air. HEENT: Head is atraumatic and normocephalic. HEART: Regular rate. LUNGS: Decreased breath sounds, but clear. No wheezes, no rhonchi, no rales. ABDOMEN: Soft and nontender. Positive bowel sounds. Obese. EXTREMITIES: No edema in the legs. The right shoulder is in a sling with a right shoulder fracture. LABORATORY DATA: She has a 16.2 white count, 10.2 hemoglobin, 35.9 hematocrit with 295 platelets. INR is 0.97. Sodium 138 yesterday, potassium 3.6 yesterday, blood sugar was 170 with yesterday, BUN 10, creatinine 0.6. GFR is greater than 60, calcium is 8.9, total bilirubin 0.6, AST is 22, ALT is 29, alkaline phosphatase 97, total protein 6.1. ASSESSMENT AND PLAN: She is being seen by Cardio, Pulmonary and Surgery. Hopefully, she will do very well. She is at very high risk, and she is here for fall, fractured right shoulder, congestive heart failure, chronic obstructive pulmonary disease, diabetes, obesity. Hopefully, she will do very well. We will check her labs tomorrow. Thomas Looney DO CARRIE
[2017-06-29] MEDS: diltiaZEM 180 mg/24 Hours CD Cap PO SCH (10:07)
[2017-06-29] MEDS: GlipiZIDE 10 mg SR Tab PO SCH ×2 (10:07→19:10)
[2017-06-29] MEDS: Potassium Chloride 20 mEq ER Tab PO SCH (10:08)
[2017-06-29] MEDS: cefTRIAXone 1 gm 1 GM/100 ML BAG IVPB SCH (10:12)
[2017-06-29] MEDS: Pantoprazole 40 mg EC Tab PO SCH (10:12)
[2017-06-29] MEDS: Multivitamin Therapeutic Tab PO SCH (10:13)
[2017-06-29] MEDS: buPROPion 300 mg/24 Hours XL Tab PO SCH (10:16)
[2017-06-29] MEDS: Theophylline 100mg ER 24 hrs Cap PO SCH ×2 (10:17→10:25)
[2017-06-29] MEDS ORDERED: Bupivacaine 0.5% Inj(30mL) ONE ×2 (11:12→11:21)
[2017-06-29] MEDS ORDERED: Propofol 10 mg/ml Inj (20 ML) ONE (11:19)
[2017-06-29] MEDS ORDERED: Midazolam 2 MG/2 ML VIAL ONE (11:19)
[2017-06-29] MEDS ORDERED: Rocuronium 10 mg/ml (5 ml) ONE ×3 (11:20→16:45)
[2017-06-29] MEDS ORDERED: Phenylephrine 10 mg/ml Inj ONE (13:40)
[2017-06-29] MEDS ORDERED: ePHEDrine 50 mg/ml Inj ONE (13:49)
--- NOTE | 2017-06-29 16:11 | PN ---
CARDIOLOGY FOLLOWUP DATE: 06/29/2017 SUBJECTIVE: The patient is without shortness of breath this morning. PHYSICAL EXAMINATION: VITAL SIGNS: The blood pressure is 137/73, heart rate is in the 70s. NECK: Negative JVD. LUNGS: Without rales. HEART: Reveals S1, S2. EXTREMITIES: Without change. LABORATORY DATA: Hemoglobin is 10.2. Chemistries: BUN and creatinine are unremarkable. Potassium is 3.2, potassium replacement has been ordered. IMPRESSION 1. Severe chronic obstructive pulmonary disease. 2. Good left ventricular function on echocardiogram. 3. Diabetes mellitus. 4. Anemia. PLAN: The patient is for the operating room for repair of her humeral fracture. The patient's risk is high due to her severe pulmonary disease. Jagdeep Olmos MD
[2017-06-29] MEDS ORDERED: Vancomycin 1 g Inj ONE ×2 (16:20→16:38)
[2017-06-29] MEDS ORDERED: Sevoflurane - Inhalation Anesthetic Liq (250 ml) ONE (16:29)
[2017-06-29] MEDS ORDERED: Neostigmine Methylsulfate 3mg/3ml Syringe IV ONE (17:28)
[2017-06-29] MEDS ORDERED: Glycopyrrolate 0.2 mg/ml (2ml vial) ONE (17:28)
--- NOTE | 2017-06-29 18:27 | PCM.SURG1 ---
Surgeon's Initial Post Op Note - Surgeon's Notes Surgeon: Eun Lopez MD Accountant: Geoffrey Henson PA-C Type of Anesthesia: General Endo Anesthesia Administered By: Dr. Vora Pre-Operative Diagnosis: Right proximal humerus fx Operative Findings: Biomet implant Post-Operative Diagnosis: same Operation Performed: Right shoulder hemiarthroplasty Specimen/Specimens Removed: bone Estimated Blood Loss: EBL {In ML}: 300 Blood Products Given: N/A Drains Used: No Drains Post-Op Condition: Fair Date of Surgery/Procedure: 06/29/17 Time of Surgery/Procedure: 18:26 (Lovenox 60mgSQ restarted as was preop dose as per PMD, Solumedrol ordered post op as per Pulm)
[2017-06-29] MEDS ORDERED: HYDROmorphone 0.5 mg/0.5 ml ISec IVP PRN (18:33)
[2017-06-29] MEDS ORDERED: Lactated Ringer's 1,000 ML IV SCH (18:33)
[2017-06-29 18:55] LABS: HEMOGLOBIN 10.3 g/dL (12.0-16.0)
[2017-06-29] MEDS: ceFAZolin 2 GM in Sodium Chloride 0.9% 50 ML IVPB SCH (22:15)
[2017-06-30] MEDS: Albuterol-Ipratrop 3 mg / 0.5 (3 ml) UD IH PRN (00:25)
[2017-06-30] MEDS: Albuterol-Ipratrop 3 mg / 0.5 (3 ml) UD IH SCH ×4 (02:40→20:20)
[2017-06-30] MEDS: ceFAZolin 2 GM in Sodium Chloride 0.9% 50 ML IVPB SCH (05:54)
--- NOTE | 2017-06-30 06:16 | OP ---
PROCEDURE DATE: 06/29/2017 PREOPERATIVE DIAGNOSIS: Right comminuted proximal humerus fracture. POSTOPERATIVE DIAGNOSIS: Right comminuted proximal humerus fracture. PROCEDURE: Right shoulder hemiarthroplasty. SURGEON: Dr. Lopez. Dr. Lopez was assisted by Jimmie Henson, the physician radiology assistant. Ms. Henson was scrubbed and present throughout the case and assisted with preoperative patient positioning, intraoperative retraction as well as wound closure. TYPE OF ANESTHESIA: General. COMPLICATIONS: None. ESTIMATED BLOOD LOSS: 300 mL. IMPLANT: Biomet humeral fracture stem, hemiarthroplasty. INDICATION FOR PROCEDURE: This is a 67-year-old female who presented status post fall several days ago with complaints of right shoulder pain. Clinical and radiographic examination was consistent with a comminuted proximal humerus fracture. Recommendations were for open reduction internal fixation versus hemiarthroplasty. The risks and benefits of the procedure were discussed with the patient and informed consent was obtained. DESCRIPTION OF OPERATIVE PROCEDURE: After surgical site was finally identified in the preoperative holding area, the patient was taken to the operating room and placed supine on the operating table. After administration of general anesthesia, the patient received 3 g of Ancef IV. Venodyne boots were placed on bilateral lower extremities. The patient was positioned in a beach chair position. Care was taken to make sure all bony prominences and nerves are well padded and protected. The head was firmly secured and right upper extremity was prepped and draped in the usual sterile fashion. Bony landmarks were identified about the shoulder and approximately 13 cm oblique incision was made over the deltopectoral groove. Soft tissue was dissected bluntly down to the deltopectoral groove, the brachiocephalic vein was identified and this was carefully dissected and retracted. At this point, the deltopectoral interval was developed down to the clavipectoral fascia which appeared disrupted from the fracture. Significant amount of fracture hematoma was evacuated. The long head of the biceps tendon was visualized, it appeared intact and was carefully retracted. At this point, using a C-arm image intensifier and under direct visualization, the fracture was noted to be significantly comminuted and the bone was noted to be osteoporotic. At this point, decision was made to do a hemiarthroplasty, so the articular fragments were removed and subscapularis was tagged and resected off of the lesser tuberosity using #2 and #5 FiberWire suture in a similar fashion. The greater tuberosity fragment was tagged using #4 FiberWire sutures. At this point, the humeral shaft was easily exposed. The glenoid was evaluated for any debris or evidence of any fracture, satisfied. The wound was copiously irrigated with antibiotic saline solution. Our attention was brought to the humeral shaft. The shaft was reamed sequentially to allow for a 10-mm cemented stem. Care was taken to maintain the proper height with the trial stem in placed. A trial head was placed and shoulder was reduced. Arm was taken through range of motion, was noted to be stable and this was also confirmed using the C-arm image at that time, both AP and axillary plains. At this point, the shoulder was dislocated and then trial components were removed. The shoulder drill was again pulse lavaged and the bony surfaces were dried. A cement restrictor was placed and at this point, the fracture stem was cemented into place being careful to maintain proper version and height. Once the cement was hardened, any cement debris was removed and the actual head was then impacted into placed and the shoulder was reduced. Again, shoulder was taken through range of motion, was noted to be stable. This was again confirmed using the C-arm image intensifier. At this point, the rotator cuff, the subscapularis was repaired through soft tissue as well as through holes through the flange of the implant and in a similar fashion, the greater tuberosity fragment was repaired through drill holes in the proximal humerus as well as through soft tissue. Once this was done, the rotator cuff was noted to be firm with security back down on to the implant. At this point, the wound was once again irrigated and closed in a layered fashion with deep tissue closed using 0 Vicryl, subcutaneous tissue closed using 2-0 Vicryl suture and the skin closed using 3-0 Nylon. Sterile dressing was applied. The patient was then taken to the recovery room in stable condition. Solomon Lopez MD
--- NOTE | 2017-06-30 06:21 | PN ---
DATE: 06/30/2017 SUBJECTIVE: The patient appears comfortable this morning. She is not short of breath at rest. PHYSICAL EXAMINATION VITAL SIGNS: Temperature is 99.2, pulse 88, respiratory rate 18, blood pressure 157/68. Oxygen saturation on BiPAP is 95%. HEENT: Normocephalic and atraumatic. NECK: No JVD. CARDIOVASCULAR: Systolic ejection murmur at the lower left sternal border. No S3 gallop. LUNGS: Very minimal rhonchi. No wheezing. GI: Abdomen is soft, nontender, nondistended. Bowel sounds are positive. EXTREMITIES: Positive for edema. No cyanosis, no clubbing. Calves are nontender to palpation. The right upper extremity is status post surgery. SKIN: No acute rash. NEUROLOGIC: Limited at the present time. IMPRESSION: 1. Right humeral fracture, status post repair. 2. Status post mechanical fall. 3. Advanced chronic obstructive pulmonary disease. 4. Obstructive sleep apnea. 5. Chronic anemia. PLAN: The patient appears comfortable this morning. She is not short of breath at rest. She states she is feeling much better overall. On physical exam, no significant bronchospasm is noted. In addition, there is no significant alveolar-arterial gradient. The patient is status post surgery. She did receive stress doses of steroids before and after the surgery. For now, I will continue her on her regular nebulizer treatments and low dose oral steroids. I would continue with the orthopedic evaluation as per Dr. Lopez. I will discuss the above with Dr. Looney this morning. Wagner Ramos MD MTDHallie
[2017-06-30 07:21] LABS: HEMOGLOBIN 8.8 g/dL (12.0-16.0); MEAN CELL VOLUME 75.6 fl (80.0-105.0); MEAN CORPUSCULAR HEMOGLOBIN 21.5 pg (25.0-35.0); MEAN CORPUSCULAR HGB CONC 28.5 g/dl (31.0-37.0); MEAN PLATELET VOLUME 8.8 fl (7.0-11.0); RBC 4.09 10^6/uL (3.5-6.1); RED CELL DISTRIBUTION WIDTH 18.3 % (11.5-14.5)
[2017-06-30] MEDS: Budesonide 0.5 mg/2 ml Inhal Susp UD IH SCH ×2 (07:26→20:20)
[2017-06-30 07:33] LABS: ALB/GLOB RATIO 1.1 (1.1-1.8); ALBUMIN 2.9 g/dL (3.0-4.8); ALT/SGPT 26 U/L (7-56); AST/SGOT 49 U/L (15-39); BLOOD UREA NITROGEN 13 mg/dL (7-21); CALCIUM 8.2 mg/dL (8.4-10.5); GFR AFRICAN-AMERICAN > 60; GFR NON-AFRICAN AMERICAN > 60
--- NOTE | 2017-06-30 09:08 | RAD ---
PROCEDURE: Right shoulder HISTORY: pt in PACU, s/p shoulder hemiarthroplasty COMPARISON: TECHNIQUE: Single portable view FINDINGS: There is right shoulder prosthesis. There is normal alignment. No complicating factors IMPRESSION: As above
--- NOTE | 2017-06-30 09:28 | RAD ---
PROCEDURE: HISTORY: Fluoroscopy for right shoulder arthroplasty COMPARISON: None TECHNIQUE: Total fluoroscopic time utilized during the procedure: 132.9 seconds. Total dose 22.52 mGy cm squared FINDINGS: Submitted images from the current procedure: 6 Please refer to the physician's notes performing the procedure. Right humeral head comminuted fracture with subsequent right shoulder prosthesis placed IMPRESSION: Less than 1 hour fluoroscopic time utilized during performance of the procedure
[2017-06-30] MEDS: diltiaZEM 180 mg/24 Hours CD Cap PO SCH (09:30)
[2017-06-30] MEDS: GlipiZIDE 10 mg SR Tab PO SCH ×2 (09:31→18:18)
[2017-06-30] MEDS: Potassium Chloride 20 mEq ER Tab PO SCH ×2 (09:32→12:13)
[2017-06-30] MEDS: cefTRIAXone 1 gm 1 GM/100 ML BAG IVPB SCH (09:33)
[2017-06-30] MEDS: Pantoprazole 40 mg EC Tab PO SCH (09:33)
[2017-06-30] MEDS: buPROPion 300 mg/24 Hours XL Tab PO SCH (09:35)
[2017-06-30] MEDS: Multivitamin Therapeutic Tab PO SCH (09:35)
--- NOTE | 2017-06-30 10:06 | CP.PCM.PN ---
Subjective - Date & Time of Evaluation Date of Evaluation: 06/30/17 Time of Evaluation: 10:04 - Subjective Subjective: Pt awake, alert. Adequate pain control. Afebrile R shoulder: dressing intact grossly NVI distally Hg 8.8 POD 1 follow H/H OOB today Objective - Vital Signs/Intake and Output Vital Signs (last 24 hours): Temp Pulse Resp BP Pulse Ox 98.5 F 96 H 21 158/76 H 94 L 06/30/17 07:44 06/30/17 09:32 06/30/17 07:44 06/30/17 09:32 06/30/17 07:44 Intake and Output: 06/30/17 06/30/17 06:59 18:59 Intake Total 720 Output Total 600 Balance 120 - Medications Medications: Current Medications Acetaminophen (Tylenol 325mg Tab) 650 mg PO Q6H PRN PRN Reason: Fever >100.4 F Albuterol/Ipratropium (Duoneb 3 Mg/0.5 Mg (3 Ml) Ud) 3 ml IH Q2H PRN PRN Reason: Shortness of Breath Last Admin: 06/30/17 00:25 Dose: 3 ml Albuterol/Ipratropium (Duoneb 3 Mg/0.5 Mg (3 Ml) Ud) 3 ml IH [id number] [facility] Last Admin: 06/30/17 07:26 Dose: 3 ml Aspirin (Ecotrin) 81 mg PO DAILY [facility] Last Admin: 06/28/17 09:44 Dose: 81 mg Atorvastatin Calcium (Lipitor) 10 mg PO HS [facility] Last Admin: 06/29/17 22:14 Dose: 10 mg Budesonide (Pulmicort Respules) 0.5 mg IH [id number] [facility] Last Admin: 06/30/17 07:26 Dose: 0.5 mg Bupropion HCl (Wellbutrin Xl) 300 mg PO DAILY [facility] Last Admin: 06/30/17 09:35 Dose: 300 mg Cyclobenzaprine HCl (Flexeril) 10 mg PO HS [facility] Last Admin: 06/29/17 22:14 Dose: 10 mg Diltiazem HCl (Cardizem Cd) 360 mg PO DAILY [facility] Last Admin: 06/30/17 09:30 Dose: 360 mg Enoxaparin Sodium (Lovenox) 60 mg SC Q24H [facility] PRN Reason: Protocol Furosemide (Lasix) 40 mg PO BID [facility] Last Admin: 06/30/17 09:32 Dose: 40 mg Gabapentin (Neurontin) 100 mg PO TID PRN PRN Reason: for pain Last Admin: 06/30/17 09:33 Dose: 100 mg Glipizide (Glucotrol Xl) 10 mg PO BID [facility] Last Admin: 06/30/17 09:31 Dose: 10 mg Ceftriaxone Sodium (Rocephin 1 Gram Ivpb) 1 gm in 100 mls @ 100 mls/hr IVPB DAILY [facility] PRN Reason: Protocol Last Admin: 06/30/17 09:33 Dose: 100 mls/hr Lidocaine (Lidoderm) 1 ea TD DAILY PRN PRN Reason: BACK PAIN Last Admin: 06/27/17 15:40 Dose: 1 ea Metformin HCl (Glucophage) 1,000 mg PO BID [facility] Last Admin: 06/30/17 09:31 Dose: 1,000 mg Metoprolol Tartrate (Lopressor) 25 mg PO BID [facility] Last Admin: 06/30/17 09:32 Dose: 25 mg Montelukast Sodium (Singulair) 10 mg PO HS [facility] Last Admin: 06/29/17 22:15 Dose: 10 mg Morphine Sulfate (Morphine) 2 mg IVP Q3H PRN PRN Reason: Pain, moderate (4-7) Last Admin: 06/29/17 10:17 Dose: 2 mg Multivitamins (Thera Tab) 1 tab PO DAILY [facility] Last Admin: 06/30/17 09:35 Dose: 1 tab Budesonide ( Pulmicort Inh) - Home Med 2 puff IH BID [facility] Last Admin: 06/28/17 17:40 Dose: Not Given Ondansetron HCl (Zofran Inj) 4 mg IVP Q6H PRN PRN Reason: Nausea/Vomiting Last Admin: 06/28/17 09:36 Dose: 4 mg Pantoprazole Sodium (Protonix Ec Tab) 40 mg PO DAILY [facility] Last Admin: 06/30/17 09:33 Dose: 40 mg Potassium Chloride (K-Dur 20 Meq Er Tab) 20 meq PO DAILY [facility] Last Admin: 06/29/17 10:08 Dose: 20 meq Potassium Chloride (K-Dur 20 Meq Er Tab) 20 meq PO BRK [facility] Last Admin: 06/30/17 09:32 Dose: 20 meq Pramipexole Dihydrochloride (Mirapex) 0.25 mg PO HS [facility] Last Admin: 06/29/17 22:15 Dose: 0.25 mg Prednisone (Prednisone Tab) 10 mg PO DAILY [facility] Last Admin: 06/30/17 09:33 Dose: 10 mg Sertraline HCl (Zoloft) 75 mg PO DAILY [facility] Last Admin: 06/30/17 09:35 Dose: 75 mg Sitagliptin Phosphate (Januvia) 100 mg PO DAILY [facility] Last Admin: 06/30/17 09:31 Dose: 100 mg Theophylline (Anthony-24) 400 mg PO DAILY [facility] Last Admin: 06/29/17 10:25 Dose: Not Given Trazodone HCl (Desyrel) 200 mg PO HS [facility] Last Admin: 06/28/17 22:32 Dose: 200 mg - Labs Labs: 06/30/17 06:50 06/30/17 06:50 PT 10.5 Seconds (9.9-11.8) 06/28/17 21:15 INR 0.97 (0.93-1.08) 06/28/17 21:15 APTT 26.9 Seconds (23.7-30.8) 06/28/17 21:15
[2017-06-30] MEDS: Theophylline 100mg ER 24 hrs Cap PO SCH (12:11)
--- NOTE | 2017-06-30 12:32 | PN ---
DATE: SUBJECTIVE: Sonia is resting comfortably in bed. She is status post right shoulder surgery. She did quite well. She is still in pain, but not as bad as she is breathing while she is on Pulmicort, Cardizem, Desyrel, DuoNeb, Ecotrin, Flexeril, Glucophage, Glucotrol, Januvia, potassium, Lasix, Lipitor, Lidoderm, Lopressor, Lovenox, Mirapex, morphine, Neurontin, prednisone, Protonix, Rocephin, Singulair, Anthony-Dur, Thera-Tabs, Tylenol, Wellbutrin, Zofran, and Zoloft. PHYSICAL EXAMINATION: GENERAL: She is alert. She is looking at me, she is talking. She is very much comfortable. She has right shoulder pain from the surgery. She is getting medicated. VITAL SIGNS: 98.5 temperature, 95 pulse, 155/74 blood pressure, 21 respiratory rate, and 94% O2 on 4 L nasal cannula. HEENT: Head is normocephalic and normocephalic. Throat is moist. NECK: Supple. HEART: Regular rate. LUNGS: Decreased breath sounds, but clear to auscultation. No wheezes. No rhonchi. No rales. ABDOMEN: Morbidly obese, soft, and nontender. Positive bowel sounds. No guarding. No rebound. EXTREMITIES: Have no edema. LABORATORY DATA: She has 17 white count, 8.8 hemoglobin, 30.9 hematocrit with 293 platelets. Sodium 148, potassium 3.2 when we replaced the potassium, BUN 30, creatinine 0.5, and GFR is greater than 60. Sugar is 192, calcium is 8.2, and total bilirubin is 0.4. AST is 49, ALT is 26, alk phos is 72, and total protein is 5.5. ASSESSMENT AND PLAN: She is being seen by pulmonary, surgery, orthopedics, and cardiology. She had a right humeral fracture repair, status post mechanical fall, advanced chronic obstructive pulmonary disease, obstructive sleep apnea, and chronic anemia. Continue with treatment and care. She is going to need to go subacute rehab hopefully by tomorrow. She will be able to get that arranged for case management. Continue with IV antibiotics and postop care. We will check the labs tomorrow. Replace the potassium. Thomas Looney DO [facility] # [id number]
[2017-06-30] MEDS ORDERED: Enoxaparin 60 mg Syringe SC SCH (17:00)
[2017-06-30] MEDS: Morphine 2 mg/ml ISec IVP PRN ×2 (18:19→21:22)
[2017-07-01] MEDS: Morphine 2 mg/ml ISec IVP PRN ×3 (00:07→10:19)
[2017-07-01] MEDS: Albuterol-Ipratrop 3 mg / 0.5 (3 ml) UD IH SCH ×3 (01:12→14:02)
[2017-07-01 08:01] LABS: HEMOGLOBIN 9.8 g/dL (12.0-16.0); MEAN CELL VOLUME 77.6 fl (80.0-105.0); MEAN CORPUSCULAR HEMOGLOBIN 22.2 pg (25.0-35.0); MEAN CORPUSCULAR HGB CONC 28.6 g/dl (31.0-37.0); MEAN PLATELET VOLUME 9.4 fl (7.0-11.0); RBC 4.42 10^6/uL (3.5-6.1); RED CELL DISTRIBUTION WIDTH 19.2 % (11.5-14.5); WHITE BLOOD COUNT 18.5 10^3/ul (4.5-11.0)
[2017-07-01 08:13] LABS: ALB/GLOB RATIO 1.2 (1.1-1.8); ALBUMIN 3.3 g/dL (3.0-4.8); ALT/SGPT 33 U/L (7-56); AST/SGOT 51 U/L (15-39); BLOOD UREA NITROGEN 23 mg/dL (7-21); CALCIUM 9.2 mg/dL (8.4-10.5); GFR AFRICAN-AMERICAN > 60; GFR NON-AFRICAN AMERICAN > 60
[2017-07-01] MEDS: Potassium Chloride 20 mEq ER Tab PO SCH ×2 (08:31→10:21)
[2017-07-01] MEDS: Budesonide 0.5 mg/2 ml Inhal Susp UD IH SCH (08:39)
--- NOTE | 2017-07-01 09:06 | CP.PCM.PN ---
Subjective - Date & Time of Evaluation Date of Evaluation: 07/01/17 Time of Evaluation: 09:05 - Subjective Subjective: Pt awake, alert. c/o of shoulder pain. VSS, afebrile R shoulder: dressing intact NVI distally POD#2 cont sling dressing change tomorrow recommend prophylactic antibiotics Objective - Vital Signs/Intake and Output Vital Signs (last 24 hours): Temp Pulse Resp BP Pulse Ox 98.7 F 98 H 18 170/67 H 91 L 06/30/17 17:45 07/01/17 07:49 06/30/17 17:45 07/01/17 07:49 06/30/17 16:00 Intake and Output: 07/01/17 07/01/17 06:59 18:59 Intake Total 1020 Output Total 900 Balance 120 - Medications Medications: Current Medications Acetaminophen (Tylenol 325mg Tab) 650 mg PO Q6H PRN PRN Reason: Fever >100.4 F Albuterol/Ipratropium (Duoneb 3 Mg/0.5 Mg (3 Ml) Ud) 3 ml IH Q2H PRN PRN Reason: Shortness of Breath Last Admin: 06/30/17 00:25 Dose: 3 ml Albuterol/Ipratropium (Duoneb 3 Mg/0.5 Mg (3 Ml) Ud) 3 ml IH [id number] [facility] Last Admin: 07/01/17 08:39 Dose: 3 ml Aspirin (Ecotrin) 81 mg PO DAILY [facility] Last Admin: 06/28/17 09:44 Dose: 81 mg Atorvastatin Calcium (Lipitor) 10 mg PO HS [facility] Last Admin: 06/30/17 21:22 Dose: 10 mg Budesonide (Pulmicort Respules) 0.5 mg IH [id number] [facility] Last Admin: 07/01/17 08:39 Dose: 0.5 mg Bupropion HCl (Wellbutrin Xl) 300 mg PO DAILY [facility] Last Admin: 06/30/17 09:35 Dose: 300 mg Cyclobenzaprine HCl (Flexeril) 10 mg PO HS [facility] Last Admin: 06/30/17 21:22 Dose: 10 mg Diltiazem HCl (Cardizem Cd) 360 mg PO DAILY [facility] Last Admin: 06/30/17 09:30 Dose: 360 mg Enoxaparin Sodium (Lovenox) 60 mg SC Q24H [facility] PRN Reason: Protocol Last Admin: 06/30/17 18:19 Dose: 60 mg Furosemide (Lasix) 40 mg PO BID [facility] Last Admin: 06/30/17 18:29 Dose: Not Given Gabapentin (Neurontin) 100 mg PO TID PRN PRN Reason: for pain Last Admin: 06/30/17 23:11 Dose: 100 mg Glipizide (Glucotrol Xl) 10 mg PO BID [facility] Last Admin: 06/30/17 18:18 Dose: 10 mg Ceftriaxone Sodium (Rocephin 1 Gram Ivpb) 1 gm in 100 mls @ 100 mls/hr IVPB DAILY [facility] PRN Reason: Protocol Last Admin: 06/30/17 09:33 Dose: 100 mls/hr Lidocaine (Lidoderm) 1 ea TD DAILY PRN PRN Reason: BACK PAIN Last Admin: 06/27/17 15:40 Dose: 1 ea Metformin HCl (Glucophage) 1,000 mg PO BID [facility] Last Admin: 06/30/17 18:18 Dose: 1,000 mg Metoprolol Tartrate (Lopressor) 25 mg PO BID [facility] Last Admin: 07/01/17 07:49 Dose: 25 mg Montelukast Sodium (Singulair) 10 mg PO HS [facility] Last Admin: 06/30/17 21:22 Dose: 10 mg Morphine Sulfate (Morphine) 2 mg IVP Q3H PRN PRN Reason: Pain, moderate (4-7) Last Admin: 07/01/17 05:29 Dose: 2 mg Multivitamins (Thera Tab) 1 tab PO DAILY [facility] Last Admin: 06/30/17 09:35 Dose: 1 tab Budesonide ( Pulmicort Inh) - Home Med 2 puff IH BID [facility] Last Admin: 06/28/17 17:40 Dose: Not Given Ondansetron HCl (Zofran Inj) 4 mg IVP Q6H PRN PRN Reason: Nausea/Vomiting Last Admin: 06/28/17 09:36 Dose: 4 mg Pantoprazole Sodium (Protonix Ec Tab) 40 mg PO DAILY [facility] Last Admin: 06/30/17 09:33 Dose: 40 mg Potassium Chloride (K-Dur 20 Meq Er Tab) 20 meq PO DAILY [facility] Last Admin: 06/30/17 12:13 Dose: 20 meq Potassium Chloride (K-Dur 20 Meq Er Tab) 20 meq PO BRK [facility] Last Admin: 07/01/17 08:31 Dose: 20 meq Pramipexole Dihydrochloride (Mirapex) 0.25 mg PO HS [facility] Last Admin: 06/30/17 21:22 Dose: 0.25 mg Prednisone (Prednisone Tab) 10 mg PO DAILY [facility] Last Admin: 06/30/17 09:33 Dose: 10 mg Sertraline HCl (Zoloft) 75 mg PO DAILY [facility] Last Admin: 06/30/17 09:35 Dose: 75 mg Sitagliptin Phosphate (Januvia) 100 mg PO DAILY [facility] Last Admin: 06/30/17 09:31 Dose: 100 mg Theophylline (Anthony-24) 400 mg PO DAILY [facility] Last Admin: 06/30/17 12:11 Dose: 400 mg Trazodone HCl (Desyrel) 200 mg PO HS [facility] Last Admin: 06/30/17 21:22 Dose: 200 mg - Labs Labs: 07/01/17 07:30 07/01/17 07:30 PT 10.5 Seconds (9.9-11.8) 06/28/17 21:15 INR 0.97 (0.93-1.08) 06/28/17 21:15 APTT 26.9 Seconds (23.7-30.8) 06/28/17 21:15
[2017-07-01] MEDS: cefTRIAXone 1 gm 1 GM/100 ML BAG IVPB SCH (10:16)
[2017-07-01] MEDS: Theophylline 100mg ER 24 hrs Cap PO SCH (10:18)
[2017-07-01] MEDS: Multivitamin Therapeutic Tab PO SCH (10:18)
[2017-07-01] MEDS: Pantoprazole 40 mg EC Tab PO SCH (10:18)
[2017-07-01] MEDS: buPROPion 300 mg/24 Hours XL Tab PO SCH (10:19)
[2017-07-01] MEDS: diltiaZEM 180 mg/24 Hours CD Cap PO SCH (10:26)
[2017-07-01] MEDS: GlipiZIDE 10 mg SR Tab PO SCH (10:26)
[2017-07-01 10:27] VITALS: PULSE 88
--- NOTE | 2017-07-01 11:05 | PN ---
DATE: 07/01/2017 SUBJECTIVE: The patient appears comfortable this morning. She is not short of breath at rest. PHYSICAL EXAMINATION: VITAL SIGNS: Temperature 98.7, pulse 86, respirations 18, blood pressure 135/60, and oxygen saturation on nasal cannula is 94%. HEENT: Normocephalic, atraumatic. NECK: No JVD. CARDIOVASCULAR: Systolic ejection murmur at the low left sternal border. No S3 gallop. LUNGS: No rhonchi or wheezing this morning. GASTROINTESTINAL: Abdomen is soft, nontender, and nondistended. Bowel sounds are positive. EXTREMITIES: Positive for edema. No cyanosis or clubbing. The calves are nontender to palpation. The patient is status post right upper extremity surgery. SKIN: No acute rash. NEUROLOGIC: Limited at the present time. IMPRESSION: 1. Right humeral fracture, status post repair. 2. Status post mechanical fall. 3. Advanced chronic obstructive pulmonary disease. 4. Obstructive sleep apnea. 5. Chronic anemia. PLAN: The patient appears comfortable this morning. She is not short of breath at rest. She does state that she is feeling much better overall. On physical examination, there is no bronchospasm noted this morning. I will continue with the current nebulizer treatments, inhaled steroids, and low dose oral steroids for now. Orthopedic evaluation is ongoing. Input by Dr. Lopez is noted. Repeat a.m. labs are ordered. Clinical status of the patient has certainly improved - compared initial presentation. However, again, the overall status/prognosis for this chronically ill patient, remains very guarded. I will discuss the above with Dr. Looney. Wagner Ramos MD MTDD
[2017-07-01 11:19] VITALS: RESP 20; TEMP 97.8; O2SAT 95
[2017-07-01 11:58] VITALS: BP 145/74
--- NOTE | 2017-07-02 08:03 | DS ---
HISTORY OF PRESENT ILLNESS: She has a fall at home, broke her right shoulder, went for surgery. She is doing better. She is going to be discharged to a subacute rehab facility. She is being seen by Cardio, Orthopedics and Pulmonary. She is doing well. She has some pain. PHYSICAL EXAMINATION: VITAL SIGNS: She has a 98.7 temperature, 60 pulse, 135/60 blood pressure, 91% to 92% O2 saturation on room air, better with oxygen. HEENT: Head is atraumatic, normocephalic. HEART: Regular rate. LUNGS: Decreased breath sounds, but clear to auscultation. ABDOMEN: Soft, nontender, obese. Positive bowel sounds. No guarding, no rebound. EXTREMITIES: The right arm is in a sling. She has a right shoulder fracture, which repaired. MEDICATIONS: She is going to go to subacute rehab with the same medicine. She is on Pulmicort, Cardizem, Desyrel, DuoNeb, Ecotrin, Flexeril, Glucophage, Glucotrol, Januvia, potassium, Lasix, Lidoderm, Lipitor, Lopressor, Mirapex, morphine, Neurontin, prednisone, Protonix, Pulmicort, Rocephin, Singulair, Anthony-Dur, Thera-Tabs, Tylenol, Wellbutrin, Zofran and Zoloft.. LABORATORY DATA: She has 18.5 white count, on steroids, 11.8 hemoglobin, 34.3 hematocrit with 320 platelets. She has 141 sodium, potassium 3.5 better than the other day, BUN of 23, creatinine 0.7, GFR is greater than 60, sugar is 79, calcium is 9.2. AST is 51, ALT is 33, alkaline phosphatase is 84. ASSESSMENT AND PLAN: She is on potassium daily. She was here for fall, fractured right shoulder, status post repair. Hopefully, she will do very well. I will discharge her to subacute rehab as per Orthopedics. Thomas Looney DO
--- NOTE | 2017-07-02 08:21 | PN ---
DATE: 07/01/2017 SUBJECTIVE: The patient is tolerating her postop care really well. No symptoms noted. PHYSICAL EXAMINATION: VITAL SIGNS: Blood pressure 170/67. NECK: Negative JVD. LUNGS: Decreased breath sounds. HEART: S1 and S2. LABORATORY DATA: White count is 18.5. Chemistries; BUN and creatinine is 23 and 0.7. IMPRESSION: 1. Status post humeral fracture repair. 2. Diabetes mellitus. 3. Hypertension. 4. Severe chronic obstructive pulmonary disease. PLAN: Given these findings, we will order Clonidine to help control her blood pressure. Jagdeep Olmos MD
== END 2017-07-01 14:24 | DRG 483 ==
LOC: ED 02:25 → ERH 04:00 → 5RSO 06:18
PROVIDERS: ADMIT Family Medicine; ATTEND Family Medicine
PROC: 5A09357 Assistance with Respiratory Ventilation, Less than 24 Consecutive Hours, Continuous Positive Airway Pressure (ICD-10-PCS; 2017-06-25)
PROC: 30233N1 Transfusion of Nonautologous Red Blood Cells into Peripheral Vein, Percutaneous Approach (ICD-10-PCS; 2017-06-28)
PROC: 5A09457 Assistance with Respiratory Ventilation, 24-96 Consecutive Hours, Continuous Positive Airway Pressure (ICD-10-PCS; 2017-06-28)
PROC: 0RRJ0J6 Replacement of Right Shoulder Joint with Synthetic Substitute, Humeral Surface, Open Approach (ICD-10-PCS; principal; 2017-06-29 11:30)
DX: S42.201A Unspecified fracture of upper end of right humerus, initial encounter for closed fracture (principal); S62.617A Displaced fracture of proximal phalanx of left little finger, initial encounter for closed fracture; Z68.43 Body mass index [BMI] 50.0-59.9, adult; I50.9 Heart failure, unspecified; I11.0 Hypertensive heart disease with heart failure; E11.9 Type 2 diabetes mellitus without complications; J44.9 Chronic obstructive pulmonary disease, unspecified; E66.01 Morbid (severe) obesity due to excess calories; D64.9 Anemia, unspecified; G47.33 Obstructive sleep apnea (adult) (pediatric); K21.9 Gastro-esophageal reflux disease without esophagitis; F41.9 Anxiety disorder, unspecified; F32.9 Major depressive disorder, single episode, unspecified; H54.7 Unspecified visual loss; R25.1 Tremor, unspecified; K59.00 Constipation, unspecified; W01.0XXA Fall on same level from slipping, tripping and stumbling without subsequent striking against object, initial encounter; Z99.81 Dependence on supplemental oxygen; Y92.019 Unspecified place in single-family (private) house as the place of occurrence of the external cause; Z79.84 Long term (current) use of oral hypoglycemic drugs; Z79.82 Long term (current) use of aspirin; Z87.891 Personal history of nicotine dependence; Z79.52 Long term (current) use of systemic steroids